=== PATIENT | female | born 1940 | race Caucasian/White ===

== ENCOUNTER 2021-01-15 12:33 | Inpatient (IN) | payer MEDICARE, SELFPAY ==
--- NOTE | ~2021-01-15 | CT_ITS ---
EXAMINATION: CT ANGIOGRAM ABDOMEN AND PELVIS CLINICAL INFORMATION: GI bleed, bright red blood with clots. COMPARISON: None TECHNIQUE: Multiple axial images were obtained through the abdomen and pelvis using gently protocol with noncontrast imaging and arterial and delayed imaging following the administration of 80 mL of Omnipaque 350 intravenous contrast. Images were reviewed on a dedicated 3-D workstation. This CT examination was performed using dose optimization techniques as appropriate, variously including the following: *Automated exposure control *Adjustment of mA and/or kV according to patient size (this includes techniques or standardized protocols for targeted exams where dose is matched to indication/reason for exam; i.e. extremities or head) *Use of iterative reconstruction technique DLP: 1557 mGy-cm FINDINGS: LUNG BASES: Aortic valve calcifications. Heart is mildly enlarged. LIVER, GALLBLADDER, AND BILIARY TREE: The liver is normal in size, shape, and attenuation. No focal hepatic lesion or biliary ductal dilatation is present. The gallbladder is unremarkable with no evidence of radiopaque gallstones, gallbladder wall thickening, or obvious pericholecystic inflammatory changes. PANCREAS: Unremarkable. SPLEEN: Unremarkable. ADRENAL GLANDS: Unremarkable. KIDNEYS AND URETERS: The kidneys are normal in size, shape, and attenuation. No hydronephrosis, hydroureter, or calculi seen. No perinephric stranding. Bilateral peripelvic cysts which do not require additional imaging follow-up. BLADDER: Unremarkable. GASTROINTESTINAL TRACT: Stomach and small bowel are relatively decompressed. Moderate stool burden throughout the colon. The sigmoid colon is abnormal with enhancing masslike lesion concerning for underlying malignancy versus a subacute/chronic inflammatory process. There are adjacent pericolonic lymph nodes which measure up to 8 mm in size. Fairly extensive sigmoid colon diverticulosis with some adjacent inflammatory stranding in the pelvis. ABDOMINAL WALL: No significant hernia is appreciated. VASCULAR: Moderate calcified and noncalcified plaque throughout the aorta and iliac system. LYMPH NODES: There are multiple prominent but subcentimeter lymph nodes adjacent to the sigmoid colon and a few scattered within the retroperitoneum. PELVIC VISCERA: Some calcified uterine fibroids. OSSEOUS STRUCTURES: Degenerative changes in the spine. CT/CT gi bleed abd pel wo/w con IMPRESSION: There is masslike thickening of the sigmoid colon. There are prominent but subcentimeter lymph nodes adjacent to the abnormal sigmoid colon. There is some pericolonic stranding. These findings may be related to subacute diverticulitis however an underlying malignancy is also a concern here. No evidence for active bleeding on the current exam. This critical result was discussed with Katiuska Francis at 7:50 PM on 01/15/2021 and it was ascertained that the content and urgency of the report was understood at the time of direct communication.
[2021-01-15 12:45] VITALS: BP 166/97; PULSE 99; RESP 18; TEMP 37.3; O2SAT 96; BMI 28.5
[2021-01-15 15:22] LABS: MANUAL DIFF FLAG NO
[2021-01-15 15:27] LABS: Basophils Absolute Auto 0.1 X10*3/uL (0.0-0.2); Basophils Percent Auto 0.5 % (0-2); Eosinophils Absolute Auto 0.2 X10*3/uL (0.0-0.4); Eosinophils Percent Auto 1.2 % (0-4); Hematocrit 36.5 % (37-47); Hemoglobin 11.7 g/dl (12.0-16.0); Imm Gran Abs Auto 0.06 X10*3/uL (0.00-0.03); Imm Gran Pct Auto 0.5 % (0.0-0.4); Lymphocytes Absolute Auto 1.9 X10*3/uL (1.2-4.9); Lymphocytes Percent Auto 15.7 % (20-40); Mean Corpuscular HGB Conc 32.1 g/dl (31.0-35.0); Mean Corpuscular Hemoglobin 29.3 pg (27.0-33.0); Mean Corpuscular Volume 91.5 fL (80-98); Mean Platelet Volume 9.2 fL (9.4-12.3); Monocytes Absolute Auto 0.8 X10*3/uL (0.1-1.2); Monocytes Percent Auto 6.6 % (2-11); Neutrophils Absolute Auto 9.1 X10*3/uL (2.0-8.3); Neutrophils Percent Auto 75.5 % (45-73); Platelet Count 463 X10*3/uL (160-400); Red Blood Count 3.99 X10*6/uL (4.20-5.50); Red Cell Distribution Width 13.4 % (11.0-16.0); White Blood Count 12.1 X10*3/uL (4.8-10.8)
[2021-01-15 15:44] LABS: Anion Gap 13 (12-20); Blood Urea Nitrogen 9 mg/dL (9-16); Calcium 9.6 mg/dL (8.4-10.2); Carbon Dioxide 29 mmol/L (22-29); Chloride 105 mmol/L (96-108); Creatinine Clr Calc Pharmacy 51.6; Estimated Glomerular Filt Rate > 60; Glucose Random 106 mg/dL (60-115); Potassium 4.4 mmol/L (3.3-5.1); Sodium 143 mmol/L (135-145)
--- NOTE | 2021-01-15 17:11 | ED_ITS ---
HPI - GI Bleed General Chief complaint: GI Bleed Stated complaint: rectal bleeding Time Seen by Provider: 01/15/21 17:02 Source: patient Mode of arrival: ambulatory Limitations: no limitations History of Present Illness HPI Narrative: 80-year-old female with no significant past medical history presents with several days of bright red blood per rectum with blood clots and abdominal pain. States that she has been able to eat and drink without difficulty, and has not had an experience like this in the past. She did not report any dizziness, lightheadedness, nausea, vomiting, diarrhea, constipation, dysuria, hematuria, chest pain, chest pressure, palpitations, shortness of breath, shortness breath on exertion, or edema. MD complaint: gross hematochezia Onset (ago): day(s) Pain Consistency: constant Severity: moderate Relieving factors: none Exacerbating factors: bowel movement Context: hemorrhoids Associated symptoms: abdominal pain Treatments Prior to Arrival: none Related Data Home Medications Medication Instructions Recorded Confirmed No Known Home Meds 01/15/21 01/15/21 Allergies Allergy/AdvReac Type Severity Reaction Status Date / Time No Known Allergies Allergy Verified 01/15/21 12:45 [No Known Allergies*] Review of Systems Review of Systems: Constitutional: No Weight loss, No Fever, No Chills, No Night Sweats, No Fatigue, No Malaise ENT/Mouth: No Hearing loss, No Ear Pain, No Nasal Congestion, No Sinus Pain, No Hoarseness, No sore throat, No Rhinorrhea, No Swallowing Difficulty Eyes: No Eye Pain, No Swelling, No Redness, No Foreign Body, No Discharge, No Vision Changes Cardiovascular: No Chest Pain, No SOB, No Dyspnea on Exertion, No Orthopnea, No Edema, No Palpitations Respiratory: No Cough, No Sputum, No Wheezing, No Smoke Exposure, No Dyspnea Gastrointestinal: No Nausea, no Vomiting, no Diarrhea, positive abdominal Pain, positive Hematochezia, No Melena Genitourinary: no irregular bleeding, No Dysuria, No Urinary Frequency, No Hematuria, No Urinary Incontinence, No Urgency, No Flank Pain, No Urinary Flow Changes, No Hesitancy Musculoskeletal: No joint pain, No Myalgias, No Joint Swelling Skin: No Skin Lesions, No rash Neuro: No Weakness, No Numbness, No Paresthesias, No Loss of Consciousness, No Dizziness, No Headache Psych: No Anxiety/Panic, No Depression, No SI/HI/AH/VH, No Social Issues Heme/Lymph: No Bruising, No Bleeding,No Lymphadenopathy Endocrine: No Polyuria, No Polydipsia, No Temperature Intolerance Yes all other systems are reviewed and are negative [facility] Past Medical History Attestation statement: The following information was validated with the patient. Source: old records reviewed Medical History Patient denies medical problems Social History Social History Advance Directives: No Advance Directives Information Provided: Yes Physical Exam Vital Signs: Vital Signs: Last Vital Signs Temp 97.9 F 01/15/21 22: Pulse 68 01/15/21 22:27 Resp 19 01/15/21 22: BP 200/67 H 01/15/21 22: Pulse Ox 98 01/15/21 22: Body Mass Index 28.5 Appearance: Alert. Oriented X3. No acute distress. Head: Normal external exam. Normocephalic. Atraumatic. No [place] signs noted. No raccoon eyes noted Eyes: PERRLA. EOMI. Conjunctiva and sclera normal. Eyelids normal. ENT: TM's Normal. Pharynx normal. Uvula midline. Moist mucous membranes. No t rismus noted. No drooling noted. No muffled voice noted. Neck: Normal inspection. Neck supple. No adenopathy. Thyroid Normal. No meningeal signs. No neck mass noted. CVS: Tachycardic heart rate and rhythm. Heart sound normal. No murmurs noted. Pulses equal to all extremities. Respiratory: No respiratory distress. Painless inspiration. Breath sounds normal. No wheezes/rales/rhonchi noted. Chest nontender. No accessory muscle usage noted or decreased air movement noted. Abdomen: Soft and tender to the lower quadrants bilaterally. Bowel sounds normal in all 4 quadrants. No distention noted. No organomegaly noted. No visible injury noted. Gross hematochezia. Back: No CVA tenderness. Full range of motion noted. Skin: Skin warm and dry. Normal skin color. Normal skin turgor. No ra shes/lesions/lacerations noted. Extremities: No lower extremity edema. Extremities exhibit normal range of motion. Extremities nontender. Neuro: cranial nerves 2-12 intact, no focal neural deficits, strength 5/5 to all extremities, No motor deficit. No sensory deficit. Course Course Course Narrative: 80-year-old female presents with abdominal pain and bright red blood per rectum with large blood clots since Friday. Patient did have a bowel movement with large bright red clots per rectum, will order CT scan per GI bleed protocol. Patient does have an elevated white count at 12.1, H&H 11.7/36.5 which is slightly lower than her prior values of 12.2/37.7. Platelet count is 436, while patient does have an elevated white count and heart rate of 99 I do not feel that this is sepsis as she is actively bleeding rectally. Blood pressure is stable at 160/97. 7:54 p.m. discussion with [facility] regarding CT scan results diverticulitis or sigmoid mass. Given ceftriaxone and Flagyl IV. Discussion with family regarding plan to admit for colitis versus possible mass. 8:07 p.m. discussion with hospitalist regarding plan of care. Plan is to admit for diverticulitis possible sigmoid mass. Consultations Consultation #1: Adriel Time: 20:07 [facility] - GI Bleed Differential Diagnosis Differential diagnosis: Likely hemorrhoids, Lower gastrointestinal hemorrhage, hematochezia, melena and anal fissure Medical Records Attestation: I reviewed the patient's medical records. Lab Data Attestation: I reviewed the patient's lab results. Result diagrams: 01/15/21 15:15 01/15/21 15:15 Labs: Lab Results 01/15/21 01/15/21 01/15/21 Range/Units 15:15 15:15 17:52 WBC 12.1 H (4.8-10.8) X10*3/uL RBC 3.99 L (4.20-5.50) X10*6/uL Hgb 11.7 L (12.0-16.0) g/dl Hct 36.5 L (37-47) % MCV 91.5 (80-98) fL MCH 29.3 (27.0-33.0) pg MCHC 32.1 (31.0-35.0) g/dl RDW 13.4 (11.0-16.0) % Plt Count 463 H (160-400) X10*3/uL MPV 9.2 L (9.4-12.3) fL Immature Gran % (Auto) 0.5 H (0.0-0.4) % Neut % (Auto) 75.5 H (45-73) % Lymph % (Auto) 15.7 L (20-40) % [place] % (Auto) 6.6 (2-11) % Eos % (Auto) 1.2 (0-4) % Baso % (Auto) 0.5 (0-2) % Lymph # (Auto) 1.9 (1.2-4.9) X10*3/uL [place] # (Auto) 0.8 (0.1-1.2) X10*3/uL Eos # (Auto) 0.2 (0.0-0.4) X10*3/uL Baso # (Auto) 0.1 (0.0-0.2) X10*3/uL Abs Immat Gran (auto) 0.06 H (0.00-0.03) X10*3/uL Absolute Neuts (auto) 9.1 H (2.0-8.3) X10*3/uL Absolute Nucleated RBC 0.000 (0.0-0.012) X10*3/uL Nucleated RBC % (auto) 0.0 (0.0-0.2) /100WBC Sodium 143 (135-145) mmol/L Potassium 4.4 (3.3-5.1) mmol/L Chloride 105 (96-108) mmol/L Carbon Dioxide 29 (22-29) mmol/L Anion Gap 13 (12-20) BUN 9 (9-16) mg/dL Creatinine 0.73 (0.5-1.4) mg/dL Estim Creat Clear Calc 51.6 Estimated GFR > 60 Random Glucose 106 (60-115) mg/dL Lactic Acid (0.5-2.0) mmol/L Calcium 9.6 (8.4-10.2) mg/dL Troponin I High Sens 16.3 (<3.5-17.0) ng/L Urine Color Urine Appearance Urine pH (5.0-8.0) Ur Specific [place] (1.005-1.025) Urine Protein (NEG-TRACE) MG/DL Urine Glucose (UA) (NEG) MG/DL Urine Ketones (NEG) MG/DL Urine Blood (NEG) Urine Nitrite (NEG) Ur Leukocyte Esterase (NEG) Urine RBC (0) /HPF Urine WBC (0-4) /HPF Ur Squamous Epith Cells /LPF Urine Bacteria /LPF COVID-19 ([facility]) (Negative) COVID-19 Clin Com 01/15/21 01/15/21 01/15/21 Range/Units 20:32 21:07 22:32 WBC (4.8-10.8) X10*3/uL RBC (4.20-5.50) X10*6/uL Hgb (12.0-16.0) g/dl Hct (37-47) % MCV (80-98) fL MCH (27.0-33.0) pg MCHC (31.0-35.0) g/dl RDW (11.0-16.0) % Plt Count (160-400) X10*3/uL MPV (9.4-12.3) fL Immature Gran % (Auto) (0.0-0.4) % Neut % (Auto) (45-73) % Lymph % (Auto) (20-40) % [place] % (Auto) (2-11) % Eos % (Auto) (0-4) % Baso % (Auto) (0-2) % Lymph # (Auto) (1.2-4.9) X10*3/uL [place] # (Auto) (0.1-1.2) X10*3/uL Eos # (Auto) (0.0-0.4) X10*3/uL Baso # (Auto) (0.0-0.2) X10*3/uL Abs Immat Gran (auto) (0.00-0.03) X10*3/uL Absolute Neuts (auto) (2.0-8.3) X10*3/uL Absolute Nucleated RBC (0.0-0.012) X10*3/uL Nucleated RBC % (auto) (0.0-0.2) /100WBC Sodium (135-145) mmol/L Potassium (3.3-5.1) mmol/L Chloride (96-108) mmol/L Carbon Dioxide (22-29) mmol/L Anion Gap (12-20) BUN (9-16) mg/dL Creatinine (0.5-1.4) mg/dL Estim Creat Clear Calc Estimated GFR Random Glucose (60-115) mg/dL Lactic Acid 0.9 (0.5-2.0) mmol/L Calcium (8.4-10.2) mg/dL Troponin I High Sens (<3.5-17.0) ng/L Urine Color COLORLESS Urine Appearance CLEAR Urine pH 7.5 (5.0-8.0) Ur Specific [place] 1.010 (1.005-1.025) Urine Protein NEG (NEG-TRACE) MG/DL Urine Glucose (UA) NEG (NEG) MG/DL Urine Ketones NEG (NEG) MG/DL Urine Blood NEG (NEG) Urine Nitrite NEG (NEG) Ur Leukocyte Esterase NEG (NEG) Urine RBC 0-2 (0) /HPF Urine WBC 0-2 (0-4) /HPF Ur Squamous Epith Cells TRACE /LPF Urine Bacteria NONE /LPF COVID-19 ([facility]) Negative (Negative) COVID-19 Clin Com See Note Imaging Data CT scan - abdomen: Attestation: I personally reviewed and interpreted this imaging study as follows: Radiologist's impression: FINDINGS: LUNG BASES: Aortic valve calcifications. Heart is mildly enlarged. LIVER, GALLBLADDER, AND BILIARY TREE: The liver is normal in size, shape, and attenuation. No focal hepatic lesion or biliary ductal dilatation is present. The gallbladder is unremarkable with no evidence of radiopaque gallstones, gallbladder wall thickening, or obvious pericholecystic inflammatory changes. PANCREAS: Unremarkable. SPLEEN: Unremarkable. ADRENAL GLANDS: Unremarkable. KIDNEYS AND URETERS: The kidneys are normal in size, shape, and attenuation. No hydronephrosis, hydroureter, or calculi seen. No perinephric stranding. Bilateral peripelvic cysts which do not require additional imaging follow-up. BLADDER: Unremarkable. GASTROINTESTINAL TRACT: Stomach and small bowel are relatively decompressed. Moderate stool burden throughout the colon. The sigmoid colon is abnormal with enhancing masslike lesion concerning for underlying malignancy versus a subacute/chronic inflammatory process. There are adjacent pericolonic lymph nodes which measure up to 8 mm in size. Fairly extensive sigmoid colon diverticulosis with some adjacent inflammatory stranding in the pelvis. ABDOMINAL WALL: No significant hernia is appreciated. VASCULAR: Moderate calcified and noncalcified plaque throughout the aorta and iliac system. LYMPH NODES: There are multiple prominent but subcentimeter lymph nodes adjacent to the sigmoid colon and a few scattered within the retroperitoneum. PELVIC VISCERA: Some calcified uterine fibroids. OSSEOUS STRUCTURES: Degenerative changes in the spine. CT/CT gi bleed abd pel wo/w con IMPRESSION: There is masslike thickening of the sigmoid colon. There are prominent but subcentimeter lymph nodes adjacent to the abnormal sigmoid colon. There is some pericolonic stranding. These findings may be related to subacute diverticulitis however an underlying malignancy is also a concern here. No evidence for active bleeding on the current exam. This critical result was discussed with Katiuska Francis at 7:50 PM on 01/15/2021 and it was ascertained that the content and urgency of the report was understood at the time of direct communication ECG Data Attestation: I personally reviewed and interpreted this ECG as follows: ECG interpretation date: 01/15/21 ECG interpretation time: 17:35 Interpretation: Vent. rate 71 BPM AL interval 192 ms QRS duration 86 ms QT/QTc 402/436 ms P-R-T axes 60 6 50 Normal sinus rhythm Normal ECG When compared with ECG of 21-JUL-2018 22:24, Nonspecific T wave abnormality no longer evident in Lateral leads Critical Care Time Critical Care Time Critical Care Time: Yes Total Critical Care Time: 45 Attestation: I have personally provided critical care time exclusive of time spent on separately billable procedures. Time includes review of laboratory data, radiology results, discussion with consultants, and monitoring for potential decompensation. Interventions were performed as documented. Discharge Plan Discharge Clinical Impression: Colitis, Bright red rectal bleeding Patient Disposition: Admitted As Inpatient
--- NOTE | 2021-01-15 17:13 | ECG_ITS ---
Test Reason : ?GI Blood Pressure : / mmHG Vent. Rate : 071 BPM Atrial Rate : 071 BPM P-R Int : 192 ms QRS Dur : 086 ms QT Int : 402 ms P-R-T Axes : 060 006 050 degrees QTc Int : 436 ms Normal sinus rhythm Normal ECG When compared with ECG of 21-JUL-2018 22:24, Nonspecific T wave abnormality no longer evident in Lateral leads Referred By: Katiuska Cardozo Electronically Signed By:CINDY SHUKLA MD
[2021-01-15 18:44] LABS: Troponin-I High Sensitivity 16.3 ng/L (<3.5-17.0)
[2021-01-15] MEDS: iohexoL 350 MG/ML 100 ML INFUS..BTL IV (18:45)
--- NOTE | 2021-01-15 19:42 | PC.NURSE ---
PT IN ROOM AFTER CT. PT REMAINS ALERT RESPIRATIONS EASY, N/L .
[2021-01-15 19:54] VITALS: BP 202/73; PULSE 70; RESP 16; O2SAT 97
--- NOTE | 2021-01-15 20:21 | PC.NURSE ---
blood cultures and lactic acid drawn to lab. pt medicated as per emar.
[2021-01-15 20:32] VITALS: BP 196/73; PULSE 67; RESP 15; TEMP 36.7; O2SAT 97
[2021-01-15] MEDS: cefTRIAXone sodium 1 GM in 0.9 % Sodium Chloride 50 ML IV (21:10)
[2021-01-15] MEDS: 0.9 % Sodium Chloride 1,000 ML 999 ML IVCONT (21:11)
[2021-01-15 21:15] LABS: Lactic Acid 0.9 mmol/L (0.5-2.0)
[2021-01-15 21:15] LABS: Glucose Urine UA NEG (NEG); Leukocyte Esterase Urine NEG (NEG); Nitrite Urine NEG (NEG); PH 7.5 (5.0-8.0); Urine Blood NEG (NEG); Urine Ketones NEG (NEG); Urine Protein NEG (NEG-TRACE)
[2021-01-15 21:18] LABS: Appearance Urine CLEAR; Color Urine COLORLESS
[2021-01-15 21:22] LABS: RBC Urine 0-2 /HPF (0); Squamous Epithelial Cell Urine TRACE /LPF; WBC Urine 0-2 /HPF (0-4)
[2021-01-15] MEDS: metroNIDAZOLE/NS 500 MG/100 ML PIGGYBACK 100 MG IV (21:22)
[2021-01-15 22:27] VITALS: BP 200/67; PULSE 68; RESP 19; TEMP 36.6; O2SAT 98
[2021-01-15 22:51] LABS: COVID-19 Test Negative (Negative)
--- NOTE | 2021-01-15 23:23 | P.HPHOSP_ITS ---
History of Present Illness Date of Service: 01/15/21 Chief Complaint: GI bleed This is a 80-year-old female with no significant past medical history who presents to the hospital with complaints of GI bleed. Patient reports that she has been having intermittent bleeding couple of times a week for the past 1 month, mostly with bowel movements. She did not seek medical attention prior to this because she thought it would go way spontaneously. She felt that her GI bleed was worsening and therefore came to the hospital. She denies any abdominal pain, no nausea or vomiting, good appetite, no weight loss. Patient reports history of hemorrhoids and reports that she was evaluated for them about a year ago although I do not find any record of it in our system. She denies having any chest pain, no dizziness, no headache, change in vision, no shortness of breath, no urinary symptoms and no lower extremity edema. Patient had 1 bloody bowel movement while in the ED. she denies any use of NSAIDs. On arrival to the ED patient hemodynamically Stable with no significant abnormal vitals Labs are significant for WBC count of 12.1, hemoglobin of 11.7, labs otherwise unremarkable. CT of the abdomen showed masslike thickening of the sigmoid colon, prominent but subcentimeter lymph nodes adjacent to the abnormal sigmoid colon. There is some pericolonic stranding, may be related to subacute diverticulitis versus underlying malignancy. No evidence of acute bleed Patient will be admitted for further evaluation Review of Systems Review of Systems: Yes all other systems are reviewed and are negative [facility] Medical History Patient denies medical problems Social History Household Members: Spouse Housing: House Do you presently have visiting nurse or other home services: No Smoking Status: Never smoker Use of substances other than those prescribed or required for medical reasons: No Have you been hit, kicked, punched, or otherwise hurt by someone within the past year? If so, by whom?: No Do you feel safe in your current relationship?: Yes Is there a partner from a previous relationship who is making you feel unsafe now?: No Are you made to feel afraid or neglected: No Advance Directives: No Advance Directives Information Provided: Yes Do you have thoughts of harming others: None Do you have a plan to hurt others: No Plan Recently lost weight without trying: No How much weight loss: Not applicable Nutrition Risks: No Nutritional Risk Patient : No : No Poor oral hygiene: No Meds Allergies Allergy/AdvReac Type Severity Reaction Status Date / Time No Known Allergies Allergy Verified 01/15/21 12:45 [No Known Allergies*] Active Medications: Current Medications Generic Name Dose Route Start Last Admin Trade Name Freq PRN Reason Stop Dose Admin Pharmacy Consult 1 each 01/15/21 20:56 Consult Rx Perform Med Rec MISCELLANE ONCE PRN Consult order Home Medications Medication Instructions Recorded Confirmed Last Taken Type No Known Home Meds 01/15/21 01/15/21 Unknown History Physical Exam Vital Signs and Narrative: Vital Signs: Last Vital Signs Temp 97.9 F 01/15/21 22:27 Pulse 68 01/15/21 22:27 Resp 19 01/15/21 22:27 BP 200/67 H 01/15/21 22:27 Pulse Ox 98 01/15/21 22:27 Body Mass Index 28.5 Const: General: cooperative and no acute distress Orientation/ consciousness: patient oriented x3 Eyes: General: appearance normal, both eyes and all related structures Resp: Effort & Inspection: normal respiratory effort and able to speak in complete sentences Auscultation: clear to auscultation bilaterally Cardio: Rate: regular rate Rhythm: regular rhythm GI: Palpation (GI): Soft to palpation Auscultation: normal bowel sounds Skin: General skin exam: no rashes or lesions noted Neuro: General: patient oriented x3 Cognition (Neuro): normal cognition Extrem: General: Yes normal to inspection and Yes no pedal edema Results Labs CBC and Chem 7: 01/15/21 15:15 01/15/21 15:15 Labs: Laboratory Results - last 24 hr 01/15/21 01/15/21 01/15/21 15:15 15:15 17:52 MCV 91.5 MCH 29.3 MCHC 32.1 RDW 13.4 Plt Count 463 H MPV 9.2 L Immature Gran % (Auto) 0.5 H Neut % (Auto) 75.5 H Lymph % (Auto) 15.7 L [place] % (Auto) 6.6 Eos % (Auto) 1.2 Baso % (Auto) 0.5 Lymph # (Auto) 1.9 [place] # (Auto) 0.8 Eos # (Auto) 0.2 Baso # (Auto) 0.1 Abs Immat Gran (auto) 0.06 H Absolute Neuts (auto) 9.1 H Absolute Nucleated RBC 0.000 Nucleated RBC % (auto) 0.0 Anion Gap 13 Estim Creat Clear Calc 51.6 Estimated GFR > 60 Random Glucose 106 Lactic Acid Calcium 9.6 Troponin I High Sens 16.3 Urine Color Urine Appearance Urine pH Ur Specific [place] Urine Protein Urine Glucose (UA) Urine Ketones Urine Blood Urine Nitrite Ur Leukocyte Esterase Urine RBC Urine WBC Ur Squamous Epith Cells Urine Bacteria COVID-19 ([facility]) COVID-19 Clin Com 01/15/21 01/15/21 01/15/21 20:32 21:07 22:32 MCV MCH MCHC RDW Plt Count MPV Immature Gran % (Auto) Neut % (Auto) Lymph % (Auto) [place] % (Auto) Eos % (Auto) Baso % (Auto) Lymph # (Auto) [place] # (Auto) Eos # (Auto) Baso # (Auto) Abs Immat Gran (auto) Absolute Neuts (auto) Absolute Nucleated RBC Nucleated RBC % (auto) Anion Gap Estim Creat Clear Calc Estimated GFR Random Glucose Lactic Acid 0.9 Calcium Troponin I High Sens Urine Color COLORLESS Urine Appearance CLEAR Urine pH 7.5 Ur Specific [place] 1.010 Urine Protein NEG Urine Glucose (UA) NEG Urine Ketones NEG Urine Blood NEG Urine Nitrite NEG Ur Leukocyte Esterase NEG Urine RBC 0-2 Urine WBC 0-2 Ur Squamous Epith Cells TRACE Urine Bacteria NONE COVID-19 ([facility]) Negative COVID-19 Clin Com See Note Imaging Radiologist's Impressions: Impressions Abdomen/Pelvis CT 01/15/21 17:13 IMPRESSION: There is masslike thickening of the sigmoid colon. There are prominent but subcentimeter lymph nodes adjacent to the abnormal sigmoid colon. There is some pericolonic stranding. These findings may be related to subacute diverticulitis however an underlying malignancy is also a concern here. No evidence for active bleeding on the current exam. This critical result was discussed with Katiuska Francis at 7:50 PM on 01/15/2021 and it was ascertained that the content and urgency of the report was understood at the time of direct communication. Assessment and Plan (1) Bright red rectal bleeding: Status: Acute (2) Diverticulitis: Status: Acute This is a 80-year-old female with no past medical history presents to the hospital with complaints of GI bleed. # GI bleed - hemorrhoids versus diverticular - had 1 episode of bright red blood per rectum in the ED - hemodynamically stable - evidence of diverticulitis versus malignant mass in the sigmoid per CT - no history of NSAID use - hemoglobin stable - normal BUN Plan: - will keep NPO - hemoglobin threshold for transfusion less than 7 - consult GI for possible colonoscopy given the concern for malignancy # diverticulitis - has leukocytosis, and evidence of possible diverticulitis on CT - will start on IV antibiotic - follow culture DVT prophylaxis: SCDs
[2021-01-16] VITALS (8 sets, daily range): BP systolic 174–198; BP diastolic 70–85; PULSE 65–81; RESP 18; TEMP 36.2–36.8; O2SAT 96–98
[2021-01-16] MEDS: 0.9 % Sodium Chloride Flush 3 ML SYRINGE IVFLUSH ×3 (02:49→15:33)
[2021-01-16 06:25] LABS: MANUAL DIFF FLAG NO
[2021-01-16 06:37] LABS: Basophils Absolute Auto 0.1 X10*3/uL (0.0-0.2); Basophils Percent Auto 0.6 % (0-2); Eosinophils Absolute Auto 0.2 X10*3/uL (0.0-0.4); Hematocrit 35.6 % (37-47); Hemoglobin 11.4 g/dl (12.0-16.0); Imm Gran Abs Auto 0.06 X10*3/uL (0.00-0.03); Imm Gran Pct Auto 0.6 % (0.0-0.4); Lymphocytes Absolute Auto 1.4 X10*3/uL (1.2-4.9); Lymphocytes Percent Auto 13.4 % (20-40); Mean Corpuscular Hemoglobin 29.2 pg (27.0-33.0); Mean Corpuscular Volume 91.3 fL (80-98); Mean Platelet Volume 9.6 fL (9.4-12.3); Monocytes Absolute Auto 0.7 X10*3/uL (0.1-1.2); Monocytes Percent Auto 7.3 % (2-11); Neutrophils Absolute Auto 7.7 X10*3/uL (2.0-8.3); Neutrophils Percent Auto 76.1 % (45-73); Platelet Count 438 X10*3/uL (160-400); Red Cell Distribution Width 13.4 % (11.0-16.0); White Blood Count 10.2 X10*3/uL (4.8-10.8)
[2021-01-16 07:07] LABS: Anion Gap 12 (12-20); Blood Urea Nitrogen 7 mg/dL (9-16); Carbon Dioxide 28 mmol/L (22-29); Chloride 107 mmol/L (96-108); Creatinine Clr Calc Pharmacy 60.8; Estimated Glomerular Filt Rate > 60; Glucose Random 94 mg/dL (60-115); Potassium 4.1 mmol/L (3.3-5.1); Sodium 143 mmol/L (135-145)
[2021-01-16 07:20] LABS: Calcium 8.7 mg/dL (8.4-10.2)
[2021-01-16] MEDS: levoFLOXacin/D5W 500 MG/100 ML PIGGYBACK 100 MG IV (10:13)
[2021-01-16] MEDS: metroNIDAZOLE/NS 500 MG/100 ML PIGGYBACK 100 MG IV ×2 (10:13→20:39)
[2021-01-16 10:31] LABS: Hemoglobin 12.2 g/dl (12.0-16.0)
--- NOTE | 2021-01-16 12:21 | PM.GICN ---
History of Present Illness Data of Consult Service Date: 01/16/21 Requesting physician: Adam Morel Primary Care Provider: None Physician HPI Reason for consult: rectal bleeding 80-year-old female with no significant past medical history who I am seeing for assessment for rectal bleeding. She has been having intermittent bleeding couple of times a week for the past 1-2 month, mostly with bowel movements. She also noted that around the same time the stool changed consistency and was more mushy than her normal. Appetite has been good, no weight loss per her report. She felt the bleeding was getting worse with time so finally came to the ED for assessment She denies having any chest pain, no dizziness, no headache, change in vision, no shortness of breath, no urinary symptoms and no lower extremity edema She denies any abdominal pain, no nausea or vomiting, good appetite, no weight loss she denies any use of NSAIDs. She has never had an EGD or colonoscopy, and no FH of CRC. TESTS: WBC count of 12.1, hemoglobin of 11.7, labs otherwise unremarkable. CT of the abdomen showed masslike thickening of the sigmoid colon, prominent but subcentimeter lymph nodes adjacent to the abnormal sigmoid colon. There is some pericolonic stranding, may be related to subacute diverticulitis versus underlying malignancy. No evidence of acute bleed Review of Systems Review of Systems: Constitutional : No Weight loss, No Fever, No Chills ENT/Mouth : No sore throat, No Rhinorrhea Eyes: No Swelling, No Redness Cardiovascular : No Chest Pain, No SOB, No Edema Respiratory : No Cough, No Sputum, No Wheezing Gastrointestinal : see HPI Genitourinary : NO Dysuria, No Urinary Frequency, No Hematuria, No Urgency Musculoskeletal : No joint pain, No Myalgias, No Joint Swelling Skin : No Skin Lesions, No rash Neuro : No Weakness, No Numbness, No Dizziness, No Headache Psych : No Anxiety/Panic, No Depression Heme/Lymph: No Bruising, No Lymphadenopathy Endocrine : No Polyuria, No Polydipsia All other systems reviewed and are negative. [facility] Past Medical History Medical History Patient denies medical problems Social History Social History Household Members: Spouse Housing: House Do you presently have visiting nurse or other home services: No Smoking Status: Never smoker Use of substances other than those prescribed or required for medical reasons: No Have you been hit, kicked, punched, or otherwise hurt by someone within the past year? If so, by whom?: No Do you feel safe in your current relationship?: Yes Is there a partner from a previous relationship who is making you feel unsafe now?: No Are you made to feel afraid or neglected: No Advance Directives: No Advance Directives Information Provided: Yes Do you have thoughts of harming others: None Do you have a plan to hurt others: No Plan Recently lost weight without trying: No How much weight loss: Not applicable Nutrition Risks: No Nutritional Risk Patient : No : No Poor oral hygiene: No Meds Allergies Allergy/AdvReac Type Severity Reaction Status Date / Time No Known Allergies Allergy Verified 01/15/21 12:45 [No Known Allergies*] Active Medications: Current Medications Generic Name Dose Route Start Last Admin Trade Name Freq PRN Reason Stop Dose Admin Acetaminophen 650 mg 01/16/21 02:06 Acetaminophen 325 Mg Tablet PO Q6H PRN Pain, Mild (Pain Scale 1-3) Docusate Sodium 100 mg 01/16/21 02:06 Docusate Sodium 100 Mg Capsule PO DAILY PRN Constipation Levofloxacin 500 mg in 100 mls @ 100 mls/hr 01/16/21 09:15 01/16/21 11:13 Levaquin IV Infused Q24H MARQUITA Infusion Metronidazole 500 mg in 100 mls @ 100 mls/hr 01/16/21 09:15 01/16/21 11:13 Flagyl IV Infused Q12H MARQUITA Infusion Ondansetron HCl 4 mg 01/16/21 02:06 Ondansetron Hcl 4 Mg/2 Ml Vial IVPUSH Q8H PRN Nausea and Vomiting Pharmacy Consult 1 each 01/15/21 20:56 Consult Rx Perform Med Rec MISCELLANE ONCE PRN Consult order Sodium Chloride 3 ml 01/16/21 02:06 01/16/21 10:13 0.9 % Sodium Chloride Flush 3 Ml Syringe IVFLUSH 3 ml QSHIFT MARQUITA Administration Home Medications Medication Instructions Recorded Confirmed Last Taken Type No Known Home Meds 01/15/21 01/15/21 Unknown History Physical Exam Vital Signs: Vital Signs: Last Vital Signs Temp 97.2 F 01/16/21 11:18 Pulse 80 01/16/21 11:18 Resp 18 01/16/21 11:18 BP 178/84 H 01/16/21 11:18 Pulse Ox 98 01/16/21 11:18 Body Mass Index 28.5 EXAM: GENERAL: The patient is well developed and nontoxic. VITAL SIGNS:see workflow HEENT: Nonicteric sclerae, PERRLA, EOMI. Oropharynx clear. Moist mucous membranes. Conjunctivae appear well perfused. No thyroid mass. CHEST: Chest wall is nontender. HEART: Regular rate and rhythm without murmurs. LUNGS: Clear to auscultation bilaterally. ABDOMEN: Soft, positive bowel sounds, nontender, no organomegaly.no flank tenderness SKIN: No rash, no excessive bruising, petechiae, or purpura. NEUROLOGIC: Cranial nerves II-XII intact without motor/sensory deficit. Psych- normal affect MS- normal Results Labs CBC & Chem 7: 01/16/21 10:16 01/16/21 05:32 Labs: Short CBC 01/15/21 01/16/21 01/16/21 Range/Units 15:15 05:32 10:16 WBC 12.1 H 10.2 (4.8-10.8) X10*3/uL Hgb 11.7 L 11.4 L 12.2 (12.0-16.0) g/dl Hct 36.5 L 35.6 L 38.0 (37-47) % Plt Count 463 H 438 H (160-400) X10*3/uL BMP 01/15/21 01/16/21 15:15 05:32 Sodium 143 143 Potassium 4.4 4.1 Chloride 105 107 Carbon Dioxide 29 28 BUN 9 7 L Creatinine 0.73 0.62 Calcium 9.6 8.7 D Urine 01/15/21 Range/Units 21:07 Urine Color COLORLESS Urine Appearance CLEAR Urine pH 7.5 (5.0-8.0) Ur Specific [place] 1.010 (1.005-1.025) Urine Protein NEG (NEG-TRACE) MG/DL Urine Glucose (UA) NEG (NEG) MG/DL Imaging CT scan - pelvis: Attestation: I personally reviewed and interpreted this imaging study as follows: My impression: colonic thickening and mass in sigmoid Assessment and Plan (1) Bright red rectal bleeding: Status: Acute 1/ Rectal bleeding with CT imaging suspicious for colonic mass. She may have colon cancer or it maybe an inflammatory mass which can be seen in IBD or a diverticular disease, vs abscess but she is not really that toxic appearing. PLAN: 1/ I would like her to get a few days Of Abx, can have soft diet as tolerated day, can also give her dulcolax and miralax today. 2/ tomorrow would give her clears and give her colon prep in the late evening and plan for colonoscopy on . Procedures Date of Service Date of Service: 01/16/21
--- NOTE | 2021-01-16 12:30 | MHC.CM.PN ---
[place] given [place] [facility] [place]
--- NOTE | 2021-01-16 15:34 | HO.PM.IMPN ---
Subjective Subjective Date of Service: 01/16/21 Interval History: Diverticulitis/colon thickening? Review of Systems Patient denies any chest pain or shortness of breath or fever or chills has some left lower abd pain on palpation She is having on and off blood in the stool from last 1-2 months No significant bleeding, but had bowel movement with some bloodclot as per patient. Physical Exam Vital Signs: Vital Signs: Last Vital Signs Temp 97.5 F 01/16/21 15:14 Pulse 79 01/16/21 15:14 Resp 18 01/16/21 15:14 BP 198/85 H 01/16/21 15:14 Pulse Ox 97 01/16/21 15:14 Body Mass Index 28.5 Physio: Constitutional: Not in acute distress Cvs: rrr, [id number] , no murmur res: clear to auscultation ,no rhonchii or wheezing abd: no rebound or guarding ,left lower abd pain, bs present. ext pulses present , no cyanosis neuro: axo3 , nonfocal. Objective Data Current Medications Generic Name Dose Route Start Last Admin Trade Name Freq PRN Reason Stop Dose Admin Acetaminophen 650 mg 01/16/21 02:06 Acetaminophen 325 Mg Tablet PO Q6H PRN Pain, Mild (Pain Scale 1-3) Docusate Sodium 100 mg 01/16/21 02:06 Docusate Sodium 100 Mg Capsule PO DAILY PRN Constipation Levofloxacin 500 mg in 100 mls @ 100 mls/hr 01/16/21 09:15 01/16/21 11:13 Levaquin IV Infused Q24H MARQUITA Infusion Metronidazole 500 mg in 100 mls @ 100 mls/hr 01/16/21 09:15 01/16/21 11:13 Flagyl IV Infused Q12H MARQUITA Infusion Ondansetron HCl 4 mg 01/16/21 02:06 Ondansetron Hcl 4 Mg/2 Ml Vial IVPUSH Q8H PRN Nausea and Vomiting Pharmacy Consult 1 each 01/15/21 20:56 Consult Rx Perform Med Rec MISCELLANE ONCE PRN Consult order Sodium Chloride 3 ml 01/16/21 02:06 01/16/21 15:33 0.9 % Sodium Chloride Flush 3 Ml Syringe IVFLUSH 3 ml QSHIFT MARQUITA Administration Labs CBC & Chem 7: 01/16/21 10:16 01/16/21 05:32 Assessment and Plan (1) Diverticulitis: Status: Acute (2) Colitis: Status: Acute (3) Bright red rectal bleeding: Status: Acute Assessment and Plan: 80-year-old female with no past medical history presents to the hospital with complaints of GI bleed. 1. GI bleed- hemorrhoids versus diverticular had 1 episode of bright red blood per rectum in the ED?, patient says he had a bowel movement with clot.,hemodynamically stable evidence of diverticulitis versus masslike thickening in the sigmoid per CT Plan: moniter h/h repeated h/h 12. 2. diverticulitis- has leukocytosis, and evidence of possible diverticulitis on CT - will start on IV antibiotic - follow culture
[2021-01-16] MEDS: amLODIPine Besylate 2.5 MG TABLET PO (16:16)
--- NOTE | 2021-01-16 18:29 | PC.NURSE ---
P: BP 198/85 at 1515, pt asymptomatic. not on any bp meds. I: Covering md made aware. ordered 2.5mg norvasc po x1 and given. E: BP 195/72 at 1815. made aware, no new orders. will recheck bp in another hour.
[2021-01-17] MEDS: 0.9 % Sodium Chloride Flush 3 ML SYRINGE IVFLUSH ×3 (00:01→16:21)
[2021-01-17 03:40] VITALS: BP 185/79; PULSE 74; RESP 18; TEMP 36.6; O2SAT 96
[2021-01-17 05:08] LABS: Hematocrit 35.2 % (37-47); Hemoglobin 11.4 g/dl (12.0-16.0)
[2021-01-17 07:36] VITALS: BP 188/93; PULSE 78; RESP 16; TEMP 36.6; O2SAT 96
[2021-01-17] MEDS: levoFLOXacin/D5W 500 MG/100 ML PIGGYBACK 100 MG IV (08:54)
[2021-01-17] MEDS: metroNIDAZOLE/NS 500 MG/100 ML PIGGYBACK 100 MG IV ×2 (10:48→20:14)
[2021-01-17] MEDS: polyethylene glycoL 3350 17 GM POWD.PACK PO (11:15)
--- NOTE | 2021-01-17 11:45 | MHC.CM.PN ---
per multi dis rounds aqnticapayed dc is for friday pt needs to be scoped prio to dc
[2021-01-17 12:53] VITALS: BP 177/79; PULSE 68; RESP 16; TEMP 36.4; O2SAT 97
[2021-01-17 15:07] VITALS: BP 187/79; PULSE 74; RESP 18; TEMP 36.8; O2SAT 95
[2021-01-17 16:20] VITALS: BP 187/79; PULSE 74
[2021-01-17] MEDS: amLODIPine Besylate 5 MG TABLET PO (16:20)
--- NOTE | 2021-01-17 17:03 | HO.PM.IMPN ---
Subjective Subjective Date of Service: 01/17/21 Interval History: ? elevated blood pressure , diverticulitis Review of Systems Patient denies any abdominal pain fever chills or nausea or vomiting No new GI bleeding episode or night Physical Exam Vital Signs: Vital Signs: Last Vital Signs Temp 98.3 F 01/17/21 15:07 Pulse 74 01/17/21 16:20 Resp 18 01/17/21 15:07 BP 187/79 H 01/17/21 16:20 Pulse Ox 95 01/17/21 15:07 Body Mass Index 28.5 Physical exam: Constitutional: not in acute distress Heent: eyes : anicteric , no discharge. Cvs: rrr, [id number] , no murmur res: clear to auscultation ,no rhonchii or wheezing abd: no rebound or guarding ,nt, bs present. ext pulses present , no cyanosis neuro: axo3 , nonfocal. Objective Data Current Medications Generic Name Dose Route Start Last Admin Trade Name Freq PRN Reason Stop Dose Admin Acetaminophen 650 mg 01/16/21 02:06 Acetaminophen 325 Mg Tablet PO Q6H PRN Pain, Mild (Pain Scale 1-3) Amlodipine Besylate 5 mg 01/17/21 16:00 01/17/21 16:20 Amlodipine Besylate 5 Mg Tablet PO 5 mg DAILY MARQUITA Administration Protocol Bisacodyl 5 mg 01/17/21 21:00 Bisacodyl 5 Mg Tablet. PO BEDTIME MARQUITA Docusate Sodium 100 mg 01/16/21 02:06 Docusate Sodium 100 Mg Capsule PO DAILY PRN Constipation Levofloxacin 500 mg in 100 mls @ 100 mls/hr 01/16/21 09:15 01/17/21 10:47 Levaquin IV Infused Q24H MARQUITA Infusion Metronidazole 500 mg in 100 mls @ 100 mls/hr 01/16/21 09:15 01/17/21 12:03 Flagyl IV Infused Q12H MARQUITA Infusion Ondansetron HCl 4 mg 01/16/21 02:06 Ondansetron Hcl 4 Mg/2 Ml Vial IVPUSH Q8H PRN Nausea and Vomiting Pharmacy Consult 1 each 01/15/21 20:56 Consult Rx Perform Med Rec MISCELLANE ONCE PRN Consult order Polyethylene Glycol 17 gm 01/17/21 09:15 01/17/21 11:15 Polyethylene Glycol 3350 17 Gm Powd.Pack PO 17 gm DAILY MARQUITA Administration Sodium Chloride 3 ml 01/16/21 02:06 01/17/21 16:21 0.9 % Sodium Chloride Flush 3 Ml Syringe IVFLUSH 3 ml QSHIFT MARQUITA Administration Labs CBC & Chem 7: 01/17/21 04:04 01/16/21 05:32 Microbiology Microbiology Results: Microbiology 01/15/21 21:05 Blood - Venous Blood Culture - Preliminary No growth after 24 hours. 01/15/21 20:32 Blood - Venous Blood Culture - Preliminary No growth after 24 hours. Assessment and Plan (1) Diverticulitis: Status: Acute (2) Colitis: Status: Acute (3) Bright red rectal bleeding: Status: Acute Assessment and Plan: 80-year-old female with no past medical history presents to the hospital with complaints of GI bleed. 1. GI bleed- hemorrhoids versus diverticular had 1 episode of bright red blood per rectum in the ED?, patient says he had a bowel movement with clot.,hemodynamically stable evidence of diverticulitis versus masslike thickening in the sigmoid per CT Plan: moniter h/h repeated h/h 11.4 bowel prep 2. diverticulitis- has leukocytosis, and evidence of possible diverticulitis on CT - will start on IV antibiotic - follow culture 3. Elevated blood pressure: will adjust amlodipine to 5 mg po daily
[2021-01-17] MEDS: PEG 3350/Na Sulf,Bicarb,Cl/KCL 4,000 ML SOLN.RECON 4000 ML PO (19:40)
[2021-01-17] MEDS: bisacodyL 5 MG TABLET.DR PO (20:14)
[2021-01-18] VITALS (10 sets, daily range): BP systolic 128–197; BP diastolic 64–87; PULSE 71–90; RESP 16–20; TEMP 36.1–37.2; O2SAT 95–100
[2021-01-18] MEDS: 0.9 % Sodium Chloride Flush 3 ML SYRINGE IVFLUSH ×4 (00:13→20:17)
[2021-01-18 05:08] LABS: Hematocrit 35.9 % (37-47); Hemoglobin 11.7 g/dl (12.0-16.0)
[2021-01-18] MEDS: amLODIPine Besylate 5 MG TABLET 10 MG PO (07:54)
[2021-01-18] MEDS: levoFLOXacin/D5W 500 MG/100 ML PIGGYBACK 100 MG IV (07:55)
[2021-01-18] MEDS: polyethylene glycoL 3350 17 GM POWD.PACK PO (07:55)
[2021-01-18] MEDS: metroNIDAZOLE/NS 500 MG/100 ML PIGGYBACK 100 MG IV (10:05)
[2021-01-18] MEDS: Lactated Ringers 1,000 ML 50 ML IV (11:40)
--- NOTE | 2021-01-18 12:08 | HO.ANESPROP2 ---
[facility] Active Problems Active Problems: All Active Problems (Updated 01/16/21 @ 06:11 by Adam Morel MD) Diverticulitis (Acute) Colitis (Acute) Bright red rectal bleeding (Acute) Past Medical History Medical History Patient denies medical problems Social History Social History Household Members: Spouse Housing: House Do you presently have visiting nurse or other home services: No Smoking Status: Never smoker Use of substances other than those prescribed or required for medical reasons: No Currently Displaying Signs/Symptoms of Drug Intoxication Withdrawal: No Have you been hit, kicked, punched, or otherwise hurt by someone within the past year? If so, by whom?: No Do you feel safe in your current relationship?: Yes Is there a partner from a previous relationship who is making you feel unsafe now?: No Are you made to feel afraid or neglected: No Are you DNR?: No Advance Directives: No Advance Directives Information Provided: Yes Do you have thoughts of harming others: None Do you have a plan to hurt others: No Plan Recently lost weight without trying: No How much weight loss: Not applicable Nutrition Risks: No Nutritional Risk Patient : No : No Poor oral hygiene: No Meds Allergies Allergy/AdvReac Type Severity Reaction Status Date / Time No Known Allergies Allergy Verified 01/15/21 12:45 [No Known Allergies*] Active Medications: Current Medications Generic Name Dose Route Start Last Admin Trade Name Freq PRN Reason Stop Dose Admin Acetaminophen 650 mg 01/16/21 02:06 Acetaminophen 325 Mg Tablet PO Q6H PRN Pain, Mild (Pain Scale 1-3) Amlodipine Besylate 10 mg 01/18/21 09:00 01/18/21 07:54 Amlodipine Besylate 5 Mg Tablet PO 10 mg DAILY MARQUITA Administration Protocol Bisacodyl 5 mg 01/17/21 21:00 01/17/21 20:14 Bisacodyl 5 Mg Tablet.Dr PO 5 mg BEDTIME MARQUITA Administration Docusate Sodium 100 mg 01/16/21 02:06 Docusate Sodium 100 Mg Capsule PO DAILY PRN Constipation Levofloxacin 500 mg in 100 mls @ 100 mls/hr 01/16/21 09:15 01/18/21 09:16 Levaquin IV Infused Q24H MARQUITA Infusion Metronidazole 500 mg in 100 mls @ 100 mls/hr 01/16/21 09:15 01/18/21 11:13 Flagyl IV Infused Q12H MARQUITA Infusion Ondansetron HCl 4 mg 01/16/21 02:06 Ondansetron Hcl 4 Mg/2 Ml Vial IVPUSH Q8H PRN Nausea and Vomiting Pharmacy Consult 1 each 01/15/21 20:56 Consult Rx Perform Med Rec MISCELLANE ONCE PRN Consult order Polyethylene Glycol 17 gm 01/17/21 09:15 01/18/21 07:55 Polyethylene Glycol 3350 17 Gm Powd.Pack PO 17 gm DAILY MARQUITA Administration Sodium Chloride 3 ml 01/16/21 02:06 01/18/21 08:02 0.9 % Sodium Chloride Flush 3 Ml Syringe IVFLUSH 3 ml QSHIFT MARQUITA Administration Home Medications Medication Instructions Recorded Confirmed Last Taken Type No Known Home Meds 01/15/21 01/15/21 Unknown History Exam Exam Date and Time: January 18, 2021 1208 Height,Weight and Vital Signs: Height 4 ft 11 in Weight 141 lb Last Vital Signs Temp 97.8 F 01/18/21 11:27 Pulse 86 01/18/21 11:27 Resp 16 01/18/21 11:27 BP 197/68 H 01/18/21 11:27 Pulse Ox 96 01/18/21 11:27 Pertinent Lab Results Pertinent Lab Results: Laboratory Tests 01/15/21 01/15/21 01/15/21 15:15 15:15 17:52 WBC 12.1 H RBC 3.99 L Hgb 11.7 L Hct 36.5 L MCV 91.5 MCH 29.3 MCHC 32.1 RDW 13.4 Plt Count 463 H MPV 9.2 L Immature Gran % (Auto) 0.5 H Neut % (Auto) 75.5 H Lymph % (Auto) 15.7 L [place] % (Auto) 6.6 Eos % (Auto) 1.2 Baso % (Auto) 0.5 Lymph # (Auto) 1.9 [place] # (Auto) 0.8 Eos # (Auto) 0.2 Baso # (Auto) 0.1 Abs Immat Gran (auto) 0.06 H Absolute Neuts (auto) 9.1 H Absolute Nucleated RBC 0.000 Nucleated RBC % (auto) 0.0 Sodium 143 Potassium 4.4 Chloride 105 Carbon Dioxide 29 Anion Gap 13 BUN 9 Creatinine 0.73 Estim Creat Clear Calc 51.6 Estimated GFR > 60 Random Glucose 106 Lactic Acid Calcium 9.6 Troponin I High Sens 16.3 Urine Color Urine Appearance Urine pH Ur Specific [place] Urine Protein Urine Glucose (UA) Urine Ketones Urine Blood Urine Nitrite Ur Leukocyte Esterase Urine RBC Urine WBC Ur Squamous Epith Cells Urine Bacteria COVID-19 ([facility]) COVID-19 Clin Com 01/15/21 01/15/21 01/15/21 20:32 21:07 22:32 WBC RBC Hgb Hct MCV MCH MCHC RDW Plt Count MPV Immature Gran % (Auto) Neut % (Auto) Lymph % (Auto) [place] % (Auto) Eos % (Auto) Baso % (Auto) Lymph # (Auto) [place] # (Auto) Eos # (Auto) Baso # (Auto) Abs Immat Gran (auto) Absolute Neuts (auto) Absolute Nucleated RBC Nucleated RBC % (auto) Sodium Potassium Chloride Carbon Dioxide Anion Gap BUN Creatinine Estim Creat Clear Calc Estimated GFR Random Glucose Lactic Acid 0.9 Calcium Troponin I High Sens Urine Color COLORLESS Urine Appearance CLEAR Urine pH 7.5 Ur Specific [place] 1.010 Urine Protein NEG Urine Glucose (UA) NEG Urine Ketones NEG Urine Blood NEG Urine Nitrite NEG Ur Leukocyte Esterase NEG Urine RBC 0-2 Urine WBC 0-2 Ur Squamous Epith Cells TRACE Urine Bacteria NONE COVID-19 ([facility]) Negative COVID-19 Clin Com See Note 01/16/21 01/16/21 01/16/21 05:32 05:32 10:16 WBC 10.2 RBC 3.90 L Hgb 11.4 L 12.2 Hct 35.6 L 38.0 MCV 91.3 MCH 29.2 MCHC 32.0 RDW 13.4 Plt Count 438 H MPV 9.6 Immature Gran % (Auto) 0.6 H Neut % (Auto) 76.1 H Lymph % (Auto) 13.4 L [place] % (Auto) 7.3 Eos % (Auto) 2.0 Baso % (Auto) 0.6 Lymph # (Auto) 1.4 [place] # (Auto) 0.7 Eos # (Auto) 0.2 Baso # (Auto) 0.1 Abs Immat Gran (auto) 0.06 H Absolute Neuts (auto) 7.7 Absolute Nucleated RBC 0.000 Nucleated RBC % (auto) 0.0 Sodium 143 Potassium 4.1 Chloride 107 Carbon Dioxide 28 Anion Gap 12 BUN 7 L Creatinine 0.62 Estim Creat Clear Calc 60.8 Estimated GFR > 60 Random Glucose 94 Lactic Acid Calcium 8.7 D Troponin I High Sens Urine Color Urine Appearance Urine pH Ur Specific [place] Urine Protein Urine Glucose (UA) Urine Ketones Urine Blood Urine Nitrite Ur Leukocyte Esterase Urine RBC Urine WBC Ur Squamous Epith Cells Urine Bacteria COVID-19 ([facility]) COVID-19 [employer] Com 01/17/21 01/18/21 04:04 04:03 WBC RBC Hgb 11.4 L 11.7 L Hct 35.2 L 35.9 L MCV MCH MCHC RDW Plt Count MPV Immature Gran % (Auto) Neut % (Auto) Lymph % (Auto) [place] % (Auto) Eos % (Auto) Baso % (Auto) Lymph # (Auto) [place] # (Auto) Eos # (Auto) Baso # (Auto) Abs Immat Gran (auto) Absolute Neuts (auto) Absolute Nucleated RBC Nucleated RBC % (auto) Sodium Potassium Chloride Carbon Dioxide Anion Gap BUN Creatinine Estim Creat Clear Calc Estimated GFR Random Glucose Lactic Acid Calcium Troponin I High Sens Urine Color Urine Appearance Urine pH Ur Specific [place] Urine Protein Urine Glucose (UA) Urine Ketones Urine Blood Urine Nitrite Ur Leukocyte Esterase Urine RBC Urine WBC Ur Squamous Epith Cells Urine Bacteria COVID-19 ([facility]) COVID-19 Clin Com Airway Mallampati Class: III TM Dist: >3cm Neck ROM: Full Denture: Upper Loose/Missing/Broken Teeth: Yes Heart: RRR Lungs: NL Assessment and Plan Assessment Anesthesia Assessment: Anesthesia Plan Discussed and Chart Reviewed Final Anesthetic Review NPO: Yes ASA Class: III Final Preanesthetic Review: No Changes in Pt Med Stat, Meds/Allgs Chart Reviewed, Consent Obtained/Reviewed and Anes Risks/Benef Reviewed Patient Risk: Intermediate Anesthetic Plan Anesthetic Plan: MAC: Disposition: Standard PACU
--- NOTE | 2021-01-18 12:12 | MHC.SHP ---
Pre-Procedural Eval Section A The patient is an INPATIENT: Yes The History & Physical has been completed within 30 days and I have reviewed it.: Yes Section B Chief Complaint: GI Bleed Allergies: Allergies Allergy/AdvReac Type Severity Reaction Status Date / Time No Known Allergies Allergy Verified 01/15/21 12:45 [No Known Allergies*] Plan Diagnosis/Plan: Unchanged I have reviewed the history and physical and performed a pertinent physical examination on my patient. No changes have occurred unless specified.
--- NOTE | 2021-01-18 12:13 | PM.OP ---
Brief Operative Note Date of Service: 01/18/21 Pre-op diagnosis: colon mass Post-op diagnosis: same Procedure: see op note Surgeon: Aly Perkins MD Anesthesia: MAC Was an [employer] used for this Procedure?: No Estimated blood loss (mL): 0 Condition: stable Disposition: PACU
--- NOTE | 2021-01-18 12:14 | W.PM.OPN ---
Operative Note Operative Note Date of Service: 01/18/21 Narrative: Operative Information Procedure Description: Colonoscopy COLONOSCOPY Instrument: Olympus variable stiffness pediatric scope 190L Colonoscopy Monitoring: Vital signs and clinical assessment, continuous EKG monitoring, Pulse oximetry, Carbon Dioxide monitoring and blood pressure monitoring were done throughout the procedure. Colon withdrawal time was 15 minutes. Procedure: The patient was placed in the left lateral decubitis position and pre-procedure medications were administered. After a digital rectal examination of the ano-rectum, the video colonoscope was inserted into the rectum and advanced through the colon to the cecum/TI. The colonoscope was slowly withdrawn in a retrograde panoramic fashion and the colon mucosa was carefully examined including a retroflexed view of the rectum. Findings and interventions are described below. Procedure Difficulty:moderate Findings: Terminal Ileum-normal, bx taken Cecum:normal, bx taken Ascending Colon: normal, bx taken Transverse Colon -normal, bx taken Descending Colon:normal, bx taken Sigmoid Colon: several wide mouthed tics seen At rectosigmoid junction to the distal rectum there was confluent inflammation with microabscesses, edema, and erythema with ulceration which appeared chronic. bx taken. Rectum: Retroflexion not done Anorectum - normal Colon preparation: Bedias Bowel Preparation Scale Right colon; 1 Transverse colon: 1 Left colon; 1 (0 = Unprepared colon segment with mucosa not seen due to solid stool that cannot be cleared. 1 = Portion of mucosa of the colon segment seen, but other areas of the colon segment not well seen due to staining, residual stool and/or opaque liquid. 2 = Minor amount of residual staining, small fragments of stool and/or opaque liquid, but mucosa of colon segment seen well. 3 = Entire mucosa of colon segment seen well with no residual staining, small fragments of stool or opaque liquid) Impression and Post Procedure Diagnosis: colitis, appearance consistent with UC diverticulosis Plan: Repeat Colonoscopy in 6-12 months sample sent for c diff from endo commence mesalamine PO e.g Apriso or similar, and mesalamine enema check TB spot and hep serologies in case she needs biologics at later date Above findings were reviewed with the patient and relevant handouts were provided if indicated.
[2021-01-18 13:52] LABS: CDIFF Ag Negative (Negative); CDIFF Internal ctrl Dots and bkg OK (V); CDiff Toxin Negative (Negative)
[2021-01-18] MEDS: Mesalamine 250 MG CAPSULE.ER 1000 MG PO ×2 (15:52→20:17)
--- NOTE | 2021-01-18 17:54 | HO.PM.IMPN ---
Subjective Subjective Date of Service: 01/18/21 Interval History: Possible ulcerative colitis Review of Systems Patient diarrhea seems to be improving denies any chest pain or shortness of breath or abdominal pain or fever chills. Physical Exam Vital Signs: Vital Signs: Last Vital Signs Temp 97.5 F 01/18/21 15:14 Pulse 78 01/18/21 15:14 Resp 18 01/18/21 15:14 BP 162/64 H 01/18/21 16:21 Pulse Ox 95 01/18/21 15:14 Body Mass Index 28.5 Physical exam: Constitutional: Not in acute distress Cvs: rrr, [id number] , no murmur res: clear to auscultation ,no rhonchii or wheezing abd: no rebound or guarding ,nt, bs present. ext pulses present , no cyanosis neuro: axo3 , nonfocal. Objective Data Current Medications Generic Name Dose Route Start Last Admin Trade Name Freq PRN Reason Stop Dose Admin Acetaminophen 650 mg 01/16/21 02:06 Acetaminophen 325 Mg Tablet PO Q6H PRN Pain, Mild (Pain Scale 1-3) Amlodipine Besylate 10 mg 01/18/21 09:00 01/18/21 07:54 Amlodipine Besylate 5 Mg Tablet PO 10 mg DAILY MARQUITA Administration Protocol Bisacodyl 5 mg 01/17/21 21:00 01/17/21 20:14 Bisacodyl 5 Mg Tablet.Dr PO 5 mg BEDTIME MARQUITA Administration Docusate Sodium 100 mg 01/16/21 02:06 Docusate Sodium 100 Mg Capsule PO DAILY PRN Constipation Levofloxacin 500 mg in 100 mls @ 100 mls/hr 01/16/21 09:15 01/18/21 09:16 Levaquin IV Infused Q24H MARQUITA Infusion Metronidazole 500 mg in 100 mls @ 100 mls/hr 01/16/21 09:15 01/18/21 11:13 Flagyl IV Infused Q12H MARQUITA Infusion Lactated Ringer's 1,000 mls @ 50 mls/hr 01/18/21 14:15 01/18/21 11:40 Lr IV 50 mls/hr .Q20H MARQUITA Administration Mesalamine 1,000 mg 01/18/21 17:00 01/18/21 15:52 Mesalamine 250 Mg Capsule.Er PO 1,000 mg QID MARQUITA Administration Ondansetron HCl 4 mg 01/16/21 02:06 Ondansetron Hcl 4 Mg/2 Ml Vial IVPUSH Q8H PRN Nausea and Vomiting Pharmacy Consult 1 each 01/15/21 20:56 Consult Rx Perform Med Rec MISCELLANE ONCE PRN Consult order Polyethylene Glycol 17 gm 01/17/21 09:15 01/18/21 07:55 Polyethylene Glycol 3350 17 Gm Powd.Pack PO 17 gm DAILY MARQUITA Administration Pramoxine HCl 1 appl 01/18/21 14:00 01/18/21 17:17 Pramoxine Hcl 1 % Rectal Foam 15 Gm IL Not Given 5XD MARQUITA Sodium Chloride 3 ml 01/16/21 02:06 01/18/21 15:56 0.9 % Sodium Chloride Flush 3 Ml Syringe IVFLUSH 3 ml QSHIFT MARQUITA Administration Labs CBC & Chem 7: 01/18/21 04:03 01/16/21 05:32 Microbiology Microbiology Results: Microbiology 01/15/21 21:05 Blood - Venous Blood Culture - Preliminary No growth after 48 hours. 01/15/21 20:32 Blood - Venous Blood Culture - Preliminary No growth after 48 hours. Assessment and Plan (1) Diverticulitis: Status: Acute (2) Colitis: Status: Acute (3) Bright red rectal bleeding: Status: Acute Assessment and Plan: 80-year-old female with no past medical history presents to the hospital with complaints of GI bleed. 1. GI bleed- hemorrhoids versus diverticular had 1 episode of bright red blood per rectum in the ED?, patient says he had a bowel movement with clot.,hemodynamically stable evidence of diverticulitis versus masslike thickening in the sigmoid per CT Plan: moniter h/h repeated h/h 11.4 bowel prep Spoke to GI-suspicion of ulcerative colitis on colonoscopy as per GI: Started on mesalamine 2. diverticulitis- has leukocytosis, and evidence of possible diverticulitis on CT - will start on IV antibiotic - follow culture C diff negative 3. Elevated blood pressure: will adjust amlodipine to 5 mg po daily
[2021-01-19 07:47] VITALS: BP 149/63; PULSE 68; RESP 18; TEMP 36.1; O2SAT 97
[2021-01-19] MEDS: Mesalamine 250 MG CAPSULE.ER 1000 MG PO ×2 (08:24→13:14)
[2021-01-19] MEDS: amLODIPine Besylate 5 MG TABLET 10 MG PO (08:25)
--- NOTE | 2021-01-19 09:45 | HO.POSTANES ---
Post Anesthesia Evaluation Post Anesthesia Evaluation Vital Signs: Vital Signs Temp Pulse Resp BP Pulse Ox 01/19/21 07:47 96.9 F 68 18 149/63 H 97 Anesthesia: Monitored Mental Status: Awake Pain Control: Satisfactory Nausea/Vomiting: None Hydration: Adequate Anesthesia-Related Issues: No Anes. Related Issues
--- NOTE | 2021-01-19 11:28 | MHC.CM.PN ---
PATIENT IS DISCHARGED HOME TODAY WITH NO NEED FOR SERVICES. IMM 01/19 IN CHART.
--- NOTE | 2021-01-19 13:06 | P.DS_ITS ---
DS: Providers Provider Date of Service: 01/20/21 Date of admission: 01/15/21 22:55 Primary care physician: None Physician Consults: 01/16/21 02:06 Consult to Gastroenterology Routine Consulting Provider: Aly Perkins Reason for consultation: GI bleed Has provider been notified: No DS: Diagnosis Discharge Diagnosis (1) Diverticulitis: Status: Acute (2) Colitis: Status: Acute (3) Bright red rectal bleeding: Status: Acute DS: Medications Discharge Medications Home Medications: Home Medications Medication Instructions Recorded Confirmed No Known Home Meds 01/15/21 01/15/21 DS: Summary Hospital Course Hospital Course: 80-year-old female with no significant past medical history who presents to the hospital with complaints of GI bleed. Patient reports that she has been having intermittent bleeding couple of times a week for the past 1 month, mostly with bowel movements. She did not seek medical attention prior to this because she thought it would go way spontaneously. She felt that her GI bleed was worsening and therefore came to the hospital. She denies any abdominal pain, no nausea or vomiting, good appetite, no weight loss. Patient reports history of hemorrhoids and reports that she was evaluated for them about a year ago although I do not find any record of it in our system. She denies having any chest pain, no dizziness, no headache, change in vision, no shortness of breath, no urinary symptoms and no lower extremity edema. Patient had 1 bloody bowel movement while in the ED. she denies any use of NSAIDs. On arrival to the ED patient hemodynamically Stable with no significant abnormal vitals Labs are significant for WBC count of 12.1, hemoglobin of 11.7, labs otherwise unremarkable. CT of the abdomen showed masslike thickening of the sigmoid colon, prominent but subcentimeter lymph nodes adjacent to the abnormal sigmoid colon. There is some pericolonic stranding, may be related to subacute diverticulitis versus underlying malignancy. No evidence of acute bleed. Hospital Course problem johnston section: Patient came to the hospital because of diarrhea, also thought to have bleeding: Subsequently started on IV antibiotics because of suspicion of colitis and patient went for Endoscopy: Found to have ulcerative colitis: subsequently was started on mesalamine p.o. and enema also. Patient's H&H remained stable above 11.4 patient seems to be improved significantly diarrhea johnston. Patient will continue her ulcerative colitis treatment as above. Her colon biopsy Pathology report still pending: patient is to follow-up with GI for fu rther management and for pathology report. Patient will need it T spot and hepatitis serology out patiently in case patient needs to be started on biologics treatment for ulcerative colitis out patiently. Patient will be going home with mesalamine enema and p.o. mesalamine, in addition 1 week of p.o. steroid treatment. Patient is to follow-up with Dr. Perkins in 1-2 weeks time and follow up for further management outpatient. Above management discussed with patient and her in detail length they both understand and in agreement with the above plan., time spent 50 minutes and 50% time spent on counseling. Significant findings: As above. Procedures performed: None. Treatment and response: As above. Complications: None. Time Spent with Patient Time attestation: Total time spent providing and/or coordinating discharge services: Discharge coordination time: Greater than 30 minutes Quality: Stroke Does the patient have a stroke diagnosis?: No Physical Exam Vital Signs: Vital Signs: Last Vital Signs Temp 96.9 F 01/19/21 07:47 Pulse 68 01/19/21 07:47 Resp 18 01/19/21 07:47 BP 149/63 H 01/19/21 07:47 Pulse Ox 97 01/19/21 07:47 Body Mass Index 28.5 Physical exam: Constitutional: Not in acute distress. cvs: rrr, [id number] , no murmur res: clear to auscultation ,no rhonchii or wheezing abd: no rebound or guarding ,nt, bs present. ext pulses present , no cyanosis neuro: axo3 , nonfocal. DS: Data Data Completed and Pending Pending studies at discharge: Pending at discharge 01/18/21 12:37 Surgical [PTH] Routine Labs on day of discharge: Laboratory Results - last 24 hr 01/18/21 00:00 C. difficile Toxin A&B Negative C. difficile Antigen Negative C. difficile Interpret SEE NOTE Preliminary micro results at discharge 01/15/21 21:05 Blood Culture - Preliminary Blood - Venous No growth after 48 hours. 01/15/21 20:32 Blood Culture - Preliminary Blood - Venous No growth after 48 hours. Discharge Plan Discharge Patient Disposition: Home, Self-Care Discharge Diagnosis: Ulcerative colitis Referrals: Aly Perkins MD [Physician] - 1 Week (follow up in 1 week.) Physician,None [Primary Care Provider] - 1 Week Discharge Medications: New mesalamine [Rowasa] 4 gram/60 mL enema 4 g NV BEDTIME Qty: 1680 RF: 1 mesalamine [Apriso] 0.375 gram capsule,extended release 24hr 1.5 g PO DAILY Qty: 90 RF: 1 prednisone 20 mg tablet 40 mg PO DAILY Qty: 14 RF: 0 Discharge Orders: Discharge Order (Routine); Ordered 01/19/21 Ordered By: Sukhi Smallwood Diet: advance to usual diet Activity on Discharge: As tolerated Stand Alone Forms: Patient Portal Discharge page Care Plan Goals: Patient came to the hospital because of diarrhea, also thought to have bleeding: Subsequently started on IV antibiotics because of suspicion of colitis and patient went for Endoscopy: Found to have ulcerative colitis: subsequently was started on mesalamine p.o. and enema also. Patient's H&H remained stable above 11.4 patient seems to be improved significantly diarrhea johnston. Patient will continue her ulcerative colitis treatment as above. Her colon biopsy Pathology report still pending: patient is to follow-up with GI for further management and for pathology report. Patient will need it T spot and hepatitis serology out patiently in case patient needs to be started on biologics treatment for ulcerative colitis out patiently. Above management discussed with patient and her in detail length they both understand and in agreement with the above plan. Health Concerns: as above. Plan of Treatment: As above. Assessment: As above. Discharge Date/Time: 01/19/21 15:38
== END 2021-01-19 15:38 | disposition home or self-care (01) | DRG 385 ==
LOC: HO.ED 22:37 → HO.EDOVER 23:15 → HO.IMC 01-16 00:13 → HO.S3 01-18 16:30
PROVIDERS: Internal Medicine Gastroenterology; Nurse Practitioner Family; Admitting Provider Internal Medicine; Emergency Provider Emergency Medicine; Visit Provider Internal Medicine
PROC: 0DJD8ZZ Inspection of Lower Intestinal Tract, Via Natural or Artificial Opening Endoscopic (ICD-10-PCS; CPT 45378; principal; 2021-01-18 15:10)
DX: K51.911 Ulcerative colitis, unspecified with rectal bleeding (principal); K57.33 Diverticulitis of large intestine without perforation or abscess with bleeding; D72.829 Elevated white blood cell count, unspecified; Z20.822 Contact with and (suspected) exposure to COVID-19
CPT/HCPCS: 36415; 74178; 80048; 81001; 83605; 84484; 85014; 85018; 85025; 87040; 87324; 87449; 87635; 88305; 93005; 96365; 96368; 99285; 99291; J0696; J1956; Q9967

== ENCOUNTER → 2021-01-23 09:08 | Outpatient (BNVA) | payer MEDICARE, SELFPAY | PROVIDERS: PCP Internal Medicine; Visit Provider Internal Medicine Gastroenterology ==

== ENCOUNTER 2021-02-11 05:38 | Inpatient (IN) | payer MEDICARE, SELFPAY ==
[2021-02-11 05:48] VITALS: BP 117/60; BP 122/64; PULSE 82; PULSE 90; RESP 18; TEMP 36.4; O2SAT 97; O2SAT 98; BMI 32.4
--- NOTE | 2021-02-11 07:27 | PC.NURSE ---
pt resting comfortably, neuro status improving once she got settled in. no bleeding noted at this time. vitals stable.
--- NOTE | 2021-02-11 08:21 | ED.GIBLEED ---
HPI - GI Bleed General Chief complaint: Urogenital-Female Stated complaint: rectal bleed Time Seen by Provider: 02/11/21 08:00 Source: patient and EMS Mode of arrival: EMS Limitations: altered mental status History of Present Illness HPI Narrative: 80 y/o female with recent admission to [facility] in December for GI bleed and possible colits - endoscopy diagnosed her with Ulcerative Colitis who presents back to the ER from home via EMS with reports of ongoing GI bleeding and generalized weakness. History is limited as patient is confused. did not answer. Patient reports continued episodes of bright red blood per rectum but could not quantify episodes or amount. She denies any abdominal pain, nausea or vomiting. She has not been eating much and is very weak. She denies fever or chills. MD complaint: gross hematochezia Onset (ago): week(s) Pain Consistency: intermittent Severity: mild Relieving factors: none Exacerbating factors: none Context: history of GI bleed Associated symptoms: loss of appetite, malaise and weakness Treatments Prior to Arrival: none Related Data Previous Rx's Medication Instructions Recorded mesalamine [Apriso] 1.5 g PO DAILY #90 cap 01/19/21 mesalamine [Rowasa] 4 g PA BEDTIME #1680 ml 01/19/21 prednisone 40 mg PO DAILY #14 tab 01/19/21 budesonide 3 mg 9 mg PO DAILY 30 Days #90 ea 02/07/21 capsule,delayed,extended release Allergies Allergy/AdvReac Type Severity Reaction Status Date / Time No Known Allergies Allergy Verified 01/23/21 09:09 [No Known Allergies*] Review of Systems Review of Systems: Constitutional: No Fever, No Chills ENT/Mouth: No sore throat, No Rhinorrhea, No Swallowing Difficulty Cardiovascular: No Chest Pain, No SOB Respiratory: No Cough, No Sputum Gastrointestinal: No Nausea, No Vomiting, No Diarrhea, + abdominal Pain, + Hematochezia, No Melena Genitourinary: No Dysuria, No Urinary Frequency, No Hematuria Musculoskeletal: No joint pain, No Myalgias Skin: No Skin Lesions, No rash Neuro: + Weakness, No Numbness, No Dizziness, No Headache Psych: No Anxiety/Panic, No Depression Heme/Lymph: No Bruising, No Lymphadenopathy Endocrine: No Polyuria, No Polydipsia PMFSH Past Medical History Attestation statement: The following information was validated with the patient. Medical History (Updated 02/11/21 @ 09:57 by JESSICA Sotomayor) Patient denies medical problems Ulcerative colitis Surgical History H/O colonoscopy Social History Social History Household Members: Spouse Housing: House Do you presently have visiting nurse or other home services: No Advance Directives: No Advance Directives Information Provided: No Physical Exam Vital Signs: Vital Signs: Last Vital Signs Temp 97.5 F 02/11/21 05:48 Pulse 82 02/11/21 05:48 Resp 18 02/11/21 05:48 BP 122/64 02/11/21 05:48 Pulse Ox 97 02/11/21 05:48 Body Mass Index 32.4 Appearance: Alert. Oriented X2. No acute distress. Frail woman. Eyes: Pupils equal, round and reactive to light. ENT: Pharynx normal. Neck: Normal inspection. Neck supple. CVS: Normal heart rate and rhythm. Pulses normal. Respiratory: No respiratory distress. Breath sounds normal. Abdomen: Soft with mild central tenderness to deep palpation. well healed longitudinal scars x2. normal +BS x4 Rectal exam: incontinent of light brown mucus stool, perirectal erythema and raw skin. No hemorrhoids. Skin: Skin warm and dry. Normal skin color. Normal skin turgor. No rashes. Extremities: No lower extremity edema. Neuro: Oriented X 2. Confused, speaks in complete sentences, slow to respond. Symmetrical and equal strength throughout, generalized weakness noted. Course Course Course Narrative: 80 y/o female with recently diagnosed UC presenting with ongoing GI bleeding associated with generalized weakness and fatigue. She is confused with a non-focal neuro examination. Unclear mental status baseline, unable to get ahold of her at this time. Will get CBC, CMP, guiac stool. Anticipate admission vs short term rehab. Reevaluation(s) Reevaluation #1: H/H is stable from prior .8. No indication for blood transfusion at this time. Reevaluation #2: Chemistry with acute hyponatremia with sodium of 125 (baseline 143 on d/c 1 month ago.) She is not on any diuretic therapy. She also has an NIVIA with BUN/Cr 61/1.79. Her hyponatremia is likely hypovolemia related. She will require admission for monitoring. Urine studies are still pending. 1L IVF ordered and then will trend sodium. MDM - GI Bleed Lab Data Result diagrams: 02/11/21 08:40 02/11/21 08:40 Labs: Lab Results 02/11/21 02/11/21 02/11/21 Range/Units 08:40 08:40 08:40 WBC 10.9 H (4.8-10.8) X10*3/uL RBC 3.83 L (4.20-5.50) X10*6/uL Hgb 11.0 L (12.0-16.0) g/dl Hct 31.8 L (37-47) % MCV 83.0 (80-98) fL MCH 28.7 (27.0-33.0) pg MCHC 34.6 (31.0-35.0) g/dl RDW 12.6 (11.0-16.0) % Plt Count 514 H (160-400) X10*3/uL MPV 9.2 L (9.4-12.3) fL Immature Gran % (Auto) 1.6 H (0.0-0.4) % Neut % (Auto) 90.2 H (45-73) % Lymph % (Auto) 4.8 L (20-40) % [place] % (Auto) 2.7 (2-11) % Eos % (Auto) 0.4 (0-4) % Baso % (Auto) 0.3 (0-2) % Lymph # (Auto) 0.5 L (1.2-4.9) X10*3/uL [place] # (Auto) 0.3 (0.1-1.2) X10*3/uL Eos # (Auto) 0.0 (0.0-0.4) X10*3/uL Baso # (Auto) 0.0 (0.0-0.2) X10*3/uL Abs Immat Gran (auto) 0.18 H (0.00-0.03) X10*3/uL Absolute Neuts (auto) 9.9 H (2.0-8.3) X10*3/uL Absolute Nucleated RBC 0.000 (0.0-0.012) X10*3/uL Nucleated RBC % (auto) 0.0 (0.0-0.2) /100WBC Smear Tech's Comments VERIFIED PT (10.8-13.0) SEC INR (0.9-1.1) APTT (24.1-38.0) SEC Sodium 125 L (135-145) mmol/L Potassium 3.4 (3.3-5.1) mmol/L Chloride 87 L (96-108) mmol/L Carbon Dioxide 25 (22-29) mmol/L Anion Gap 16 (12-20) BUN 61 H D (9-16) mg/dL Creatinine 1.79 H (0.5-1.4) mg/dL Estim Creat Clear Calc 15.0 Estimated GFR 27 Random Glucose 113 (60-115) mg/dL Lactic Acid 0.9 (0.5-2.0) mmol/L Calcium 8.4 (8.4-10.2) mg/dL Stool Occult Blood (NEGATIVE) 02/11/21 02/11/21 Range/Units 08:41 08:41 WBC (4.8-10.8) X10*3/uL RBC (4.20-5.50) X10*6/uL Hgb (12.0-16.0) g/dl Hct (37-47) % MCV (80-98) fL MCH (27.0-33.0) pg MCHC (31.0-35.0) g/dl RDW (11.0-16.0) % Plt Count (160-400) X10*3/uL MPV (9.4-12.3) fL Immature Gran % (Auto) (0.0-0.4) % Neut % (Auto) (45-73) % Lymph % (Auto) (20-40) % [place] % (Auto) (2-11) % Eos % (Auto) (0-4) % Baso % (Auto) (0-2) % Lymph # (Auto) (1.2-4.9) X10*3/uL [place] # (Auto) (0.1-1.2) X10*3/uL Eos # (Auto) (0.0-0.4) X10*3/uL Baso # (Auto) (0.0-0.2) X10*3/uL Abs Immat Gran (auto) (0.00-0.03) X10*3/uL Absolute Neuts (auto) (2.0-8.3) X10*3/uL Absolute Nucleated RBC (0.0-0.012) X10*3/uL Nucleated RBC % (auto) (0.0-0.2) /100WBC Smear Tech's Comments PT 12.5 (10.8-13.0) SEC INR 1.1 (0.9-1.1) APTT 32.0 (24.1-38.0) SEC Sodium (135-145) mmol/L Potassium (3.3-5.1) mmol/L Chloride (96-108) mmol/L Carbon Dioxide (22-29) mmol/L Anion Gap (12-20) BUN (9-16) mg/dL Creatinine (0.5-1.4) mg/dL Estim Creat Clear Calc Estimated GFR Random Glucose (60-115) mg/dL Lactic Acid (0.5-2.0) mmol/L Calcium (8.4-10.2) mg/dL Stool Occult Blood POSITIVE (NEGATIVE) Critical Care Time Critical Care Time Critical Care Time: Yes Total Critical Care Time: 36 Attestation: I attest to critical care time spent with this patient with acute symptomatic hyponatramia and NIVIA. Time spent reviewing records, imaging, and coordinating care. Discharge Plan Discharge Clinical Impression: Acute hyponatremia GI bleed Qualifiers: GI bleed type/associated pathology: unspecified gastrointestinal hemorrhage type Qualified Code(s): K92.2 - Gastrointestinal hemorrhage, unspecified Patient Disposition: Admitted As Inpatient
[2021-02-11 08:49] LABS: Basophils Percent Auto 0.3 % (0-2); Eosinophils Percent Auto 0.4 % (0-4); Hematocrit 31.8 % (37-47); Imm Gran Abs Auto 0.18 X10*3/uL (0.00-0.03); Imm Gran Pct Auto 1.6 % (0.0-0.4); Lymphocytes Absolute Auto 0.5 X10*3/uL (1.2-4.9); Lymphocytes Percent Auto 4.8 % (20-40); MANUAL DIFF FLAG SCAN; Mean Corpuscular HGB Conc 34.6 g/dl (31.0-35.0); Mean Corpuscular Hemoglobin 28.7 pg (27.0-33.0); Mean Platelet Volume 9.2 fL (9.4-12.3); Monocytes Absolute Auto 0.3 X10*3/uL (0.1-1.2); Monocytes Percent Auto 2.7 % (2-11); Neutrophils Absolute Auto 9.9 X10*3/uL (2.0-8.3); Neutrophils Percent Auto 90.2 % (45-73); Platelet Count 514 X10*3/uL (160-400); Red Blood Count 3.83 X10*6/uL (4.20-5.50); Red Cell Distribution Width 12.6 % (11.0-16.0); SCAN SMEAR FLAG 1; White Blood Count 10.9 X10*3/uL (4.8-10.8)
[2021-02-11 08:50] LABS: OBS Int Ctl Valid YES; OBS1 POSITIVE (NEGATIVE)
[2021-02-11 08:56] LABS: INTERNATIONAL NORM RATIO 1.1 (0.9-1.1); Prothrombin Time 12.5 SEC (10.8-13.0)
[2021-02-11 09:07] LABS: SLIDE REVIEW VERIFIED
[2021-02-11 09:15] LABS: Lactic Acid 0.9 mmol/L (0.5-2.0)
[2021-02-11 09:24] LABS: Blood Urea Nitrogen 61 mg/dL (9-16); Calcium 8.4 mg/dL (8.4-10.2); Estimated Glomerular Filt Rate 27; Glucose Random 113 mg/dL (60-115)
[2021-02-11 09:31] LABS: Anion Gap 16 (12-20); Carbon Dioxide 25 mmol/L (22-29); Chloride 87 mmol/L (96-108); Potassium 3.4 mmol/L (3.3-5.1); Sodium 125 mmol/L (135-145)
[2021-02-11] MEDS: 0.9 % Sodium Chloride 1,000 ML 999 ML IVCONT (09:55)
[2021-02-11 11:32] LABS: COVID-19 Test Negative (Negative); IDNOW Serial# 9DD0AD1C
--- NOTE | 2021-02-11 12:57 | PM.EVENT ---
Event Note Date of Service: 02/11/21 Event Note: Patient seen and examined independently and was present during mackay portion of E/M service. Agree with midlevel's history, physical, assessment, and plan. 80F presnted with blood in stool found to have serene, hyponatremia colitis flare monitor h and h, gi eval hyponatremia, serene likely hypovolemic ivf, monitor nephro eval
[2021-02-11 13:03] VITALS: BP 125/57; PULSE 64; RESP 16; O2SAT 99
--- NOTE | 2021-02-11 13:39 | P.HPHOSP_ITS ---
History of Present Illness Date of Service: 02/11/21 <Demi Newman NP - Last Filed: 02/11/21 14:17> Chief Complaint: GI bleed <Demi Newman NP - Last Filed: 02/11/21 14:17> Apparently she presented with ongoing GI bleeding in generalized weakness. She was recently discharged with GI bleeding and colitis, endoscopy diagnosed with ulcerative colitis and she was placed on mesalamine. According to the record patient had bright red blood per rectum but she was unable to give any meaningful history. I attempted to call the patient's , Hans Lamb [phone], but no answer. she denies pain, chest pain, shortness of breath, nausea, vomiting, diarrhea. According to the ER record she had gross hematochezia. She also noted to have a low sodium of 125, creatinine 1.79, positive stool occult. Abdominal CT showed a masslike thickening of the sigmoid colon. ? subacute diverticulitis however an underlying malignancy is also a concern. No evidence for active bleeding on the current exam. She was given IV fluids and zofran and will be admitted for further management of GI bleed. <Demi Newman NP - Last Filed: 02/11/21 14:17> Review of Systems Review of Systems: Yes Unobtainable due to mental status (Confused) <Demi Newman NP - Last Filed: 02/11/21 14:17> [facility] Medical History: Medical History Patient denies medical problems Ulcerative colitis <Demi Newman NP - Last Filed: 02/11/21 14:17> Pertinent family history: patient unable to give this information <Demi Newman NP - Last Filed: 02/11/21 14:17> Surgical History: Surgical History H/O colonoscopy <Demi Newman NP - Last Filed: 02/11/21 14:17> Social History: Social History Household Members: Spouse Housing: House Do you presently have visiting nurse or other home services: No Unable to assess alcohol history related to: Unknown Patient Tobacco Use Status: Never used Tobacco e-Cigarette/Vaping Use: Never Used service: No Current occupational status: retired <Demi Newman NP - Last Filed: 02/11/21 14:17> Meds Allergies/Adverse reactions: Allergies Allergy/AdvReac Type Severity Reaction Status Date / Time No Known Allergies Allergy Verified 01/23/21 09:09 [No Known Allergies*] <Demi Newman NP - Last Filed: 02/11/21 14:17> Physical Exam Vital Signs and Narrative: Vital Signs: Last Vital Signs Temp 97.5 F 02/11/21 05:48 Pulse 64 02/11/21 13:03 Resp 16 02/11/21 13:03 BP 125/57 L 02/11/21 13:03 Pulse Ox 99 02/11/21 13:03 Body Mass Index 32.4 <Demi Newman NP - Last Filed: 02/11/21 14:17> Appearing in no acute distress head is normocephalic atraumatic eyes pupils are PERRLA sclera is anicteric mouth throat mucous membranes are intact and moist neck is supple no lymphadenopathy, no JVD noted lung sounds are clear to auscultation heart regular rate rhythm, clear S1, S2 positive bowel sounds, abdomen is soft, nontender neuro patient is alert, confused <Demi Newman NP - Last Filed: 02/11/21 14:17> Results Labs CBC and Chem 7: : 02/13/21 07:18 02/13/21 07:18 <Demi Newman NP - Last Filed: 02/11/21 14:17> Labs: Laboratory Results - last 24 hr 02/11/21 02/11/21 02/11/21 08:40 08:40 08:40 MCV 83.0 MCH 28.7 MCHC 34.6 RDW 12.6 Plt Count 514 H MPV 9.2 L Immature Gran % (Auto) 1.6 H Neut % (Auto) 90.2 H Lymph % (Auto) 4.8 L [place] % (Auto) 2.7 Eos % (Auto) 0.4 Baso % (Auto) 0.3 Lymph # (Auto) 0.5 L [place] # (Auto) 0.3 Eos # (Auto) 0.0 Baso # (Auto) 0.0 Abs Immat Gran (auto) 0.18 H Absolute Neuts (auto) 9.9 H Absolute Nucleated RBC 0.000 Nucleated RBC % (auto) 0.0 Smear Tech's Comments VERIFIED PT INR APTT Anion Gap 16 Estim Creat Clear Calc 15.0 Estimated GFR 27 Random Glucose 113 Lactic Acid 0.9 Calcium 8.4 Stool Occult Blood COVID-19 ([facility]) COVID-19 Clin Com 02/11/21 02/11/21 02/11/21 08:41 08:41 10:44 MCV MCH MCHC RDW Plt Count MPV Immature Gran % (Auto) Neut % (Auto) Lymph % (Auto) [place] % (Auto) Eos % (Auto) Baso % (Auto) Lymph # (Auto) [place] # (Auto) Eos # (Auto) Baso # (Auto) Abs Immat Gran (auto) Absolute Neuts (auto) Absolute Nucleated RBC Nucleated RBC % (auto) Smear Tech's Comments PT 12.5 INR 1.1 APTT 32.0 Anion Gap Estim Creat Clear Calc Estimated GFR Random Glucose Lactic Acid Calcium Stool Occult Blood POSITIVE COVID-19 ([facility]) Negative COVID-19 Clin Com See Note <Demi Newman NP - Last Filed: 02/11/21 14:17> Assessment and Plan (1) Acute hyponatremia: Status: Acute <Demi Newman NP - Last Filed: 02/11/21 14:17> 80 year old women admitted with Hyponatremia and GI bleed with recent diagnosis of UC. Hyponatremia. likely secondary to hypovolemia - IV fluids - nephrology consultation - follow sodium closely GI Bleed. Hx of UC. -GI to follow and rec further treatments. NIVIA. Likely secondary to dehydration - IV fluids History of ulcerative colitis. Does not appear to be in full exacerbation. -consult GI for rec DVT prophylaxis with mech boots due to GI bleed. Full code Attending: Dr. Sutton <Demi Newman NP - Last Filed: 02/11/21 14:17> (2) NIVIA (acute kidney injury): Status: Acute <Demi Newman NP - Last Filed: 02/11/21 14:17> Addendum to documentation by midlevel I saw and examined the patient and participated in the mackay portion of the E/M service. I agree with the history and exam as documented by [employer]. <Dk Sutton MD - Last Filed: 02/13/21 19:57>
[2021-02-11 14:04] VITALS: RESP 18
[2021-02-11 16:33] LABS: Appearance Urine HAZY; Color Urine YELLOW; Glucose Urine UA NEG (NEG); Leukocyte Esterase Urine NEG (NEG); Nitrite Urine NEG (NEG); Urine Blood NEG (NEG); Urine Ketones NEG (NEG); Urine Protein NEG (NEG-TRACE)
[2021-02-11 16:59] LABS: Creatinine Urine 92.37 mg/dL; Sodium Urine Random < 20.0 mmol/L
[2021-02-11 17:14] LABS: Anion Gap 14 (12-20); Blood Urea Nitrogen 58 mg/dL (9-16); Calcium 7.8 mg/dL (8.4-10.2); Carbon Dioxide 25 mmol/L (22-29); Chloride 93 mmol/L (96-108); Creatinine Clr Calc Pharmacy 16.5; Estimated Glomerular Filt Rate 31; Glucose Random 116 mg/dL (60-115); Sodium 129 mmol/L (135-145)
[2021-02-11 17:39] LABS: Osmolality Urine 277 mosm/kg (373-1093)
[2021-02-11] MEDS: 0.9 % Sodium Chloride 1,000 ML 75 ML IVCONT (17:59)
[2021-02-11 19:11] VITALS: BP 125/65; PULSE 67; RESP 15; TEMP 36.4; O2SAT 98
--- NOTE | 2021-02-11 19:14 | PC.NURSE ---
This RN assuming care of pt at this time. Pt aaox3, deficit of time and confused in conversation. Pt resting on stretcher in NAD. Pt found to be incontinent of stool during shift change, inc care provided. Pt placed on ekg monitor, in NSR at this time VSS. Pt denies pain/discomfort at this time. Pt IVF infusing as appropriate. Pt without additional complaints. Stretcher in low locked position, rails raised, call yeh within reach.
[2021-02-11 21:33] LABS: Hematocrit 31.9 % (37-47); Hemoglobin 10.8 g/dl (12.0-16.0); Mean Corpuscular HGB Conc 33.9 g/dl (31.0-35.0); Mean Corpuscular Hemoglobin 28.6 pg (27.0-33.0); Mean Corpuscular Volume 84.4 fL (80-98); Mean Platelet Volume 9.3 fL (9.4-12.3); Platelet Count 480 X10*3/uL (160-400); Red Blood Count 3.78 X10*6/uL (4.20-5.50); Red Cell Distribution Width 12.7 % (11.0-16.0); White Blood Count 11.7 X10*3/uL (4.8-10.8)
[2021-02-11 21:53] LABS: Anion Gap 14 (12-20); Blood Urea Nitrogen 55 mg/dL (9-16); Calcium 7.9 mg/dL (8.4-10.2); Carbon Dioxide 24 mmol/L (22-29); Chloride 95 mmol/L (96-108); Creatinine Clr Calc Pharmacy 18.2; Estimated Glomerular Filt Rate 34; Glucose Random 98 mg/dL (60-115); Potassium 3.4 mmol/L (3.3-5.1); Sodium 130 mmol/L (135-145)
[2021-02-12 06:08] VITALS: BP 101/46; PULSE 67; RESP 20; TEMP 36.4; O2SAT 98
[2021-02-12 07:12] LABS: Hemoglobin 10.7 g/dl (12.0-16.0); Mean Corpuscular HGB Conc 33.4 g/dl (31.0-35.0); Mean Corpuscular Hemoglobin 28.8 pg (27.0-33.0); Mean Corpuscular Volume 86.3 fL (80-98); Mean Platelet Volume 9.2 fL (9.4-12.3); Platelet Count 515 X10*3/uL (160-400); Red Blood Count 3.71 X10*6/uL (4.20-5.50); White Blood Count 8.9 X10*3/uL (4.8-10.8)
[2021-02-12 07:14] VITALS: BP 125/44; PULSE 62; RESP 17; O2SAT 98
[2021-02-12] MEDS: predniSONE 20 MG TABLET 40 MG PO (07:27)
--- NOTE | 2021-02-12 07:31 | PC.NURSE ---
ATTEMPTED CONTACT FOR NON FORMULARY MEDICATION TO BE BROUGHT TO THE HOSPITAL FOR PATIENT TO USE. MESSAGE LEFT, AWAITING RETURN CALL FOR CONFIRMATION THAT IS ABLE TO BRING MEDICATIONS.
[2021-02-12 07:35] LABS: Anion Gap 15 (12-20); Blood Urea Nitrogen 46 mg/dL (9-16); Carbon Dioxide 21 mmol/L (22-29); Chloride 100 mmol/L (96-108); Creatinine Clr Calc Pharmacy 21.1; Estimated Glomerular Filt Rate 41; Glucose Random 100 mg/dL (60-115); Potassium 3.6 mmol/L (3.3-5.1); Sodium 132 mmol/L (135-145)
[2021-02-12 07:41] LABS: Band Neutrophils Percent 4 % (3-5); Eosinophils Absolute Manual 0.4 X10*3/UL (0.0-0.8); Eosinophils Percent Manual 4 % (0-4); Lymphocytes Absolute Manual 0.3 X10*3/uL (0.6-4.8); Lymphocytes Percent Manual 3 % (20-40); Monocytes Absolute Manual 0.6 X10*3/uL (0.0-1.2); Monocytes Percent Manual 7 % (2-11); Neutrophils Absolute Manual 7.7 X10*3/uL (2.2-7.9); Neutrophils Percent Manual 82 % (45-73)
--- NOTE | 2021-02-12 07:41 | PC.NURSE ---
PT INC OF STOOL THIS MORNING, LINENS CHANGED, PT CLEANED UP BARRIER CRAM APPLIED TO BUTTOCK FOR SOME SKIN IRRITATION, CURRENTLY AT BEDSIDE, WAITING ON BED TO BE AVAILABLE ON A UNIT BEFORE PT WILL BE MOVED OUT OF ED.
[2021-02-12 07:42] LABS: Platelet Estimate SLIGHTLY INCREASED (NORMAL); Platelet Morphology Comment NORMAL
[2021-02-12 07:43] LABS: RBC Morphology NORMAL
[2021-02-12] MEDS: 0.9 % Sodium Chloride Flush 3 ML SYRINGE IVFLUSH (07:45)
--- NOTE | 2021-02-12 07:45 | PC.NURSE ---
0324 MEDICATION NOT CHARTED BY PREVIOUS SHIFT
--- NOTE | 2021-02-12 08:18 | PC.NURSE ---
TALKING WITH HAYDEN IN PERSON AT BEDSIDE. REPORTING THAT HE GOT THE MESSAGE TO BRING NON-FORMULARY MEDICATIONS TO THE HOSPITAL. REPORTING THAT HE HAS BEEN HAVING DIFFICULTY GETTING THE PRESCRIPTIONS, STATING PATIENTS PHARMACY SPECIAL ORDERED IT AND SHOULD BE ARRIVING TODAY, STATING HE WOULD CALL THE HOSPITAL IF THE MEDICATIONS ARRIVED AND HE COULD BRING THEM IN. CONTACTING PHARMACY TO UPDATE THEM ON THE STATUS OF THE MEDICATIONS.
[2021-02-12] MEDS: 0.9 % Sodium Chloride 1,000 ML 75 ML IVCONT ×2 (09:11→15:54)
--- NOTE | 2021-02-12 09:14 | PC.NURSE ---
Assumed care of patient at 0900. Patient resting comfortably in NAD, IVF started and daughter at bedside. Patient has no complaints of pain or nausea. Asked if she needed to use the bathroom and patient denied the need. Hospitalist at bedside with plan for case management to become involved as daughter expressed medication expenses [facility] as well as GI consult placed. Until then pt to remain NPO apart from ice chips. Patient and daughter made aware of the plan and still awaiting bed assignment.
--- NOTE | 2021-02-12 09:41 | PC.NURSE ---
Patients daughter pulled this RN aside and stated that the patient has long standing alcohol abuse history (approximately 30+ years) and has been sober X1 year as far as the daughter knows. Also states that the patient has never taken any other prescription medications in the past prior to starting medication therapy for her colitis (diagnosis X1-2 months ago). For approximately this amount of time, 1-2 months the patient has been noted by the daughter to have a mental delay and difficulty organizing thoughts associated with some confusion. Per daughter she is unsure if related to prior alcoholism or if due to the new medications but wanted to mention it to staff as the patient is a poor hisotrian. Hospitalist Demi Salgado NP made aware of this information. CIWA scale done and patient scoring a 4.
--- NOTE | 2021-02-12 09:59 | MHC.CM.PN ---
pt lives c her in their home. she reports that she is independent in her care. she uses no AD c ambulation and has no svcs in the home. her can help her c any needs she may have at dc , this will include a ride home. pt also has a daughter that lives [place] nearby in [place] ph: [phone]. she is at the bedside during this interview and has requested to be informed of dc plan. she and patient have also requested a ref. be made to na which has been done. dc plan is home c vna. cm to cont. to follow.
--- NOTE | 2021-02-12 10:06 | MHC.CM.PN ---
pt lives c her in their home. she reports that she is independent in her care. she uses no AD c ambulation and has no svcs in the home. her can help her c any needs she may have at dc , this will include a ride home. pt also has a daughter that lives relatively nearby in [place] ph: [phone]. she is at the bedside during this interview and has requested to be informed of dc plan. she and patient have also requested a ref. be made to [facility] which has been done. dc plan is home c vna. pt has expressed that the medications she was recently prescribed for her UC are very expensive and she has spent $1100 since last dc on these medications. this is difficult for her as she and her are retired and on a fixed income. on further questioning it was discovered that patient has no medicare part D - drug prescription benefit. this is a separate insurance that patients on medicare must purchase on their own. without it the will have to pay james for medications. pt says she recently applied for [employer] but was declined d/t not meeting income requirements. pt was encouraged to enroll in a medicare pt D plan and to use her local pharmacist as a resource if online access to these resources is not an option. pt did ask me is there was a generic medication she could take which would be more affordable. i told her this would be a discussion to be had c the doctor. cm to cont. to follow.
--- NOTE | 2021-02-12 11:40 | PC.NURSE ---
Patient holding in ED awaiting bed assignment. For comfort, patient placed on a hospital bed while she waits.
--- NOTE | 2021-02-12 12:38 | HO.PM.IMPN ---
Subjective Subjective Date of Service: 02/12/21 <Demi Newman NP - Last Filed: 02/12/21 12:40> 02/13/21 <Kb Ngo MD - Last Filed: 02/13/21 16:10> Interval History: Follow up GI bleed, hypontaremia Some bleeding this morning no abdominal pain <Demi Newman NP - Last Filed: 02/12/21 12:40> Physical Exam Vital Signs: Vital Signs: Last Vital Signs Temp 97.6 F 02/12/21 06:08 Pulse 62 02/12/21 07:14 Resp 17 02/12/21 07:14 BP 125/44 L 02/12/21 07:14 Pulse Ox 98 02/12/21 07:14 Body Mass Index 32.4 <Demi Newman NP - Last Filed: 02/12/21 12:40> Appearing in no acute distress lung sounds are clear to auscultation heart regular rate rhythm, clear S1, S2 positive bowel sounds, abdomen is soft, nontender neuro patient is alert x3, no focal deficits <Demi Newman NP - Last Filed: 02/12/21 12:40> Objective Data Current Medications Generic Name Dose Route Start Last Admin Trade Name Freq PRN Reason Stop Dose Admin Acetaminophen 650 mg 02/11/21 14:04 Acetaminophen 325 Mg Tablet PO Q6H PRN Pain, Mild (Pain Scale 1-3) Sodium Chloride 1,000 mls @ 50 mls/hr 02/11/21 14:04 02/12/21 09:11 Ns IVCONT 75 mls/hr .Q20H MARQUITA Administration Ondansetron HCl 4 mg 02/11/21 14:04 Ondansetron Hcl 4 Mg/2 Ml Vial IVPUSH Q8H PRN Nausea and Vomiting Prednisone 40 mg 02/12/21 09:00 02/12/21 07:27 Prednisone 20 Mg Tablet PO 40 mg DAILY MARQUITA Administration Sodium Chloride 3 ml 02/11/21 16:00 02/12/21 07:45 0.9 % Sodium Chloride Flush 3 Ml Syringe IVFLUSH 3 ml QSHIFT MARQUITA Administration <Demi Newman NP - Last Filed: 02/12/21 12:40> Labs CBC & Chem 7: : 02/13/21 07:18 02/13/21 07:18 <Demi Newman NP - Last Filed: 02/12/21 12:40> Labs: Laboratory Results - last 24 hr 02/11/21 02/11/21 02/11/21 16:20 16:20 16:20 WBC RBC Hgb Hct MCV MCH MCHC RDW Plt Count MPV Immature Gran % (Auto) Neut % (Auto) Lymph % (Auto) [place] % (Auto) Eos % (Auto) Baso % (Auto) Lymph # (Auto) [place] # (Auto) Eos # (Auto) Baso # (Auto) Abs Immat Gran (auto) Absolute Neuts (auto) Absolute Nucleated RBC Nucleated RBC % (auto) Neutrophils % (Manual) Band Neutrophils % Lymphocytes % (Manual) Monocytes % (Manual) Eosinophils % (Manual) Abs Neuts (Manual) Lymphocytes # (Manual) Monocytes # (Manual) Eosinophils # (Manual) Platelet Estimate Plt Morphology Comment RBC Morphology Sodium Potassium Chloride Carbon Dioxide Anion Gap BUN Creatinine Estim Creat Clear Calc Estimated GFR Random Glucose Calcium Urine Color YELLOW Urine Appearance HAZY Urine pH 6.0 Ur Specific [place] 1.010 Urine Protein NEG Urine Glucose (UA) NEG Urine Ketones NEG Urine Blood NEG Urine Nitrite NEG Ur Leukocyte Esterase NEG Urine Osmolality 277 L Ur Random Sodium < 20.0 Urine Creatinine 92.37 02/11/21 02/11/21 02/11/21 16:25 21:27 21:27 WBC 11.7 H RBC 3.78 L Hgb 10.8 L Hct 31.9 L MCV 84.4 MCH 28.6 MCHC 33.9 RDW 12.7 Plt Count 480 H MPV 9.3 L Immature Gran % (Auto) Neut % (Auto) Lymph % (Auto) [place] % (Auto) Eos % (Auto) Baso % (Auto) Lymph # (Auto) [place] # (Auto) Eos # (Auto) Baso # (Auto) Abs Immat Gran (auto) Absolute Neuts (auto) Absolute Nucleated RBC 0.000 Nucleated RBC % (auto) 0.0 Neutrophils % (Manual) Band Neutrophils % Lymphocytes % (Manual) Monocytes % (Manual) Eosinophils % (Manual) Abs Neuts (Manual) Lymphocytes # (Manual) Monocytes # (Manual) Eosinophils # (Manual) Platelet Estimate Plt Morphology Comment RBC Morphology Sodium 129 L 130 L Potassium 3.0 L 3.4 Chloride 93 L 95 L Carbon Dioxide 25 24 Anion Gap 14 14 BUN 58 H 55 H Creatinine 1.62 H 1.47 H Estim Creat Clear Calc 16.5 18.2 Estimated GFR 31 34 Random Glucose 116 H 98 Calcium 7.8 L D 7.9 L Urine Color Urine Appearance Urine pH Ur Specific [place] Urine Protein Urine Glucose (UA) Urine Ketones Urine Blood Urine Nitrite Ur Leukocyte Esterase Urine Osmolality Ur Random Sodium Urine Creatinine 02/12/21 02/12/21 06:47 06:47 WBC 8.9 RBC 3.71 L Hgb 10.7 L Hct 32.0 L MCV 86.3 MCH 28.8 MCHC 33.4 RDW 13.0 Plt Count 515 H MPV 9.2 L Immature Gran % (Auto) Cancelled Neut % (Auto) Cancelled Lymph % (Auto) Cancelled [place] % (Auto) Cancelled Eos % (Auto) Cancelled Baso % (Auto) Cancelled Lymph # (Auto) Cancelled [place] # (Auto) Cancelled Eos # (Auto) Cancelled Baso # (Auto) Cancelled Abs Immat Gran (auto) Cancelled Absolute Neuts (auto) Cancelled Absolute Nucleated RBC 0.000 Nucleated RBC % (auto) 0.0 Neutrophils % (Manual) 82 H Band Neutrophils % 4 Lymphocytes % (Manual) 3 L Monocytes % (Manual) 7 Eosinophils % (Manual) 4 Abs Neuts (Manual) 7.7 Lymphocytes # (Manual) 0.3 L Monocytes # (Manual) 0.6 Eosinophils # (Manual) 0.4 Platelet Estimate SLIGHTLY INCREASED Plt Morphology Comment NORMAL RBC Morphology NORMAL Sodium 132 L Potassium 3.6 Chloride 100 Carbon Dioxide 21 L Anion Gap 15 BUN 46 H Creatinine 1.27 Estim Creat Clear Calc 21.1 Estimated GFR 41 Random Glucose 100 Calcium 8.0 L Urine Color Urine Appearance Urine pH Ur Specific [place] Urine Protein Urine Glucose (UA) Urine Ketones Urine Blood Urine Nitrite Ur Leukocyte Esterase Urine Osmolality Ur Random Sodium Urine Creatinine <Demi Newman NP - Last Filed: 02/12/21 12:40> Assessment and Plan (1) Acute hyponatremia: Status: Acute <Demi Newman NP - Last Filed: 02/12/21 12:40> Assessment and Plan: 80 year old women admitted with Hyponatremia and GI bleed with recent diagnosis of UC. Hyponatremia. likely secondary to hypovolemia Improving - IV fluids - nephrology consultation - follow sodium closely GI Bleed. Hx of UC. -GI to follow and rec further treatments. NIVIA. Likely secondary to dehydration - IV fluids History of alcohol abuse no signs of withdrawal - CIWA scale DVT prophylaxis with mech boots due to GI bleed. Full code Attending: Dr. Ngo <Demi Newman NP - Last Filed: 02/12/21 12:40>
[2021-02-12 13:46] VITALS: BP 152/68; PULSE 68; RESP 17; TEMP 36; O2SAT 98
[2021-02-12 16:00] VITALS: BP 156/62; PULSE 65; RESP 14; TEMP 36; O2SAT 96
--- NOTE | 2021-02-12 16:26 | P.CNGI_ITS ---
History of Present Illness Data of Consult Service Date: 02/12/21 Requesting physician: Kb Ngo Primary Care Provider: Suzan Hankins MD HPI Reason for consult: Rectal bleeding, ulcerative colitis 80 YF presented [place] [facility] [place] 02[place]21 with rectal bleeding: HPI Narrative: 80 y/o female with recent admission to [facility] [place] for GI bleed and possible colits - endoscopy diagnosed her with Ulcerative Colitis who presents back to the ER from home via EMS with reports of ongoing GI bleeding and generalized weakness. History is limited as patient is confused. did not answer. Patient reports continued episodes of bright red blood per rectum but could not quantify episodes or amount. She denies any abdominal pain, nausea or vomiting. She has not been eating much and is very weak. She denies fever or chills . ENDOSCOPIC STUDIES: 01/18/21COLONOSCOPY WAS PERFORMED BY DR ROSALES: Sigmoid Colon: several wide mouthed tics seen At rectosigmoid junction to the distal rectum there was confluent inflammation with microabscesses, edema, and erythema with ulceration which appeared chronic. bx taken. Rectum: Retroflexion not done Anorectum - normal Impression and Post Procedure Diagnosis: colitis, appearance consistent with UC diverticulosis Plan: Repeat Colonoscopy in 6-12 months sample sent for c diff from endo commence mesalamine PO e.g Apriso or similar, and mesalamine enema check TB spot and hep serologies in case she needs biologics at later date BIOPSIES SHOWED: D. Colon, descending, biopsy: Colonic mucosa with mild crypt disarray; otherwise within normal limits. E. Colon, proximal sigmoid, biopsy: Colonic mucosa within normal limits. F. Rectosigmoid, biopsy: Chronic, severely active, colitis. COMMENT: No dysplasia or granulomata are seen. PAST GI HX BY REVIEW OF MEDICAL RECORDS: 01/16/21 Pt was seen by Dr Rosales during recent hospitalization. (1) Bright red rectal bleeding: Status: Acute 1/ Rectal bleeding with CT imaging suspicious for colonic mass. She may have colon cancer or it maybe an inflammatory mass which can be seen in IBD or a diverticular disease, vs abscess but she is not really that toxic appearing. PLAN: 1/ I would like her to get a few days Of Abx, can have soft diet as tolerated day, can also give her dulcolax and miralax today. 2/ tomorrow would give her clears and give her colon prep in the late evening and plan for colonoscopy on . Review of Systems Constitutional: Constitutional: Denies fever(s), Denies headache(s) and Denies weight loss Eyes: Eyes: Denies eye discharge and Denies irritation ENT: Reports Normal hearing present, Denies dysphagia, Denies dizziness and Denies headache(s) Cardiovascular: Cardiovascular: Denies chest pain, Denies leg edema and Denies dyspnea on exertion Respiratory: Respiratory: Denies cough, Denies dyspnea on exertion and Denies wheezing Gastrointestinal: Gastrointestinal: Denies abdominal pain, Denies change in bowel habits, Denies dysphagia and Denies heartburn Genitourinary: Genitourinary: Denies difficulty voiding and Denies dysuria Musculoskeletal: Musculoskeletal: Denies back pain and Denies arthralgias Integumentary/Breasts: Skin/Breast: Denies pruritus, Denies rash and Denies jaundice Neurologic: Reports Normal hearing present, Denies Abnormal speech present, Denies dizziness, Denies headache(s) and Denies seizure-like activity Psychiatric: Psychiatric: Denies anxiety, Denies depression and Denies panic attacks Endocrine: Endocrine: Denies cold intolerance, Denies flushing and Denies heat intolerance Hematologic/Lymphatic: Hematologic/Lymphatic: Denies easy bleeding and Denies easy bruising Allergic/Immunologic: Allergic/Immunologic: Denies wheezing PMFSH Past Medical History Medical History NIVIA (acute kidney injury) Annual physical exam Dysplastic nevus HTN (hypertension) Hyperglycemia Patient denies medical problems Ulcerative colitis Family History Family History Father No problems noted. Mother No problems noted. Surgical History Surgical History H/O colonoscopy Social History Social History Household Members: Spouse Housing: House Do you presently have visiting nurse or other home services: No Unable to assess alcohol history related to: Unknown Patient Tobacco Use Status: Never used Tobacco e-Cigarette/Vaping Use: Never Used Second Hand Smoke Exposure: Yes service: No Current occupational status: retired Current occupational exposures/hazards: No Meds Allergies Allergy/AdvReac Type Severity Reaction Status Date / Time No Known Allergies Allergy Verified 07/20/21 10:06 [No Known Allergies*] Active Medications: Current Medications Generic Name Dose Route Start Last Admin Trade Name Marjan PRN Reason Stop Dose Admin Acetaminophen 650 mg 02/11/21 14:04 Acetaminophen 325 Mg Tablet PO Q6H PRN Pain, Mild (Pain Scale 1-3) Sodium Chloride 1,000 mls @ 50 mls/hr 02/11/21 14:04 02/12/21 16:02 Ns IVCONT 50 mls/hr .Q20H MARQUITA Infusion Ondansetron HCl 4 mg 02/11/21 14:04 Ondansetron Hcl 4 Mg/2 Ml Vial IVPUSH Q8H PRN Nausea and Vomiting Prednisone 40 mg 02/12/21 09:00 02/12/21 07:27 Prednisone 20 Mg Tablet PO 40 mg DAILY MARQUITA Administration Sodium Chloride 3 ml 02/11/21 16:00 02/12/21 16:10 0.9 % Sodium Chloride Flush 3 Ml Syringe IVFLUSH Not Given QSHIFT MARQUITA Physical Exam Vital Signs: Vital Signs: Last Vital Signs Temp 96.8 F 02/12/21 16:00 Pulse 65 02/12/21 16:00 Resp 14 02/12/21 16:00 BP 156/62 H 02/12/21 16:00 Pulse Ox 96 02/12/21 16:00 Body Mass Index 32.4 Const: General: healthy appearing and no acute distress Nutritional Appearance: average body habitus Orientation/consciousness: patient oriented x3 Limitations: no limitations HENMT: Head: Yes normal to inspection Ears: hearing grossly normal bilaterally Mouth: Normal oral and palatal mucosa present Eyes: Sclerae: sclerae normal Pupils: Equal, round and reactive pupils present Neck: Neck: Yes normal visual inspection Chest: Chest palpation & inspection: normal inspection of the chest Resp: Effort & Inspection: normal respiratory effort Auscultation: clear to auscultation bilaterally Cardio: Palpation: normal PMI Rate: regular rate Rhythm: regular rhythm Heart sounds: S1 normal heart sound present, S2 normal heart sound present and no murmurs GI: Palpation (GI): Soft to palpation, nontender and No hepatosplenomegaly present Auscultation: normal bowel sounds Rectal Exam - Female: deferred Skin: General skin exam: no rashes or lesions noted Neuro: General: patient oriented x3, gait normal and moves all extremities Cranial nerves: Yes Equal, round and reactive pupils present and Yes Normal hearing present Speech: No Abnormal speech present Psych: Appearance: grossly normal Mental Status: mental status grossly normal Results Labs CBC & Chem 7: 02/13/21 07:18 02/13/21 07:18 Labs: Short CBC 02/11/21 02/12/21 Range/Units 21:27 06:47 WBC 11.7 H 8.9 (4.8-10.8) X10*3/uL Hgb 10.8 L 10.7 L (12.0-16.0) g/dl Hct 31.9 L 32.0 L (37-47) % Plt Count 480 H 515 H (160-400) X10*3/uL BMP 02/11/21 02/11/21 02/12/21 16:25 21:27 06:47 Sodium 129 L 130 L 132 L Potassium 3.0 L 3.4 3.6 Chloride 93 L 95 L 100 Carbon Dioxide 25 24 21 L BUN 58 H 55 H 46 H Creatinine 1.62 H 1.47 H 1.27 Calcium 7.8 L D 7.9 L 8.0 L Urine 02/11/21 Range/Units 16:20 Urine Color YELLOW Urine Appearance HAZY Urine pH 6.0 (5.0-8.0) Ur Specific [place] 1.010 (1.005-1.025) Urine Protein NEG (NEG-TRACE) MG/DL Urine Glucose (UA) NEG (NEG) MG/DL Assessment and Plan (1) Ulcerative colitis: Status: Acute
--- NOTE | 2021-02-12 18:42 | PM.GICN ---
History of Present Illness Data of Consult Service Date: 02/12/21 Requesting physician: Demi Newman Primary Care Provider: Suzan Hankins MD HPI Reason for consult: UC management 80-year-old female who I am asked to see for UC management. Patient feels she is doing well since her last in patient stay but I am not sure how accurate her histroy is as she seems easily distracted and unable to focus on questions, seems to be mentally vacant at times. per chart she was brought to hospital by due to worsening rectal bleeding but she thinks this had improved with medications given as outpatient. Per primary team family were asking for alternative to budesonide as too expensive, apparently social work contacted to see if any help available. She currently denies any pain, no fevers or chills, says stool is formed and no diarrhea. her hx is pertinet for admission 12/2020 with rectal bleeding where she was dx with UC after undergoing endoscopies. She was treated with mesalamine and proctofoam with addition of budesonide due to ongoing complaints. C diff was negative and bx confirmed severe chronic proctosigmoiditis. Ct scanning had revealed thickening of sigmoid with mass like effect but no mass or tumour on endoscopy. Review of Systems Review of Systems: Constitutional: No Fever, No Chills ENT/Mouth: No sore throat, No Rhinorrhea, No Swallowing Difficulty Cardiovascular: No Chest Pain, No SOB Respiratory: No Cough, No Sputum Gastrointestinal: No Nausea, No Vomiting, No Diarrhea, + abdominal Pain, + Hematochezia, No Melena Genitourinary: No Dysuria, No Urinary Frequency, No Hematuria Musculoskeletal: No joint pain, No Myalgias Skin: No Skin Lesions, No rash Neuro: + Weakness, No Numbness, No Dizziness, No Headache Psych: No Anxiety/Panic, No Depression Heme/Lymph: No Bruising, No Lymphadenopathy Endocrine: No Polyuria, No Polydipsia Yes Unobtainable due to mental status (Confused) Constitutional: Constitutional: Denies fever(s), Denies headache(s) and Denies weight loss Eyes: Eyes: Denies eye discharge and Denies irritation ENT: Reports Normal hearing present, Denies dysphagia, Denies dizziness and Denies headache(s) Cardiovascular: Cardiovascular: Denies chest pain, Denies leg edema and Denies dyspnea on exertion Respiratory: Respiratory: Denies cough, Denies dyspnea on exertion and Denies wheezing Gastrointestinal: Gastrointestinal: Denies abdominal pain, Denies change in bowel habits, Denies dysphagia and Denies heartburn Musculoskeletal: Musculoskeletal: Denies back pain and Denies arthralgias Integumentary/Breasts: Skin/Breast: Denies pruritus, Denies rash and Denies jaundice Neurologic: Reports Normal hearing present, Denies Abnormal speech present, Denies dizziness, Denies headache(s) and Denies seizure-like activity Psychiatric: Psychiatric: Denies anxiety, Denies depression and Denies panic attacks Endocrine: Endocrine: Denies cold intolerance, Denies flushing and Denies heat intolerance Hematologic/Lymphatic: Hematologic/Lymphatic: Denies easy bleeding and Denies easy bruising Allergic/Immunologic: Allergic/Immunologic: Denies wheezing PMFSH Past Medical History Medical History (Updated 02/11/21 @ 09:57 by JESSICA Sotomayor) Patient denies medical problems Ulcerative colitis Family History Pertinent family history: patient unable to give this information Surgical History Surgical History H/O colonoscopy Social History Social History Household Members: Spouse Housing: House Do you presently have visiting nurse or other home services: No Unable to assess alcohol history related to: Unknown Patient Tobacco Use Status: Never used Tobacco e-Cigarette/Vaping Use: Never Used service: No Current occupational status: retired [employer] Allergies Allergy/AdvReac Type Severity Reaction Status Date / Time No Known Allergies Allergy Verified 01/23/21 09:09 [No Known Allergies*] Active Medications: Current Medications Generic Name Dose Route Start Last Admin Trade Name Freq PRN Reason Stop Dose Admin Acetaminophen 650 mg 02/11/21 14:04 Acetaminophen 325 Mg Tablet PO Q6H PRN Pain, Mild (Pain Scale 1-3) Sodium Chloride 1,000 mls @ 50 mls/hr 02/11/21 14:04 02/12/21 16:02 Ns IVCONT 50 mls/hr .Q20H MARQUITA Infusion Ondansetron HCl 4 mg 02/11/21 14:04 Ondansetron Hcl 4 Mg/2 Ml Vial IVPUSH Q8H PRN Nausea and Vomiting Prednisone 40 mg 02/12/21 09:00 06/14/21 07:27 Prednisone 20 Mg Tablet PO 40 mg DAILY MARQUITA Administration Sodium Chloride 3 ml 02/11/21 16:00 02/12/21 16:10 0.9 % Sodium Chloride Flush 3 Ml Syringe IVFLUSH Not Given QSHIFT MARQUITA Physical Exam Vital Signs: Vital Signs: Last Vital Signs Temp 96.8 F 02/12/21 16:00 Pulse 65 02/12/21 16:00 Resp 14 02/12/21 16:00 BP 156/62 H 02/12/21 16:00 Pulse Ox 96 02/12/21 16:00 Body Mass Index 32.4 Const: General: healthy appearing and no acute distress Nutritional Appearance: average body habitus Orientation/consciousness: patient oriented x3 Limitations: no limitations HENMT: Head: Yes normal to inspection Ears: hearing grossly normal bilaterally Mouth: Normal oral and palatal mucosa present Eyes: Sclerae: sclerae normal Pupils: Equal, round and reactive pupils present Neck: Neck: Yes normal visual inspection Chest: Chest palpation & inspection: normal inspection of the chest Resp: Effort & Inspection: normal respiratory effort Auscultation: clear to auscultation bilaterally Cardio: Palpation: normal PMI Rate: regular rate Rhythm: regular rhythm Heart sounds: S1 normal heart sound present, S2 normal heart sound present and no murmurs GI: Palpation (GI): Soft to palpation, nontender and No hepatosplenomegaly present Auscultation: normal bowel sounds Rectal Exam - Female: deferred Skin: General skin exam: no rashes or lesions noted Neuro: General: patient oriented x3, gait normal and moves all extremities Cranial nerves: Yes Equal, round and reactive pupils present and Yes Normal hearing present Speech: No Abnormal speech present Psych: Appearance: grossly normal Mental Status: mental status grossly normal Results Labs CBC & Chem 7: 02/12/21 06:47 02/12/21 06:47 Labs: Short CBC 02/11/21 02/12/21 Range/Units 21:27 06:47 WBC 11.7 H 8.9 (4.8-10.8) X10*3/uL Hgb 10.8 L 10.7 L (12.0-16.0) g/dl Hct 31.9 L 32.0 L (37-47) % Plt Count 480 H 515 H (160-400) X10*3/uL [facility] 02/11/21 02/12/21 21:27 06:47 Sodium 130 L 132 L Potassium 3.4 3.6 Chloride 95 L 100 Carbon Dioxide 24 21 L BUN 55 H 46 H Creatinine 1.47 H 1.27 Calcium 7.9 L 8.0 L Assessment and Plan (1) Ulcerative colitis: Status: Acute 1/ Rcent dx of UC, asked for further management advice per primary team. HGB stable around 11 g/dl Plan; 1/ monitor stools, if diarrhea repeat c diff 2/ if able to cont then remain with budesonide, if remains costly then can change to pred taper (long taper over 6 weeks). In meantime will try to get her on entyvio. pls check TB spot and hep serologies, iron levels 3/ hyponatremia w/u, check osmolalities and cortisol levels leslie as may need steroids as above, CXR to r/o lung lesion (2) Acute hyponatremia: Status: Acute Procedures Date of Service Date of Service: 02/12/21
[2021-02-12 19:45] VITALS: BP 150/52; PULSE 56; RESP 12; TEMP 35.9; O2SAT 100
[2021-02-12] MEDS: Acetaminophen 325 MG TABLET 650 MG PO (21:37)
[2021-02-13] VITALS: BP 160/58; PULSE 57; RESP 16; TEMP 37; O2SAT 97
[2021-02-13 04:00] VITALS: BP 147/55; PULSE 61; RESP 18; TEMP 36.2; O2SAT 99
[2021-02-13 07:37] LABS: Hemoglobin 9.8 g/dl (12.0-16.0); Mean Corpuscular HGB Conc 32.7 g/dl (31.0-35.0); Mean Corpuscular Hemoglobin 28.2 pg (27.0-33.0); Mean Corpuscular Volume 86.5 fL (80-98); Mean Platelet Volume 8.9 fL (9.4-12.3); Platelet Count 503 X10*3/uL (160-400); Red Blood Count 3.47 X10*6/uL (4.20-5.50); Red Cell Distribution Width 13.1 % (11.0-16.0)
[2021-02-13 07:38] VITALS: BP 140/57; PULSE 59; RESP 15; TEMP 36.3; O2SAT 99
[2021-02-13 08:12] LABS: Anion Gap 11 (12-20); Blood Urea Nitrogen 31 mg/dL (9-16); Calcium 7.9 mg/dL (8.4-10.2); Carbon Dioxide 23 mmol/L (22-29); Chloride 105 mmol/L (96-108); Estimated Glomerular Filt Rate 52; Glucose Random 124 mg/dL (60-115); Potassium 3.3 mmol/L (3.3-5.1); Sodium 136 mmol/L (135-145)
[2021-02-13 08:14] LABS: C Reactive Protein 6.55 mg/dL (< or = 0.50)
[2021-02-13 08:25] LABS: Iron 29 mcg/dL (30-160); Percent Iron Saturation 16 % (15-50); Total Iron Binding Capacity 183 mcg/dL (228-428); Unsaturated Iron Binding 154 ug/dL
[2021-02-13 08:30] LABS: Ferritin 780 ng/mL (10-250)
[2021-02-13] MEDS: predniSONE 20 MG TABLET 40 MG PO (08:34)
[2021-02-13 09:03] LABS: Hepatitis B Core Antibody Nonreactive (Nonreactive); Hepatitis B Surface Antigen Negative (Negative); ~HepC Num1 0.06 S/CO (0.00-0.79); ~Hepatitis C Antibody Nonreactive (Nonreactive)
[2021-02-13 09:06] LABS: HBS Num1 0.24 mIU/mL (0-7.99); ~Hepatitis B Surface Antibody NONREACTIVE (Nonreactive)
--- NOTE | 2021-02-13 10:28 | P.PNNP_ITS ---
Subjective Subjective Date of Service: 02/13/21 Interval history: Events noted Non oliguric Physical Exam Vital Signs: Vital Signs: Last Vital Signs Temp 97.3 F 02/13/21 07:38 Pulse 59 02/13/21 07:38 Resp 15 02/13/21 07:38 BP 140/57 H 02/13/21 07:38 Pulse Ox 99 02/13/21 07:38 Body Mass Index 32.4 Const: General: alert Neck: Neck: Yes supple Resp: Auscultation: clear to auscultation bilaterally Cardio: Jugular venous distension: no JVD Heart sounds: no rubs Neuro: Motor exam (neuro): no asterixis Objective Data Labs CBC & Chem 7: 02/13/21 07:18 02/13/21 07:18 Labs: Laboratory Results - last 24 hr 02/13/21 02/13/21 02/13/21 07:18 07:18 07:18 WBC 11.0 H RBC 3.47 L Hgb 9.8 L Hct 30.0 L MCV 86.5 MCH 28.2 MCHC 32.7 RDW 13.1 Plt Count 503 H MPV 8.9 L Absolute Nucleated RBC 0.000 Nucleated RBC % (auto) 0.0 Sodium 136 Potassium 3.3 Chloride 105 Carbon Dioxide 23 Anion Gap 11 L BUN 31 H Creatinine 1.03 Estim Creat Clear Calc 26.0 Estimated GFR 52 Random Glucose 124 H Calcium 7.9 L Iron TIBC % Saturation Unsat Iron Binding Ferritin C-Reactive Protein 6.55 H Hep Bs Antigen Hep Bs Antibody Hep B Core Total Ab Hepatitis C Ab (EIA) 02/13/21 02/13/21 07:18 07:18 WBC RBC Hgb Hct MCV MCH MCHC RDW Plt Count MPV Absolute Nucleated RBC Nucleated RBC % (auto) Sodium Potassium Chloride Carbon Dioxide Anion Gap BUN Creatinine Estim Creat Clear Calc Estimated GFR Random Glucose Calcium Iron 29 L TIBC 183 L % Saturation 16 Unsat Iron Binding 154 Ferritin 780 H C-Reactive Protein Hep Bs Antigen Negative Hep Bs Antibody NONREACTIVE Hep B Core Total Ab Nonreactive Hepatitis C Ab (EIA) Nonreactive Assessment & Plan Assessment and plan (1) NIVIA (acute kidney injury): Status: Acute Assessment and Plan: NIVIA Due to volume depletion REsolving with IVF Hypovolemic hyponatremia Improved with Isotonic fluids Hypokalemia due to GI loss Stands corrected UC/ GI B /anemia Time Spent With Patient Time: Total time spent is greater than 50% in coordination of care (as document ed) at patient's floor/unit and/or counseling patient: Procedures Date of Service Date of Service: 02/13/21
--- NOTE | 2021-02-13 10:49 | P.DS_ITS ---
DS: Providers Provider Date of Service: 02/13/21 <Demi Newman NP - Last Filed: 02/13/21 17:44> Date of admission: 02/11/21 21:13 <Demi Newman NP - Last Filed: 02/13/21 17:44> Date of discharge: 02/13/21 <Demi Newman NP - Last Filed: 02/13/21 17:44> Primary care physician: Suzan Hankins MD <Demi Newman NP - Last Filed: 02/13/21 17:44> Admitting clinician: Demi Newman <Demi Newman NP - Last Filed: 02/13/21 17:44> Attending physician on admission: José Miguel Garcia <Demi Newman NP - Last Filed: 02/13/21 17:44> Consults: 02/11/21 20:56 Consult to Nephrology Routine Consulting Provider: Jayshree Ponce Reason for consultation: HYPONATREMIA Has provider been notified: No 02/12/21 11:27 Consult to Gastroenterology Routine Consulting Provider: Aly Perkins Reason for consultation: UC flare <Demi Newman NP - Last Filed: 02/13/21 17:44> Attending physician on discharge: Kb Ngo <Demi Newman NP - Last Filed: 02/13/21 17:44> Discharging clinician: Demi Newman <Demi Newman NP - Last Filed: 02/13/21 17:44> DS: Diagnosis Discharge Diagnosis (1) NIVIA (acute kidney injury): Status: Acute <Demi Newman NP - Last Filed: 02/13/21 17:44> (2) Acute hyponatremia: Status: Acute <Demi Newman NP - Last Filed: 02/13/21 17:44> (3) Ulcerative colitis: Status: Acute <Demi Newman NP - Last Filed: 02/13/21 17:44> DS: Medications Discharge Medications Home Medications: Previous Rx's Medication Instructions Recorded prednisone See Taper PO DAILY #77 tab 02/13/21 <Demi Newman NP - Last Filed: 02/13/21 17:44> DS: Summary Hospital Course Hospital Course: 80 year old women apparently she presented with ongoing GI bleeding in generalized weakness. She was recently discharged with GI bleeding and colitis, endoscopy diagnosed with ulcerative colitis and she was placed on mesalamine. According to the record patient had bright red blood per rectum but she was unable to give any meaningful history. I attempted to call the patient's , Hans Lamb [phone], but no answer. she denies pain, chest pain, shortness of breath, nausea, vomiting, diarrhea. According to the ER record she had gross hematochezia. She also noted to have a low sodium of 125, creatinine 1.79, positive stool occult. Abdominal CT showed a masslike thickening of the sigmoid colon. ? subacute diverticulitis however an underlying malignancy is also a concern. No evidence for active bleeding on the current exam. She was given IV fluids and zofran and will be admitted for further management of GI bleed. Ulcerative colitis . Patient with recent diagnosis. Has been on mesalamine oral and p.r. as well as budesonide. Unfortunately this has been at a cost for them as they do not have a Medicare Part D plan which will cover prescriptions. They did have a conversation with case management and they were given the appropriate contacts to apply. In the meantime discussion was had with Gastroenterology and patient will stop taking the mesalamine and budesonide and do a 6 weeks taper of prednisone. She will follow with Gastroenterology for the start of Entyvio as outpatient. TB, LFT, hepatitis panel pending. Patient has not had no further episodes of bleeding and will be discharged home with her . Hyponatremia/NIVIA. Likely related to dehydration, poor p.o. intake and diarrhea. Resolved. Attending Attestation: Patient seen and examined independently and I was present during mackay portion of E/M service. Agree with Phillip Newman NP's history, physical, assessment, and plan. <Demi Newman NP - Last Filed: 02/13/21 17:44> Time Spent with Patient Time attestation: Total time spent providing and/or coordinating discharge services: <Demi Newman NP - Last Filed: 02/13/21 17:44> Discharge coordination time: Greater than 30 minutes <Demi Newman NP - Last Filed: 02/13/21 17:44> Quality: Stroke Does the patient have a stroke diagnosis?: No <Demi Newman NP - Last Filed: 02/13/21 17:44> Physical Exam Vital Signs: Vital Signs: Last Vital Signs Temp 97.3 F 02/13/21 07:38 Pulse 59 02/13/21 07:38 Resp 15 02/13/21 07:38 BP 140/57 H 02/13/21 07:38 Pulse Ox 99 02/13/21 07:38 Body Mass Index 32.4 <Demi Newman NP - Last Filed: 02/13/21 17:44> Appearing in no acute distress head is normocephalic atraumatic eyes pupils are PERRLA sclera is anicteric mouth throat mucous membranes are intact and moist neck is supple no lymphadenopathy, no JVD noted lung sounds are clear to auscultation heart regular rate rhythm, clear S1, S2 positive bowel sounds, abdomen is soft, nontender neuro patient is alert x3, no focal deficits <Demi Newman NP - Last Filed: 02/13/21 17:44> DS: Data Data Completed and Pending Completed studies during hospitalization [Text1]: Procedures Excision of Ascending Colon, Via Natural or Artificial Opening Endoscopic, Diagnostic (01/15/21) Excision of Cecum, Via Natural or Artificial Opening Endoscopic, Diagnostic (01/15/21) Excision of Descending Colon, Via Natural or Artificial Opening Endoscopic, Diagnostic (01/15/21) Excision of Ileum, Via Natural or Artificial Opening Endoscopic, Diagnostic (01/15/21) Excision of Sigmoid Colon, Via Natural or Artificial Opening Endoscopic, Diagnostic (01/15/21) Excision of Transverse Colon, Via Natural or Artificial Opening Endoscopic, Diagnostic (01/15/21) <Demi Newman NP - Last Filed: 02/13/21 17:44> Labs on day of discharge: Laboratory Results - last 24 hr 02/13/21 02/13/21 02/13/21 07:18 07:18 07:18 WBC 11.0 H RBC 3.47 L Hgb 9.8 L Hct 30.0 L MCV 86.5 MCH 28.2 MCHC 32.7 RDW 13.1 Plt Count 503 H MPV 8.9 L Absolute Nucleated RBC 0.000 Nucleated RBC % (auto) 0.0 Sodium 136 Potassium 3.3 Chloride 105 Carbon Dioxide 23 Anion Gap 11 L BUN 31 H Creatinine 1.03 Estim Creat Clear Calc 26.0 Estimated GFR 52 Random Glucose 124 H Calcium 7.9 L Iron TIBC % Saturation Unsat Iron Binding Ferritin C-Reactive Protein 6.55 H Hep Bs Antigen Hep Bs Antibody Hep B Core Total Ab Hepatitis C Ab (EIA) 02/13/21 02/13/21 07:18 07:18 WBC RBC Hgb Hct MCV MCH MCHC RDW Plt Count MPV Absolute Nucleated RBC Nucleated RBC % (auto) Sodium Potassium Chloride Carbon Dioxide Anion Gap BUN Creatinine Estim Creat Clear Calc Estimated GFR Random Glucose Calcium Iron 29 L TIBC 183 L % Saturation 16 Unsat Iron Binding 154 Ferritin 780 H C-Reactive Protein Hep Bs Antigen Negative Hep Bs Antibody NONREACTIVE Hep B Core Total Ab Nonreactive Hepatitis C Ab (EIA) Nonreactive <Demi Newman NP - Last Filed: 02/13/21 17:44> Discharge Plan Discharge Anticipated Discharge Date/Time: 02/13/21 10:29 <Demi Newman NP - Last Filed: 02/13/21 17:44> Patient Disposition: Home Health Service <Demi Newman NP - Last Filed: 02/13/21 17:44> Discharge Diagnosis: ulcerative colitis hyponatremia acute kidney injury <Demi Newman NP - Last Filed: 02/13/21 17:44> ulcerative colitis hyponatremia acute kidney injury <Kb Ngo MD - Last Filed: 02/15/21 13:38> Referrals: [facility] [Outside] - 1 Week Suzan Hankins MD [Primary Care Provider] - 1 Week Aly Perkins MD [Physician] - 1 Week ( start of Entyvio, follow-up labs) <Demi Newman NP - Last Filed: 02/13/21 17:44> Discharge Medications: New prednisone 10 mg tablet See Taper mg PO DAILY Qty: 77 RF: 0 Discontinued budesonide 3 mg capsule,delayed,extend.release 9 mg PO DAILY 30 Days Qty: 90 RF: 2 mesalamine [Rowasa] 4 gram/60 mL enema 4 g MD BEDTIME Qty: 1680 RF: 1 mesalamine [Apriso] 0.375 gram capsule,extended release 24hr 1.5 g PO DAILY Qty: 90 RF: 1 prednisone 20 mg tablet 40 mg PO DAILY Qty: 14 RF: 0 <Demi Newman NP - Last Filed: 02/13/21 17:44> Discharge Orders: Discharge Order (Routine); Ordered 02/13/21 Ordered By: Demi Newman <Demi Newman NP - Last Filed: 02/13/21 17:44> Diet: advance to usual diet <Demi Newman NP - Last Filed: 02/13/21 17:44> advance to usual diet <Kb Ngo MD - Last Filed: 02/15/21 13:38> Activity on Discharge: As tolerated <Demi Newman NP - Last Filed: 02/13/21 17:44> As tolerated <Kb Ngo MD - Last Filed: 02/15/21 13:38> Stand Alone Forms: Patient Portal Discharge page <Demi Newman NP - Last Filed: 02/13/21 17:44> Care Plan Goals: resolution gastrointestinal bleeding <Demi Newman NP - Last Filed: 02/13/21 17:44> Health Concerns: ulcerative colitis hyponatremia acute kidney injury <Demi Newman NP - Last Filed: 02/13/21 17:44> Plan of Treatment: follow-up with endoscopy technician for further medication recommendations follow-up with your primary care provider as needed <Demi Newman NP - Last Filed: 02/13/21 17:44> Assessment: see discharge summary <Demi Newman NP - Last Filed: 02/13/21 17:44> Discharge Date/Time: 02/13/21 14:50 <Demi Newman NP - Last Filed: 02/13/21 17:44>
[2021-02-13 11:08] VITALS: BP 140/57; PULSE 59; O2SAT 99
[2021-02-13] MEDS: 0.9 % Sodium Chloride 1,000 ML 50 ML IVCONT (11:33)
[2021-02-13 11:56] VITALS: BP 143/74; PULSE 55; RESP 16; TEMP 36.2; O2SAT 98
[2021-02-13 13:22] LABS: Alanine Aminotransferase 8 U/L (0-31); Albumin Level 2.9 g/dL (3.5-5.0); Alkaline Phosphatase 52 U/L (39-117); Aspartate Amino Transferase 10 U/L (5-31); Bilirubin Direct < 0.2 mg/dL (0.0-0.5); Bilirubin Total 0.2 mg/dL (0.0-1.0); Total Protein 4.9 g/dL (6.5-8.0)
--- NOTE | 2021-02-13 13:41 | P.F2F_ITS ---
Service Date Service Date: 02/13/21 Encounter Date of encounter: 02/13/21 Reasons for Services Reason for long term: CV/CP assess and/or care Reason for physical therapy: home safety and mobility MD Overseeing Care: Suzan Hankins Homebound: Leaving the home is medically contraindicated at this time without the asist of a device and/or another person due th the listed conditions above and below. Reason homebound: unsteady gait / fall risk Certification: Based on the above findings, I certify that this patient is confined to the home and needs intermittent long term care, physical therapy and/or speech therapy, or continues to need occupational therapy. The patient is under my care, and I have initiated the establishment of the plan of care. The patient will be followed by a physician who will periodically review the plan of care.
--- NOTE | 2021-02-13 13:49 | MHC.CM.PN ---
PATIENT IS DISCHARGED HOME WITH [facility] FOR HOME PHYSICAL THERAPY.
[2021-02-14 07:31] LABS: Hepatitis A Antibody IgM 0.17 Index (0-0.79); ~Hepatitis A Antibody IgM Nonreactive (Nonreactive)
--- NOTE | 2021-02-16 10:56 | CONS_ITS ---
DATE OF SERVICE: 02/12/2021 REASON FOR CONSULTATION: I was called to see this patient to assist in the management of acute kidney injury and electrolyte imbalance. HISTORY OF PRESENT ILLNESS: To summarize, Masha is a 80-year-old woman with history of ulcerative colitis. She comes in because of some diarrhea and was found to have acute kidney injury with a serum creatinine of 1.79 mg/dL, baseline creatinine of 0.6 mg/dL. Her serum sodium was also low at 125 on admission yesterday. Over the last 24 hours, the serum sodium has gradually increased to 132 and BUN and creatinine have decreased to 46 and 1.27. This consultation has been requested for further management of the electrolyte imbalance and acute kidney injury. PAST MEDICAL HISTORY: Ongoing medical problems include history of ulcerative colitis. PAST SURGICAL HISTORY: Includes colonoscopies. SOCIAL HISTORY: She has no history of smoking or alcohol abuse. She lives with her spouse. ALLERGIES: NO KNOWN DRUG ALLERGIES. MEDICATIONS: At home included mesalamine and budesonide. REVIEW OF SYSTEMS: Positive for abdominal pain and some diarrhea. No nausea or vomiting. No chest pain. No shortness of breath. No cough. She admits to drinking lots of water. All other systems were reviewed and negative. PHYSICAL EXAMINATION: GENERAL: Masha is a 80-year-old woman, who appears cachectic, comfortable, not in any distress. NECK: Supple. No JVD. HEENT: Mucosa dry. LUNGS: Air entry equal. No rales. HEART: S1, S2 heard. No gallop. No rub. ABDOMEN: Soft and nontender. EXTREMITIES: No edema. No rash. No clubbing. VITAL SIGNS: Blood pressure was 124/44, pulse 62 per minute. LABORATORY DATA: Sodium 132, potassium 3.6, BUN 46, creatinine 1.27. Hemoglobin was 10.7 and platelets 515. IMPRESSION: 80-year-old woman with acute kidney injury due to volume depletion secondary to GI loss, hyponatremia due to hypovolemia and increased free water intake. Hypokalemia is most likely due to GI losses as well. Anemia due to gastrointestinal bleed. RECOMMENDATIONS: My recommendation will be to cautiously hydrate her with isotonic saline. I agree with current IV fluids. Keep intake more than the output. Avoid hypotension. Keep systolic blood pressure more than 100 mmHg and replace potassium orally as needed. The rate of correction of serum sodium is appropriate. We will continue to monitor serum sodium periodically. We will be happy to follow her with the team. Joseluis Torrez MD BPA/MODL / [id number]
[2021-02-16 12:57] LABS: TS Negative Control Passed; TS Panel A 0; TS Panel B 0; TS Positive Control Passed; TSpotTB Negative (SeeBelow)
== END 2021-02-13 14:50 | disposition home health service (06) | DRG 386 ==
LOC: HO.ED 09:57 → HO.EDOVER 21:30 → HO.S3 02-12 12:20
PROVIDERS: Internal Medicine Gastroenterology; Nurse Practitioner Acute Care; Physician Assistant; Admitting Provider Hospitalist; Emergency Provider Emergency Medicine Emergency Medical Services; PCP Internal Medicine; Visit Provider Family Medicine
DX: K51.911 Ulcerative colitis, unspecified with rectal bleeding (principal); E87.1 Hypo-osmolality and hyponatremia; N17.9 Acute kidney failure, unspecified; Z20.822 Contact with and (suspected) exposure to COVID-19; Z79.899 Other long term (current) drug therapy
CPT/HCPCS: 36415; 80048; 80076; 81003; 82272; 82728; 83540; 83605; 83935; 84300; 85007; 85025; 85027; 85610; 85730; 86140; 86481; 86704; 86706; 86709; 86803; 87340; 87635; 97162; 99285

== ENCOUNTER 2021-02-19 10:15 | Outpatient (REF) | payer MEDICARE, SELFPAY ==
[2021-02-19 11:21] LABS: Hematocrit 32.9 % (37-47); Hemoglobin 10.4 g/dl (12.0-16.0); Mean Corpuscular HGB Conc 31.6 g/dl (31.0-35.0); Mean Corpuscular Hemoglobin 28.3 pg (27.0-33.0); Mean Corpuscular Volume 89.6 fL (80-98); Mean Platelet Volume 8.9 fL (9.4-12.3); Platelet Count 403 X10*3/uL (160-400); Red Blood Count 3.67 X10*6/uL (4.20-5.50); Red Cell Distribution Width 13.6 % (11.0-16.0); White Blood Count 10.3 X10*3/uL (4.8-10.8)
[2021-02-19 11:43] LABS: Alanine Aminotransferase 20 U/L (0-31); Albumin Level 3.4 g/dL (3.5-5.0); Alkaline Phosphatase 54 U/L (39-117); Anion Gap 14 (12-20); Aspartate Amino Transferase 17 U/L (5-31); Bilirubin Total 0.4 mg/dL (0.0-1.0); Blood Urea Nitrogen 19 mg/dL (9-16); Calcium 8.7 mg/dL (8.4-10.2); Carbon Dioxide 27 mmol/L (22-29); Chloride 102 mmol/L (96-108); Estimated Glomerular Filt Rate > 60; Glucose Random 172 mg/dL (60-115); Iron 21 mcg/dL (30-160); Percent Iron Saturation 10 % (15-50); Potassium 4.2 mmol/L (3.3-5.1); Sodium 139 mmol/L (135-145); Total Iron Binding Capacity 203 mcg/dL (228-428); Total Protein 5.5 g/dL (6.5-8.0); Unsaturated Iron Binding 182 ug/dL
== END 2021-02-19 10:16 | disposition home or self-care (01) ==
LOC: HO.HMGCLDS 10:15
PROVIDERS: PCP Internal Medicine; Visit Provider Internal Medicine
DX: E87.1 Hypo-osmolality and hyponatremia (principal); K52.9 Noninfective gastroenteritis and colitis, unspecified; N17.9 Acute kidney failure, unspecified
CPT/HCPCS: 36415; 80053; 83540; 85027

== ENCOUNTER → 2021-03-12 09:32 | Outpatient (BNVA) | payer MEDICARE, SELFPAY | PROVIDERS: PCP Internal Medicine; Visit Provider Internal Medicine Gastroenterology | CPT/HCPCS: Q3014 ==

== ENCOUNTER 2021-04-26 12:23 | Outpatient (REF) | payer MEDICARE, SELFPAY ==
[2021-04-26 14:02] LABS: Hematocrit 30.5 % (37-47); Hemoglobin 9.5 g/dl (12.0-16.0); Mean Corpuscular HGB Conc 31.1 g/dl (31.0-35.0); Mean Corpuscular Hemoglobin 28.6 pg (27.0-33.0); Mean Corpuscular Volume 91.9 fL (80-98); Mean Platelet Volume 10.2 fL (9.4-12.3); Platelet Count 497 X10*3/uL (160-400); Red Blood Count 3.32 X10*6/uL (4.20-5.50); Red Cell Distribution Width 15.1 % (11.0-16.0); White Blood Count 10.4 X10*3/uL (4.8-10.8)
[2021-04-26 14:28] LABS: Alanine Aminotransferase 6 U/L (0-31); Albumin Level 4.3 g/dL (3.5-5.0); Alkaline Phosphatase 42 U/L (39-117); Anion Gap 15 (12-20); Aspartate Amino Transferase 12 U/L (5-31); Bilirubin Total 0.5 mg/dL (0.0-1.0); Blood Urea Nitrogen 16 mg/dL (9-16); Calcium 10.2 mg/dL (8.4-10.2); Carbon Dioxide 26 mmol/L (22-29); Chloride 108 mmol/L (96-108); Estimated Glomerular Filt Rate 50; Glucose Random 99 mg/dL (60-115); Potassium 5.4 mmol/L (3.3-5.1); Sodium 144 mmol/L (135-145); Total Protein 6.6 g/dL (6.5-8.0)
== END 2021-04-26 12:24 | disposition home or self-care (01) ==
LOC: HO.HMGCLDS 12:23
PROVIDERS: PCP Internal Medicine; Visit Provider Internal Medicine
DX: K51.90 Ulcerative colitis, unspecified, without complications (principal); R73.9 Hyperglycemia, unspecified
CPT/HCPCS: 36415; 80053; 85027

== ENCOUNTER 2021-07-17 09:02 | Outpatient (REF) | payer MEDICARE, SELFPAY ==
[2021-07-20 21:51] LABS: Calprotectin, Fecal 242 mcg/g
== END 2021-07-17 09:03 | disposition home or self-care (01) ==
LOC: HO.LNP 09:02
PROVIDERS: Visit Provider Internal Medicine Gastroenterology
DX: K51.90 Ulcerative colitis, unspecified, without complications (principal)
CPT/HCPCS: 83993

== ENCOUNTER → 2021-07-20 09:50 | Outpatient (BNVA) | payer MEDICARE, SELFPAY | PROVIDERS: PCP Internal Medicine; Referring Provider Internal Medicine; Visit Provider Internal Medicine Gastroenterology | DX: K51.30 Ulcerative (chronic) rectosigmoiditis without complications (principal); N17.9 Acute kidney failure, unspecified; I10 Essential (primary) hypertension; C44.91 Basal cell carcinoma of skin, unspecified; Z79.52 Long term (current) use of systemic steroids; Z79.899 Other long term (current) drug therapy | CPT/HCPCS: 99212 ==

== ENCOUNTER 2022-07-21 07:45 | Emergency (ER) | payer MEDICARE, SELFPAY ==
--- NOTE | ~2022-07-21 | CT_ITS ---
EXAMINATION: CT HEAD WITHOUT CONTRAST CLINICAL INFORMATION: Altered mental status. COMPARISON: Head CT scan dated 07/21/2018. TECHNIQUE: Contiguous axial imaging was performed from the skull base to vertex without intravenous administration of contrast. Coronal and sagittal reformatted images were obtained. This CT examination was performed using dose optimization techniques as appropriate, variously including the following: *Automated exposure control *Adjustment of mA and/or kV according to patient size (this includes techniques or standardized protocols for targeted exams where dose is matched to indication/reason for exam; i.e. extremities or head) *Use of iterative reconstruction technique DLP: 597 mGy-cm FINDINGS: There is mild widening of the cortical sulci and associated ventriculomegaly. Mild periventricular microvascular changes are also seen without significant change. The lateral ventricles are symmetrical. The third and fourth ventricles are in their normal midline position. The basilar and prepontine cisterns are unremarkable. There is no acute intra or extracerebral abnormality. There is no mass effect or midline shift. Sections through the bony calvarium are unremarkable. The orbits are intact. The paranasal sinuses are clear. The mastoid air cells are clear. CT/CT head/brain wo IV con IMPRESSION: No acute intracranial pathology.
[2022-07-21 07:55] VITALS: BP 173/69; PULSE 62; RESP 14; TEMP 36.7; O2SAT 98; BMI 22.4
--- NOTE | 2022-07-21 08:07 | ED_ITS ---
HPI - General Adult General Chief complaint: General Medical Stated complaint: PT NOT FEELING WELL PER EMS Time Seen by Provider: 07/21/22 08:06 Source: family and EMS Mode of arrival: EMS Limitations: altered mental status History of Present Illness HPI narrative: 82 yo F with a PMH of dementia, HTN on amlodipine, hyperglycemia, diverticulitis, and colitis presents to the ED via EMS. HPI was obtained from her , Jimbo, as she is a poor historian and is unable to answer questions regarding present illness and why she was brought to the ED. states that she has had a decline in mental status since the summer, worsening the last two day. This morning, her states that she came down from their shared bedroom on the second floor stating she did not feel well and was afraid to go back upstairs. He told her he was going to call the ambulance and the patient agreed. states pt usually declines going to the hospital and he found it concerning that she was willing to go today. He states she was recently prescribed Namenda (on 07/16) by her PCP and he believes pt has had mental statu s changes since. He states she has had an increased number of incontinence episodes the last two days. He denies seeing any diarrhea or blood in the stools. Her last BM was this morning and soft, brown. Urine has not has not been cloudy or had an odor, she had an episode of what the felt was blood in her urine. Per , pt has not complained of any nausea, vomiting, constipation, chills, headache, and he has not noted any fever. She has not reported or demonstrated any discomfort or pain to her . Per husbands report, pt is eating and drinking well without any recent changes in weight. She lives at home with her , who is her caregiver. Her daughter visits several times a week to help care for her mother as well. Family's plan is to get the patient stable to return safely home. Onset (ago): day(s) Related Data Previous Rx's Medication Instructions Recorded amlodipine 2.5 mg tablet 2.5 mg PO DAILY #90 tabs 06/07/21 memantine 5 mg-10 mg tablets in a See Rx Instructions PO PER PKG DIR 07/15/22 dose pack (Namenda Titration Alex) #49 ea memantine 5 mg tablet (Namenda) 5 mg PO QAM 30 days #30 tabs 07/16/22 Allergies Allergy/AdvReac Type Severity Reaction Status Date / Time No Known Allergies Allergy Verified 07/15/22 10:09 [No Known Allergies*] Review of Systems Review of Systems: Yes Unobtainable due to mental condition (limited due to dementia, additional information obtained from family ) Constitutional: Constitutional: Reports no additional constitutional complaints, Denies chills, Denies fever(s), Denies frequent falls, Denies headache(s), Denies poor appetite, Denies weight gain and Denies weight loss Eyes: Eyes: Reports no additional eye complaints and Denies change in vision ENT: Reports system reviewed and no additional complaints, except as documented, Reports Normal hearing present, Denies dysphagia, Denies headache(s) and Denies sore throat Cardiovascular: Cardiovascular: Reports no additional cardiovascular complaints, Denies chest pain, Denies Epigastric Pain and Denies dyspnea Respiratory: Respiratory: Reports no additional respiratory complaints, Denies cough and Denies dyspnea Gastrointestinal: Gastrointestinal: Reports no additional gastrointestinal complaints, Denies abdominal pain, Denies melena, Denies hematochezia, Denies change in stool character, Denies dysphagia, Denies nausea and Denies vomiting Genitourinary: Genitourinary: Reports no additional female genitourinary complaints and Reports hematuria Musculoskeletal: Musculoskeletal: Reports no additional musculoskeletal complaints and Denies abnormal gait Integumentary/Breasts: Skin/Breast: Reports system reviewed and no additional complaints, except as docu, Denies change in pigmentation, Denies lesions, Denies erythema, Denies rash and Denies wounds Neurologic: Reports system reviewed and no additional complaints, except as documented, Reports Normal hearing present, Denies Abnormal speech present, Denies abnormal gait, Reports behavioral changes, Reports confusion, Denies frequent falls, Denies headache(s) and Reports memory loss Psychiatric: Psychiatric: Reports behavioral changes, Denies change in appetite, Reports confusion, Denies irritability and Reports memory loss Hematologic/Lymphatic: Hematologic/Lymphatic: Reports no additional hematologic/lymphatic complaints [facility] Past Medical History Source: old records reviewed and obtained from family Medical History NIVIA (acute kidney injury) Annual physical exam Dysplastic nevus HTN (hypertension) Hyperglycemia Patient denies medical problems Ulcerative colitis Surgical History H/O colonoscopy Family History Family History Father No problems noted. Mother No problems noted. Social History Social History Household Members: Spouse Housing: House Do you presently have visiting nurse or other home services: No Unable to assess alcohol history related to: Unknown Alcohol intake: unknown Patient Tobacco Use Status: Never used Tobacco Smoked in Last 30 Days: No e-Cigarette/Vaping Use: Never Used Second Hand Smoke Exposure: Yes Use of substances other than those prescribed or required for medical reasons: No Advance Directives: No Advance Directives Information Provided: No service: No Current occupational status: retired Current occupational exposures/hazards: No Cognitive needs: No Hearing needs: No Vision needs: Yes Physical Exam ED Vital Signs: Vital Signs - 24 hr 07/21/22 07:55 07/21/22 11:04 Temperature 98.0 F Pulse Rate 62 72 Respiratory Rate 14 18 Blood Pressure 173/69 H 197/95 H Pulse Oximetry 98 Oxygen Delivery Method Room Air BMI result Body Mass Index 22.4 Const General: cooperative, alert, awake, anxious, confusion and well groomed Nutritional Appearance: well nourished Orientation/consciousness: oriented to person and confusion Limitations: altered mental status [facility] Head: Yes normal to inspection, Yes normocephalic and Yes atraumatic Ears: hearing grossly normal bilaterally and external ears normal General nose exam: Normal external nose present Face and sinus: Yes normal facial exam and Yes face symmetric Eyes General: appearance normal, both eyes and all related structures Alignment and Position: alignment normal Periorbital: periorbital findings normal Eyelids: Yes eyelids normal Conjunctivae: conjunctivae normal Sclerae: sclerae normal Pupils: Equal, round and reactive pupils present EOM: EOMs intact bilaterally Neck Neck: Yes normal visual inspection and Yes full ROM Chest Chest palpation & inspection: normal inspection of the chest Resp Effort & Inspection: normal respiratory effort and able to speak in complete se ntences Auscultation: clear to auscultation bilaterally Cardio Rate: regular rate GI Inspection: Yes normal to inspection Palpation (GI): Soft to palpation and nontender Auscultation: normal bowel sounds Rectal Exam - Female: Rectal prolapse Back/Spine/Pelvis Cervical Spine: cervical ROM normal Skin General skin exam: no rashes or lesions noted Neuro General: oriented to person and confusion Cranial nerves: Yes Equal, round and reactive pupils present, Yes Normal hearing present and Yes Other cranial nerve findings present (limited neuro exam due to patient unable to follow cues) Cognition (Neuro): abnormal cognition Speech: No Abnormal speech present Gait exam (Neuro): Normal gait present Extrem General: Yes normal to inspection, Yes full ROM (independently, does not follow cues) and Yes capillary refill normal Psych Appearance: grossly normal Speech and movement: Slowed speech present (Psych) Affect: Indifferent affect present Attitude: cooperative Judgement: Limited judgement present (Psych) Medications Administered Discontinued Medications Generic Name Dose Route Start Last Admin Trade Name Freq PRN Reason Stop Dose Admin Haloperidol Lactate 2 mg 07/21/22 09:57 07/21/22 10:01 Haloperidol Lactate 5 Mg/Ml Vial IVPUSH 07/21/22 09:58 2 mg STAT STA Administration Haloperidol Lactate 5 mg 07/21/22 13:03 07/21/22 14:04 Haloperidol Lactate 5 Mg/Ml Vial IVPUSH 07/21/22 13:04 5 mg ONCE ONE Administration Sodium Chloride 500 mls @ 500 mls/hr 07/21/22 10:30 07/21/22 12:18 Ns IV 07/21/22 11:29 Infused .Q1H MARQUITA Infusion Quetiapine Fumarate 25 mg 07/21/22 11:53 07/21/22 12:04 Quetiapine Fumarate 25 Mg Tablet PO 07/21/22 11:54 Not Given ONCE ONE Medical Decision Making [facility] Narrative Medical decision making narrative: 82 yo F presenting to the ED via EMS with increasing confusion and dementia symptoms. Pt able to ambulated with a steady gait to the bathroom and have a large solid bowel movement with no acute blood noted. Rectal bulge noted when pt stood from the toilet. at bedside and states she has had a known bulging from her rectum for about a year and that her PCP has examed her rectum, however; was unable to visualize any external findings and believes it to be a hemorrhoid. states pt periodically uses Preparation H ointment. Presentation likely consistent with rectal prolapse. 0930: Pt agitated and w alking in room and through hallway with . 0950: Pt agitated and combative to nursing staff, yelling and cursing, Haldol 2 mg IVP and Benadryl 25 mg IVP given with improvement in aggression, pt still mildly agitated but at this time redirectable. Pt's in agreement with plan. Blood work unremarkable, no leukocytosis noted. Covid negative. EKG NSR with no acute changes when compared to last EKG. UA negative for infection. Results discussed with pt's with no unanswered questions. Pt medically cleared. Case management, care team, and psych consults initiated. Will continue with physician observation throughtout the night with 1:1 sitter at bedside. Bedtime and PRN seroquel ordered for agitation. Lab Data Result diagrams: 07/21/22 08:56 07/21/22 08:56 Labs: Lab Results 07/21/22 07/21/22 07/21/22 Range/Units 08:56 08:56 09:13 WBC 8.9 (4.8-10.8) X10*3/uL RBC 4.83 (4.20-5.50) X10*6/uL Hgb 13.8 (12.0-16.0) g/dl Hct 43.8 (37.0-47.0) % MCV 90.7 (80.0-98.0) fL MCH 28.6 (27.0-33.0) pg MCHC 31.5 (31.0-35.0) g/dl RDW 13.3 (11.0-16.0) % Plt Count 467 H (160-400) X10*3/uL MPV 9.7 (9.4-12.3) fL Immature Gran % (Auto) 0.7 H (0.0-0.4) % Neut % (Auto) 72.1 (45-73) % Lymph % (Auto) 15.6 L (20-40) % [place] % (Auto) 6.3 (2-11) % Eos % (Auto) 4.3 H (0-4) % Baso % (Auto) 1.0 (0-2) % Lymph # (Auto) 1.4 (1.2-4.9) X10*3/uL [place] # (Auto) 0.6 (0.1-1.2) X10*3/uL Eos # (Auto) 0.4 (0.0-0.4) X10*3/uL Baso # (Auto) 0.1 (0.0-0.2) X10*3/uL Abs Immat Gran (auto) 0.06 H (0.00-0.03) X10*3/uL Absolute Neuts (auto) 6.4 (2.0-8.3) x10*3/uL Absolute Nucleated RBC 0.000 (0.0-0.012) X10*3/uL Nucleated RBC % (auto) 0.0 (0.0-0.2) /100WBC Sodium 141 (135-145) mmol/L Potassium 4.6 (3.3-5.1) mmol/L Chloride 104 (96-108) mmol/L Carbon Dioxide 25 (22-29) mmol/L Anion Gap 17 (12-20) BUN 12 (9-16) mg/dL Creatinine 0.89 (0.5-1.4) mg/dL Estim Creat Clear Calc 43.5 Estimated GFR > 60 Random Glucose 108 (60-115) mg/dL Calcium 9.5 D (8.4-10.2) mg/dL Total Bilirubin 0.3 (0.0-1.0) mg/dL AST 15 (5-31) U/L ALT 10 (0-31) U/L Alkaline Phosphatase 49 (39-117) U/L Total Protein 6.5 (6.5-8.0) g/dL Albumin 4.1 (3.5-5.0) g/dL Urine Color Urine Appearance Urine pH (5.0-9.0) Ur Specific [place] (1.005-1.025) Urine Protein (Neg-Trace) mg/dL Urine Glucose (UA) (Negative) mg/dL Urine Ketones (Negative) mg/dL Urine Blood (Negative) Urine Nitrite (Negative) Ur Leukocyte Esterase (Negative) Urine RBC (0-2) /HPF Urine WBC (0-5) /HPF Ur Squamous Epith Cells (0-2) /HPF Urine Bacteria (None Seen) Hyaline Casts (0-2) /LPF COVID-19 (DULCE) Negative (Negative) COVID-19 Clin Com See Note 07/21/22 Range/Units 14:17 WBC (4.8-10.8) X10*3/uL RBC (4.20-5.50) X10*6/uL Hgb (12.0-16.0) g/dl Hct (37.0-47.0) % MCV (80.0-98.0) fL MCH (27.0-33.0) pg MCHC (31.0-35.0) g/dl RDW (11.0-16.0) % Plt Count (160-400) X10*3/uL MPV (9.4-12.3) fL Immature Gran % (Auto) (0.0-0.4) % Neut % (Auto) (45-73) % Lymph % (Auto) (20-40) % [place] % (Auto) (2-11) % Eos % (Auto) (0-4) % Baso % (Auto) (0-2) % Lymph # (Auto) (1.2-4.9) X10*3/uL [place] # (Auto) (0.1-1.2) X10*3/uL Eos # (Auto) (0.0-0.4) X10*3/uL Baso # (Auto) (0.0-0.2) X10*3/uL Abs Immat Gran (auto) (0.00-0.03) X10*3/uL Absolute Neuts (auto) (2.0-8.3) x10*3/uL Absolute Nucleated RBC (0.0-0.012) X10*3/uL Nucleated RBC % (auto) (0.0-0.2) /100WBC Sodium (135-145) mmol/L Potassium (3.3-5.1) mmol/L Chloride (96-108) mmol/L Carbon Dioxide (22-29) mmol/L Anion Gap (12-20) BUN (9-16) mg/dL Creatinine (0.5-1.4) mg/dL Estim Creat Clear Calc Estimated GFR Random Glucose (60-115) mg/dL Calcium (8.4-10.2) mg/dL Total Bilirubin (0.0-1.0) mg/dL AST (5-31) U/L ALT (0-31) U/L Alkaline Phosphatase (39-117) U/L Total Protein (6.5-8.0) g/dL Albumin (3.5-5.0) g/dL Urine Color Yellow Urine Appearance Clear Urine pH 7.0 (5.0-9.0) Ur Specific [place] 1.010 (1.005-1.025) Urine Protein Negative (Neg-Trace) mg/dL Urine Glucose (UA) Negative (Negative) mg/dL Urine Ketones Negative (Negative) mg/dL Urine Blood Trace H (Negative) Urine Nitrite Negative (Negative) Ur Leukocyte Esterase Negative (Negative) Urine RBC 3-5 H (0-2) /HPF Urine WBC 0-5 (0-5) /HPF Ur Squamous Epith Cells 0-2 (0-2) /HPF Urine Bacteria None Seen (None Seen) Hyaline Casts 0-2 (0-2) /LPF COVID-19 (DULCE) (Negative) COVID-19 Clin Com ECG Data Attestation: I personally reviewed and interpreted this ECG as follows: Interpretation: Test Reason : AMS Blood Pressure : / mmHG Vent. Rate : 064 BPM ? ? Atrial Rate : 064 BPM ?? P-R Int : 158 ms? QRS Dur : 076 ms ? ? QT Int : 410 ms ? ? ? P-R-T Axes : 036 000 055 degrees ?? QTc Int : 422 ms ? Normal sinus rhythm Septal infarct , age undetermined Abnormal ECG When compared with ECG of 15-JAN-2021 17:35, No significant change was found ? Referred By: Maia Funk ? Electronically Signed By: Dictated By: Signed By: DD/ [id number] TD/TT: 07/21/22 1018 Gate Cutter: Discharge Plan Discharge Clinical Impression: Altered mental status Patient Disposition: Still a Patient Prescriptions: No Action memantine [Namenda] 5 mg tablet 5 mg PO QAM 30 Days Qty: 30 1RF amlodipine 2.5 mg tablet 2.5 mg PO DAILY Qty: 90 3RF memantine [Namenda Titration Alex] 5-10 mg tablets,dose pack See Rx Instructions PO PER PKG DIR Qty: 49 0RF Rx Instructions: PO PER PKG DIR
[2022-07-21 09:02] LABS: MANUAL DIFF FLAG NO
[2022-07-21 09:07] LABS: Basophils Absolute Auto 0.1 X10*3/uL (0.0-0.2); Eosinophils Absolute Auto 0.4 X10*3/uL (0.0-0.4); Eosinophils Percent Auto 4.3 % (0-4); Hematocrit 43.8 % (37.0-47.0); Hemoglobin 13.8 g/dl (12.0-16.0); Imm Gran Abs Auto 0.06 X10*3/uL (0.00-0.03); Imm Gran Pct Auto 0.7 % (0.0-0.4); Lymphocytes Absolute Auto 1.4 X10*3/uL (1.2-4.9); Lymphocytes Percent Auto 15.6 % (20-40); Mean Corpuscular HGB Conc 31.5 g/dl (31.0-35.0); Mean Corpuscular Hemoglobin 28.6 pg (27.0-33.0); Mean Corpuscular Volume 90.7 fL (80.0-98.0); Mean Platelet Volume 9.7 fL (9.4-12.3); Monocytes Absolute Auto 0.6 X10*3/uL (0.1-1.2); Monocytes Percent Auto 6.3 % (2-11); Neutrophils Absolute Auto 6.4 x10*3/uL (2.0-8.3); Neutrophils Percent Auto 72.1 % (45-73); Platelet Count 467 X10*3/uL (160-400); Red Blood Count 4.83 X10*6/uL (4.20-5.50); Red Cell Distribution Width 13.3 % (11.0-16.0); White Blood Count 8.9 X10*3/uL (4.8-10.8)
[2022-07-21 09:28] LABS: Alanine Aminotransferase 10 U/L (0-31); Albumin Level 4.1 g/dL (3.5-5.0); Alkaline Phosphatase 49 U/L (39-117); Anion Gap 17 (12-20); Aspartate Amino Transferase 15 U/L (5-31); Bilirubin Total 0.3 mg/dL (0.0-1.0); Blood Urea Nitrogen 12 mg/dL (9-16); Calcium 9.5 mg/dL (8.4-10.2); Carbon Dioxide 25 mmol/L (22-29); Chloride 104 mmol/L (96-108); Creatinine Clr Calc Pharmacy 43.5; Estimated Glomerular Filt Rate > 60; Glucose Random 108 mg/dL (60-115); Potassium 4.6 mmol/L (3.3-5.1); Sodium 141 mmol/L (135-145); Total Protein 6.5 g/dL (6.5-8.0)
[2022-07-21 09:29] LABS: COVID-19 Test Negative (Negative); IDNOW Serial# 55D5AD1C
--- NOTE | 2022-07-21 09:51 | ECG_ITS ---
Test Reason : AMS Blood Pressure : / mmHG Vent. Rate : 064 BPM Atrial Rate : 064 BPM P-R Int : 158 ms QRS Dur : 076 ms QT Int : 410 ms P-R-T Axes : 036 000 055 degrees QTc Int : 422 ms Normal sinus rhythm Nonspecific ST abnormality Abnormal ECG When compared with ECG of 15-JAN-2021 17:35, No significant change was found Referred By: Maia Funk Electronically Signed By:JOSELYN PATINO MD
[2022-07-21] MEDS: Haloperidol Lactate 5 MG/ML VIAL 2 MG IVPUSH (10:01)
--- NOTE | 2022-07-21 10:05 | PC.NURSE ---
benadryl ordered as infusion. per INFANTRY INDIRECT FIRE CREWMEMBER Shanda, IV push slowly is appropriate. Pt given 25mg diphenhydramine via IVP over 2 minutes
[2022-07-21 11:04] VITALS: BP 197/95; PULSE 72; RESP 18
[2022-07-21] MEDS: 0.9 % Sodium Chloride 500 ML IV (11:22)
--- NOTE | 2022-07-21 11:24 | PC.NURSE ---
report taken from Merry APARICIO. pt ambulated to bathroom with assistance. Urinated, cleaned and changed. Linen changed at this tme. Pt confused and not oriented per baseline dementia. Fluids started. No skin break down noted.l and daughter at bedside.
--- NOTE | 2022-07-21 11:47 | PC.NURSE ---
BED SIDE COMMODE BROUGHT TO BEDSIDE. PT ASSISTED AND CHANGED. PT CONTINUES TO TRY TO GET OUT OF BED. DAUGTHTER AT BEDSIDE
--- NOTE | 2022-07-21 12:12 | PC.NURSE ---
charge nurse aware of potential need of sitter. pt keeps attempting to get up. Refused to take seroquel, provider aware
[2022-07-21] MEDS: Haloperidol Lactate 5 MG/ML VIAL IVPUSH (14:04)
--- NOTE | 2022-07-21 14:17 | PC.NURSE ---
urinary catheter (straight) done with assistance of techs. Pt tolerated well. Pending this for either admission or CM consult
[2022-07-21 14:26] LABS: Appearance Urine Clear; Color Urine Yellow; Glucose Urine UA Negative (Negative); Leukocyte Esterase Urine Negative (Negative); Nitrite Urine Negative (Negative); UMIC TRIGGER UACC YES; Urine Blood Trace (Negative); Urine Ketones Negative (Negative); Urine Protein Negative (Neg-Trace)
[2022-07-21 14:31] LABS: Bacteria Urine None Seen (None Seen); Hyaline Casts Urine 0-2 /LPF (0-2); Squamous Epithelial Cell Urine 0-2 /HPF (0-2); WBC Urine 0-5 /HPF (0-5)
--- NOTE | 2022-07-21 15:34 | PC.NURSE ---
assumed care of pt at 1500, pt sleeping, RR even and unlabored. no new orders at this time, pt pending PT/CMGT consults.
[2022-07-21] MEDS: QUEtiapine Fumarate 25 MG TABLET PO (20:02)
--- NOTE | 2022-07-21 20:06 | PC.NURSE ---
pt has history of dementia, is confused, camera placed and alarmed for safety. Medicated per Oct. Notified ALESSANDRA Red .
[2022-07-21 20:18] VITALS: BP 149/63; PULSE 76; RESP 16; TEMP 37; O2SAT 96
--- NOTE | 2022-07-22 02:26 | PC.NURSE ---
pt sleeping, RR even and unlabored, camera at bedside, medication held so to no disrupt sleep.
[2022-07-22] MEDS: diphenhydrAMINE HCL 50 MG/ML VIAL 25 MG IVPUSH (02:44)
--- NOTE | 2022-07-22 02:57 | PC.NURSE ---
pt incontinent of urine, pt cleaned and clean pads placed, pt medicated and repositioned in bed w warm blankets.
--- NOTE | 2022-07-22 03:08 | PC.NURSE ---
med rec complete
--- NOTE | 2022-07-22 03:48 | PC.NURSE ---
Patient changed over to hospital attire. Patient placed in hospital bed and bed alarm is set.
[2022-07-22 06:05] VITALS: BP 197/78; PULSE 76; RESP 18; TEMP 36.6; O2SAT 98
[2022-07-22] MEDS: QUEtiapine Fumarate 25 MG TABLET PO ×2 (06:52→12:15)
--- NOTE | 2022-07-22 06:53 | PC.NURSE ---
Patient became increasingly agitated and combative with staff. Administered seroquel per prn.
--- NOTE | 2022-07-22 10:56 | PHA.MEDREC ---
Pharmacy Consult ? Medication Reconciliation Pharmacy has completed the medication reconciliation. Attempted to contact with no response. Med rec completed by claim history. Cee Robertson, DimaD
[2022-07-22] MEDS: amLODIPine Besylate 2.5 MG TABLET PO (12:15)
--- NOTE | 2022-07-22 12:28 | PC.NURSE ---
SMART SHEET SENT
--- NOTE | 2022-07-22 14:22 | MHC.CM.ED ---
Received case management consult over the weekend. Per Trinh TRENT, patient will need to be seen by psych for medication recommendations due to behaviors related to dementia before she can be seen by case management. Continue to monitor for d/c needs.
--- NOTE | 2022-07-22 15:35 | ED_ITS ---
HPI - General Adult General Chief complaint: General Medical Stated complaint: PT NOT FEELING WELL PER EMS Time Seen by Provider: 07/21/22 08:06 Source: family and EMS Mode of arrival: EMS Limitations: altered mental status Related Data Previous Rx's Medication Instructions Recorded aspirin 81 mg capsule 81 mg PO DAILY #90 caps 10/19/23 atorvastatin 40 mg tablet 40 mg PO DAILY #90 tabs 10/19/23 levetiracetam 250 mg tablet 250 mg PO BID #180 tabs 10/19/23 (Keppra) metoprolol succinate 25 mg 12.5 mg (1/2 x 25 mg) PO DAILY #90 10/19/23 tablet,extended release 24 hr tabs prednisone 20 mg tablet 40 mg (2 x 20 mg) PO DAILY #10 tabs 10/19/23 Allergies Allergy/AdvReac Type Severity Reaction Status Date / Time donepezil AdvReac Diarrhea Verified 10/13/23 11:16 memantine [From Namenda] AdvReac Agitated Verified 10/13/23 11:16 [facility] Past Medical History Medical History Hypertension GI bleed Drug noncompliance Rectal prolapse Annual physical exam Dysplastic nevus HTN (hypertension) Hyperglycemia NIVIA (acute kidney injury) Ulcerative colitis Patient denies medical problems Surgical History H/O section H/O colonoscopy Family History Family History Father No problems noted. Mother No problems noted. Social History Social History Household Members: Family Housing: House Do you presently have visiting nurse or other home services: Yes Unable to assess alcohol history related to: Unknown Alcohol intake: unknown Comment: sitter at bedside for safety Patient Tobacco Use Status: Never used Tobacco e-Cigarette/Vaping Use: Never Used Second Hand Smoke Exposure: Yes Advance Directives Date on File: 07/22/22 service: No Current occupational status: retired Current occupational exposures/hazards: No Cognitive needs: No Hearing needs: No Vision needs: Yes Physical Exam ED Vital Signs: Vital Signs - 24 hr 07/21/22 20:18 07/22/22 06:05 Temperature 98.6 F 97.9 F Pulse Rate 76 76 Respiratory Rate 16 18 Blood Pressure 149/63 H 197/78 H Pulse Oximetry 96 98 Oxygen Delivery Method Room Air Room Air BMI result Body Mass Index 22.4 Medications Administered Discontinued Medications Generic Name Dose Route Start Last Admin Trade Name Freq PRN Reason Stop Dose Admin Amlodipine Besylate 2.5 mg 07/22/22 09:30 07/22/22 12:15 Amlodipine Besylate 2.5 Mg Tablet PO 2.5 mg DAILY MARQUITA Administration Protocol Diphenhydramine HCl 25 mg 07/22/22 00:34 07/22/22 02:44 Diphenhydramine Hcl 50 Mg/Ml Vial IVPUSH 07/22/22 00:35 25 mg ONCE ONE Administration Haloperidol Lactate 2 mg 07/21/22 09:57 07/21/22 10:01 Haloperidol Lactate 5 Mg/Ml Vial IVPUSH 07/21/22 09:58 2 mg STAT STA Administration Haloperidol Lactate 5 mg 07/21/22 13:03 07/21/22 14:04 Haloperidol Lactate 5 Mg/Ml Vial IVPUSH 07/21/22 13:04 5 mg ONCE ONE Administration Sodium Chloride 500 mls @ 500 mls/hr 07/21/22 10:30 07/21/22 12:18 Ns IV 07/21/22 11:29 Infused .Q1H MARQUITA Infusion Quetiapine Fumarate 25 mg 07/21/22 11:53 07/21/22 12:04 Quetiapine Fumarate 25 Mg Tablet PO 07/21/22 11:54 Not Given ONCE ONE Quetiapine Fumarate 25 mg 07/21/22 21:00 07/21/22 20:02 Quetiapine Fumarate 25 Mg Tablet PO 25 mg BEDTIME MARQUITA Administration Quetiapine Fumarate 25 mg 07/21/22 17:44 07/22/22 12:15 Quetiapine Fumarate 25 Mg Tablet PO 25 mg TID PRN Administration agitation Medical Decision Making Lab Data 07/21/22 08:56 07/21/22 08:56 Labs: Lab Results 07/21/22 07/21/22 07/21/22 Range/Units 08:56 09:13 14:17 WBC 8.9 (4.8-10.8) X10*3/uL RBC 4.83 (4.20-5.50) X10*6/uL Hgb 13.8 (12.0-16.0) g/dl Hct 43.8 (37.0-47.0) % MCV 90.7 (80.0-98.0) fL MCH 28.6 (27.0-33.0) pg MCHC 31.5 (31.0-35.0) g/dl RDW 13.3 (11.0-16.0) % Plt Count 467 H (160-400) X10*3/uL MPV 9.7 (9.4-12.3) fL Immature Gran % (Auto) 0.7 H (0.0-0.4) % Neut % (Auto) 72.1 (45-73) % Lymph % (Auto) 15.6 L (20-40) % [place] % (Auto) 6.3 (2-11) % Eos % (Auto) 4.3 H (0-4) % Baso % (Auto) 1.0 (0-2) % Lymph # (Auto) 1.4 (1.2-4.9) X10*3/uL [place] # (Auto) 0.6 (0.1-1.2) X10*3/uL Eos # (Auto) 0.4 (0.0-0.4) X10*3/uL Baso # (Auto) 0.1 (0.0-0.2) X10*3/uL Abs Immat Gran (auto) 0.06 H (0.00-0.03) X10*3/uL Absolute Neuts (auto) 6.4 (2.0-8.3) x10*3/uL Absolute Nucleated RBC 0.000 (0.0-0.012) X10*3/uL Nucleated RBC % (auto) 0.0 (0.0-0.2) /100WBC Sodium 141 (135-145) mmol/L Potassium 4.6 (3.3-5.1) mmol/L Chloride 104 (96-108) mmol/L Carbon Dioxide 25 (22-29) mmol/L Anion Gap 17 (12-20) BUN 12 (9-16) mg/dL Creatinine 0.89 (0.5-1.4) mg/dL Estim Creat Clear Calc 43.5 Estimated GFR > 60 Random Glucose 108 (60-115) mg/dL Calcium 9.5 D (8.4-10.2) mg/dL Total Bilirubin 0.3 (0.0-1.0) mg/dL AST 15 (5-31) U/L ALT 10 (0-31) U/L Alkaline Phosphatase 49 (39-117) U/L Total Protein 6.5 (6.5-8.0) g/dL Albumin 4.1 (3.5-5.0) g/dL Urine Color Yellow Urine Appearance Clear Urine pH 7.0 (5.0-9.0) Ur Specific [place] 1.010 (1.005-1.025) Urine Protein Negative (Neg-Trace) mg/dL Urine Glucose (UA) Negative (Negative) mg/dL Urine Ketones Negative (Negative) mg/dL Urine Blood Trace H (Negative) Urine Nitrite Negative (Negative) Ur Leukocyte Esterase Negative (Negative) Urine RBC 3-5 H (0-2) /HPF Urine WBC 0-5 (0-5) /HPF Ur Squamous Epith Cells 0-2 (0-2) /HPF Urine Bacteria None Seen (None Seen) Hyaline Casts 0-2 (0-2) /LPF COVID-19 ([facility]CE) Negative (Negative) COVID-19 Clin Com See Note Discharge Plan Discharge Clinical Impression: Dementia Patient Disposition: Home, Self-Care Instructions: Dementia (ED) Additional Instructions: He follow-up with primary care provider. Please return to the emergency department with worsening mental status, aggression, changes in vision, chest pain, shortness of breath, or any other concerns you may have. Please contact community-based crisis at [phone] for additional support. Continue to hold Memantine at this time. Prescriptions: No Action atorvastatin 40 mg Tablet 40 mg PO DAILY Qty: 90 0RF levetiracetam [Keppra] 250 mg tablet 250 mg PO BID Qty: 180 0RF aspirin 81 mg capsule 81 mg PO DAILY Qty: 90 0RF prednisone 20 mg tablet 40 mg PO DAILY Qty: 10 0RF metoprolol succinate 25 mg tablet extended release 24 hr 12.5 mg PO DAILY Qty: 90 0RF Referrals: Suzan Hankins MD [Primary Care Provider] - Interventions: ED Discharge Assessment Last Done: 07/22/22 15:43 Discharge Date/Time: 07/22/22 15:53
== END 2022-07-22 15:53 | disposition home or self-care (01) ==
PROVIDERS: Nurse Practitioner Family; Emergency Provider Emergency Medicine Emergency Medical Services; PCP Internal Medicine
DX: R41.82 Altered mental status, unspecified (principal); R51.9 Headache, unspecified; F03.90 Unspecified dementia, unspecified severity, without behavioral disturbance, psychotic disturbance, mood disturbance, and anxiety; Z20.822 Contact with and (suspected) exposure to COVID-19; Z79.899 Other long term (current) drug therapy
CPT/HCPCS: 36415; 70450; 80053; 81001; 85025; 87635; 93005; 96372; 96374; 96375; 96376; 99285; J1200

== ENCOUNTER 2022-08-15 09:12 | Outpatient (REF) | payer MEDICARE, SELFPAY ==
[2022-08-15 13:21] LABS: Vitamin B12 155 pg/mL (200-900)
[2022-08-15 13:23] LABS: TSH reflex Free T4 1.27 uIU/mL (0.32-4.0)
[2022-08-21 16:14] LABS: Vitamin D 25-OH, D2 <4 ng/mL; Vitamin D 25-OH, D3 13 ng/mL; Vitamin D 25-OH, Total 13 ng/mL (30-100)
== END 2022-08-15 09:13 | disposition home or self-care (01) ==
LOC: HO.HMGCLDS 09:12
PROVIDERS: PCP Internal Medicine; Visit Provider Internal Medicine
DX: F03.90 Unspecified dementia, unspecified severity, without behavioral disturbance, psychotic disturbance, mood disturbance, and anxiety (principal); K51.90 Ulcerative colitis, unspecified, without complications; R73.9 Hyperglycemia, unspecified; I10 Essential (primary) hypertension; E55.9 Vitamin D deficiency, unspecified
CPT/HCPCS: 36415; 82306; 82607; 82746; 84443

== ENCOUNTER 2022-08-19 08:18 | Emergency (ER) | payer MEDICARE, SELFPAY ==
--- NOTE | ~2022-08-19 | CT_ITS ---
EXAMINATION: CT HEAD WITHOUT CONTRAST CLINICAL INFORMATION: Systolic blood pressure reading of 220. Stroke? COMPARISON: 07/21/2022 TECHNIQUE: Contiguous axial imaging was performed from the skull base to vertex without intravenous administration of contrast. This CT examination was performed using dose optimization techniques as appropriate, variously including the following: *Automated exposure control *Adjustment of mA and/or kV according to patient size (this includes techniques or standardized protocols for targeted exams where dose is matched to indication/reason for exam; i.e. extremities or head) *Use of iterative reconstruction technique DLP: 583 mGy-cm FINDINGS: There is loss of simpson-white differentiation and subcortical hypodensity involving the right lateral temporal lobe, for example image 16/51, which was present previously as well. The appearance is fairly similar. Elsewhere simpson-white differentiation is maintained. Again noted are patchy areas of periventricular and subcortical white matter hypodensity consistent with chronic microvascular white matter ischemic changes. Remote lacunar infarct involving the left anterior thalamus. No mass effect or midline shift. No acute intracranial hemorrhage. CT/CT head/brain wo IV con IMPRESSION: Subacute to remote ischemia of the right temporal lobe. Consider MRI for further evaluation.
[2022-08-19 08:34] VITALS: BP 139/50; BP 160/80; PULSE 75; PULSE 98; RESP 16; TEMP 37.1; O2SAT 98; BMI 24.4
--- NOTE | 2022-08-19 08:45 | PC.NURSE ---
patient alert to first name , history of dementia . tony . heart rate regular at 75 beats per minute . breathing even and unlabored . lungs clear throughout . skin pink warm and dry . prolapsed rectum visible but not clearly protruding , patient verbalizes she is in pain from it but unable to give a number for her pain level . abdomen is soft not tender . positive bowel sounds throughout . patients bed at lowest position and red socks applied . patient aware of plan of care .
[2022-08-19] MEDS: Acetaminophen 325 MG TABLET 975 MG PO (09:52)
[2022-08-19] MEDS: Ibuprofen 800 MG TABLET PO (09:53)
--- NOTE | 2022-08-19 09:54 | PC.NURSE ---
patient medicated with 975 of Tylenol and 800 of Motrin as ordered by provider for rectum pain . patient aware of plan of care .
[2022-08-19 10:38] VITALS: BP 188/60; PULSE 58; RESP 20; O2SAT 98
--- NOTE | 2022-08-19 10:48 | ECG_ITS ---
Test Reason : hypertensive Blood Pressure : / mmHG Vent. Rate : 066 BPM Atrial Rate : 066 BPM P-R Int : 172 ms QRS Dur : 082 ms QT Int : 402 ms P-R-T Axes : 047 001 050 degrees QTc Int : 421 ms Normal sinus rhythm Septal infarct (cited on or before 19-AUG-2022) Abnormal ECG When compared with ECG of 21-JUL-2022 10:16, No significant change was found Referred By: Biju Ashraf Electronically Signed By:Waldo Frank
[2022-08-19 11:09] LABS: MANUAL DIFF FLAG NO
--- NOTE | 2022-08-19 11:09 | PC.NURSE ---
IV placed in left A.C and labs sent . patient and aware of plan of care .
[2022-08-19 11:12] LABS: Basophils Absolute Auto 0.1 X10*3/uL (0.0-0.2); Basophils Percent Auto 0.5 % (0-2); Eosinophils Absolute Auto 0.1 X10*3/uL (0.0-0.4); Eosinophils Percent Auto 0.8 % (0-4); Hemoglobin 12.9 g/dl (12.0-16.0); Imm Gran Abs Auto 0.07 X10*3/uL (0.00-0.03); Imm Gran Pct Auto 0.5 % (0.0-0.4); Lymphocytes Absolute Auto 1.1 X10*3/uL (1.2-4.9); Lymphocytes Percent Auto 8.1 % (20-40); Mean Corpuscular HGB Conc 32.3 g/dl (31.0-35.0); Mean Corpuscular Hemoglobin 28.5 pg (27.0-33.0); Mean Corpuscular Volume 88.5 fL (80.0-98.0); Mean Platelet Volume 9.4 fL (9.4-12.3); Monocytes Absolute Auto 0.7 X10*3/uL (0.1-1.2); Monocytes Percent Auto 5.2 % (2-11); Neutrophils Absolute Auto 11.1 x10*3/uL (2.0-8.3); Neutrophils Percent Auto 84.9 % (45-73); Platelet Count 462 X10*3/uL (160-400); Red Blood Count 4.52 X10*6/uL (4.20-5.50); Red Cell Distribution Width 13.7 % (11.0-16.0)
--- NOTE | 2022-08-19 11:17 | ED_ITS ---
HPI - General Adult General Chief complaint: General Medical Stated complaint: RECTAL PAIN D/T HX PROLAPSE RECTUM PER EMS Time Seen by Provider: 08/19/22 08:43 Source: patient Mode of arrival: ambulatory Limitations: no limitations History of Present Illness HPI narrative: 82 yold female with pmh of HTN, rectal prolapse, demetnia presents to the ED for rectal pain. Patient was sent by for rectal pain and evaluation of rectal prolapse. Patient herself not in distress. Related Data Previous Rx's Medication Instructions Recorded cyanocobalamin (vitamin B-12) 1,000 mcg PO DAILY #90 tabs 08/16/22 1,000 mcg tablet docusate sodium 100 mg capsule 100 mg PO BID 10 days #20 caps 08/19/22 (Colace) lisinopril 10 mg tablet 10 mg PO DAILY 14 days #14 tabs 08/19/22 Allergies Allergy/AdvReac Type Severity Reaction Status Date / Time donepezil AdvReac Diarrhea Verified 08/15/22 09:12 memantine [From Namenda] AdvReac Agitated Verified 08/15/22 09:06 Review of Systems Review of Systems: Rectal pain. History of rectal prolapse Yes all other systems are reviewed and are negative PMFSH Past Medical History Medical History NIVIA (acute kidney injury) Annual physical exam Dysplastic nevus HTN (hypertension) Hyperglycemia Patient denies medical problems Ulcerative colitis Surgical History H/O colonoscopy Family History Family History Father No problems noted. Mother No problems noted. Social History Social History Household Members: Spouse Housing: House Do you presently have visiting nurse or other home services: No Unable to assess alcohol history related to: Unknown Alcohol intake: unknown Patient Tobacco Use Status: Never used Tobacco Smoked in Last 30 Days: No e-Cigarette/Vaping Use: Never Used Second Hand Smoke Exposure: Yes Advance Directives: Yes Advance Directives on File: Yes Advance Directives Date on File: 07/22/22 service: No Current occupational status: retired Current occupational exposures/hazards: No Cognitive needs: No Hearing needs: No Vision needs: Yes Physical Exam ED Vital Signs: Vital Signs - 24 hr 08/19/22 10:38 08/19/22 12:01 08/19/22 16:00 Temperature 98.9 F Pulse Rate 58 63 Respiratory Rate 20 18 Blood Pressure 188/60 H 178/59 H 161/85 H Pulse Oximetry 98 99 Oxygen Delivery Method Room Air Room Air BMI result Body Mass Index 24.4 Const General: cooperative, healthy appearing, comfortable, no acute distress, well developed, alert, awake and Physically active Orientation/consciousness: oriented to person, oriented to place, oriented to time and patient oriented x3 HENMT Head: Yes normal to inspection, Yes No palpable skull fracture present, Yes normocephalic, Yes atraumatic and No abrasion Eyes General: appearance normal, both eyes and all related structures Neck Neck: Yes normal visual inspection, Yes full ROM, Yes no lymphadenopathy, Yes no meningeal signs, Yes trachea midline, Yes supple, No anterior neck swelling and No tender Chest Chest palpation & inspection: normal inspection of the chest and normal palp ation of entire chest wall Resp Effort & Inspection: normal respiratory effort and able to speak in complete sentences Auscultation: clear to auscultation bilaterally Cardio Jugular venous distension: no JVD Heart sounds: S1 normal heart sound present and S2 normal heart sound present GI Other: Rectal exam positive for mild partial rectal prolapse. Total rectum is not prolapse. Partial rectum could be seen at illness. Once again does no protrusion of the rectum passed the anus. No bleeding or anal fissures. No discharge. Inspection: Yes normal to inspection and No abdominal wall ecchymosis Palpation (GI): Soft to palpation, not firm, nontender, no guarding and not rigid Rectal Exam - Female: Rectal prolapse General: No CVA tenderness and Yes no CVA tenderness Back/Spine/Pelvis Back: no CVA tenderness, No CVA tenderness and No back tenderness Skin General skin exam: no rashes or lesions noted and elasticity normal Neuro Other: Negative for slurred speech. Negative for facial droop. negative for pronator drift. All extremities equal strenght and 5+. Negative rhomberg. Finger to nose and rapdi hand movement intact. NIH score is 0. General: oriented to person, oriented to place, oriented to time, patient oriented x3, gait normal, tone normal, moves all extremities, Normal light touch and pain sensation, no meningeal signs, no focal motor deficits and CN's II-XI intact bilaterally Cranial nerves: Yes CN's II-XII intact bilaterally Cognition (Neuro): normal cognition (baseline dementia) Gait exam (Neuro): Normal gait present Motor exam (neuro): 5/5 motor strength present throughout Sensory Exam: Normal double simultaneous stimulation for sensation Extrem Other: Lower extremities negative for swelling, pitting edema, or calf tenderness General: Yes normal to inspection and Yes full ROM Psych Appearance: grossly normal, well kempt and not disheveled Course Course Course Narrative: Patient denies any distress and well appearing. Mild partial rectal prolapse. Reevaluation(s) Reevaluation #1: Patient does not have any fecal incontinence. History physical exam does not indicate rectal procidentia. Will give Motrin and Tylenol. Vital signs stable at this time. No surgical intervention needed Time: 09:00 Reevaluation #2: During ED evaluation patient became hypertensive with 2 readings of systolic blood pressure over 220. at bedside states patient has history of high blood pressure but has been taken off meds by her primary care doctor. Last primary care doctor visit her blood pressure was normal. Patient in any distress negative for any neuro deficits. Will do labs EKG machine is no heart injury or kidney injury and sent for head CT scan. Time: 11:55 Reevaluation #3: Patient's blood pressure improved any medical intervention. Patient has rectal prolapse ufll came out and was put back in with lidocaine and hydrocortisone rec saida cream. Patient will be discharged lisinopril. Two troponins negative. Head CT negative for acute stroke. Radiologist sees subacute to remote right temporal lobe infarction that he states was also present on Ct scan that was done on 07/21/2022. Stroke is chronic Patient has no neuro deficit. Kidney function normal. Patient is safe for discharge. Time: 16:42 Additional Reevaluation(s): EKG normal sinus rhythm. Ventricular rate 66. WI interval 172. QRS 82. QTC 421. Negative STemi. [address] [address] [address] Scan Report Signed Patient: Masha Lamb MR#: [id number] : 1940 Acct:[id number] Age/Sex: 82 / F ADM Date: 08/19/22 Loc: HO.ED Attending Dr: Ordering Physician: Biju Ashraf Date of Service: 08/19/22 Procedure(s): CT head/brain wo IV con Accession Number(s): [id number] cc: Biju Ashraf~ EXAMINATION: CT HEAD WITHOUT CONTRAST CLINICAL INFORMATION: Systolic blood pressure reading of 220. Stroke?? COMPARISON: 07/21/2022 TECHNIQUE: Contiguous axial imaging was performed from the skull base to vertex without intravenous administration of contrast. This CT examination was performed using dose optimization techniques as appropriate, variously including the following: *Automated exposure control *Adjustment of mA and/or kV according to patient size (this includes techniques or standardized protocols for targeted exams where dose is matched to indication/reason for exam; i.e. extremities or head) *Use of iterative reconstruction technique DLP: 583 mGy-cm FINDINGS: There is loss of simpson-white differentiation and subcortical hypodensity involving the right lateral temporal lobe, for example image 16/51, which was present previously as well. The appearance is fairly similar. Elsewhere simpson-white differentiation is maintained. Again noted are patchy areas of periventricular and subcortical white matter hypodensity consistent with chronic microvascular white matter ischemic changes. Remote lacunar infarct involving the left anterior thalamus. No mass effect or midline shift. No acute intracranial hemorrhage. ? CT/CT head/brain wo IV con IMPRESSION: Subacute to remote ischemia of the right temporal lobe. Consider MRI for further evaluation. Dictated By: Bart Arroyo MD Signed By: <Electronically signed by Bart Arroyo MD in OV> 08/19/22 1334 DD/ 1233 TD/TT:? Group Billing Coordinator: TF Medications Administered Discontinued Medications Generic Name Dose Route Start Last Admin Trade Name Freq PRN Reason Stop Dose Admin Acetaminophen 975 mg 08/19/22 09:23 08/19/22 09:52 Acetaminophen 325 Mg Tablet PO 08/19/22 09:24 975 mg ONCE ONE Administration Hydrocortisone 1 appl 08/19/22 12:55 08/19/22 15:35 Hydrocortisone 2.5 % Rectal Cr 30 Gm Tube WI 08/19/22 12:56 1 appl ONCE ONE Administration Ibuprofen 800 mg 08/19/22 09:23 08/19/22 09:53 Ibuprofen 800 Mg Tablet PO 08/19/22 09:24 800 mg ONCE ONE Administration Lidocaine HCl 15 ml 08/19/22 12:55 08/19/22 15:35 Lidocaine Hcl Viscous 2 % 15 Ml Solution MUCOUS MEM 08/19/22 12:56 15 ml ONCE ONE Administration Medical Decision Making Lab Data Result Diagrams: 08/19/22 11:05 08/19/22 11:05 Labs: Lab Results 08/19/22 08/19/22 08/19/22 Range/Units 11:05 11:05 11:05 WBC 13.0 H (4.8-10.8) X10*3/uL RBC 4.52 (4.20-5.50) X10*6/uL Hgb 12.9 (12.0-16.0) g/dl Hct 40.0 (37.0-47.0) % MCV 88.5 (80.0-98.0) fL MCH 28.5 (27.0-33.0) pg MCHC 32.3 (31.0-35.0) g/dl RDW 13.7 (11.0-16.0) % Plt Count 462 H (160-400) X10*3/uL MPV 9.4 (9.4-12.3) fL Immature Gran % (Auto) 0.5 H (0.0-0.4) % Neut % (Auto) 84.9 H (45-73) % Lymph % (Auto) 8.1 L (20-40) % [place] % (Auto) 5.2 (2-11) % Eos % (Auto) 0.8 (0-4) % Baso % (Auto) 0.5 (0-2) % Lymph # (Auto) 1.1 L (1.2-4.9) X10*3/uL [place] # (Auto) 0.7 (0.1-1.2) X10*3/uL Eos # (Auto) 0.1 (0.0-0.4) X10*3/uL Baso # (Auto) 0.1 (0.0-0.2) X10*3/uL Abs Immat Gran (auto) 0.07 H (0.00-0.03) X10*3/uL Absolute Neuts (auto) 11.1 H (2.0-8.3) x10*3/uL Absolute Nucleated RBC 0.000 (0.0-0.012) X10*3/uL Nucleated RBC % (auto) 0.0 (0.0-0.2) /100WBC PT 9.9 L (10.0-13.1) SEC INR 0.9 (0.9-1.1) APTT 30.6 (26.0-36.4) SEC Sodium 139 (135-145) mmol/L Potassium 4.5 (3.3-5.1) mmol/L Chloride 103 (96-108) mmol/L Carbon Dioxide 28 (22-29) mmol/L Anion Gap 13 (12-20) BUN 15 (9-16) mg/dL Creatinine 0.86 (0.5-1.4) mg/dL Estim Creat Clear Calc 41.1 Estimated GFR > 60 Random Glucose 132 H (60-115) mg/dL Calcium 9.3 (8.4-10.2) mg/dL Total Bilirubin 0.4 (0.0-1.0) mg/dL AST 12 (5-31) U/L ALT 8 (0-31) U/L Alkaline Phosphatase 50 (39-117) U/L Troponin I High Sens (<3.5-17.0) ng/L Total Protein 6.0 L (6.5-8.0) g/dL Albumin 3.9 (3.5-5.0) g/dL 08/19/22 08/19/22 Range/Units 14:48 15:55 WBC (4.8-10.8) X10*3/uL RBC (4.20-5.50) X10*6/uL Hgb (12.0-16.0) g/dl Hct (37.0-47.0) % MCV (80.0-98.0) fL MCH (27.0-33.0) pg MCHC (31.0-35.0) g/dl RDW (11.0-16.0) % Plt Count (160-400) X10*3/uL MPV (9.4-12.3) fL Immature Gran % (Auto) (0.0-0.4) % Neut % (Auto) (45-73) % Lymph % (Auto) (20-40) % [place] % (Auto) (2-11) % Eos % (Auto) (0-4) % Baso % (Auto) (0-2) % Lymph # (Auto) (1.2-4.9) X10*3/uL [place] # (Auto) (0.1-1.2) X10*3/uL Eos # (Auto) (0.0-0.4) X10*3/uL Baso # (Auto) (0.0-0.2) X10*3/uL Abs Immat Gran (auto) (0.00-0.03) X10*3/uL Absolute Neuts (auto) (2.0-8.3) x10*3/uL Absolute Nucleated RBC (0.0-0.012) X10*3/uL Nucleated RBC % (auto) (0.0-0.2) /100WBC PT (10.0-13.1) SEC INR (0.9-1.1) APTT (26.0-36.4) SEC Sodium (135-145) mmol/L Potassium (3.3-5.1) mmol/L Chloride (96-108) mmol/L Carbon Dioxide (22-29) mmol/L Anion Gap (12-20) BUN (9-16) mg/dL Creatinine (0.5-1.4) mg/dL Estim Creat Clear Calc Estimated GFR Random Glucose (60-115) mg/dL Calcium (8.4-10.2) mg/dL Total Bilirubin (0.0-1.0) mg/dL AST (5-31) U/L ALT (0-31) U/L Alkaline Phosphatase (39-117) U/L Troponin I High Sens 8.4 8.6 (<3.5-17.0) ng/L Total Protein (6.5-8.0) g/dL Albumin (3.5-5.0) g/dL Discharge Plan Discharge Clinical Impression: Hypertension, Incomplete rectal prolapse Patient Disposition: Home, Self-Care Instructions: Hypertension (ED), Rectal Prolapse (ED) Additional Instructions: He will be discharged with high blood pressure medication. Recommend follow-up with surgery for rectal prolapse. Recommend follow-up with primary care provider for evaluation of eye blood pressure medication. To the ED immediately for any chest pain, shortness of breath, weakness, dizziness, leg swelling, calf pain, coughing up blood, rectal plane, abdominal pain, complete rectal prolapse, or any other concerning symptoms. Recommend high-fiber diet. Prescriptions: New lisinopril 10 mg tablet 10 mg PO DAILY 14 Days Qty: 14 0RF docusate sodium [Colace] 100 mg capsule 100 mg PO BID 10 Days Qty: 20 0RF No Action cyanocobalamin (vitamin B-12) 1,000 mcg tablet 1,000 mcg PO DAILY Qty: 90 2RF Referrals: [facility] [place] General Surgeons [Provider Group] (Rectal prolapse) Suzan Hankins MD [Primary Care Provider] - (High blood pressure) Interventions: ED Discharge Assessment Last Done: 08/19/22 16:52 Discharge Date/Time: 08/19/22 16:52 Print Language: Samoan
[2022-08-19 11:19] LABS: INTERNATIONAL NORM RATIO 0.9 (0.9-1.1); Prothrombin Time 9.9 SEC (10.0-13.1)
[2022-08-19 11:21] LABS: Partial Thromboplastin Time 30.6 SEC (26.0-36.4)
[2022-08-19 11:33] LABS: Alanine Aminotransferase 8 U/L (0-31); Albumin Level 3.9 g/dL (3.5-5.0); Alkaline Phosphatase 50 U/L (39-117); Anion Gap 13 (12-20); Aspartate Amino Transferase 12 U/L (5-31); Bilirubin Total 0.4 mg/dL (0.0-1.0); Blood Urea Nitrogen 15 mg/dL (9-16); Calcium 9.3 mg/dL (8.4-10.2); Carbon Dioxide 28 mmol/L (22-29); Chloride 103 mmol/L (96-108); Creatinine Clr Calc Pharmacy 41.1; Estimated Glomerular Filt Rate > 60; Glucose Random 132 mg/dL (60-115); Potassium 4.5 mmol/L (3.3-5.1); Sodium 139 mmol/L (135-145)
[2022-08-19 12:01] VITALS: BP 178/59
[2022-08-19 15:24] LABS: Troponin-I High Sensitivity 8.4 ng/L (<3.5-17.0)
[2022-08-19] MEDS: Hydrocortisone 2.5 % Rectal Cr 30 GM TUBE 1 APPL PR (15:35)
[2022-08-19] MEDS: Lidocaine HCl Viscous 2 % 15 ML SOLUTION MUCOUS MEM (15:35)
[2022-08-19 16:00] VITALS: BP 161/85; PULSE 63; RESP 18; TEMP 37.2; O2SAT 99
[2022-08-19 16:29] LABS: Troponin-I High Sensitivity 8.6 ng/L (<3.5-17.0)
--- NOTE | 2022-08-19 16:51 | PC.NURSE ---
patient a/o to self . went over discharge instructions with . patient to follow up with primary care . patient to return if symptoms worsen . No questions at this time .
== END 2022-08-19 16:52 | disposition home or self-care (01) ==
PROVIDERS: Physician Assistant; Emergency Provider Emergency Medicine; PCP Internal Medicine
DX: K62.3 Rectal prolapse (principal); F03.90 Unspecified dementia, unspecified severity, without behavioral disturbance, psychotic disturbance, mood disturbance, and anxiety; I10 Essential (primary) hypertension; R51.9 Headache, unspecified; Z79.899 Other long term (current) drug therapy
CPT/HCPCS: 36415; 70450; 80053; 84484; 85025; 85610; 85730; 93005; 99284; 99285

== ENCOUNTER → 2022-09-18 11:01 | Outpatient (BNVA) | payer MEDICARE, SELFPAY | PROVIDERS: PCP Internal Medicine; Visit Provider Surgery | DX: K62.3 Rectal prolapse (principal) | CPT/HCPCS: 99202 ==

== ENCOUNTER 2022-09-30 10:24 | Emergency (ER) | payer MEDICARE, SELFPAY ==
[2022-09-30 10:34] VITALS: BP 141/78; BP 168/78; PULSE 100; PULSE 98; RESP 18; TEMP 36.6; O2SAT 97; BMI 26.4
--- NOTE | 2022-09-30 10:38 | ED.GENADULT ---
HPI - General Adult General Chief complaint: General Medical Stated complaint: RECTAL PROLAPSE Time Seen by Provider: 09/30/22 10:30 Source: family, RN notes reviewed and old records reviewed History of Present Illness HPI narrative: 82-year-old female with a past medical history of NIVIA, HTN, rectal prolapse, dementia, presenting to the ED for persistent rectal prolapse with increasing pain, bleeding, and stool leakage x last night. History obtained from due to patient's baseline dementia. Denies fever, nausea /vomiting, constipation, dysuria. Of note patient was recently seen outpatient in Dr. Guardado's office for same complaints, surgery was discussed however and daughter were not in agreement at that time Onset (ago): hour(s) Related Data Previous Rx's Medication Instructions Recorded cyanocobalamin (vitamin B-12) 1,000 mcg PO DAILY #90 tabs 08/16/22 1,000 mcg tablet docusate sodium 100 mg capsule 100 mg PO BID 10 days #20 caps 08/19/22 (Colace) lisinopril 10 mg tablet 10 mg PO DAILY 14 days #14 tabs 08/19/22 Allergies Allergy/AdvReac Type Severity Reaction Status Date / Time donepezil AdvReac Diarrhea Verified 09/18/22 11:11 memantine [From Namenda] AdvReac Agitated Verified 09/18/22 11:11 Review of Systems Review of Systems: Constitutional: No Fever, No Chills Gastrointestinal: No Vomiting, No Diarrhea, No Constipation, No Abdominal pain, +rectal pain Skin: No Skin Lesions, No rash ROS limited secondary to patient's baseline mental status Yes all other systems are reviewed and are negative Constitutional: Constitutional: Reports as per [facility] Past Medical History Attestation statement: The following information was validated with the patient. Medical History NIVIA (acute kidney injury) Annual physical exam Dysplastic nevus HTN (hypertension) Hyperglycemia Patient denies medical problems Rectal prolapse Ulcerative colitis Surgical History H/O section H/O colonoscopy Family History Family History Father No problems noted. Mother No problems noted. Social History Social History Household Members: Spouse Housing: House Do you presently have visiting nurse or other home services: No Unable to assess alcohol history related to: Unknown Alcohol intake: unknown Patient Tobacco Use Status: Never used Tobacco e-Cigarette/Vaping Use: Never Used Second Hand Smoke Exposure: Yes Advance Directives: Yes Advance Directives on File: Yes Advance Directives Date on File: 07/22/22 service: No Current occupational status: retired Current occupational exposures/hazards: No Cognitive needs: No Hearing needs: No Vision needs: Yes Physical Exam ED Vital Signs: Vital Signs - 24 hr 09/30/22 10:34 09/30/22 14:56 Temperature 97.8 F 98 F Pulse Rate 100 108 H Respiratory Rate 18 20 Blood Pressure 141/78 H 148/66 H Pulse Oximetry 97 98 Oxygen Delivery Method Room Air Room Air BMI result Body Mass Index 26.4 Const General: cooperative and no acute distress Orientation/consciousness: oriented to person Limitations: no limitations HENMT Head: Yes normal to inspection and Yes atraumatic Ears: hearing grossly normal bilaterally General nose exam: Normal external nose present Face and sinus: Yes normal facial exam Eyes General: appearance normal, both eyes and all related structures EOM: EOMs intact bilaterally Neck Neck: Yes normal visual inspection and Yes no meningeal signs Resp Effort & Inspection: normal respiratory effort and no respiratory distress Cardio Rate: regular rate Heart sounds: S1 normal heart sound present and S2 normal heart sound present GI Inspection: Yes normal to inspection Palpation (GI): Soft to palpation, nontender, no guarding and not rigid Rectal Exam - Female: Rectal prolapse ( reduced) Skin Rashes: no rashes Wounds: no wounds Neuro General: oriented to person, tone normal and no meningeal signs Gait exam (Neuro): Normal gait present Extrem General: Yes normal to inspection Course Course Course Narrative: -1220-- Patient stood up and with minimal movement prolapse recurred. Re-consulted General surgery, currently in the OR, will re-evaluate patient and speak with for potential transfer/surgical options -1440-- Dr. Guardado evaluated patient and spoke with in the ED, agreeable to bring patient home and proceed with outpatient follow-up Medical Decision Making Medical Decision Making MDM Narrative: 82-year-old female with a past medical history of NIVIA, HTN, rectal prolapse, dementia, presenting to the ED for persistent rectal prolapse with increasing pain, bleeding, and stool leakage x last night. on exam vital signs stable, NAD/nontoxic appearing, abdomen soft/nontender, rectal prolapse noted, reduced on initial evaluation. Will consult General surgery Dr. Guardado evaluated patient in the ED and prolapse was already reduced, recommended stool softeners, avoiding any straining and close outpatient follow-up. Please refer to course for remaining clinical decision making, interpretation of labs/imaging results, and discussions with consultants and/or family members. Differential Diagnosis Differential Diagnoses: The differential diagnosis associated with the presentation includes as above Admission/Observation Consideration of admission/observation: Escalation of care including admission/observation considered Consult Healthcare Provider Management of the patient was discussed with: Clinical Psychologist Licensed Lab Data MDM Lab Attestation statement: I reviewed the patient's lab results. 09/30/22 12:08 09/30/22 12:08 Labs: Lab Results 09/30/22 09/30/22 09/30/22 Range/Units 12:08 12:08 13:10 WBC 13.4 H (4.8-10.8) X10*3/uL RBC 3.40 L D (4.20-5.50) X10*6/uL Hgb 9.8 L D (12.0-16.0) g/dl Hct 30.9 L D (37.0-47.0) % MCV 90.9 (80.0-98.0) fL MCH 28.8 (27.0-33.0) pg MCHC 31.7 (31.0-35.0) g/dl RDW 13.8 (11.0-16.0) % Plt Count 633 H D (160-400) X10*3/uL MPV 8.7 L (9.4-12.3) fL Immature Gran % (Auto) 0.4 (0.0-0.4) % Neut % (Auto) 80.6 H (45-73) % Lymph % (Auto) 11.0 L (20-40) % [place] % (Auto) 6.0 (2-11) % Eos % (Auto) 1.5 (0-4) % Baso % (Auto) 0.5 (0-2) % Lymph # (Auto) 1.5 (1.2-4.9) X10*3/uL [place] # (Auto) 0.8 (0.1-1.2) X10*3/uL Eos # (Auto) 0.2 (0.0-0.4) X10*3/uL Baso # (Auto) 0.1 (0.0-0.2) X10*3/uL Abs Immat Gran (auto) 0.06 H (0.00-0.03) X10*3/uL Absolute Neuts (auto) 10.8 H (2.0-8.3) x10*3/uL Absolute Nucleated RBC 0.000 (0.0-0.012) X10*3/uL Nucleated RBC % (auto) 0.0 (0.0-0.2) /100WBC Sodium 139 (135-145) mmol/L Potassium 4.4 (3.3-5.1) mmol/L Chloride 105 (96-108) mmol/L Carbon Dioxide 25 (22-29) mmol/L Anion Gap 13 (12-20) BUN 17 H (9-16) mg/dL Creatinine 1.00 (0.5-1.4) mg/dL Estim Creat Clear Calc 38.3 Estimated GFR 53 Random Glucose 110 (60-115) mg/dL Calcium 9.2 (8.4-10.2) mg/dL Total Bilirubin 0.2 (0.0-1.0) mg/dL Direct Bilirubin < 0.2 (0.0-0.5) mg/dL AST 10 (5-31) U/L ALT 6 (0-31) U/L Alkaline Phosphatase 49 (39-117) U/L Total Protein 5.5 L (6.5-8.0) g/dL Albumin 3.5 (3.5-5.0) g/dL COVID-19 (DULCE) Negative (Negative) COVID-19 Clin Com See Note Independent Historian Clinical information obtained from an independent historian. History obtained from or confirmed by: Spouse External Record Review External record reviewed: Outpatient record Discharge Plan Discharge Clinical Impression: Rectal prolapse Patient Disposition: Home, Self-Care Instructions: Rectal Prolapse (ED) Additional Instructions: please follow-up with General surgery outpatient. Avoid any straining. Increase fiber in the diet. When rectum prolapses please push it back in. The longer it is out the harder will be to reduce. If you are unable to push it back in, patient has persistent or unremitting pain, fever, is unable to have a bowel movement return to the emergency department Prescriptions: No Action cyanocobalamin (vitamin B-12) 1,000 mcg tablet 1,000 mcg PO DAILY Qty: 90 2RF lisinopril 10 mg tablet 10 mg PO DAILY 14 Days Qty: 14 0RF docusate sodium [Colace] 100 mg capsule 100 mg PO BID 10 Days Qty: 20 0RF Referrals: Ricki Guardado MD [Physician] - 5 days Interventions: ED Discharge Assessment Last Done: 09/30/22 15:05 Discharge Date/Time: 09/30/22 15:05
--- NOTE | 2022-09-30 10:53 | PC.NURSE ---
Pt coming in for rectal prolapse, seen recently for same issue by surgery. Hx dementia
[2022-09-30 12:13] LABS: MANUAL DIFF FLAG NO
[2022-09-30 12:19] LABS: Basophils Absolute Auto 0.1 X10*3/uL (0.0-0.2); Basophils Percent Auto 0.5 % (0-2); Eosinophils Absolute Auto 0.2 X10*3/uL (0.0-0.4); Eosinophils Percent Auto 1.5 % (0-4); Hematocrit 30.9 % (37.0-47.0); Hemoglobin 9.8 g/dl (12.0-16.0); Imm Gran Abs Auto 0.06 X10*3/uL (0.00-0.03); Imm Gran Pct Auto 0.4 % (0.0-0.4); Lymphocytes Absolute Auto 1.5 X10*3/uL (1.2-4.9); Mean Corpuscular HGB Conc 31.7 g/dl (31.0-35.0); Mean Corpuscular Hemoglobin 28.8 pg (27.0-33.0); Mean Corpuscular Volume 90.9 fL (80.0-98.0); Mean Platelet Volume 8.7 fL (9.4-12.3); Monocytes Absolute Auto 0.8 X10*3/uL (0.1-1.2); Neutrophils Absolute Auto 10.8 x10*3/uL (2.0-8.3); Neutrophils Percent Auto 80.6 % (45-73); Platelet Count 633 X10*3/uL (160-400); Red Cell Distribution Width 13.8 % (11.0-16.0); White Blood Count 13.4 X10*3/uL (4.8-10.8)
[2022-09-30 12:32] LABS: Alanine Aminotransferase 6 U/L (0-31); Albumin Level 3.5 g/dL (3.5-5.0); Alkaline Phosphatase 49 U/L (39-117); Anion Gap 13 (12-20); Aspartate Amino Transferase 10 U/L (5-31); Bilirubin Direct < 0.2 mg/dL (0.0-0.5); Bilirubin Total 0.2 mg/dL (0.0-1.0); Blood Urea Nitrogen 17 mg/dL (9-16); Calcium 9.2 mg/dL (8.4-10.2); Carbon Dioxide 25 mmol/L (22-29); Chloride 105 mmol/L (96-108); Creatinine Clr Calc Pharmacy 38.3; Estimated Glomerular Filt Rate 53; Glucose Random 110 mg/dL (60-115); Potassium 4.4 mmol/L (3.3-5.1); Sodium 139 mmol/L (135-145); Total Protein 5.5 g/dL (6.5-8.0)
[2022-09-30 13:41] LABS: IDNOW Serial# 9DB6401D
[2022-09-30 13:42] LABS: COVID-19 Test Negative (Negative)
[2022-09-30 14:56] VITALS: BP 148/66; PULSE 108; RESP 20; TEMP 36.6; O2SAT 98
--- NOTE | 2022-09-30 15:33 | P.CONGS_ITS ---
History of Present Illness Consult details Consult date: 09/30/22 Narrative: 82-year-old female referred me for rectal prolapse. I had actually seen her in the office about 2 weeks ago for this same problem. She has had some prolapse of the full-thickness of her rectum. Her is able to push this back when this happens. The patient has significant dementia and does ambulate but is mostly in down or is bed-bound. The is the 1 who takes care of her and also the source of this history. I reviewed with her the option of surgical treatment including with rectopexy as well as with the perineal approach. I in the risks, benefits, and alternatives. He stated that he would like to avoid any further surgeries for his cause of her age and dementia. The rectum was prolapsed this morning and the says that this appeared to be inflamed and very large so he brought the patient to the emergency room. He does state that he is able to normally reduce the prolapse by himself. He denies any significant bleeding. Review of Systems Constitutional: Constitutional: Denies chills and Denies fever(s) Cardiovascular: Cardiovascular: Denies chest pain, Denies dyspnea and Denies dyspnea on exertion Respiratory: Respiratory: Denies cough, Denies dyspnea and Denies dyspnea on exertion Gastrointestinal: Gastrointestinal: Denies hematochezia and Denies change in bowel habits Genitourinary: Genitourinary: Denies hematuria Musculoskeletal: Musculoskeletal: Denies back pain and Denies limited range of motion Neurologic: Denies focal weakness, Reports memory loss and Denies convulsions Psychiatric: Psychiatric: Denies depression, Reports memory loss and Denies mood swings PMFSH Past Medical History Medical History NIVIA (acute kidney injury) Annual physical exam Dysplastic nevus HTN (hypertension) Hyperglycemia Patient denies medical problems Rectal prolapse Ulcerative colitis Family History Family History Father No problems noted. Mother No problems noted. Surgical History Surgical History H/O section H/O colonoscopy Social History Social History Household Members: Spouse Housing: House Do you presently have visiting nurse or other home services: No Unable to assess alcohol history related to: Unknown Alcohol intake: unknown Patient Tobacco Use Status: Never used Tobacco e-Cigarette/Vaping Use: Never Used Second Hand Smoke Exposure: Yes Advance Directives: Yes Advance Directives on File: Yes Advance Directives Date on File: 07/22/22 service: No Current occupational status: retired Current occupational exposures/hazards: No Cognitive needs: No Hearing needs: No Vision needs: Yes Meds Allergies Allergy/AdvReac Type Severity Reaction Status Date / Time donepezil AdvReac Diarrhea Verified 09/18/22 11:11 memantine [From Namenda] AdvReac Agitated Verified 09/18/22 11:11 Physical Exam Vital Signs: Vital Signs: Last Vital Signs Temp 98 F 09/30/22 14:56 Pulse 108 H 09/30/22 14:56 Resp 20 09/30/22 14:56 BP 148/66 H 09/30/22 14:56 Pulse Ox 98 09/30/22 14:56 O2 Del Method 09/30/22 14:56 BMI result Body Mass Index 26.4 Const: General: comfortable and no acute distress Orientation/ consciousness: patient oriented x3 Neck: Neck: Yes no lymphadenopathy Resp: Auscultation: clear to auscultation bilaterally Cardio: Rhythm: regular rhythm GI: Palpation (GI): Soft to palpation, nontender and no guarding Neuro: General: patient oriented x3 Results Labs 09/30/22 12:08 09/30/22 12:08 Labs: Abnormal lab results 09/30/22 09/30/22 Range/Units 12:08 12:08 WBC 13.4 H (4.8-10.8) X10*3/uL RBC 3.40 L D (4.20-5.50) X10*6/uL Hgb 9.8 L D (12.0-16.0) g/dl Hct 30.9 L D (37.0-47.0) % Plt Count 633 H D (160-400) X10*3/uL MPV 8.7 L (9.4-12.3) fL Neut % (Auto) 80.6 H (45-73) % Lymph % (Auto) 11.0 L (20-40) % Abs Immat Gran (auto) 0.06 H (0.00-0.03) X10*3/uL Absolute Neuts (auto) 10.8 H (2.0-8.3) x10*3/uL BUN 17 H (9-16) mg/dL Total Protein 5.5 L (6.5-8.0) g/dL Short CBC 09/30/22 Range/Units 12:08 WBC 13.4 H (4.8-10.8) X10*3/uL Hgb 9.8 L D (12.0-16.0) g/dl Hct 30.9 L D (37.0-47.0) % Plt Count 633 H D (160-400) X10*3/uL BMP 09/30/22 12:08 Sodium 139 Potassium 4.4 Chloride 105 Carbon Dioxide 25 BUN 17 H Creatinine 1.00 Calcium 9.2 Liver Function 09/30/22 Range/Units 12:08 Total Bilirubin 0.2 (0.0-1.0) mg/dL Direct Bilirubin < 0.2 (0.0-0.5) mg/dL AST 10 (5-31) U/L ALT 6 (0-31) U/L Alkaline Phosphatase 49 (39-117) U/L Albumin 3.5 (3.5-5.0) g/dL All other labs normal. Assessment and Plan (1) Rectal prolapse: Status: Acute I examined the patient while in lateral decubitus position. The prolapse was already reduced completely when I saw her. She does not have any significant tenderness on the area. Her abdomen was soft and benign. I had a long discussion with her again about rectal prolapse. I reviewed the options of surgery. He says that he still really does not want any surgical intervention. He says that he often times this gets very concerned whenever the prolapse appears big and the rectum a seems more swollen. He says that he is otherwise comfortable with reducing the prolapse himself. I had offered to arrange for a consult with [facility] colorectal and he says he was not interested in bringing her for surgical options. Time Spent With Patient Time: Total time managing care of this patient today ____ minutes. Procedures Date of Service Date of Service: 09/30/22
== END 2022-09-30 15:05 | disposition home or self-care (01) ==
PROVIDERS: Physician Assistant; Emergency Provider Student in an Organized Health Care Education/Training Program; PCP Internal Medicine
DX: K62.3 Rectal prolapse (principal); Z20.822 Contact with and (suspected) exposure to COVID-19; Z20.828 Contact with and (suspected) exposure to other viral communicable diseases; Z79.899 Other long term (current) drug therapy
CPT/HCPCS: 36415; 80048; 80076; 85025; 87635; 99283; 99284

== ENCOUNTER 2022-10-12 18:49 | Emergency (ER) | payer MEDICARE, SELFPAY ==
--- NOTE | 2022-10-12 19:08 | ECG_ITS ---
Test Reason : AMS Blood Pressure : / mmHG Vent. Rate : 059 BPM Atrial Rate : 059 BPM P-R Int : 272 ms QRS Dur : 086 ms QT Int : 424 ms P-R-T Axes : 031 024 081 degrees QTc Int : 419 ms Sinus bradycardia with 1st degree A-V block Anteroseptal infarct (cited on or before 19-AUG-2022) Inferior injury pattern ACUTE IA / STEMI Consider right ventricular involvement in acute inferior infarct Abnormal ECG When compared with ECG of 19-AUG-2022 10:57, CA interval has increased Questionable change in initial forces of Anterior leads ST elevation now present in Inferior leads ST now depressed in Lateral leads Referred By: Bret Arciniega Electronically Signed By:CINDY SHUKLA MD
--- NOTE | 2022-10-12 19:08 | ED.GENADULT ---
HPI - General Adult General Chief complaint: Altered Mental Status Stated complaint: ?ETOH USE,ALTERED,CONSIOUS/NOT RESPONDING PER EMS Time Seen by Provider: 10/12/22 19:06 Source: EMS Mode of arrival: EMS History of Present Illness HPI narrative: Patient 82 years old history of hypertension, rectal prolapse, dementia and history of NIVIA was at baseline health went out with her had dinner at 17:00 had with 3 or 4 drinks came home was feeling weak did not feel well went to bed became less responsive called EMS patient was alert awake slightly lethargic and not feeling well soft-spoken while in the EMS patient vomited 1 time patient denies any chest pain to the EMS or in the ER, EKG done by EMS noticed to have ST elevation in anterior leads patient was given IV Zofran by the EMS patient blood pressure 140/54 pulse rate 59 on arrival saturating 99% at room air Related Data Previous Rx's Medication Instructions Recorded cyanocobalamin (vitamin B-12) 1,000 mcg PO DAILY #90 tabs 08/16/22 1,000 mcg tablet docusate sodium 100 mg capsule 100 mg PO BID 10 days #20 caps 08/19/22 (Colace) lisinopril 10 mg tablet 10 mg PO DAILY 14 days #14 tabs 08/19/22 Allergies Allergy/AdvReac Type Severity Reaction Status Date / Time donepezil AdvReac Diarrhea Verified 09/18/22 11:11 memantine [From Namenda] AdvReac Agitated Verified 09/18/22 11:11 Review of Systems Review of Systems: Patient is soft spoken with history of baseline dementia denies any complaints Yes all other systems are reviewed and are negative PMFSH Past Medical History Medical History NIVIA (acute kidney injury) Annual physical exam Dysplastic nevus HTN (hypertension) Hyperglycemia Patient denies medical problems Rectal prolapse Ulcerative colitis Surgical History H/O section H/O colonoscopy Family History Family History Father No problems noted. Mother No problems noted. Social History Social History Household Members: Spouse Housing: House Do you presently have visiting nurse or other home services: No Unable to assess alcohol history related to: Unknown Alcohol intake: unknown Patient Tobacco Use Status: Never used Tobacco e-Cigarette/Vaping Use: Never Used Second Hand Smoke Exposure: Yes Advance Directives: Yes Advance Directives on File: Yes Advance Directives Date on File: 07/22/22 service: No Current occupational status: retired Current occupational exposures/hazards: No Cognitive needs: No Hearing needs: No Vision needs: Yes Physical Exam ED Vital Signs: Vital Signs - 24 hr 10/12/22 19:24 Pulse Rate 61 Respiratory Rate 20 Blood Pressure 140/54 H Pulse Oximetry 98 Oxygen Delivery Method Room Air BMI result Body Mass Index 19.9 Appearance: Alert. Oriented X2-3. No acute distress. Eyes: PERRLA, No Nystagmus ENT: Pharynx normal. Oral Mucosa moist Neck: Normal inspection. Neck supple. CVS: Normal heart rate and rhythm. Pulses normal. Respiratory: No respiratory distress. Equal air entry bilateral, no wheezing/rales/rhonchi Abdomen: Soft and nontender. Bowel sounds are present, no mass palpable, no CVA tenderness Skin: Skin warm and dry. Normal skin color. Normal skin turgor. Extremities: No lower extremity edema. No calf tenderness Neuro: Oriented X 3. No motor deficit. No sensory deficit.No cerebellar signs , cranial nerves II-XII intact Medications Administered Discontinued Medications Generic Name Dose Route Start Last Admin Trade Name Freq PRN Reason Stop Dose Admin Aspirin 162 mg 10/12/22 19:08 10/12/22 19:15 Aspirin 81 Mg Tab.Chew PO 10/12/22 19:09 162 mg ONCE ONE Administration Heparin Sodium (Porcine) 4,000 unit 10/12/22 19:08 10/12/22 19:15 Heparin Sodium,Porcine 5,000 Unit/Ml Vial IVPUSH 10/12/22 19:09 4,000 unit ONCE ONE Administration Ticagrelor 180 mg 10/12/22 19:08 10/12/22 19:11 Ticagrelor 90 Mg Tablet PO 10/12/22 19:09 180 mg ONCE ONE Administration Medical Decision Making Medical Decision Making MDM Narrative: Patient with anterior wall RI, no chest pain received 4000 units of heparin, Brilinta and aspirin Lab Data [facility] Lab Attestation statement: I reviewed the patient's lab results. 10/12/22 19:14 10/12/22 19:14 Labs: Lab Results 10/12/22 10/12/22 10/12/22 Range/Units 19:14 19:14 19:14 WBC 14.7 H (4.8-10.8) X10*3/uL RBC 3.46 L (4.20-5.50) X10*6/uL Hgb 9.9 L (12.0-16.0) g/dl Hct 31.1 L (37.0-47.0) % MCV 89.9 (80.0-98.0) fL MCH 28.6 (27.0-33.0) pg MCHC 31.8 (31.0-35.0) g/dl RDW 13.4 (11.0-16.0) % Plt Count 626 H (160-400) X10*3/uL MPV 8.7 L (9.4-12.3) fL Immature Gran % (Auto) 0.6 H (0.0-0.4) % Neut % (Auto) 81.1 H (45-73) % Lymph % (Auto) 12.3 L (20-40) % [place] % (Auto) 4.8 (2-11) % Eos % (Auto) 0.6 (0-4) % Baso % (Auto) 0.6 (0-2) % Lymph # (Auto) 1.8 (1.2-4.9) X10*3/uL [place] # (Auto) 0.7 (0.1-1.2) X10*3/uL Eos # (Auto) 0.1 (0.0-0.4) X10*3/uL Baso # (Auto) 0.1 (0.0-0.2) X10*3/uL Abs Immat Gran (auto) 0.09 H (0.00-0.03) X10*3/uL Absolute Neuts (auto) 11.9 H (2.0-8.3) x10*3/uL Absolute Nucleated RBC 0.000 (0.0-0.012) X10*3/uL Nucleated RBC % (auto) 0.0 (0.0-0.2) /100WBC PT 9.5 L (10.0-13.1) SEC INR 0.8 L (0.9-1.1) Sodium Cancelled Potassium Cancelled Chloride Cancelled Carbon Dioxide Cancelled Anion Gap Cancelled BUN Cancelled Creatinine Cancelled Estim Creat Clear Calc Cancelled Estimated GFR Cancelled Random Glucose Cancelled Calcium Cancelled Total Bilirubin Cancelled AST Cancelled ALT Cancelled Alkaline Phosphatase Cancelled Troponin I High Sens (<3.5-17.0) ng/L Total Protein Cancelled Albumin Cancelled COVID-19 ([facility]ULCE) (Negative) COVID-19 Clin Com 10/12/22 10/12/22 Range/Units 19:14 19:14 WBC (4.8-10.8) X10*3/uL RBC (4.20-5.50) X10*6/uL Hgb (12.0-16.0) g/dl Hct (37.0-47.0) % MCV (80.0-98.0) fL MCH (27.0-33.0) pg MCHC (31.0-35.0) g/dl RDW (11.0-16.0) % Plt Count (160-400) X10*3/uL MPV (9.4-12.3) fL Immature Gran % (Auto) (0.0-0.4) % Neut % (Auto) (45-73) % Lymph % (Auto) (20-40) % [place] % (Auto) (2-11) % Eos % (Auto) (0-4) % Baso % (Auto) (0-2) % Lymph # (Auto) (1.2-4.9) X10*3/uL [place] # (Auto) (0.1-1.2) X10*3/uL Eos # (Auto) (0.0-0.4) X10*3/uL Baso # (Auto) (0.0-0.2) X10*3/uL Abs Immat Gran (auto) (0.00-0.03) X10*3/uL Absolute Neuts (auto) (2.0-8.3) x10*3/uL Absolute Nucleated RBC (0.0-0.012) X10*3/uL Nucleated RBC % (auto) (0.0-0.2) /100WBC PT (10.0-13.1) SEC INR (0.9-1.1) Sodium Potassium Chloride Carbon Dioxide Anion Gap BUN Creatinine Estim Creat Clear Calc Estimated GFR Random Glucose Calcium Total Bilirubin AST ALT Alkaline Phosphatase Troponin I High Sens 238.8 H* D (<3.5-17.0) ng/L Total Protein Albumin COVID-19 (DULCE) Negative (Negative) COVID-19 Clin Com See Note Independent Interpretation I performed an independent interpretation of an: EKG Interpretation: Sinus bradycardia heart rate [address] elevation V2 V3 and lead 3 and AVF with reciprocal changes impression anteroseptal RI Discharge Plan Discharge Clinical Impression: ST elevation (STEMI) myocardial infarction Patient Disposition: Xfer Acute Care Hospital Transfer Details: To [facility] Dr. Morataya will take the patient to environmental laboratory technician Prescriptions: No Action cyanocobalamin (vitamin B-12) 1,000 mcg tablet 1,000 mcg PO DAILY Qty: 90 2RF lisinopril 10 mg tablet 10 mg PO DAILY 14 Days Qty: 14 0RF docusate sodium [Colace] 100 mg capsule 100 mg PO BID 10 Days Qty: 20 0RF Interventions: Acute Care Transfer Worksheet (ED) Last Done: 10/12/22 20:03 Discharge Date/Time: 10/12/22 20:03
[2022-10-12] MEDS: Ticagrelor 90 MG TABLET 180 MG PO (19:11)
[2022-10-12] MEDS: Aspirin 81 MG TAB.CHEW 162 MG PO (19:15)
[2022-10-12] MEDS: Heparin Sodium,Porcine 5,000 UNIT/ML VIAL 4000 UNIT IVPUSH (19:15)
[2022-10-12 19:24] VITALS: BP 136/85; BP 140/54; PULSE 52; PULSE 61; RESP 20; O2SAT 100; O2SAT 98; BMI 19.9
[2022-10-12 19:24] LABS: MANUAL DIFF FLAG NO
[2022-10-12 19:25] LABS: Basophils Absolute Auto 0.1 X10*3/uL (0.0-0.2); Basophils Percent Auto 0.6 % (0-2); Eosinophils Absolute Auto 0.1 X10*3/uL (0.0-0.4); Eosinophils Percent Auto 0.6 % (0-4); Hematocrit 31.1 % (37.0-47.0); Hemoglobin 9.9 g/dl (12.0-16.0); Imm Gran Abs Auto 0.09 X10*3/uL (0.00-0.03); Imm Gran Pct Auto 0.6 % (0.0-0.4); Lymphocytes Absolute Auto 1.8 X10*3/uL (1.2-4.9); Lymphocytes Percent Auto 12.3 % (20-40); Mean Corpuscular HGB Conc 31.8 g/dl (31.0-35.0); Mean Corpuscular Hemoglobin 28.6 pg (27.0-33.0); Mean Corpuscular Volume 89.9 fL (80.0-98.0); Mean Platelet Volume 8.7 fL (9.4-12.3); Monocytes Absolute Auto 0.7 X10*3/uL (0.1-1.2); Monocytes Percent Auto 4.8 % (2-11); Neutrophils Absolute Auto 11.9 x10*3/uL (2.0-8.3); Neutrophils Percent Auto 81.1 % (45-73); Platelet Count 626 X10*3/uL (160-400); Red Blood Count 3.46 X10*6/uL (4.20-5.50); Red Cell Distribution Width 13.4 % (11.0-16.0); White Blood Count 14.7 X10*3/uL (4.8-10.8)
--- NOTE | 2022-10-12 19:31 | PC.NURSE ---
Pt. in room after being biba. Pt. oriented to self. PT. appears to be anxious. EKG immediately taken and indicates a STEMI. Pt. medicated with aspirin, heparin and brilinta per OCT. Pt. able to swallow water with PO meds. Pt. initially denied pain, however when prepping for transport to [facility] pt. reports chest pain, but unable to give a degree of pain. Pt. hooked up to monitor. 2nd IV placed and transported to [facility]. Called [facility] terrazzo laborer [phone] to give report. No answer. Will try again shortly.
[2022-10-12 19:33] LABS: INTERNATIONAL NORM RATIO 0.8 (0.9-1.1); Prothrombin Time 9.5 SEC (10.0-13.1)
--- NOTE | 2022-10-12 19:33 | MHC.EDTECH ---
[facility] called at 1906 per ,awaitng a call back. At 1909 accepted patient to the [facility]. Alert in room and transported patient.
[2022-10-12 19:40] LABS: COVID-19 Test Negative (Negative); IDNOW Serial# 6674DD1D
--- NOTE | 2022-10-12 19:41 | PC.NURSE ---
Made another attempt to call laborer steel handling for report. No answer.
[2022-10-12 19:55] LABS: Troponin-I High Sensitivity 238.8 ng/L (<3.5-17.0)
--- NOTE | 2022-10-12 20:02 | PC.NURSE ---
[facility] labeler called for report. Gave to their labeler RN.
== END 2022-10-12 20:03 | disposition short-term general hospital (02) ==
PROVIDERS: Emergency Provider Internal Medicine
DX: I21.3 ST elevation (STEMI) myocardial infarction of unspecified site (principal); I10 Essential (primary) hypertension; Z20.822 Contact with and (suspected) exposure to COVID-19
CPT/HCPCS: 84484; 85025; 85610; 87635; 93005; 96374; 99285; J1643

== ENCOUNTER 2023-09-29 15:38 | Inpatient (IN) | payer MEDICARE, SELFPAY ==
--- NOTE | ~2023-09-29 | XR_ITS ---
EXAMINATION: XR CHEST CLINICAL INFORMATION: Fever. COMPARISON: Chest radiograph 07/21/2018. TECHNIQUE: AP view of the chest was obtained. FINDINGS: Normal heart size. Calcifications noted in the aortic arch. Low lung volumes. No focal airspace opacities. No pleural effusion or pneumothorax. No acute osseous findings. Visualized upper abdomen is within normal limits. XR/XR chest 1V IMPRESSION: No acute cardiopulmonary findings.
[2023-09-29 15:44] VITALS: BP 195/90; PULSE 70; O2SAT 98
--- NOTE | 2023-09-29 15:56 | ECG_ITS ---
Test Reason : WEAKNESS Blood Pressure : / mmHG Vent. Rate : 074 BPM Atrial Rate : 074 BPM P-R Int : 154 ms QRS Dur : 080 ms QT Int : 402 ms P-R-T Axes : 042 -19 018 degrees QTc Int : 446 ms Sinus rhythm with Premature atrial complexes Septal infarct (cited on or before 19-AUG-2022) Inferior infarct , age undetermined Abnormal ECG When compared with ECG of 12-OCT-2022 19:03, Significant changes have occurred Referred By: Tiera Clifford Electronically Signed By:CINDY SHUKLA MD
[2023-09-29 16:06] VITALS: BP 183/63; PULSE 68; RESP 45; TEMP 37.3; O2SAT 97; BMI 30.2
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
[2023-09-29 16:28] LABS: MANUAL DIFF FLAG NO
[2023-09-29 16:33] LABS: Basophils Absolute Auto 0.1 X10*3/uL (0.0-0.2); Basophils Percent Auto 0.7 % (0-2); Eosinophils Absolute Auto 0.3 X10*3/uL (0.0-0.4); Hematocrit 32.3 % (37.0-47.0); Hemoglobin 10.1 g/dl (12.0-16.0); Imm Gran Abs Auto 0.05 X10*3/uL (0.00-0.03); Imm Gran Pct Auto 0.6 % (0.0-0.4); Lymphocytes Absolute Auto 1.9 X10*3/uL (1.2-4.9); Lymphocytes Percent Auto 21.4 % (20-40); Mean Corpuscular HGB Conc 31.3 g/dl (31.0-35.0); Mean Corpuscular Hemoglobin 28.5 pg (27.0-33.0); Mean Platelet Volume 9.6 fL (9.4-12.3); Monocytes Absolute Auto 0.9 X10*3/uL (0.1-1.2); Monocytes Percent Auto 9.5 % (2-11); Neutrophils Absolute Auto 5.8 x10*3/uL (2.0-8.3); Neutrophils Percent Auto 64.8 % (45-73); Platelet Count 457 X10*3/uL (160-400); Red Blood Count 3.55 X10*6/uL (4.20-5.50); Red Cell Distribution Width 13.3 % (11.0-16.0); White Blood Count 8.9 X10*3/uL (4.8-10.8)
[2023-09-29 16:34] LABS: OBS Int Ctl Valid YES; OBS1 POSITIVE (NEGATIVE)
[2023-09-29 16:36] LABS: INTERNATIONAL NORM RATIO 0.8 (0.9-1.1); Prothrombin Time 10.2 SEC (11.1-13.3)
[2023-09-29 16:41] LABS: Lactic Acid 0.8 mmol/L (0.5-2.0)
[2023-09-29 16:46] LABS: Alanine Aminotransferase 13 U/L (0-31); Alkaline Phosphatase 61 U/L (39-117); Anion Gap 13 (12-20); Aspartate Amino Transferase 21 U/L (5-31); Bilirubin Direct < 0.2 mg/dL (0.0-0.5); Bilirubin Total 0.2 mg/dL (0.0-1.0); Blood Urea Nitrogen 20 mg/dL (9-16); Calcium 9.5 mg/dL (8.4-10.2); Carbon Dioxide 28 mmol/L (22-29); Chloride 107 mmol/L (96-108); Creatinine Clr Calc Pharmacy 44.5; Estimated Glomerular Filt Rate 57; Glucose Random 107 mg/dL (60-115); Potassium 4.5 mmol/L (3.3-5.1); Sodium 143 mmol/L (135-145); Total Protein 6.9 g/dL (6.5-8.0)
[2023-09-29] MEDS: 0.9 % Sodium Chloride 1,000 ML 999 ML IVCONT (16:46)
[2023-09-29] MEDS: Nystatin Powder 15 GM BOTTLE 1 APPL TOPICAL ×2 (16:46→20:14)
[2023-09-29] MEDS: cefTRIAXone sodium 1 GM in 0.9 % Sodium Chloride 50 ML IV (16:46)
[2023-09-29 16:53] LABS: Troponin-I High Sensitivity 12.1 ng/L (<3.5-17.0)
[2023-09-29 16:58] VITALS: BP 198/72; PULSE 72; RESP 16; O2SAT 98
--- NOTE | 2023-09-29 17:03 | PC.NURSE ---
coming from home, appearing very anxious. bruising noted to bilateral leg and to left arm. patient poor historian as to occurrence of bruising. iv established, labs drawn and sent. medicated per the OCT. call yeh within reach
[2023-09-29 17:21] LABS: IDNOW Serial# 9DB6401D; Influenza A Negative (Negative); Influenza B2 Negative (Negative)
[2023-09-29 17:35] LABS: Appearance Urine Clear; Color Urine Yellow; Glucose Urine UA Negative (Negative); Leukocyte Esterase Urine Negative (Negative); Nitrite Urine Negative (Negative); Urine Blood Negative (Negative); Urine Ketones Negative (Negative); Urine Protein Negative (Neg-Trace)
[2023-09-29 17:47] LABS: COVID-19 Test Negative (Negative); IDNOW Serial# 58CA691E
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
[2023-09-29 19:26] VITALS: BP 127/85; PULSE 91; RESP 20; TEMP 37.1; O2SAT 96
[2023-09-29] MEDS: amLODIPine Besylate 10 MG TABLET PO (19:32)
[2023-09-29] MEDS: Enoxaparin Sodium 40 MG/0.4 ML SYRINGE SUBCUT (19:32)
[2023-09-29 19:35] LABS: Partial Thromboplastin Time 31.3 SEC (26.0-36.4)
[2023-09-29] MEDS: ceFAZolin Sodium/Dextrose,Iso 2 GM/50 ML PIGGYBACK IV (19:42)
--- NOTE | 2023-09-29 20:04 | MHC.EDTECH ---
This Tech Assumed care of this PT. Pt placed back on the cardiac monitor technician after ripping off leads. Pt is confused. Pt changed into clean hospital gown and clean linen placed on stretcher by this Tech and ALESSANDRA Doss
--- NOTE | 2023-09-29 20:06 | PHA.MEDREC ---
Pharmacy Consult ? Medication Reconciliation Pharmacy has completed the medication reconciliation. Patient's reported no medications for over a year now. Cee Robertson, PharmD
[2023-09-29] MEDS: 0.9 % Sodium Chloride 1,000 ML 80 ML IVCONT (20:13)
[2023-09-29] MEDS: Doxycycline Hyclate 100 MG in 0.9 % Sodium Chloride 250 ML 166.67 MG IV (20:25)
[2023-09-29 21:39] VITALS: BP 189/57; PULSE 73; RESP 21; TEMP 36.8; O2SAT 97
--- NOTE | 2023-09-30 00:56 | PC.NURSE ---
pt ripped out IV, new IV placed and wrapped for protection.
[2023-09-30] MEDS: 0.9 % Sodium Chloride Flush 3 ML SYRINGE IVFLUSH (00:57)
--- NOTE | 2023-09-30 01:55 | PC.NURSE ---
Pt attempting to get out of bed, not redirectable. Camera placed for safety.
[2023-09-30 02:27] VITALS: BP 165/61; PULSE 108; RESP 20; TEMP 26.4; O2SAT 97
[2023-09-30] MEDS: Midazolam HCl/PF 2 MG/2 ML VIAL 1 MG IVPUSH (03:06)
[2023-09-30] MEDS: ceFAZolin Sodium/Dextrose,Iso 2 GM/50 ML PIGGYBACK IV ×3 (03:15→18:03)
--- NOTE | 2023-09-30 03:33 | PC.NURSE ---
Pt very restless, attempting to get out of bed, pulling at IV. Camera in place, Pt not redirectable after multiple attempts. Dr. Hernandez made aware, new order given per OCT.
[2023-09-30 06:30] LABS: MANUAL DIFF FLAG NO
[2023-09-30 06:32] LABS: Basophils Absolute Auto 0.1 X10*3/uL (0.0-0.2); Basophils Percent Auto 0.5 % (0-2); Eosinophils Absolute Auto 0.2 X10*3/uL (0.0-0.4); Eosinophils Percent Auto 1.7 % (0-4); Hemoglobin 9.5 g/dl (12.0-16.0); Imm Gran Abs Auto 0.05 X10*3/uL (0.00-0.03); Imm Gran Pct Auto 0.5 % (0.0-0.4); Lymphocytes Absolute Auto 1.5 X10*3/uL (1.2-4.9); Lymphocytes Percent Auto 16.2 % (20-40); Mean Corpuscular HGB Conc 31.7 g/dl (31.0-35.0); Mean Corpuscular Hemoglobin 28.1 pg (27.0-33.0); Mean Corpuscular Volume 88.8 fL (80.0-98.0); Mean Platelet Volume 10.9 fL (9.4-12.3); Monocytes Absolute Auto 0.7 X10*3/uL (0.1-1.2); Monocytes Percent Auto 7.1 % (2-11); Neutrophils Absolute Auto 6.8 x10*3/uL (2.0-8.3); Platelet Count 244 X10*3/uL (160-400); Red Blood Count 3.38 X10*6/uL (4.20-5.50); Red Cell Distribution Width 13.2 % (11.0-16.0); White Blood Count 9.2 X10*3/uL (4.8-10.8)
[2023-09-30 06:49] LABS: Anion Gap 12 (12-20); Blood Urea Nitrogen 14 mg/dL (9-16); Calcium 8.6 mg/dL (8.4-10.2); Carbon Dioxide 24 mmol/L (22-29); Chloride 110 mmol/L (96-108); Creatinine Clr Calc Pharmacy 48.5; Estimated Glomerular Filt Rate > 60; Glucose Random 96 mg/dL (60-115); Potassium 4.1 mmol/L (3.3-5.1); Sodium 142 mmol/L (135-145)
[2023-09-30 08:28] VITALS: BP 156/70; O2SAT 98
--- NOTE | 2023-09-30 09:04 | MHC.EDTECH ---
pt was found incontinent of urine. pt was fouzia cleaned, clean linen given, and warm blankets given, no signs of distress, rn aware.
[2023-09-30] MEDS: Nystatin Powder 15 GM BOTTLE 1 APPL TOPICAL ×3 (09:10→20:12)
--- NOTE | 2023-09-30 09:15 | PC.NURSE ---
pt resting with eyes closed, had received versed on overnights per oct. pt reports feeling sleeping. pleasant, awakes to name. pt incontinent of urine, linens changes and pts skin cleaned. IV maintains intact with NS running at 80 ml/hr. Nystatin powder applied to beneath breasts. pt tolerated well. plan for admission for cellulitis with IV abx.
[2023-09-30 10:21] VITALS: BP 156/70; RESP 18; TEMP 36.3; O2SAT 98
[2023-09-30] MEDS: 0.9 % Sodium Chloride 1,000 ML 80 ML IVCONT ×2 (10:21→22:20)
--- NOTE | 2023-09-30 11:14 | HO.WOUND ---
Wound Consult: Initial 83yr old? F admitted to [facility] on 09/29/23 - See progress notes and H&P for detailed history.? Wound consult placed for skin tears and left leg wound - Present on admission.? Patient agreeable to assessment and photo documentation.? Left Lower Leg Etiology: ?Abrasions - likely traumatic pt unable to report etiology - ?Present on Admission Measurements: 3 lesions max size of wound bed 3.5cm x 1cm with some depth appreciated 0.2cm Wound Bed: dried scabbed wound beds in various stages Drainage / Odor: None noted Edges: ? irregular Rita wound: red swollen erythema - tender to touch -? No Induration, Fluctuance noted Pain: pain observed Goals of Treatment: ? Moist wound healing Left Upper Arm Etiology: ?Abrasion - likely traumatic pt unable to report etiology - ?Present on Admission Wound Bed: dried scabbed wound bed Drainage / Odor: None noted Edges: ? irregular Rita wound: Dry intact fragile tissue - tender to touch -? No Induration, Fluctuance noted Pain: pain observed Goals of Treatment: ? Moist wound healing Interglutal Etiology: MASD- Intertrigo (Moisture Associated Skin Damage) ?Present on Admission Measurements: 7cm x 0.2cm x 0.1cm Wound Bed: Linear wound bed along skin fold at base - partial thickness tissue loss with moist pink wound bed with thin yellow slough observed Drainage / Odor: None noted Edges: ?linear and attached Rita wound: MASD ([place] mirrored tissue intact and blanchable -? No Induration, Fluctuance noted Pain: no pain observed Goals of Treatment: ?Protect from friciton and excess moisture withTriad Bilateral Breast assessed - for fungal dermatitis - Nystatin ordered - on Oct direct care team to apply once arrival to unit. Bilateral heels observed to be pink but remain intact and blanchable - Off Load Heels from surface of bed - consider foam application. Recommendations: 1. Turn and Reposition every 2 hours and as needed for patient comfort.? Use pillows or wedges to support off loading positions. 2. Off Load all bony prominences with use of pillows and heel boots if needed.? Apply Preventative foams where needed. ? 3. Monitor for incontinence and moisture control, use barrier creams when needed for prevention and treatment. 4. Provide adequate and supplemental nutrition.? 5. Order low air loss mattress. 6. When applicable maintain blood glucose levels per Providers order. 7. Buttocks and Intergluteal - Off Load Pressure - Cleanse with PH balance spray or wipes, pat dry. ?Apply thin layer of Triad to wound bed - only pat and dab no scrub and rub when soiling occurs. Reapply thin layer PRN after each episode of incontinence. 8. Bilateral Breast Folds - Cleanse with PH balance wipes, pat dry with soft cloth.? Apply antifungal power to assist with moisture management.? Be sure to dust of excess powder to prevent caking on skin and in folds. Apply per provider orders. 9. Left Leg and Left Arm - Elevate heels off of bed surface - Cleanse with NS, Pat dry.? Apply Skin prep to periwound.? Apply layer of Coloplast Collagen Hydrogel, cover with gauze secure with ABD pad, gauze wrap and tape.?May use Gauze netting instead. Do not apply tape to patients skin.? Avoid adhesive application to skin - when necessary apply skin prep prior.? Keep nails short, trimmed and smooth. Cover legs and arms with clothing as added protection. Change dressing Daily. 10. Bilateral Heels - Off Load Heels from surface of bed - consider foam application to protect from friction and sheer. Re-consult wound care Nurse for wound deterioration or wound changes.
--- NOTE | 2023-09-30 12:58 | MHC.SL.SWA ---
Speech Pathologist Impression: Risk of Aspiration Due to: None Dysphasia Diet Status: Liquid Consistency and Strategies for Safe Swallow: Liquid Intake Recommendation: Thin Solid Food Consistency: Dietary Recommendations: Chopped/Advanced (NDD3) Oral Medication Intake: Whole with Liquid Please contact the pharmacy regarding appropriate crushable or liquid drug formulations that are available whenever modified delivery is recommended. Compensatory Strategies and Precautions to be Taken for Safe Swallow: Sitting Upright (90 deg) Small Bites and Sips Alternate Liquids/Solids Rate of Ingestion Change Oral Check Avoid Specific Foods Supervision While Eating and Drinking for Safe Swallow: Intermittent Supervision Foods to Avoid: Swallowing Recommended Treatments: Compens. Strategy Educat. Recommendation for Speech: Inpatient Speech Therapy Comment: Recommending UPGRADE to CHOPPED/ADVANCED (NDD3) SOLIDS and THIN LIQUIDS. MEDS WHOLE with LIQUID or PUREE, as tolerated. Assist with tray set-up and meal completion. BEARINGIZER will follow-up x1-2 during admission. Cricket Coach Clinican/Clinical Fellow: No Supervisory Statement: I have reviewed and agree with the student/clinical fellow's documentation: N/A Speech Language Pathologist: Blair Claire M.A., [facility]
--- NOTE | 2023-09-30 13:36 | HO.PM.IMPN ---
Subjective Subjective Date of Service: 09/30/23 Interval History: has dementia, not giving any details, no distress Physical Exam Vital Signs: Vital Signs: Last Vital Signs Temp 97.4 F 09/30/23 10:21 Pulse 108 H 09/30/23 02:27 Resp 18 09/30/23 10:21 BP 156/70 H 09/30/23 10:21 Pulse Ox 98 09/30/23 10:21 O2 Del Method Room Air 09/30/23 10:21 BMI result Body Mass Index 30.2 Const: Other: Appearance: Alert. Oriented X1. No acute distress. Has a strong smell of urine--essentially unchanged from yesterday Eyes: Pupils equal, round and reactive to light. ENT: Pharynx normal. Neck: Normal inspection. Neck supple. No lymph nodes noted. No crepitus CVS: Normal heart rate and rhythm. Pulses normal. Normal S1 and S2 Respiratory: No respiratory distress. Breath sounds normal. No Wheezing. No rales Abdomen: Soft and nontender. No rigidity. No distention. As we were cleaning the patient, patient had stool in her buttocks, looks black, DAVID: guaiac positive Skin: Skin warm and dry. Normal skin color. Patient has several old abrasions and injuries to the lower extremities especially on the left, patient has candidiasis under both breasts, patient has multiple ecchymosis in bilateral upper and lower extremities. Patient has an eschar in the left upper arm lateral aspect, it is possible that this may be squamous cell carcinoma Extremities: No lower extremity edema. No Lacerations. No Rash Neuro: No motor deficit. No sensory deficit. Moving all extremities. No slurred speech. CN 2 through 12 grossly intact Psych: calm, cooperative, anxious Objective Data Active Medications Acetaminophen (Acetaminophen 325 Mg Tablet) 650 mg PO Q6H PRN PRN Reason: Pain, Mild (Pain Scale 1-3) Enoxaparin Sodium (Enoxaparin Sodium 40 Mg/0.4 Ml Syringe) 40 mg SUBCUT Q24H [facility] Last Admin: 09/29/23 19:32 Dose: 40 mg Documented By: INDER Sodium Chloride (Ns) 1,000 mls @ 80 mls/hr IVCONT .[id number] [facility] Last Admin: 09/30/23 10:21 Dose: 80 mls/hr Documented By: KARLOS Cefazolin Sodium/Dextrose (Ancef) 2 gm in 50 mls @ 100 mls/hr IV Q8H [facility] Last Infusion: 09/30/23 10:54 Dose: Infused Documented By: KARLOS Nystatin (Nystatin Powder 15 Gm Bottle) 1 appl TOPICAL TID [facility]; Protocol Last Admin: 09/30/23 09:10 Dose: 1 appl Documented By: FAISAL Ondansetron HCl (Ondansetron Hcl 4 Mg/2 Ml Vial) 4 mg IVPUSH Q8H PRN PRN Reason: Nausea and Vomiting Senna (Sennosides 8.6 Mg Tablet) 17.2 mg PO BEDTIME PRN PRN Reason: Constipation Sodium Chloride (0.9 % Sodium Chloride Flush 3 Ml Syringe) 3 ml IVFLUSH QSHIFT [facility] Last Admin: 09/30/23 09:05 Dose: Not Given Documented By: FAISAL Non-Admin Reason: IV Running Labs 09/30/23 06:16 09/30/23 06:16 Labs: Laboratory Results - last 24 hr 09/29/23 09/29/23 09/29/23 16:21 16:22 16:42 MCV 91.0 MCH 28.5 MCHC 31.3 RDW 13.3 Plt Count 457 H D MPV 9.6 Immature Gran % (Auto) 0.6 H Neut % (Auto) 64.8 Lymph % (Auto) 21.4 Sterling % (Auto) 9.5 Eos % (Auto) 3.0 Baso % (Auto) 0.7 Lymph # (Auto) 1.9 Sterling # (Auto) 0.9 Eos # (Auto) 0.3 Baso # (Auto) 0.1 Abs Immat Gran (auto) 0.05 H Absolute Neuts (auto) 5.8 Absolute Nucleated RBC 0.000 Nucleated RBC % (auto) 0.0 PT 10.2 L INR 0.8 L APTT 31.3 Anion Gap 13 Estim Creat Clear Calc 44.5 Estimated GFR 57 Random Glucose 107 Lactic Acid 0.8 Calcium 9.5 Total Bilirubin 0.2 Direct Bilirubin < 0.2 AST 21 ALT 13 Alkaline Phosphatase 61 Total Protein 6.9 Albumin 4.0 Urine Color Urine Appearance Urine pH Ur Specific [place] Urine Protein Urine Glucose (UA) Urine Ketones Urine Blood Urine Nitrite Ur Leukocyte Esterase Stool Occult Blood POSITIVE COVID-19 (DULCE) Negative COVID-19 Clin Com See Note Influenza Type A (ARIANNA) Negative Influenza Type B (ARIANNA) Negative Influenza A & B Note See Note 09/29/23 09/30/23 17:27 06:16 MCV 88.8 MCH 28.1 MCHC 31.7 RDW 13.2 Plt Count 244 D MPV 10.9 Immature Gran % (Auto) 0.5 H Neut % (Auto) 74.0 H Lymph % (Auto) 16.2 L [place] % (Auto) 7.1 Eos % (Auto) 1.7 Baso % (Auto) 0.5 Lymph # (Auto) 1.5 Sterling # (Auto) 0.7 Eos # (Auto) 0.2 Baso # (Auto) 0.1 Abs Immat Gran (auto) 0.05 H Absolute Neuts (auto) 6.8 Absolute Nucleated RBC 0.000 Nucleated RBC % (auto) 0.0 PT INR APTT Anion Gap 12 Estim Creat Clear Calc 48.5 Estimated GFR > 60 Random Glucose 96 Lactic Acid Calcium 8.6 D Total Bilirubin Direct Bilirubin AST ALT Alkaline Phosphatase Total Protein Albumin Urine Color Yellow Urine Appearance Clear Urine pH 7.0 Ur Specific [place] 1.020 Urine Protein Negative Urine Glucose (UA) Negative Urine Ketones Negative Urine Blood Negative Urine Nitrite Negative Ur Leukocyte Esterase Negative Stool Occult Blood COVID-19 (DULCE) COVID-19 Clin Com Influenza Type A (ARIANNA) Influenza Type B (ARIANNA) Influenza A & B Note Assessment and Plan (1) Multiple bruises: Status: Acute (2) Cellulitis of left leg: Status: Acute Plan 83-year-old female with history of hypertension, dysplastic nevus, ulcerative colitis, rectal prolapse, unspecified seizure disorder, unspecified dementia admitted for further management of acute cellulitis LLE. #Acute cellulitis LLE -IV cefazolin (initiated 09/29), change to PO tomorrow -No leukocytosis, no sepsis. Mentation baseline, no encephalopathy wound rn consult -follow cbc, cultures #Uncontrolled htn -noncompliance with antihypertensives due to refusal per . Has not seen PCP in over a year. see hpi -Started amlodipine 5mg daily #Intertriginous candidiasis -nystatin powder, wound care #Unspecified dementia -mentation baseline per her and family #Unspecified seizure d/o -has missed follow up appts with [facility] neuro and pt refuses david so has not recevied in months -monitor #CAD -h/o stemi [facility] with d/c 10/19/22 -medically managed. discharged on DAPT but pt no longer taking due to refusal -has missed follow up cardiology appts -Trop wnl #UC -no acute flare -stool occult blood positive, but h/h baseline -follow cbc #Chronic normocytic anemia -H/h above transfusion threshold -follow h/h #Skin lesion LUE -suspicious for mallignancy -outpt follow up DVT prophylaxis- lovenox full code Quality Stroke Does the patient have a stroke diagnosis?: No VTE Prior VTE?: No VTE Risk Level:: Medical - moderate - high VTE Device Contraindication: Treatment Not Indicated VTE Drug Contraindication: N/A - Med Ordered
--- NOTE | 2023-09-30 13:54 | MHC.CM.PN ---
Addendum entered by Kyleigh Armstrong RN 09/30/23 16:12: CM spoke with /HCP Hans. Per Hans, patient lives at home with him. He is primary caregiver and daughter Laura assists as able. Patient requires assistance with all ADL's, but ambulates independently. Hans reports that patient receives foot care in the home. Also gets MOW M-F. PCP: Nathalia Hankins, has not seen in over a year Per EMR review patient has no showed to follow up visits with cardiology after STEMI in 10/24 and neurology for seizure disorder. Hans reports that he never received an appt with cardiology, but did not bring patient to the neurology visits as he did not feel they were necessary and has never witnessed any seizure activity. Additionally, Hans reports that patient routinely refuses all medications. DP: Pending hospital course. Goal is home with . Patient used [facility] in 2020 and Hans would be open to their services again. CM will continue to follow. Addendum entered by Kyleigh Armstrong RN 09/30/23 13:57: Verbally delivered IMM via voicemail. Copy left at bedside. Original Note: CM attempted to call /HCP Hans, as patient is unable to provide history w/ dx dementia. Left message. Will continue attempts.
[2023-09-30 16:00] VITALS: BP 145/70; PULSE 82; RESP 16; TEMP 36.4; O2SAT 97
[2023-09-30] MEDS: Enoxaparin Sodium 40 MG/0.4 ML SYRINGE SUBCUT (18:02)
[2023-09-30 20:00] VITALS: BP 142/64; PULSE 75; RESP 18; TEMP 36.7; O2SAT 97
[2023-10-01] MEDS: ceFAZolin Sodium/Dextrose,Iso 2 GM/50 ML PIGGYBACK IV ×2 (02:08→11:57)
[2023-10-01 03:12] VITALS: BP 160/70; PULSE 76; RESP 18; TEMP 36.6; O2SAT 95
[2023-10-01] MEDS: Nystatin Powder 15 GM BOTTLE 1 APPL TOPICAL (07:43)
[2023-10-01 07:47] VITALS: BP 149/69; PULSE 63; RESP 18; TEMP 36.2; O2SAT 97
[2023-10-01] MEDS: 0.9 % Sodium Chloride 1,000 ML 80 ML IVCONT (09:03)
--- NOTE | 2023-10-01 12:33 | PM.DS ---
DS: Providers Provider Date of Service: 10/01/23 Date of admission: 09/29/23 18:53 Primary care physician: Unknown Physician Consults: 09/29/23 19:28 Consult to Wound Care Routine Reason for consultation: skin tears DS: Diagnosis Discharge Diagnosis (1) Multiple bruises: Status: Acute (2) Cellulitis of left leg: Status: Acute DS: Summary Hospital Course Hospital Course: Chief Complaint: lle swelling/infection 83-year-old female with history of hypertension, dysplastic nevus, ulcerative colitis, rectal prolapse, unspecified dementia, CAD w/ h/o STEMI who lives at home with her presents to the ED today from home for evaluation of left lower extremity swelling and infection that has been present for 10 days. The patient is unable to provide meaningful history. However, it is reported that she has not been taking any of her medications for unknown reason weather that has been they have been provided for her or if she has been refusing. Discussed with patient's who states she refuses her medications. She has not seen her PCP in over a year because he does not like her or feel like she listens. States she was admitted to [facility] but they were told 5 different things from 5 different doctors . On review of chart has no-showed appointments. Was recommended for 24/03 care on discharge from [facility] on 10/19 but declined stating he has support and could care for her. Also did not attend follow up cardiology appt following STEMI with 10/19/22 discharge (medical management) and is not taking DAPT as advised on discharge. On arrival, pt hypertensive to 198/72, given 5mg amlodipine, vitals otherwise stable. No leukocytosis. Renal function baseline, lytes normal. Lactic acid normal. UA unremarkable. Stool occult blood positive. Negative covid 19 and influenza. CXR negative for acute pulmonary abnormality. In the ED, given 1L IV NS, 1g IV rocephin. Hospital course: Patient presented with swelling and redness of the legs with clinical finding consistent with cellulitis of the left lower extremity and intertrigenous gold rash under the breasts. While in the hospital, she was treated with IV Cefazolin for the cellulitis and Nystatin powder for the lower extremity rash. The cellulitis has significantly improved and so will change to oral Doxycyline for 5 more days and to continue use of Nystatin powder for fungal rash. Patient was evaluated by PT with recommended for rehab, however, the has declined this in favor of going home.. Elder at risk service will be summoned to the patient's to look into their living situation. Her daughter is involved with her care and will be keeping an eye on her. Case managment is working on securing home health services but is faced with the challenge of patient potentially not having a PCP since she has not visited the practice in at at least 2 years Final diagnoses: Cellulitis of the left leg Intetrigenous candidiasis Time Attestation Discharge coordination time: Greater than 30 minutes Quality: Safe Use of Opioids Does Pt have an Active Cancer Diagnosis on the Problem List?: No Quality: Stroke Does the patient have a stroke diagnosis?: No Physical Exam Vital Signs: Vital Signs: Last Vital Signs Temp 97.1 F 10/01/23 07:47 Pulse 63 10/01/23 07:47 Resp 18 10/01/23 07:47 BP 149/69 H 10/01/23 07:47 Pulse Ox 97 10/01/23 07:47 O2 Del Method Room Air 10/01/23 07:47 BMI result Body Mass Index 30.2 DS: Data Data Completed and Pending Labs on day of discharge: Preliminary micro results at discharge 09/29/23 16:42 Blood Culture - Preliminary Blood - Venous No growth after 24 hours. 09/29/23 16:22 Blood Culture - Preliminary Blood - Venous No growth after 24 hours. Discharge Plan Discharge Anticipated Discharge Date/Time: 10/01/23 12:41 Patient Disposition: Home Health Service Discharge Diagnosis: Cellulitis of the left leg and fungal rash under folds Referrals: Physician,Lorenzo J [Primary Care Provider] - 1 Week Discharge Medications: New doxycycline hyclate 100 mg tablet 100 mg PO BID 5 Days Qty: 10 0RF nystatin 100,000 unit/gram Powder 1 appl topical BID Qty: 60 0RF Protocol: Apply to: Apply to: under breasts Rx Instructions: apply under breast and in groin area No Action No Known Home Meds Discharge Orders: Discharge Order (Routine); Ordered 10/01/23 Ordered By: Dk Sutton Diet: Advance to usual diet Activity on Discharge: As tolerated Stand Alone Forms: Patient Portal Discharge page Care Plan Goals: recovery from cellulitis and fungal skin rash Health Concerns: cellulitis bruses non compliant with medications Plan of Treatment: take doxycycline as recommended for cellulitis follow up with your docotor in a week take your medication as recommended Assessment: see above
--- NOTE | 2023-10-01 12:37 | MHC.CM.PN ---
Addendum entered by Kyleigh Armstrong RN 10/01/23 16:19: Per [facility] Dr. Hankins will sign orders. Face to face requested from . [facility] will reach out to patient to schedule. Addendum entered by Kyleigh Armstrong RN 10/01/23 13:00: RN will send patient home w/ dressing supplies and teach dressings. Daughter Laura is aware of plan. Original Note: EMR reviewed. Physical therapy is recommending [facility]. This CM spoke with patient's /HCP who is not agreeable to plan, but is open to [facility]. CM also spoke with daughter, Laura [phone], with 's permission. Reviewed concerns re: missing appointments and not taking medications. Laura is aware and stays with patient/ every other weekend. Laura has connected patient with [facility] (KELLY Lamb). States there was a recent meeting with [facility] CM, Laura, pt and to discuss additional services in the home. [facility] referral entered to check in with patient/ at bedside. Referral placed to [facility]. Awaiting response, as [facility] is working with PCP office to ensure orders will be signed d/t no visit in > 1yr. Additionally, daughter and would like to establish care with a new PCP. Task sent to CM office for assistance. Discussed w/ . Patient is medically cleared and will dc home with on PO abx. [facility] will provide services if able. [facility] will follow up in home. will provide transportation. This CM discussed with the importance of pt completing PO abx, verbalized understanding. IMM was delivered 09/30.
--- NOTE | 2023-10-06 14:01 | P.F2F_ITS ---
Service Date Service Date: 10/06/23 Encounter Date of encounter: 09/29/23 Reasons for Services Signs and symptoms assessed: weakness and pain with ambulation Reason for assisted: medication management and teach disease management Homebound: Leaving the home is medically contraindicated at this time without the asist of a device and/or another person due th the listed conditions above and below. Reason homebound: pain with ambulation and weakness related to hospital stay Homebound supporting statement: homebound due to weakness from hospitalization and pain with ambulationand therefore needs the assistance of another person Certification: Based on the above findings, I certify that this patient is confined to the home and needs intermittent assisted care, physical therapy and/or speech therapy, or continues to need occupational therapy. The patient is under my care, and I have initiated the establishment of the plan of care. The patient will be followed by a physician who will periodically review the plan of care. Time Spent With Patient Time: Total time managing care of this patient today ____ minutes.
== END 2023-10-01 15:07 | disposition home health service (06) | DRG 603 ==
LOC: HO.ED 19:00 → HO.EDOVER 19:40 → HO.S3 09-30 08:02
PROVIDERS: Admitting Provider Physician Assistant; Emergency Provider Emergency Medicine; Visit Provider Internal Medicine
DX: L03.116 Cellulitis of left lower limb (principal); K51.90 Ulcerative colitis, unspecified, without complications; C44.629 Squamous cell carcinoma of skin of left upper limb, including shoulder; F03.90 Unspecified dementia, unspecified severity, without behavioral disturbance, psychotic disturbance, mood disturbance, and anxiety; G40.909 Epilepsy, unspecified, not intractable, without status epilepticus; D64.9 Anemia, unspecified; I10 Essential (primary) hypertension; B37.2 Candidiasis of skin and nail; I25.10 Atherosclerotic heart disease of native coronary artery without angina pectoris; Z20.822 Contact with and (suspected) exposure to COVID-19; Z91.148 Patient's other noncompliance with medication regimen for other reason; Z91.199 Patient's noncompliance with other medical treatment and regimen due to unspecified reason
CPT/HCPCS: 36415; 71045; 80048; 80076; 81003; 82272; 83605; 84484; 85025; 85610; 85730; 87040; 87502; 87635; 92610; 93005; 97161; 99285; J0690; J0696; J1650; J2250

== ENCOUNTER → 2023-09-29 15:56 | Outpatient (BNV) | payer MEDICARE, SELFPAY | PROVIDERS: Admitting Provider Physician Assistant; Emergency Provider Emergency Medicine; Visit Provider Internal Medicine Cardiovascular Disease | DX: I49.1 Atrial premature depolarization (principal); R94.31 Abnormal electrocardiogram [ECG] [EKG] | CPT/HCPCS: 93010 ==

== ENCOUNTER → 2023-09-29 18:53 | Outpatient (BNV) | payer MEDICARE, SELFPAY | PROVIDERS: Admitting Provider Physician Assistant; Emergency Provider Emergency Medicine; Visit Provider Physician Assistant | DX: L03.116 Cellulitis of left lower limb (principal); T07.XXXA Unspecified multiple injuries, initial encounter | CPT/HCPCS: 99223; 99232; 99239; G0180 ==

== ENCOUNTER 2023-10-13 11:06 | Inpatient (IN) | payer MEDICARE, SELFPAY ==
[2023-10-13] VITALS (16 sets, daily range): BP systolic 107–175; BP diastolic 69–102; PULSE 79–131; RESP 16–22; TEMP 36.7–38.3; O2SAT 80–96; BMI 21.3
--- NOTE | 2023-10-13 | EEG_ITS ---
FINDINGS: The background activity consists of a moderate voltage 5 hertz diffuse theta. Triphasic sharp waves are same from the frontal regions and there are some periodic delta discharges throughout the record. Photic stimulation and hyperventilation were omitted. IMPRESSION: This is an abnormal EEG due to a fairly severe diffuse background slowing and bifrontal sharp triphasic waves that can be seen with metabolic encephalopathy but may also indicate a seizure potential. Clinical correlation is suggested. MD ILAN Inman/ZULY / [id number]
--- NOTE | ~2023-10-13 | XR_ITS ---
EXAMINATION: XR CHEST CLINICAL INFORMATION: Hypoxia. COMPARISON: Chest 10/13/2023 TECHNIQUE: Frontal view of the chest was obtained. FINDINGS: The lungs are hypoexpanded but clear of acute pneumonic process. Heart size is borderline normal. There is increased pulmonary vascularity suggestive of mild congestion. There is mild spondylosis dorsal spine. No aggressive lytic or sclerotic process seen. XR/XR chest 1V IMPRESSION: Hypoexpanded lungs with mild pulmonary vascular congestion.
--- NOTE | ~2023-10-13 | XR_ITS ---
EXAMINATION: XR CHEST CLINICAL INFORMATION: Fever and weakness. COMPARISON: 09/29/2023 TECHNIQUE: Frontal view of the chest was obtained. FINDINGS: Lungs are mildly hypoinflated and right hemidiaphragm chronically, mildly elevated. No acute pulmonary abnormality. No consolidation, pleural effusion or pneumothorax. Cardiac silhouette is normal in size. The hilar contours are normal. There is osteophyte formation at the degenerated glenohumeral joints. Multilevel osteophyte formation of the visualized lumbar spine. XR/XR chest 1V IMPRESSION: No acute pulmonary disease. No radiographic evidence of pneumonia.
--- NOTE | ~2023-10-13 | CT_ITS ---
EXAMINATION: CT HEAD WITHOUT CONTRAST CLINICAL INFORMATION: New onset seizure. Hypoxia possible. COMPARISON: CT scan of the head 08/19/2022. TECHNIQUE: Contiguous axial imaging was performed from the skull base to vertex without intravenous administration of contrast. This CT examination was performed using dose optimization techniques as appropriate, variously including the following: *Automated exposure control *Adjustment of mA and/or kV according to patient size (this includes techniques or standardized protocols for targeted exams where dose is matched to indication/reason for exam; i.e. extremities or head) *Use of iterative reconstruction technique DLP: 934 mGy-cm FINDINGS: There are multiple small foci of gliosis and cystic encephalomalacia involving the cortical simpson matter of both cerebral hemispheres representing age indeterminant infarcts, many of which are new when compared to CT imaging of the head from 08/19/2022. The old infarct cortical infarct within the right temporal lobe has remained unchanged. There are also numerous foci of hypoattenuation throughout the periventricular white matter, basal ganglia, thalami, and don that most likely represent a chronic manifestation of small vessel ischemia. A chronic lacunar infarct within the left thalamus is stable. There is no acute hemorrhage or abnormal extra-axial collection. No intracranial mass effect or other cells. The calvarium and skull base are intact. Mastoid air cells and middle ear cavities are well aerated. Mild paranasal sinus disease. CT/CT head/brain wo IV con IMPRESSION: There are multiple age indeterminant infarcts involving the cortical simpson matter of both cerebral hemispheres, many of which are new when compared to CT imaging of the head from 08/19/2022. There are also numerous chronic small vessel ischemic changes within the periventricular white matter, basal ganglia, thalami, and don. No acute hemorrhage.
--- NOTE | ~2023-10-13 | CT_ITS ---
EXAMINATION: CTA CHEST PE STUDY CLINICAL INFORMATION: hypoxia possible syncope, new COVID rule out PE COMPARISON: No pertinent prior studies are available for comparison. TECHNIQUE: Prior to contrast administration, noncontrast localization images were obtained. After the administration of 65 mL of Omnipaque nonionic IV contrast, contiguous thin slice helical images were obtained through the thorax. Reformatted MIP images in the coronal and sagittal planes were obtained at the acquisition workstation. This CT examination was performed using dose optimization techniques as appropriate, variously including the following: *Automated exposure control *Adjustment of mA and/or kV according to patient size (this includes techniques or standardized protocols for targeted exams where dose is matched to indication/reason for exam; i.e. extremities or head) *Use of iterative reconstruction technique DLP: 934 mGy-cm. FINDINGS: The bolus timing on this study was acceptable for visualization of the pulmonary arterial tree. There are no intraluminal pulmonary arterial filling defects present to suggest central pulmonary embolism. Motion artifact limits assessment of the peripheral vessels but no definitive segmental or obvious subsegmental pulmonary emboli seen. Ill-defined patchy bilateral airspace disease more likely related to atypical infectious or inflammatory etiology.. No abnormal pulmonary nodules or masses are appreciated. No significant hilar or mediastinal adenopathy. There is no evidence of pleural effusion or pneumothorax. The heart is normal in size. No evidence of ventricular septal bowing or right heart strain. Vascular calcification in aorta and coronary vessels. Otherwise the mediastinum is unremarkable. There is no pericardial effusion or pericardial thickening. Limited evaluation of the upper abdominal viscera Pelvic cyst or possible mild hydronephrosis to the visualized upper pole left kidney likely represents a parapelvic cysts when compared to the 01/15/[address]/CT angio chest PE protocol IMPRESSION: 1. No evidence for central pulmonary emboli. 2. Ill-defined patchy bilateral airspace disease more likely due to atypical infectious or inflammatory etiology. 3. VTE: Negative.
--- NOTE | 2023-10-13 11:18 | ED.GENADULT ---
HPI - General Adult General Chief complaint: Seizure Stated complaint: SZ,?POSTICTAL PER EMS Time Seen by Provider: 10/13/23 11:16 Source: EMS and old records reviewed Mode of arrival: EMS Limitations: altered mental status History of Present Illness HPI narrative: 83 yo female with PMH Of HTN, dysplastic nevus, ulcerative colitis, rectal prolapse, unspecified dementia, CAD w/ h/o STEMI was at wound clinic today today and they noted she stood up and became tremulous and only responsive to painful stimuli. She then became agitated and aggressive to EMS. There was no LOC noted. She has a left leg wound that is being treated. She cannot provide a history. EMS thinks patient had a seizure but no LOC reported during event was responding to painful stimuli though on arrival patient was somnolent and took about 10 min to wake up MD complaint: tremors and weakness. Onset (ago): hour(s) (1) Radiation: non-radiation Severity: moderate Relieving factors: none Exacerbating factors: none Associated symptoms: denies other symptoms Treatments prior to arrival: none Related Data Previous Rx's Medication Instructions Recorded doxycycline hyclate 100 mg tablet 100 mg PO BID 5 days #10 tabs 10/01/23 nystatin 100,000 unit/gram topical 1 appl topical BID #60 grams 10/01/23 powder Allergies Allergy/AdvReac Type Severity Reaction Status Date / Time donepezil AdvReac Diarrhea Verified 10/13/23 11:16 memantine [From Namenda] AdvReac Agitated Verified 10/13/23 11:16 Review of Systems Review of Systems: ROS unable to be obtained due to altered mental status PMFSH Past Medical History Source: old records reviewed Medical History Hypertension GI bleed Drug noncompliance Rectal prolapse Annual physical exam Dysplastic nevus HTN (hypertension) Hyperglycemia NIVIA (acute kidney injury) Ulcerative colitis Patient denies medical problems Surgical History H/O section H/O colonoscopy Family History Family History Father No problems noted. Mother No problems noted. Social History Social History Household Members: Spouse Housing: Unknown / Unable to assess Do you presently have visiting nurse or other home services: No Unable to assess alcohol history related to: Unknown Alcohol intake: unknown Patient Tobacco Use Status: Never used Tobacco e-Cigarette/Vaping Use: Never Used Second Hand Smoke Exposure: Yes Use of substances other than those prescribed or required for medical reasons: Unknown Advance Directives: Yes Advance Directives on File: Yes Advance Directives Date on File: 07/22/22 service: No Current occupational status: retired Current occupational exposures/hazards: No Cognitive needs: No Hearing needs: No Vision needs: Yes Physical Exam ED Vital Signs: Vital Signs - 24 hr 10/13/23 11:26 10/13/23 13:25 10/13/23 15:16 Temperature 100.5 F H Pulse Rate 79 85 Respiratory Rate 16 16 Blood Pressure 124/79 146/89 H Pulse Oximetry 95 96 88 L Oxygen Delivery Method Room Air Room Air Room Air BMI result Body Mass Index 21.3 Appearance: itermittent agitated when woken. squeezes hands, withdraws from tactile stimuli. No acute distress. Eyes: Pupils equal, round and reactive to light. Atraumatic ENT: Pharynx normal. Neck: Normal inspection. Neck supple. CVS: Normal heart rate and rhythm. Pulses normal. Respiratory: No respiratory distress. Breath sounds normal. Abdomen: Soft and nontender. Skin: Skin warm and dry. Normal skin color. Normal skin turgor. Extremities: No lower extremity edema. left leg healing scab with minimal erythema no exudates no purulence Neuro: Oriented X 1. No motor deficit. No sensory deficit. Course Course Course Narrative: K hemolyzed seems more at baseline. Reevaluation(s) Reevaluation #1: did try to reach Hans but no answer 217pm Reevaluation #2: SPOKE TO HER DAUGHTER - PATIENT WAS AT HOME - NOT AT WOUND CARE CENTER. EMS STORY NOT ACCURATE AT ALL. daughter states patient ate a donus this AM seemed at baseline, has been going to [facility] for [facility] care, family was to change wound dressing today, daughter noted her body was stiff eyes rolled back, straight as a board, foaming at the mouth, no shaking, episode lasted about 5 minutes, then sleeping and postictal afterwards. head CT ordered, patient will need to come in for rule out seizure, hypoxia and covid encephalopty. Daughter who is HCP is aware. Reevaluation #3: taylor has been escalating for some time not wearing O2, screaming, trying to climb out of bed at this time will admin 5mg zyprexa as I cannot give her medications, obtain CT scans or keep her safely in the bed without falling. She is refusing any oral medications 339pm. signed out to Dr. Clifford pending CT head and CTA Medications Administered Discontinued Medications Generic Name Dose Route Start Last Admin Trade Name Marjan PRN Reason Stop Dose Admin Acetaminophen 650 mg 10/13/23 13:09 10/13/23 13:41 Acetaminophen 325 Mg Tablet PO 10/13/23 13:10 Not Given ONCE ONE Dexamethasone Sodium Phosphate 6 mg 10/13/23 15:18 10/13/23 15:44 Dexamethasone Sod Phosphate 4 Mg/Ml Vial IVPUSH 10/13/23 15:19 6 mg ONCE ONE Administration Erythromycin 1 cm 10/13/23 12:57 10/13/23 13:39 Erythromycin Base 0.5% Oph Oin 1 Gm Tube EYE-BOTH 10/13/23 12:58 1 cm ONCE ONE Administration Sodium Chloride 1,000 mls @ 999 mls/hr 10/13/23 11:45 10/13/23 13:26 Ns IVCONT 10/13/23 12:45 Infused .Q1H1M MARQUITA Infusion Ceftriaxone Sodium 1 gm/ 50 mls @ 100 mls/hr 10/13/23 11:39 10/13/23 12:55 Sodium Chloride IV 10/13/23 12:08 Infused ONCE ONE Infusion Olanzapine 5 mg 10/13/23 15:37 10/13/23 15:50 Olanzapine 10 Mg Vial IM 10/13/23 15:38 5 mg STAT STA Administration Medical Decision Making Medical Decision Making MDM Narrative: 83 yo female with PMH Of HTN, dysplastic nevus, ulcerative colitis, rectal prolapse, unspecified dementia, CAD w/ h/o STEMI here with episode of tremors vs rigors but responded to painful stimuli and no LOC during episode with whole body shaking initially somnolent on arrival but not at baseline of alert and oriented x 1. At this time no focal deficits has temperature will start labs, CXR, cultures, tylenol and empiric ceftriaxone. Possible UTI, pneumonia, viral syndrome. I have tried to call family but no response at this time. She was recently admitted is full code. Differential Diagnosis Differential Diagnoses: The differential diagnosis associated with the presentation includes acute UTI, rigors, fevers, pneumonia, viral syndrome Admission/Observation Consideration of admission/observation: Escalation of care including admission/observation considered given O2 sats down in high [address] on dexamethasone and o2. I cannot get a hold of her contact and they have not called. Will discuss and admit to hospitalist Consult Healthcare Provider Management of the patient was discussed with: Hospitalist (will admit) Lab Data MDM Lab Attestation statement: I reviewed the patient's lab results. 10/13/23 12:16 10/13/23 14:45 Labs: Lab Results 10/13/23 10/13/23 10/13/23 Range/Units 12:16 13:24 14:45 WBC 9.7 (4.8-10.8) X10*3/uL RBC 3.72 L (4.20-5.50) X10*6/uL Hgb 10.4 L (12.0-16.0) g/dl Hct 32.7 L (37.0-47.0) % MCV 87.9 (80.0-98.0) fL MCH 28.0 (27.0-33.0) pg MCHC 31.8 (31.0-35.0) g/dl RDW 13.2 (11.0-16.0) % Plt Count 379 D (160-400) X10*3/uL MPV 9.6 (9.4-12.3) fL Immature Gran % (Auto) 1.2 H (0.0-0.4) % Neut % (Auto) 78.6 H (45-73) % Lymph % (Auto) 12.6 L (20-40) % [place] % (Auto) 6.7 (2-11) % Eos % (Auto) 0.6 (0-4) % Baso % (Auto) 0.3 (0-2) % Lymph # (Auto) 1.2 (1.2-4.9) X10*3/uL [place] # (Auto) 0.7 (0.1-1.2) X10*3/uL Eos # (Auto) 0.1 (0.0-0.4) X10*3/uL Baso # (Auto) 0.0 (0.0-0.2) X10*3/uL Abs Immat Gran (auto) 0.12 H (0.00-0.03) X10*3/uL Absolute Neuts (auto) 7.7 (2.0-8.3) x10*3/uL Absolute Nucleated RBC 0.000 (0.0-0.012) X10*3/uL Nucleated RBC % (auto) 0.0 (0.0-0.2) /100WBC Sodium 141 (135-145) mmol/L Potassium 5.9 H D 4.6 D (3.3-5.1) mmol/L Chloride 111 H (96-108) mmol/L Carbon Dioxide 21 L (22-29) mmol/L Anion Gap 15 (12-20) BUN 16 (9-16) mg/dL Creatinine 0.90 (0.5-1.4) mg/dL Estim Creat Clear Calc 40.5 Estimated GFR > 60 Random Glucose 151 H (60-115) mg/dL Lactic Acid 3.7 H* (0.5-2.0) mmol/L Lactic Acid F/U @ 2Hr 2.3 H* (0.5-2.0) mmol/L Calcium 8.4 (8.4-10.2) mg/dL Magnesium 2.4 (1.6-2.6) mg/dL Total Bilirubin 0.1 (0.0-1.0) mg/dL Direct Bilirubin < 0.2 (0.0-0.5) mg/dL AST 36 H (5-31) U/L ALT 11 (0-31) U/L Alkaline Phosphatase 41 (39-117) U/L Troponin I High Sens 24.4 H D (<3.5-17.0) ng/L Total Protein 6.8 (6.5-8.0) g/dL Albumin 3.6 (3.5-5.0) g/dL Lipase 22 (8-78) U/L Urine Color Yellow Urine Appearance Clear Urine pH 7.0 (5.0-9.0) Ur Specific Dalton 1.015 (1.005-1.025) Urine Protein Negative (Neg-Trace) mg/dL Urine Glucose (UA) Negative (Negative) mg/dL Urine Ketones Negative (Negative) mg/dL Urine Blood Trace H (Negative) Urine Nitrite Negative (Negative) Ur Leukocyte Esterase Negative (Negative) Urine RBC 3-5 H (0-2) /HPF Urine WBC 0-5 (0-5) /HPF Ur Squamous Epith Cells 0-2 (0-2) /HPF Urine Bacteria None Seen (None Seen) Hyaline Casts 0-2 (0-2) /LPF COVID-19 (DULCE) Positive A (Negative) COVID-19 Clin Com See Note Influenza Type A (ARIANNA) Negative (Negative) Influenza Type B (ARIANNA) Negative (Negative) Influenza A & B Note See Note Independent Interpretation I performed an independent interpretation of an: EKG and Plain X-Ray (normal ) Interpretation: Rate: 110 Rhythm: sinus tachycardia [place]: normal Normal P waves. Normal LUCIA. Normal QRS complex. ST T wave : normal no CINDY qTC: 454 prior studies: no acute ischemia The study has been interpreted contemporaneously by me. . Radiology Impression Discussion of test interpretation with radiology: I have reviewed the radiologist's reading. Independent Historian Clinical information obtained from an independent historian. History obtained from or confirmed by: EMS External Record Review External record reviewed: Inpatient record Discharge Plan Discharge Clinical Impression: COVID-19, Encephalopathy acute, Acidosis, lactic, Observed seizure-like activity Fever Qualifiers: Fever type: unspecified Qualified Code(s): R50.9 - Fever, unspecified Patient Disposition: Admitted As Inpatient
--- NOTE | 2023-10-13 11:29 | PC.NURSE ---
pt biba from wound care d/t questionable seizure. pt was at a wound clinic - stood up - became tremulous/unresponsive. pt placed back in chair at clinic. disoriented/responsive to painful stimuli. pt remains disoriented at this time. unable to tell this RN who she is, where she is, why she's here. pt changed into hospital attire. vaginal area raw/sensitive to the touch. barrier cream applied. rectal temp obtained displaying 100.5. otherwise vss and up to date. seizure pads in place. no sob/wob noted. respirations even and unlabored. plan of care ongoing.
--- NOTE | 2023-10-13 11:40 | ECG_ITS ---
Test Reason : SEPSIS WORKUP Blood Pressure : / mmHG Vent. Rate : 110 BPM Atrial Rate : 110 BPM P-R Int : 166 ms QRS Dur : 084 ms QT Int : 336 ms P-R-T Axes : 053 006 075 degrees QTc Int : 454 ms Sinus tachycardia Anteroseptal infarct (cited on or before 19-AUG-2022) Abnormal ECG When compared with ECG of 29-SEP-2023 17:11, Criteria for Inferior infarct are no longer Present T wave inversion no longer evident in Inferior leads Referred By: Komal Nicholson Electronically Signed By:Waldo Frank
--- NOTE | 2023-10-13 12:16 | PC.NURSE ---
20gIV placed in the right hand. labs obtained/sent to lab. 2nd set of blood cultures obtained via straight stick. IV access wrapped in gauze for safety precautions as pt remains disoriented at this time. respirations remain even and unlabored. call yeh placed within reach.
[2023-10-13 12:23] LABS: MANUAL DIFF FLAG NO
[2023-10-13] MEDS: 0.9 % Sodium Chloride 1,000 ML 999 ML IVCONT (12:25)
[2023-10-13] MEDS: cefTRIAXone sodium 1 GM in 0.9 % Sodium Chloride 50 ML IV (12:25)
--- NOTE | 2023-10-13 12:25 | PC.NURSE ---
medication/IVF administered per provider order.
[2023-10-13 12:30] LABS: Basophils Percent Auto 0.3 % (0-2); Eosinophils Absolute Auto 0.1 X10*3/uL (0.0-0.4); Eosinophils Percent Auto 0.6 % (0-4); Hematocrit 32.7 % (37.0-47.0); Hemoglobin 10.4 g/dl (12.0-16.0); Imm Gran Abs Auto 0.12 X10*3/uL (0.00-0.03); Imm Gran Pct Auto 1.2 % (0.0-0.4); Lymphocytes Absolute Auto 1.2 X10*3/uL (1.2-4.9); Lymphocytes Percent Auto 12.6 % (20-40); Mean Corpuscular HGB Conc 31.8 g/dl (31.0-35.0); Mean Corpuscular Volume 87.9 fL (80.0-98.0); Mean Platelet Volume 9.6 fL (9.4-12.3); Monocytes Absolute Auto 0.7 X10*3/uL (0.1-1.2); Monocytes Percent Auto 6.7 % (2-11); Neutrophils Absolute Auto 7.7 x10*3/uL (2.0-8.3); Neutrophils Percent Auto 78.6 % (45-73); Platelet Count 379 X10*3/uL (160-400); Red Blood Count 3.72 X10*6/uL (4.20-5.50); Red Cell Distribution Width 13.2 % (11.0-16.0); White Blood Count 9.7 X10*3/uL (4.8-10.8)
[2023-10-13 12:33] LABS: COVID-19 Test Positive (Negative); IDNOW Serial# 08D9AD1C
--- NOTE | 2023-10-13 12:34 | PC.NURSE ---
chest xray being completed at this time.
[2023-10-13 12:40] LABS: Lactic Acid 3.7 mmol/L (0.5-2.0)
[2023-10-13 12:41] LABS: IDNOW Serial# 152EDE1D; Influenza A Negative (Negative); Influenza B2 Negative (Negative)
[2023-10-13 12:47] LABS: Troponin-I High Sensitivity 24.4 ng/L (<3.5-17.0)
[2023-10-13 13:10] LABS: Alanine Aminotransferase 11 U/L (0-31); Albumin Level 3.6 g/dL (3.5-5.0); Alkaline Phosphatase 41 U/L (39-117); Anion Gap 15 (12-20); Aspartate Amino Transferase 36 U/L (5-31); Bilirubin Direct < 0.2 mg/dL (0.0-0.5); Bilirubin Total 0.1 mg/dL (0.0-1.0); Blood Urea Nitrogen 16 mg/dL (9-16); Calcium 8.4 mg/dL (8.4-10.2); Carbon Dioxide 21 mmol/L (22-29); Chloride 111 mmol/L (96-108); Creatinine Clr Calc Pharmacy 40.5; Estimated Glomerular Filt Rate > 60; Glucose Random 151 mg/dL (60-115); Lipase 22 U/L (8-78); Magnesium 2.4 mg/dL (1.6-2.6); Potassium 5.9 mmol/L (3.3-5.1); Sodium 141 mmol/L (135-145); Total Protein 6.8 g/dL (6.5-8.0)
--- NOTE | 2023-10-13 13:26 | PC.NURSE ---
straight catheterization performed. 300ml of clear/pale yellow urine noted immediately post output. pt required 3:1 assistance for intervention to be completed. pt remains disoriented at this time. respirations remain even and unlabored. call yeh placed within reach.
[2023-10-13 13:34] LABS: Appearance Urine Clear; Color Urine Yellow; Glucose Urine UA Negative (Negative); Leukocyte Esterase Urine Negative (Negative); Nitrite Urine Negative (Negative); Specific Gravity - Urine 1.015 (1.005-1.025); UMIC TRIGGER UACC YES; Urine Blood Trace (Negative); Urine Ketones Negative (Negative); Urine Protein Negative (Neg-Trace)
[2023-10-13] MEDS: Erythromycin Base 0.5% Oph Oin 1 GM TUBE 1 CM EYE-BOTH (13:39)
--- NOTE | 2023-10-13 13:41 | PC.NURSE ---
pt refused PO tylenol for fever at this time. pt spit tylenol at this RN as well as threw apple sauce onto the ground. pt remains disoriented/agitated/combative at this time.
[2023-10-13 13:46] LABS: Bacteria Urine None Seen (None Seen); Hyaline Casts Urine 0-2 /LPF (0-2); Squamous Epithelial Cell Urine 0-2 /HPF (0-2); WBC Urine 0-5 /HPF (0-5)
[2023-10-13 14:21] LABS: Reflex Lactate? Lactic Acid Added
--- NOTE | 2023-10-13 14:35 | PC.NURSE ---
Addendum entered by Susanne Castellanos 10/13/23 19:54: late entry: this RN spoke w/ pt's daughter on the phone. per daughter, EMS had an incorrect handover. pt's daughter states that she was at home where she was then consuming a donut. the daughter witnessed the pt have a seizure w/ clonic-tonic like movements/foaming out of the mouth/eyes rolling to the back of her head and remaining stiff x 5 min. ED provider notified/aware of change of chief complaint. plan of care ongoing at this time. Original Note: Magaly (daughter) [phone]
[2023-10-13 15:02] LABS: Potassium 4.6 mmol/L (3.3-5.1)
[2023-10-13 15:12] LABS: ~Lactic Acid-LAB USE ONLY 2.3 mmol/L (0.5-2.0)
[2023-10-13] MEDS: dexAMETHasone sod phosphate 4 MG/ML VIAL 6 MG IVPUSH (15:44)
[2023-10-13] MEDS: OLANZapine 10 MG VIAL 5 MG IM (15:50)
--- NOTE | 2023-10-13 15:50 | PC.NURSE ---
pt remains agitated/disoriented/combative at this time. pt not easily redirectable. pt being noncompliant w/ care. continuously attempting to rip off equipment as well as attempt to get out of bed. ED provider notified/aware at this time. ED provider Dr. Nicholson placed order for medical restraint at this time. medication administered per provider order. effectiveness pending at this time.
--- NOTE | 2023-10-13 16:37 | PC.NURSE ---
pt to CT at this time.
[2023-10-13 16:48] LABS: Reflex Lactate? 2 Y
[2023-10-13] MEDS: iohexoL 350 MG/ML 100 ML INFUS..BTL IV (16:50)
--- NOTE | 2023-10-13 16:54 | PC.NURSE ---
pt returned from CT at this time. pt remains agitated despite medication administration. pt continues to pull at equipment/attempting to leave bed. pt incontinent of stool. bedding changed. linen changed. productive cough present at this time. pt suctioned. pt repositioned upright to promote patent airway. pt remains on 4L via NC at this time. respirations even/labored.
--- NOTE | 2023-10-13 17:16 | PC.NURSE ---
pt's O2 decreased to 80% on 4L via NC post suction. pt placed on 1L via nonrebreather. pt now resting at 94%. no sob/wob noted. respirations even and unlabored. pt seemingly more lethargic. will attempt to titrate from nonrebreather shortly.
[2023-10-13 17:47] LABS: ~Lactic Acid-LAB USE ONLY 3.4 mmol/L (0.5-2.0)
--- NOTE | 2023-10-13 18:09 | PHA.MEDREC ---
Pharmacy Consult ? Medication Reconciliation Pharmacy has completed the medication reconciliation. Patient daughter reported no medicaitons. Reported she finished her 10 day course of doxycycline. Cee Robertson ,PharmD
[2023-10-13] MEDS: Acetaminophen Supp 650 MG SUPP.RECT PR (19:24)
--- NOTE | 2023-10-13 20:00 | P.HPHOSP_ITS ---
History of Present Illness Date of Service: 10/13/23 <JESSICA uRiz - Last Filed: 10/13/23 20:37> Attending physician on admission: Adán Hernandez <JESSICA Ruiz - Last Filed: 10/13/23 20:37> Chief Complaint: seizure like activity <JESSICA Ruiz - Last Filed: 10/13/23 20:37> 83-year-old female with history of hypertension, dysplastic nevus, ulcerative colitis, rectal prolapse, unspecified dementia, CAD w/ h/o STEMI who lives at home with her presents to the ED today from home per daughter and was witnessed to be sitting in chair with eyes rolled back, stiffened extremities and then was very sleepy afterwards. She has no known history of seziures. Per EMS was also aggitated and aggressive. Per ED report, pt somnolent on arrival and difficult to arouse. Pt somnolent but arousable on my exam but unable to provide any history. On arrival, patient febrile to 100.5, tachycardic to 131, tachypneic, and hypoxic to 80% briefly placed on non-rebreather and has been weaned to 4 L supplemental O2 via nasal cannula maintaining oximetry around 90%. No hypotension. No leukocytosis. Renal function normal, electrolyte levels essentially normal. Initial lactic acid 3.7, repeat 2.3, repeat 3.4, likely secondary to hypoxia and seizure activity. Initial troponin 24.4, repeat 255.0. EKG shows sinus tach, rate 110, no linda/depressions. Head CT shows multiple age-indeterminate infarctions within the cortical simpson matter of both cerebral hemispheres as well as chronic small-vessel ischemic changes. CTA of the chest negative for PE but shows ill-defined patchy bilateral airspace opacity likely due to atypical infectious or inflammatory etiology. In the ED, given 1 L IV NS, 5 mg Zyprexa due to acute agitation, 1 g IV ceftriaxone, 6 mg dexamethasone. <JESSICA Ruiz - Last Filed: 10/13/23 20:37> Review of Systems 2 Review of Systems: Yes Unobtainable due to mental condition and Unobtainable due to mental status <JESSICA Ruiz - Last Filed: 10/13/23 20:37> [facility] Medical History: Medical History Hypertension GI bleed Drug noncompliance Rectal prolapse Annual physical exam Dysplastic nevus HTN (hypertension) Hyperglycemia NIVIA (acute kidney injury) Ulcerative colitis Patient denies medical problems <JESSICA Ruiz - Last Filed: 10/13/23 20:37> Family History: Family History Father No problems noted. Mother No problems noted. <JESSICA Ruiz - Last Filed: 10/13/23 20:37> Surgical History: Surgical History H/O section H/O colonoscopy <JESSICA Ruiz - Last Filed: 10/13/23 20:37> Social History: Social History Household Members: Spouse Housing: Unknown / Unable to assess Do you presently have visiting nurse or other home services: No Unable to assess alcohol history related to: Unknown Alcohol intake: unknown Patient Tobacco Use Status: Never used Tobacco e-Cigarette/Vaping Use: Never Used Second Hand Smoke Exposure: Yes Use of substances other than those prescribed or required for medical reasons: Unknown Advance Directives: Yes Advance Directives on File: Yes Advance Directives Date on File: 07/22/22 service: No Current occupational status: retired Current occupational exposures/hazards: No Cognitive needs: No Hearing needs: No Vision needs: Yes <JESSICA Ruiz - Last Filed: 10/13/23 20:37> Meds Allergies/Adverse reactions: Allergies Allergy/AdvReac Type Severity Reaction Status Date / Time donepezil AdvReac Diarrhea Verified 10/13/23 11:16 memantine [From Namenda] AdvReac Agitated Verified 10/13/23 11:16 <JESSICA Ruiz - Last Filed: 10/13/23 20:37> Active Medications: Current Medications Acetaminophen (Acetaminophen Supp 650 Mg Supp.Rect) 650 mg NH Q6H PRN PRN Reason: Pain, Mild, fever Dexamethasone Sodium Phosphate (Dexamethasone Sod Phosphate 4 Mg/Ml Vial) 6 mg IVPUSH DAILY MARQUITA Enoxaparin Sodium (Enoxaparin Sodium 40 Mg/0.4 Ml Syringe) 40 mg SUBCUT Q24H MARQUITA Ampicillin Sodium/Sulbactam (Sodium 3 gm/ Sodium Chloride) 100 mls @ 200 mls/hr IV Q6H [facility] Ondansetron HCl (Ondansetron Hcl 4 Mg/2 Ml Vial) 4 mg IVPUSH Q8H PRN PRN Reason: Nausea and Vomiting Senna (Sennosides 8.6 Mg Tablet) 17.2 mg PO BEDTIME PRN PRN Reason: Constipation Sodium Chloride (0.9 % Sodium Chloride Flush 3 Ml Syringe) 3 ml IVFLUSH QSHIFT MARQUITA <JESSICA Ruiz - Last Filed: 10/13/23 20:37> Home medications: Home Medications Medication Instructions Recorded Confirmed Last Taken Type No Known Home Meds 10/13/23 10/13/23 Unknown History <JESSICA Ruiz Last Filed: 10/13/23 20:37> Physical Exam 2 Vital Signs and Narrative: Vital Signs: Last Vital Signs Temp 100.9 F H 10/13/23 17:49 Pulse 110 H 10/13/23 19:54 Resp 18 10/13/23 19:54 BP 150/69 H 10/13/23 19:54 Pulse Ox 87 L 10/13/23 19:54 O2 Del Method Nasal Cannula 10/13/23 19:54 O2 Flow Rate 4 10/13/23 19:54 BMI result Body Mass Index 21.3 <JESSICA Ruiz Last Filed: 10/13/23 20:37> Constitutional - somnolent but arousable, No apparent distress Eyes - PERRLA, EOMI Cardiovascular - S1S2, RRR, No edema Respiratory - Normal lung expansion, Normal respiratory effort, No respiratory distress on 4 L supplemental O2, bialteral rhonchi Gastrointestinal - NT / ND; +BS; No rebound or guarding Extremities - no calf tenderness bilaterally, no swelling. 3cm curvilinear laceration to the LLE with minimal surrounding erythema and no active drainage Skin - Warm/Dry Neurological - somnolent but arousable, disoriented, not answering questions, largely nonverbal Psychological - Appropriate affect <JESSICA Ruiz Last Filed: 02/12/24 20:37> Results Labs CBC and Chem 7: 10/13/23 12:16 10/13/23 14:45 <JESSICA Ruiz - Last Filed: 10/13/23 20:37> Labs: Laboratory Results - last 24 hr 10/13/23 10/13/23 10/13/23 12:16 13:24 14:45 MCV 87.9 MCH 28.0 MCHC 31.8 RDW 13.2 Plt Count 379 D MPV 9.6 Immature Gran % (Auto) 1.2 H Neut % (Auto) 78.6 H Lymph % (Auto) 12.6 L Lucas % (Auto) 6.7 Eos % (Auto) 0.6 Baso % (Auto) 0.3 Lymph # (Auto) 1.2 Lucas # (Auto) 0.7 Eos # (Auto) 0.1 Baso # (Auto) 0.0 Abs Immat Gran (auto) 0.12 H Absolute Neuts (auto) 7.7 Absolute Nucleated RBC 0.000 Nucleated RBC % (auto) 0.0 Anion Gap 15 Estim Creat Clear Calc 40.5 Estimated GFR > 60 Random Glucose 151 H Lactic Acid 3.7 H* Lactic Acid F/U @ 2Hr 2.3 H* Lactic Acid F/U @ 4Hr Calcium 8.4 Magnesium 2.4 Total Bilirubin 0.1 Direct Bilirubin < 0.2 AST 36 H ALT 11 Alkaline Phosphatase 41 Total Protein 6.8 Albumin 3.6 Lipase 22 Urine Color Yellow Urine Appearance Clear Urine pH 7.0 Ur Specific [place] 1.015 Urine Protein Negative Urine Glucose (UA) Negative Urine Ketones Negative Urine Blood Trace H Urine Nitrite Negative Ur Leukocyte Esterase Negative Urine RBC 3-5 H Urine WBC 0-5 Ur Squamous Epith Cells 0-2 Urine Bacteria None Seen Hyaline Casts 0-2 COVID-19 (DULCE) Positive A COVID-19 Clin Com See Note Influenza Type A (ARIANNA) Negative Influenza Type B (ARIANNA) Negative Influenza A & B Note See Note 10/13/23 17:06 MCV MCH MCHC RDW Plt Count MPV Immature Gran % (Auto) Neut % (Auto) Lymph % (Auto) Lucas % (Auto) Eos % (Auto) Baso % (Auto) Lymph # (Auto) Lucas # (Auto) Eos # (Auto) Baso # (Auto) Abs Immat Gran (auto) Absolute Neuts (auto) Absolute Nucleated RBC Nucleated RBC % (auto) Anion Gap Estim Creat Clear Calc Estimated GFR Random Glucose Lactic Acid Lactic Acid F/U @ 2Hr Lactic Acid F/U @ 4Hr 3.4 H* Calcium Magnesium Total Bilirubin Direct Bilirubin AST ALT Alkaline Phosphatase Total Protein Albumin Lipase Urine Color Urine Appearance Urine pH Ur Specific [place] Urine Protein Urine Glucose (UA) Urine Ketones Urine Blood Urine Nitrite Ur Leukocyte Esterase Urine RBC Urine WBC Ur Squamous Epith Cells Urine Bacteria Hyaline Casts COVID-19 (DULCE) COVID-19 Clin Com Influenza Type A (ARIANNA) Influenza Type B (ARIANNA) Influenza A & B Note <JESSICA Ruiz - Last Filed: 10/13/23 20:37> Imaging Radiologist's Impressions: Impressions Chest X-Ray 10/13/23 12:32 IMPRESSION: No acute pulmonary disease. No radiographic evidence of pneumonia. Chest CTA 10/13/23 16:50 IMPRESSION: 1. No evidence for central pulmonary emboli. 2. Ill-defined patchy bilateral airspace disease more likely due to atypical infectious or inflammatory etiology. 3. VTE: Negative. Head CT 10/13/23 16:50 IMPRESSION: There are multiple age indeterminant infarcts involving the cortical simpson matter of both cerebral hemispheres, many of which are new when compared to CT imaging of the head from 08/19/2022. There are also numerous chronic small vessel ischemic changes within the periventricular white matter, basal ganglia, thalami, and don. No acute hemorrhage. <JESSICA Ruiz - Last Filed: 10/13/23 20:37> Assessment and Plan (1) Seizure: Status: Acute <JESSICA Ruiz - Last Filed: 10/13/23 20:37> (2) Acidosis, lactic: Status: Acute <JESSICA Ruiz - Last Filed: 10/13/23 20:37> (3) Fever: Qualifiers: Fever type: unspecified Qualified Code(s): R50.9 - Fever, unspecified <JESSICA Ruiz - Last Filed: 10/13/23 20:37> Status: Acute <JESSICA Ruiz Last Filed: 10/13/23 20:37> (4) Encephalopathy acute: Status: Acute <JESSICA Ruiz Last Filed: 10/13/23 20:37> (5) COVID-19: Status: Acute <JESSICA Ruiz - Last Filed: 10/13/23 20:37> (6) Pneumonia: Status: Acute <JESSICA Ruiz - Last Filed: 10/13/23 20:37> (7) Elevated troponin: Status: Acute <JESSICA Ruiz - Last Filed: 10/13/23 20:37> 83-year-old female with history of hypertension, dysplastic nevus, ulcerative colitis, rectal prolapse, unspecified seizure disorder, unspecified dementia admitted for further management of acute cellulitis LLE. #Acute metabolic encephalopathy 10/03 COVID-19 -Head CT shows multiple age indeterminate infarcts -MRI brain -Monitor mentation, keep NPO for now until mentation improves -IV dexamethasone 6mg and IV remdesivir (initiated 10/13) due to hypoxia -tylenol prn fevers -airborne/contact precautions #Bilateral pneumonia -concern for aspiration given seizure activity -IV unasyn (initiated 10/13) -strep pneumo ag, legionella ag, sputum culture pending -aspiration precautions -NPO for now, pending [employer] evaluation #Seizures- unspecified -per review of [facility] chart, has hx of seizures previously on keppra but has not been taking in about a year and has missed multiple neuro appts -IV keppra 1000mg now, then 500mg BID -eeg -neuro consult -seizure precautions #Acute hypoxemic respiratory failure -likely multifactorial r/t COVID-19, pneumonia, seizures -continue supplemental O2 to maintain oximetry >92% #Elevated troponins -likely demand in setting of hypoxia -trop 24 --> 255, repeat pending -EKG without LINDA or depressions -echo -cardiology consult #LLE wound -wound RN consult #HTN -monitor bp, not on home antihypertensives #Intertriginous candidiasis -nystatin powder #Unspecified dementia -see above, pt conversive at baseline #CAD -h/o stemi [facility] with d/c 10/19/22 -medically managed. discharged on DAPT but pt no longer taking due to refusal -has missed follow up cardiology appts -Trop wnl #UC -no acute flare -stool occult blood positive, but h/h baseline -follow cbc #Chronic normocytic anemia -H/h above transfusion threshold -follow h/h #Skin lesion LUE -suspicious for mallignancy -outpt follow up DVT prophylaxis- lovenox full code Pt requires inpt stay at least 2 midnight for management of acute metabolic encephalopathy r/t covid-19 and breakthrough seizures requiring IV antiviral therapy, IV steroids, supplemental O2, close monitoring of mentation, initiation of antiepileptic medication and expert consultation <JESSICA Ruiz - Last Filed: 10/13/23 20:37> 83-year-old female with history of hypertension, dysplastic nevus, ulcerative colitis, rectal prolapse, unspecified seizure disorder, unspecified dementia admitted for further management of acute cellulitis LLE. #Acute metabolic encephalopathy 10/03 COVID-19 -Head CT shows multiple age indeterminate infarcts -MRI brain -Monitor mentation, keep NPO for now until mentation improves -IV dexamethasone 6mg and IV remdesivir (initiated 10/13) due to hypoxia -tylenol prn fevers -airborne/contact precautions #Bilateral pneumonia -concern for aspiration given seizure activity -IV unasyn (initiated 10/13) -strep pneumo ag, legionella ag, sputum culture pending -aspiration precautions -NPO for now, pending [employer] evaluation #Seizures- unspecified -per review of [facility] chart, has hx of seizures previously on keppra but has not been taking in about a year and has missed multiple neuro appts -IV keppra 1000mg now, then 500mg BID -eeg -neuro consult -seizure precautions #Acute hypoxemic respiratory failure -likely multifactorial r/t COVID-19, pneumonia, seizures -continue supplemental O2 to maintain oximetry >92% #Elevated troponins -likely demand in setting of hypoxia -trop 24 --> 255, repeat pending -one dose of therapuetic lovenox and aspirin x1 -EKG without LINDA or depressions -echo -cardiology consult #Lactic acidosis: due to hypoxia #LLE wound -wound RN consult #HTN -monitor bp, not on home antihypertensives #Intertriginous candidiasis -nystatin powder #Unspecified dementia -see above, pt conversive at baseline #CAD -h/o stemi [facility] with d/c 10/19/22 -medically managed. discharged on DAPT but pt no longer taking due to refusal -has missed follow up cardiology appts -Trop wnl #UC -no acute flare -stool occult blood positive, but h/h baseline -follow cbc #Chronic normocytic anemia -H/h above transfusion threshold -follow h/h #Skin lesion LUE -suspicious for mallignancy -outpt follow up DVT prophylaxis- lovenox full code Pt requires inpt stay at least 2 midnight for management of acute metabolic encephalopathy r/t covid-19 and breakthrough seizures requiring IV antiviral therapy, IV steroids, supplemental O2, close monitoring of mentation, initiation of antiepileptic medication and expert consultation <Adán Hernandez MD - Last Filed: 10/13/23 20:53> Quality Stroke Does the patient have a stroke diagnosis?: No <JESSICA Ruiz - Last Filed: 10/13/23 20:37> VTE Prior VTE?: No <JESSICA Ruiz - Last Filed: 10/13/23 20:37> VTE Risk Level:: Medical - moderate - high <JESSICA Ruiz - Last Filed: 10/13/23 20:37> VTE Device Contraindication: Treatment Not Indicated <JESSICA Ruiz - Last Filed: 10/13/23 20:37> VTE Drug Contraindication: N/A - Med Ordered <JESSICA Ruiz - Last Filed: 10/13/23 20:37>
[2023-10-13] MEDS: Ampicillin Sodium/Sulbactam Na 3 GM in 0.9 % Sodium Chloride 100 ML IV (20:44)
[2023-10-13] MEDS: levETIRAcetam in NaCl (iso-os) 1,000 MG/100 ML PIGGYBACK 400 MG IV (20:44)
[2023-10-13] MEDS: Enoxaparin Sodium 40 MG/0.4 ML SYRINGE SUBCUT (20:45)
[2023-10-13] MEDS: 0.9 % Sodium Chloride 1,000 ML 100 ML IVCONT (20:57)
[2023-10-13] MEDS: Aspirin 300 MG SUPP.RECT PR (21:44)
[2023-10-13] MEDS: Enoxaparin Sodium 60 MG/0.6 ML SYRINGE 10 MG SUBCUT (21:47)
[2023-10-13] MEDS: Remdesivir 200 MG in 0.9 % Sodium Chloride 210 ML 105 MG IV (23:54)
[2023-10-14] VITALS (8 sets, daily range): BP systolic 120–142; BP diastolic 80–108; PULSE 75–118; RESP 15–22; TEMP 35.9–37.3; O2SAT 95–100
--- NOTE | 2023-10-14 | ECG_ITS ---
Test Reason : ST changes Blood Pressure : / mmHG Vent. Rate : 068 BPM Atrial Rate : 068 BPM P-R Int : 174 ms QRS Dur : 080 ms QT Int : 506 ms P-R-T Axes : 053 002 192 degrees QTc Int : 538 ms Normal sinus rhythm Anteroseptal infarct (cited on or before 19-AUG-2022) ST & T wave abnormality, consider lateral ischemia Prolonged QT Abnormal ECG When compared with ECG of 14-OCT-2023 10:59, Vent. rate has decreased BY 43 BPM T wave inversion more evident in Anterior leads Referred By: Kam Duncan Electronically Signed By:Waldo Frank
[2023-10-14] MEDS: Ampicillin Sodium/Sulbactam Na 3 GM in 0.9 % Sodium Chloride 100 ML IV ×4 (02:28→20:05)
[2023-10-14] MEDS: 0.9 % Sodium Chloride 1,000 ML 100 ML IVCONT (07:40)
[2023-10-14] MEDS: 0.9 % Sodium Chloride Flush 3 ML SYRINGE IVFLUSH ×2 (07:42→16:42)
[2023-10-14 08:32] LABS: MANUAL DIFF FLAG NO
[2023-10-14 08:48] LABS: Basophils Percent Auto 0.3 % (0-2); Hematocrit 34.7 % (37.0-47.0); Hemoglobin 10.8 g/dl (12.0-16.0); Imm Gran Abs Auto 0.09 X10*3/uL (0.00-0.03); Imm Gran Pct Auto 0.9 % (0.0-0.4); Lymphocytes Absolute Auto 1.4 X10*3/uL (1.2-4.9); Lymphocytes Percent Auto 14.6 % (20-40); Mean Corpuscular HGB Conc 31.1 g/dl (31.0-35.0); Mean Corpuscular Hemoglobin 27.8 pg (27.0-33.0); Mean Corpuscular Volume 89.4 fL (80.0-98.0); Mean Platelet Volume 10.8 fL (9.4-12.3); Monocytes Absolute Auto 0.7 X10*3/uL (0.1-1.2); Monocytes Percent Auto 6.8 % (2-11); Neutrophils Absolute Auto 7.4 x10*3/uL (2.0-8.3); Neutrophils Percent Auto 77.4 % (45-73); Platelet Count 309 X10*3/uL (160-400); Red Blood Count 3.88 X10*6/uL (4.20-5.50); Red Cell Distribution Width 13.5 % (11.0-16.0); White Blood Count 9.6 X10*3/uL (4.8-10.8)
[2023-10-14] MEDS: levETIRAcetam in NaCl (iso-os) 500 MG/100 ML PIGGYBACK 400 MG IV ×2 (09:13→21:02)
[2023-10-14] MEDS: dexAMETHasone sod phosphate 4 MG/ML VIAL 6 MG IVPUSH (09:14)
[2023-10-14 09:16] LABS: Anion Gap 18 (12-20); Blood Urea Nitrogen 14 mg/dL (9-16); Calcium 7.7 mg/dL (8.4-10.2); Carbon Dioxide 15 mmol/L (22-29); Chloride 116 mmol/L (96-108); Creatinine Clr Calc Pharmacy 43.4; Estimated Glomerular Filt Rate > 60; Glucose Random 130 mg/dL (60-115); Potassium 4.8 mmol/L (3.3-5.1); Sodium 144 mmol/L (135-145)
--- NOTE | 2023-10-14 09:51 | MHC.CM.PN ---
Addendum entered by Nikky Rivera RN 10/14/23 09:57: CLARIFICATION, PT HAS APPT W/PCP 12/03, CM WILL ADD TO DC PAPERWORK. Original Note: IMM 10/14/23 DELIVERED TO /HCP [facility] 0944 AT NUMBER ON FILE, [facility] REPORTS PT RETURNED TO HOSPITAL D/T SEIZURE ACTIVITY, PT RESTARTED ON KEPPRA AND WILL NEED FOLLOW-UP W/NEURO, [facility] REPORTS PT DOES NOT LIKE TAKING MEDS SO HE TYPICALLY HAS TO HIDE THEM IN HER CEREAL. [facility] REPORTS PT IS STILL AMBULATING SLOWLY HOWEVER INDEPENDENTLY PRIOR TO READMIT, PT HAS [facility] FOR SN, MOW M-F AND FOOTCARE AT HOME THROUGH [facility], [facility] AND PT'S DTR ASSIST W/ADLS AND CARE AT HOME. GOAL FOR DC IS HOME W/RESUMP OF SERVICES. HCP ON FILE VERIFIED AND PCP IS AVELINO RICH WHO PT HASN'T SEEN IN QUITE SOME TIME HOWEVER HAD AGREED TO WRITE VNA ORDERS LAST ADMIT AND PT DOES HAVE UPCOMING APPT IN DECEMBER PER RECORDS.
[2023-10-14] MEDS: Enoxaparin Sodium 60 MG/0.6 ML SYRINGE 50 MG SUBCUT ×2 (10:11→22:18)
--- NOTE | 2023-10-14 10:32 | P.CONCA_ITS ---
History of Present Illness History of Present Illness Date of Service: 10/14/23 Requesting physician: Kam Duncan Chief complaint: seizure, hypoxia, covid, pneumonia Narrative: 83-year-old female presenting with confusion and concern for seizure. She has bilateral infiltrates and there is concern that she has aspirated and is on antibiotics. She is COVID positive also. Telemetry is showing runs of narrow complex tachycardia which I think is supraventricular tachycardia. She also has sinus tachycardia at baseline. She is confused and agitated and no history is possible. She currently had a constant spa associate in the room. We have been asked to assess her because she has elevated troponin levels. There is also some history of previous [facility] but reviewing chart at [facility] she just had an echocardiogram performed at [facility] in October 2022 when LV function was normal and there is no procedures performed on her. She also has background of ulcerative colitis, previous GI bleed, rectal prolapse as well as dementia. [facility] Past Medical History Medical History Hypertension GI bleed Drug noncompliance Rectal prolapse Annual physical exam Dysplastic nevus HTN (hypertension) Hyperglycemia NIVIA (acute kidney injury) Ulcerative colitis Patient denies medical problems Family History Family History Father No problems noted. Mother No problems noted. Surgical History Surgical History H/O section H/O colonoscopy Social History Social History Household Members: Family Housing: House Do you presently have visiting nurse or other home services: Yes Unable to assess alcohol history related to: Unknown Alcohol intake: unknown Patient Tobacco Use Status: Never used Tobacco e-Cigarette/Vaping Use: Never Used Second Hand Smoke Exposure: Yes Advance Directives Date on File: 07/22/22 service: No Current occupational status: retired Current occupational exposures/hazards: No Cognitive needs: No Hearing needs: No Vision needs: Yes Meds Allergies Allergy/AdvReac Type Severity Reaction Status Date / Time donepezil AdvReac Diarrhea Verified 10/13/23 11:16 memantine [From Namenda] AdvReac Agitated Verified 10/13/23 11:16 Active Medications: Current Medications Acetaminophen (Acetaminophen Supp 650 Mg Supp.Rect) 650 mg [place] Q6H PRN PRN Reason: Pain, Mild, fever Aspirin (Aspirin Enteric Coated 81 Mg Tablet.Dr) 81 mg PO DAILY [facility] Last Admin: 10/14/23 09:14 Dose: Not Given Atorvastatin Calcium (Atorvastatin Calcium 40 Mg Tablet) 40 mg PO DAILY [facility] Last Admin: 10/14/23 09:14 Dose: Not Given Dexamethasone Sodium Phosphate (Dexamethasone Sod Phosphate 4 Mg/Ml Vial) 6 mg IVPUSH DAILY [facility] Last Admin: 10/14/23 09:14 Dose: 6 mg Enoxaparin Sodium (Enoxaparin Sodium 60 Mg/0.6 Ml Syringe) 50 mg SUBCUT BID [facility] Last Admin: 10/14/23 10:11 Dose: 50 mg Ampicillin Sodium/Sulbactam (Sodium 3 gm/ Sodium Chloride) 100 mls @ 200 mls/hr IV Q6H [facility] Last Infusion: 10/14/23 08:17 Dose: Infused Levetiracetam (Keppra) 500 mg in 100 mls @ 400 mls/hr IV Q12H [facility] Last Infusion: 10/14/23 09:44 Dose: Infused Remdesivir 100 mg/ Sodium (Chloride) 230 mls @ 115 mls/hr IV Q24H [facility] Stop: 10/17/23 23:59 Sodium Chloride (Ns) 1,000 mls @ 100 mls/hr IVCONT .Q10H [facility] Last Admin: 10/14/23 07:40 Dose: 100 mls/hr Ondansetron HCl (Ondansetron Hcl 4 Mg/2 Ml Vial) 4 mg IVPUSH Q8H PRN PRN Reason: Nausea and Vomiting Senna (Sennosides 8.6 Mg Tablet) 17.2 mg PO BEDTIME PRN PRN Reason: Constipation Sodium Chloride (0.9 % Sodium Chloride Flush 3 Ml Syringe) 3 ml IVFLUSH QSHIFT [facility] Last Admin: 10/14/23 07:42 Dose: 3 ml Home Medications Medication Instructions Recorded Confirmed Last Taken Type No Known Home Meds 10/13/23 10/13/23 Unknown History Physical Exam 2 Vital Signs: Vital Signs: Last Vital Signs Temp 98.7 F 10/14/23 06:54 Pulse 118 H 10/14/23 06:54 Resp 20 10/14/23 06:54 BP 120/98 H 10/14/23 06:54 Pulse Ox 96 10/14/23 06:54 O2 Del Method Nasal Cannula 10/14/23 06:54 O2 Flow Rate 4 10/14/23 06:54 BMI result Body Mass Index 21.3 GENERAL APPEARANCE: Confused. Laying flat in bed and denying any symptoms currently. NECK: no carotid bruit, no obvious jugular venous distention. SKIN: no suspicious lesions, warm and dry. HEART: no murmurs, regular rate and rhythm. LUNGS: clear to auscultation bilaterally. Diminished breath sounds. ABDOMEN: soft, nontender. EXTREMITIES: no edema. PERIPHERAL PULSES: equal. NEUROLOGIC: Confused. Objective Labs and Meds 10/14/23 08:09 10/14/23 08:09 Lab results: Laboratory Results - last 24 hr 10/13/23 10/13/23 10/13/23 12:16 13:24 14:45 WBC 9.7 RBC 3.72 L Hgb 10.4 L Hct 32.7 L MCV 87.9 MCH 28.0 MCHC 31.8 RDW 13.2 Plt Count 379 D MPV 9.6 Immature Gran % (Auto) 1.2 H Neut % (Auto) 78.6 H Lymph % (Auto) 12.[address] [place] % (Auto) 6.7 Eos % (Auto) 0.6 Baso % (Auto) 0.3 Lymph # (Auto) 1.2 [place] # (Auto) 0.7 Eos # (Auto) 0.1 Baso # (Auto) 0.0 Abs Immat Gran (auto) 0.12 H Absolute Neuts (auto) 7.7 Absolute Nucleated RBC 0.000 Nucleated RBC % (auto) 0.0 APTT Sodium 141 Potassium 5.9 H D 4.6 D Chloride 111 H Carbon Dioxide 21 L Anion Gap 15 BUN 16 Creatinine 0.90 Estim Creat Clear Calc 40.5 Estimated GFR > 60 Random Glucose 151 H Lactic Acid 3.7 H* Lactic Acid F/U @ 2Hr 2.3 H* Lactic Acid F/U @ 4Hr Calcium 8.4 Magnesium 2.4 Total Bilirubin 0.1 Direct Bilirubin < 0.2 AST 36 H ALT 11 Alkaline Phosphatase 41 Troponin I High Sens 24.4 H D Total Protein 6.8 Albumin 3.6 Lipase 22 Urine Color Yellow Urine Appearance Clear Urine pH 7.0 Ur Specific [place] 1.015 Urine Protein Negative Urine Glucose (UA) Negative Urine Ketones Negative Urine Blood Trace H Urine Nitrite Negative Ur Leukocyte Esterase Negative Urine RBC 3-5 H Urine WBC 0-5 Ur Squamous Epith Cells 0-2 Urine Bacteria None Seen Hyaline Casts 0-2 COVID-19 (DULCE) Positive A COVID-19 Clin Com See Note Influenza Type A (ARIANNA) Negative Influenza Type B (ARIANNA) Negative Influenza A & B Note See Note 10/13/23 10/13/23 10/13/23 14:48 17:06 21:30 WBC RBC Hgb Hct MCV MCH MCHC RDW Plt Count MPV Immature Gran % (Auto) Neut % (Auto) Lymph % (Auto) [place] % (Auto) Eos % (Auto) Baso % (Auto) Lymph # (Auto) [place] # (Auto) Eos # (Auto) Baso # (Auto) Abs Immat Gran (auto) Absolute Neuts (auto) Absolute Nucleated RBC Nucleated RBC % (auto) APTT Sodium Potassium Chloride Carbon Dioxide Anion Gap BUN Creatinine Estim Creat Clear Calc Estimated GFR Random Glucose Lactic Acid Lactic Acid F/U @ 2Hr Lactic Acid F/U @ 4Hr 3.4 H* Calcium Magnesium Total Bilirubin Direct Bilirubin AST ALT Alkaline Phosphatase Troponin I High Sens 255.0 H* D 1771.0 H* D Total Protein Albumin Lipase Urine Color Urine Appearance Urine pH Ur Specific [place] Urine Protein Urine Glucose (UA) Urine Ketones Urine Blood Urine Nitrite Ur Leukocyte Esterase Urine RBC Urine WBC Ur Squamous Epith Cells Urine Bacteria Hyaline Casts COVID-19 (DULCE) COVID-19 Clin Com Influenza Type A (ARIANNA) Influenza Type B (ARIANNA) Influenza A & B Note 10/14/23 08:09 WBC 9.6 RBC 3.88 L Hgb 10.8 L Hct 34.7 L MCV 89.4 MCH 27.8 MCHC 31.1 RDW 13.5 Plt Count 309 MPV 10.8 Immature Gran % (Auto) 0.9 H Neut % (Auto) 77.4 H Lymph % (Auto) 14.[address] [place] % (Auto) 6.8 Eos % (Auto) 0.0 Baso % (Auto) 0.3 Lymph # (Auto) 1.4 [place] # (Auto) 0.7 Eos # (Auto) 0.0 Baso # (Auto) 0.0 Abs Immat Gran (auto) 0.09 H Absolute Neuts (auto) 7.4 Absolute Nucleated RBC 0.000 Nucleated RBC % (auto) 0.0 APTT 30.0 Sodium 144 Potassium 4.8 Chloride 116 H Carbon Dioxide 15 L Anion Gap 18 BUN 14 Creatinine 0.84 Estim Creat Clear Calc 43.4 Estimated GFR > 60 Random Glucose 130 H Lactic Acid Lactic Acid F/U @ 2Hr Lactic Acid F/U @ 4Hr Calcium 7.7 L D Magnesium Total Bilirubin Direct Bilirubin AST ALT Alkaline Phosphatase Troponin I High Sens Total Protein Albumin Lipase Urine Color Urine Appearance Urine pH Ur Specific [place] Urine Protein Urine Glucose (UA) Urine Ketones Urine Blood Urine Nitrite Ur Leukocyte Esterase Urine RBC Urine WBC Ur Squamous Epith Cells Urine Bacteria Hyaline Casts COVID-19 (DULCE) COVID-19 Clin Com Influenza Type A (ARIANNA) Influenza Type B (ARIANNA) Influenza A & B Note Imaging Radiologist's impression: Impressions Chest X-Ray 10/13/23 12:32 IMPRESSION: No acute pulmonary disease. No radiographic evidence of pneumonia. Chest CTA 10/13/23 16:50 IMPRESSION: 1. No evidence for central pulmonary emboli. 2. Ill-defined patchy bilateral airspace disease more likely due to atypical infectious or inflammatory etiology. 3. VTE: Negative. Head CT 10/13/23 16:50 IMPRESSION: There are multiple age indeterminant infarcts involving the cortical simpson matter of both cerebral hemispheres, many of which are new when compared to CT imaging of the head from 08/19/2022. There are also numerous chronic small vessel ischemic changes within the periventricular white matter, basal ganglia, thalami, and don. No acute hemorrhage. Assessment and Plan (1) Elevated troponin: Status: Acute (2) Pneumonia: Status: Acute (3) Seizure: Status: Acute (4) COVID-19: Status: Acute Plan 83-year-old female presenting with concern for seizure on background of known seizures, encephalopathy, bilateral infiltrates likely due to aspiration and COVID-19 infection. Multiple issues going on unfortunately. In this setting she has elevated troponin level. Initial troponin levels were 24 followed by 255 and the 3rd one is 1771. She was started on Lovenox overnight. She is quite confused currently. She apparently was somnolent and later agitated after presentation. I think clearly she had a seizure which led to confusion and aspiration. Continue antibiotics. She has known history of colitis and previous GI bleed. EKGs showing sinus tachycardia. I think Lovenox should be stopped. Please start her on metoprolol 25 mg twice a day. Appears quite sick and has multiple issues going on. Prognosis guarded. Thank you for allowing me to participate in the care of your patient. Please feel free to contact me if you have any questions. Procedures Date of Service Date of Service: 10/14/23
--- NOTE | 2023-10-14 10:48 | ECG_ITS ---
Test Reason : tachycardia Blood Pressure : / mmHG Vent. Rate : 111 BPM Atrial Rate : 111 BPM P-R Int : 184 ms QRS Dur : 082 ms QT Int : 380 ms P-R-T Axes : 022 -02 157 degrees QTc Int : 516 ms Sinus tachycardia Anteroseptal infarct (cited on or before 19-AUG-2022) T wave abnormality, consider inferolateral ischemia Abnormal ECG When compared with ECG of 13-OCT-2023 13:33, Previous ECG has undetermined rhythm, needs review T wave inversion now evident in Inferior leads T wave inversion now evident in Anterolateral leads Referred By: Kam Duncan Electronically Signed By:Waldo Frank
--- NOTE | 2023-10-14 10:56 | MHC.SLORD ---
Speech Language Pathology Order Status: Attempted to see patient this morning, however she is too lethargic to participate at this time. Pt resting in the position and moaning intermittently. WRAP CHECKER and at bedside. Pt provided a warm blanket.
[2023-10-14 11:09] LABS: Glucose, Whole Blood 211 mg/dL (60-115)
--- NOTE | 2023-10-14 11:31 | PC.NURSE ---
Addendum entered by Marlene Weeks RN 10/14/23 13:16: Pt appears calm, sleeping with eyes closed. Breathing even and nonlabored. Sating 100% on NRB. Lasix & Bicarb ordered and administered. Patient has multiple incontinent episodes of urine post Lasix administration. Pt uncooperative with quincy - aware unable to obtain accurate I&Os. Okay to hold Zyprexa at this time per MD. New T wave depression on tele - MD notified via [employer]. Original Note: 1050 - patients HR maintaining 130's on monitor - this RN at bedside. Patient presenting with worsening agitation, difficult to redirect, pulling at tubing/wires, trying to get OOB. Patient clammy, breathing labored, RR mid 30's, 02 81% on 4L NC, LS coarse crackles throughout. RT & MD notified and at bedside. 100% NRB placed - O2 sat up to high 90's - continuous O2 sat monitoring ordered and applied. POC 211 - MD aware. EKG ordered and obtained - see report. VO Dr Duncan to pause IVF. CXR ordered and at bedside. 1103 vitals: 99.2 temp, 112 HR sinus, 22 RR, 139/89, 100% on 100% NRB. IV Ativan ordered - VO Dr Duncan hold Ativan at this time.
[2023-10-14] MEDS: Furosemide 20 MG/2 ML VIAL IVPUSH (11:59)
[2023-10-14] MEDS: Sodium Bicarbonate 8.4% 50 MEQ/50 ML SYRINGE IVPUSH ×2 (12:12→18:48)
--- NOTE | 2023-10-14 12:35 | HO.PM.IMPN ---
Subjective Subjective Date of Service: 10/14/23 Interval History: Seen and evaluated this morning drops her O2 sat to mid 80s Had episodes of SVT up to 180s, resolved alone gets agitated and does not follow commands pending swallow eval Review of Systems Review of Systems: Yes Unobtainable due to mental condition Physical Exam Vital Signs: Vital Signs: Last Vital Signs Temp 99.2 F 10/14/23 11:15 Pulse 112 H 10/14/23 11:15 Resp 22 H 10/14/23 11:15 BP 139/89 10/14/23 11:15 Pulse Ox 100 10/14/23 11:15 O2 Del Method Non-Rebreather Ma sk 10/14/23 11:15 O2 Flow Rate 4 10/14/23 06:54 FiO2 100 10/14/23 11:15 BMI result Body Mass Index 21.3 Const: Other: Constitutional : Awake, in moderate distress Neck : Normal inspection, Supple Cardiovascular : RRR, no JVP, no lower extremity edema Respiratory : good bilateral air entry, bilateral basal crackles, bilateral rhonchi Gastrointestinal: soft, lax, Normal bowel sounds, Non tender Skin : Warm, Dry Neurological : Alert, oriented to self otherwise confused, No focal deficit Objective Data Active Medications Acetaminophen (Acetaminophen Supp 650 Mg Supp.Rect) 650 mg [place] Q6H PRN PRN Reason: Pain, Mild, fever Atorvastatin Calcium (Atorvastatin Calcium 40 Mg Tablet) 40 mg PO DAILY [facility] Last Admin: 10/14/23 09:14 Dose: Not Given Documented By: CINDY Non-Admin Reason: pt npo pending swallow Dexamethasone Sodium Phosphate (Dexamethasone Sod Phosphate 4 Mg/Ml Vial) 6 mg IVPUSH DAILY [facility] Last Admin: 10/14/23 09:14 Dose: 6 mg Documented By: CINDY Ampicillin Sodium/Sulbactam (Sodium 3 gm/ Sodium Chloride) 100 mls @ 200 mls/hr IV Q6H [facility] Last Infusion: 10/14/23 08:17 Dose: Infused Documented By: CINDY Levetiracetam (Keppra) 500 mg in 100 mls @ 400 mls/hr IV Q12H [facility] Last Infusion: 10/14/23 09:44 Dose: Infused Documented By: CINDY Remdesivir 100 mg/ Sodium (Chloride) 230 mls @ 115 mls/hr IV Q24H [facility] Stop: 10/17/23 23:59 Ondansetron HCl (Ondansetron Hcl 4 Mg/2 Ml Vial) 4 mg IVPUSH Q8H PRN PRN Reason: Nausea and Vomiting Senna (Sennosides 8.6 Mg Tablet) 17.2 mg PO BEDTIME PRN PRN Reason: Constipation Sodium Bicarbonate (Sodium Bicarbonate 8.4% 50 Meq/50 Ml Syringe) 50 meq IVPUSH Q6H [facility] Last Admin: 10/14/23 12:12 Dose: 50 meq Documented By: CINDY Sodium Chloride (0.9 % Sodium Chloride Flush 3 Ml Syringe) 3 ml IVFLUSH QSHIFT [facility] Last Admin: 10/14/23 07:42 Dose: 3 ml Documented By: CINDY Labs 10/14/23 08:09 10/14/23 08:09 Labs: Laboratory Results - last 24 hr 10/13/23 10/13/23 10/13/23 12:16 13:24 14:45 MCV MCH MCHC RDW Plt Count MPV Immature Gran % (Auto) Neut % (Auto) Lymph % (Auto) [place] % (Auto) Eos % (Auto) Baso % (Auto) Lymph # (Auto) [place] # (Auto) Eos # (Auto) Baso # (Auto) Abs Immat Gran (auto) Absolute Neuts (auto) Absolute Nucleated RBC Nucleated RBC % (auto) APTT Anion Gap 15 Estim Creat Clear Calc 40.5 Estimated GFR > 60 POC Glucose Random Glucose 151 H Lactic Acid 3.7 H* Lactic Acid F/U @ 2Hr 2.3 H* Lactic Acid F/U @ 4Hr Calcium 8.4 Magnesium 2.4 Total Bilirubin 0.1 Direct Bilirubin < 0.2 AST 36 H ALT 11 Alkaline Phosphatase 41 Troponin I High Sens 24.4 H D Total Protein 6.8 Albumin 3.6 Lipase 22 Urine Color Yellow Urine Appearance Clear Urine pH 7.0 Ur Specific [place] 1.015 Urine Protein Negative Urine Glucose (UA) Negative Urine Ketones Negative Urine Blood Trace H Urine Nitrite Negative Ur Leukocyte Esterase Negative Urine RBC 3-5 H Urine WBC 0-5 Ur Squamous Epith Cells 0-2 Urine Bacteria None Seen Hyaline Casts 0-2 Influenza Type A (ARIANNA) Negative Influenza Type B (ARIANNA) Negative Influenza A & B Note See Note 10/13/23 10/13/23 10/13/23 14:48 17:06 21:30 MCV MCH MCHC RDW Plt Count MPV Immature Gran % (Auto) Neut % (Auto) Lymph % (Auto) [place] % (Auto) Eos % (Auto) Baso % (Auto) Lymph # (Auto) [place] # (Auto) Eos # (Auto) Baso # (Auto) Abs Immat Gran (auto) Absolute Neuts (auto) Absolute Nucleated RBC Nucleated RBC % (auto) APTT Anion Gap Estim Creat Clear Calc Estimated GFR POC Glucose Random Glucose Lactic Acid Lactic Acid F/U @ 2Hr Lactic Acid F/U @ 4Hr 3.4 H* Calcium Magnesium Total Bilirubin Direct Bilirubin AST ALT Alkaline Phosphatase Troponin I High Sens 255.0 H* D 1771.0 H* D Total Protein Albumin Lipase Urine Color Urine Appearance Urine pH Ur Specific [place] Urine Protein Urine Glucose (UA) Urine Ketones Urine Blood Urine Nitrite Ur Leukocyte Esterase Urine RBC Urine WBC Ur Squamous Epith Cells Urine Bacteria Hyaline Casts Influenza Type A (ARIANNA) Influenza Type B (ARIANNA) Influenza A & B Note 10/14/23 10/14/23 08:09 10:59 MCV 89.4 MCH 27.8 MCHC 31.1 RDW 13.5 Plt Count 309 MPV 10.8 Immature Gran % (Auto) 0.9 H Neut % (Auto) 77.4 H Lymph % (Auto) 14.6 L [place] % (Auto) 6.8 Eos % (Auto) 0.0 Baso % (Auto) 0.3 Lymph # (Auto) 1.4 [place] # (Auto) 0.7 Eos # (Auto) 0.0 Baso # (Auto) 0.0 Abs Immat Gran (auto) 0.09 H Absolute Neuts (auto) 7.4 Absolute Nucleated RBC 0.000 Nucleated RBC % (auto) 0.0 APTT 30.0 Anion Gap 18 Estim Creat Clear Calc 43.4 Estimated GFR > 60 POC Glucose 211 H Random Glucose 130 H Lactic Acid Lactic Acid F/U @ 2Hr Lactic Acid F/U @ 4Hr Calcium 7.7 L D Magnesium Total Bilirubin Direct Bilirubin AST ALT Alkaline Phosphatase Troponin I High Sens Total Protein Albumin Lipase Urine Color Urine Appearance Urine pH Ur Specific [place] Urine Protein Urine Glucose (UA) Urine Ketones Urine Blood Urine Nitrite Ur Leukocyte Esterase Urine RBC Urine WBC Ur Squamous Epith Cells Urine Bacteria Hyaline Casts Influenza Type A (ARIANNA) Influenza Type B (ARIANNA) Influenza A & B Note Assessment and Plan (1) Elevated troponin: Status: Acute (2) Pneumonia: Status: Acute (3) Seizure: Status: Acute (4) Acidosis, lactic: Status: Acute (5) Encephalopathy acute: Status: Acute (6) COVID-19: Status: Acute (7) Acute respiratory failure with hypoxia: Status: Acute Plan 83-year-old female with history of hypertension, dysplastic nevus, ulcerative colitis, rectal prolapse, unspecified seizure disorder, unspecified dementia admitted for further management of acute cellulitis LLE. #Acute metabolic encephalopathy 2/2 COVID-[address] shows multiple age indeterminate infarcts IV dexamethasone 6mg and IV remdesivir (initiated 10/13) due to hypoxia tylenol prn fevers airborne/contact precautions recurrent orientation # Acute hypoxic respiratory failure 2/ Covid 19 and Bilateral pneumonia likely aspiration given seizure activity continue IV unasyn (initiated 10/13) strep pneumo ag, legionella ag, sputum culture pending aspiration precautions NPO for now, pending UNDERWRITING CONSULTANT evaluation Wean O2 down as tolerated #Seizures- unspecified has hx of seizures previously on keppra but has not been taking in about a year and has missed multiple neuro appts per [facility] documentation Continue keppra 500mg BID eeg pending neuro consult seizure precautions #Elevated troponins likely type 2 demand in setting of hypoxia -trop 24 --> 255, 1771 Given one dose of therapuetic lovenox and aspirin No chest pain, EKG without ST\T wave changes echo pending cardiology input appreciated: DC Lovenox, Decrease Metoprolol to 25 mg bid #Lactic acidosis: due to hypoxia #LLE wound wound RN consult #HTN monitor bp, not on home antihypertensives #Intertriginous candidiasis nystatin powder #Unspecified dementia seems close to her baseline # Hx CAD h/o stemi [facility] with d/c 10/19/22 medically managed. discharged on DAPT but pt no longer taking due to refusal. has missed follow up cardiology appts #UC no acute flare #Chronic normocytic anemia H/h above transfusion threshold follow h/h #Skin lesion LUE suspicious for mallignancy outpt follow up DVT prophylaxis- lovenox full code Pt requires inpt stay overnight for management of acute metabolic encephalopathy r/t covid-19 and breakthrough seizures requiring IV antiviral therapy, IV steroids, supplemental O2, close monitoring of mentation, initiation of antiepileptic medication and expert consultation Quality Stroke Does the patient have a stroke diagnosis?: No VTE Prior VTE?: No VTE Risk Level:: Medical - moderate - high VTE Device Contraindication: Treatment Not Indicated VTE Drug Contraindication: N/A - Med Ordered
--- NOTE | 2023-10-14 13:07 | PM.NEUROCN ---
History of Present Illness Data of Consult Service Date: 10/14/23 Primary Care Provider: Unknown Physician HPI Reason for consult: Possible seizure This is a 83-year-old female with history of hypertension, ulcerative colitis, dementia, CAD w/ h/o STEMI , who lives at home with her who presented after being witnessed to have a seizure like spell while sitting in a chair where her eyes rolled back, had stiffened extremities and then was very sleepy afterwards. She has no known history of seizures. Per EMS was also agitated and aggressive. Per ED report, pt somnolent on arrival and difficult to arouse. Pt is somnolent but arousable but unable to provide any history. She does not answer questions or cooperate with exam. 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 The newest one is in the right frontal parasagittal area, but that also looks relatively old more than 4 or 5 montths. She also has extensive white matter disease.No further seizures since admission Review of Systems Review of Systems: ROS unable to be obtained due to altered mental status Yes Unobtainable due to mental condition and Unobtainable due to mental status PMFSH Past Medical History Medical History Hypertension GI bleed Drug noncompliance Rectal prolapse Annual physical exam Dysplastic nevus HTN (hypertension) Hyperglycemia NIVIA (acute kidney injury) Ulcerative colitis Patient denies medical problems Family History Family History Father No problems noted. Mother No problems noted. Surgical History Surgical History H/O section H/O colonoscopy Social History Social History Household Members: Family Housing: House Do you presently have visiting nurse or other home services: Yes Unable to assess alcohol history related to: Unknown Alcohol intake: unknown Patient Tobacco Use Status: Never used Tobacco e-Cigarette/Vaping Use: Never Used Second Hand Smoke Exposure: Yes Advance Directives Date on File: 07/22/22 service: No Current occupational status: retired Current occupational exposures/hazards: No Cognitive needs: No Hearing needs: No Vision needs: Yes Meds Allergies Allergy/AdvReac Type Severity Reaction Status Date / Time donepezil AdvReac Diarrhea Verified 10/13/23 11:16 memantine [From Namenda] AdvReac Agitated Verified 10/13/23 11:16 Active Medications: Current Medications Acetaminophen (Acetaminophen Supp 650 Mg Supp.Rect) 650 mg DC Q6H PRN PRN Reason: Pain, Mild, fever Atorvastatin Calcium (Atorvastatin Calcium 40 Mg Tablet) 40 mg PO DAILY [facility] Last Admin: 10/14/23 09:14 Dose: Not Given Dexamethasone Sodium Phosphate (Dexamethasone Sod Phosphate 4 Mg/Ml Vial) 6 mg IVPUSH DAILY [facility] Last Admin: 10/14/23 09:14 Dose: 6 mg Ampicillin Sodium/Sulbactam (Sodium 3 gm/ Sodium Chloride) 100 mls @ 200 mls/hr IV Q6H [facility] Last Infusion: 10/14/23 08:17 Dose: Infused Levetiracetam (Keppra) 500 mg in 100 mls @ 400 mls/hr IV Q12H [facility] Last Infusion: 10/14/23 09:44 Dose: Infused Remdesivir 100 mg/ Sodium (Chloride) 230 mls @ 115 mls/hr IV Q24H [facility] Stop: 10/17/23 23:59 Metoprolol Tartrate (Metoprolol Tartrate 25 Mg Tablet) 25 mg PO BID [facility]; Protocol Ondansetron HCl (Ondansetron Hcl 4 Mg/2 Ml Vial) 4 mg IVPUSH Q8H PRN PRN Reason: Nausea and Vomiting Senna (Sennosides 8.6 Mg Tablet) 17.2 mg PO BEDTIME PRN PRN Reason: Constipation Sodium Bicarbonate (Sodium Bicarbonate 8.4% 50 Meq/50 Ml Syringe) 50 meq IVPUSH Q6H [facility] Last Admin: 10/14/23 12:12 Dose: 50 meq Sodium Chloride (0.9 % Sodium Chloride Flush 3 Ml Syringe) 3 ml IVFLUSH QSHIFT [facility] Last Admin: 10/14/23 07:42 Dose: 3 ml Home Medications Medication Instructions Recorded Confirmed Last Taken Type No Known Home Meds 10/13/23 10/13/23 Unknown History Physical Exam Vital Signs: Vital Signs: Last Vital Signs Temp 99.2 F 10/14/23 11:15 Pulse 112 H 10/14/23 11:15 Resp 22 H 10/14/23 11:15 BP 139/89 10/14/23 11:15 Pulse Ox 100 10/14/23 11:15 O2 Del Method Non-Rebreather Ma sk 10/14/23 11:15 O2 Flow Rate 4 10/14/23 06:54 FiO2 100 10/14/23 11:15 BMI result Body Mass Index 21.3 Const: Other: Constitutional : Awake, in moderate distress Neck : Normal inspection, Supple Cardiovascular : RRR, no JVP, no lower extremity edema Respiratory : good bilateral air entry, bilateral basal crackles, bilateral rhonchi Gastrointestinal: soft, lax, Normal bowel sounds, Non tender Skin : Warm, Dry Neurological : Alert, oriented to self otherwise confused, No focal deficit Neuro: Other: She is somnolent but gets agitated and moves all 4 extremities actively. She opens eyes. She does not verbalize or follow any commands. Her neck is supple. Eye movements appear to be full. Her reflex a hypoactive. She does not follow any commands. Results Labs 10/14/23 08:09 10/14/23 08:09 Labs: Short CBC 10/14/23 Range/Units 08:09 WBC 9.6 (4.8-10.8) X10*3/uL Hgb 10.8 L (12.0-16.0) g/dl Hct 34.7 L (37.0-47.0) % Plt Count 309 (160-400) X10*3/uL BMP 10/13/23 10/13/23 10/14/23 12:16 14:45 08:09 Sodium 141 144 Potassium 5.9 H D 4.6 D 4.8 Chloride 111 H 116 H Carbon Dioxide 21 L 15 L BUN 16 14 Creatinine 0.90 0.84 Calcium 8.4 7.7 L D Liver Function 10/13/23 Range/Units 12:16 Total Bilirubin 0.1 (0.0-1.0) mg/dL Direct Bilirubin < 0.2 (0.0-0.5) mg/dL AST 36 H (5-31) U/L ALT 11 (0-31) U/L Alkaline Phosphatase 41 (39-117) U/L Albumin 3.6 (3.5-5.0) g/dL Urine 10/13/23 Range/Units 13:24 Urine Color Yellow Urine Appearance Clear Urine pH 7.0 (5.0-9.0) Ur Specific [place] 1.015 (1.005-1.025) Urine Protein Negative (Neg-Trace) mg/dL Urine Glucose (UA) Negative (Negative) mg/dL Assessment and Plan (1) Seizure: Status: Acute possible seizure which could be multifactorial from multiple old strokes, hypocalcemia. Recom; EEG when cooperative. Hold off starting AEds unless there is a seizure recurrence, in which case Keppra 250mg bid can be started. 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 Wean O2 down as tolerated #Seizures- unspecified has hx of seizures previously on keppra but has not been taking in about a year and has missed multiple neuro appts per [facility] documentation Continue keppra 500mg BID eeg pending neuro consult seizure precautions #Elevated troponins likely type 2 demand in setting of hypoxia -trop 24 --> 255, 1771 Given one dose of therapuetic lovenox and aspirin No chest pain, EKG without ST\T wave changes echo pending cardiology input appreciated: DC Lovenox, Decrease Metoprolol to 25 mg bid #Lactic acidosis: due to hypoxia #LLE wound wound RN consult #HTN monitor bp, not on home antihypertensives #Intertriginous candidiasis nystatin powder #Unspecified dementia seems close to her baseline # Hx CAD h/o stemi [facility] with d/c 10/19/22 medically managed. discharged on DAPT but pt no longer taking due to refusal. has missed follow up cardiology appts #UC no acute flare #Chronic normocytic anemia H/h above transfusion threshold follow h/h #Skin lesion LUE suspicious for mallignancy outpt follow up DVT prophylaxis- lovenox full code Pt requires inpt stay overnight for management of acute metabolic encephalopathy r/t covid-19 and breakthrough seizures requiring IV antiviral therapy, IV steroids, supplemental O2, close monitoring of mentation, initiation of antiepileptic medication and expert consultation Procedures Date of Service Date of Service: 10/14/23
[2023-10-14] MEDS: Metoprolol Tartrate 5 MG/5 ML VIAL IVPUSH ×3 (13:42→20:56)
[2023-10-14] MEDS: Famotidine/PF 20 MG/2 ML VIAL IVPUSH ×2 (14:27→20:56)
[2023-10-14] MEDS: Adenosine 6 MG/2 ML VIAL IVPUSH (16:02)
[2023-10-14 16:07] LABS: Troponin-I High Sensitivity 2446.9 ng/L (<3.5-17.0)
--- NOTE | 2023-10-14 16:12 | PC.NURSE ---
agitated HR 180 SVT , [facility] called , Adenosine 6 mg IV push during [facility] also Metoprolol 5 mg IV push , BP 122/80 , pt on liters O@ via NC o2 sat 99% sinus tach 101 , resting with eyes closed
[2023-10-14] MEDS: Aspirin 300 MG SUPP.RECT PR (21:02)
[2023-10-14] MEDS: Remdesivir 100 MG in 0.9 % Sodium Chloride 230 ML 115 MG IV (22:18)
[2023-10-15] VITALS (11 sets, daily range): BP systolic 107–155; BP diastolic 63–90; PULSE 66–104; RESP 18–22; TEMP 36.1–37.8; O2SAT 94–100
[2023-10-15] MEDS: Sodium Bicarbonate 8.4% 50 MEQ/50 ML SYRINGE IVPUSH ×4 (00:29→18:30)
[2023-10-15] MEDS: 0.9 % Sodium Chloride Flush 3 ML SYRINGE IVFLUSH ×2 (00:29→08:28)
[2023-10-15] MEDS: Metoprolol Tartrate 5 MG/5 ML VIAL IVPUSH ×4 (01:52→19:45)
[2023-10-15] MEDS: Ampicillin Sodium/Sulbactam Na 3 GM in 0.9 % Sodium Chloride 100 ML IV ×4 (01:52→19:40)
[2023-10-15 07:39] LABS: Hematocrit 35.3 % (37.0-47.0); Hemoglobin 11.3 g/dl (12.0-16.0); Mean Corpuscular Hemoglobin 28.8 pg (27.0-33.0); Mean Corpuscular Volume 89.8 fL (80.0-98.0); Mean Platelet Volume 10.4 fL (9.4-12.3); Platelet Count 357 X10*3/uL (160-400); Red Blood Count 3.93 X10*6/uL (4.20-5.50); Red Cell Distribution Width 13.6 % (11.0-16.0); White Blood Count 16.3 X10*3/uL (4.8-10.8)
[2023-10-15 07:54] LABS: Anion Gap 20 (12-20); Blood Urea Nitrogen 27 mg/dL (9-16); C Reactive Protein 6.96 mg/dL (< or = 0.50); Calcium 8.1 mg/dL (8.4-10.2); Carbon Dioxide 20 mmol/L (22-29); Chloride 115 mmol/L (96-108); Creatinine Clr Calc Pharmacy 32.2; Estimated Glomerular Filt Rate 46; Glucose Random 137 mg/dL (60-115); Lactate Dehydrogenase 613 U/L (122-220); Potassium 4.4 mmol/L (3.3-5.1); Sodium 151 mmol/L (135-145)
[2023-10-15] MEDS: Enoxaparin Sodium 60 MG/0.6 ML SYRINGE 50 MG SUBCUT ×2 (08:27→22:06)
[2023-10-15] MEDS: dexAMETHasone sod phosphate 4 MG/ML VIAL 6 MG IVPUSH (08:28)
[2023-10-15] MEDS: Famotidine/PF 20 MG/2 ML VIAL IVPUSH ×2 (08:28→20:38)
[2023-10-15] MEDS: levETIRAcetam in NaCl (iso-os) 500 MG/100 ML PIGGYBACK 400 MG IV (09:41)
--- NOTE | 2023-10-15 10:16 | MHC.SLORD ---
Speech Language Pathology Order Status: Per RN, patient continues to present w/ lethargy and therefore is not appropriate for LINUX UNIX ENGINEER clinical swallow evaluation at this time. LINUX UNIX ENGINEER to continue to follow & attempt eval later in day if patient becomes appropriate.
--- NOTE | 2023-10-15 11:10 | HO.PM.IMPN ---
Subjective Subjective Date of Service: 10/15/23 Review of Systems Review of Systems: Yes Unobtainable due to mental condition Physical Exam Vital Signs: Vital Signs: Last Vital Signs Temp 98.5 F 10/15/23 07:44 Pulse 86 10/15/23 07:44 Resp 22 H 10/15/23 07:44 BP 155/90 H 10/15/23 07:44 Pulse Ox 96 10/15/23 07:44 O2 Del Method Nasal Cannula 10/15/23 07:44 O2 Flow Rate 3 10/15/23 07:44 FiO2 100 10/14/23 13:15 BMI result Body Mass Index 21.3 Const: Other: Constitutional : Awake, in moderate distress Neck : Normal inspection, Supple Cardiovascular : RRR, no JVP, no lower extremity edema Respiratory : good bilateral air entry, bilateral basal crackles, bilateral rhonchi Gastrointestinal: soft, lax, Normal bowel sounds, Non tender Skin : Warm, Dry Neurological : Alert, oriented to self otherwise confused, No focal deficit Neuro: Other: She is somnolent but gets agitated and moves all 4 extremities actively. She opens eyes. She does not verbalize or follow any commands. Her neck is supple. Eye movements appear to be full. Her reflex a hypoactive. She does not follow any commands. Objective Data Active Medications Acetaminophen (Acetaminophen Supp 650 Mg Supp.Rect) 650 mg KS Q6H PRN PRN Reason: Pain, Mild, fever Aspirin (Aspirin 300 Mg Supp.Rect) 300 mg KS BEDTIME [facility] Last Admin: 10/14/23 21:02 Dose: 300 mg Documented By: ALYSON Atorvastatin Calcium (Atorvastatin Calcium 40 Mg Tablet) 40 mg PO DAILY [facility] Last Admin: 10/15/23 08:14 Dose: Not Given Documented By: NOY Non-Admin Reason: NPO Dexamethasone Sodium Phosphate (Dexamethasone Sod Phosphate 4 Mg/Ml Vial) 6 mg IVPUSH DAILY [facility] Last Admin: 10/15/23 08:28 Dose: 6 mg Documented By: NOY Enoxaparin Sodium (Enoxaparin Sodium 60 Mg/0.6 Ml Syringe) 50 mg 1 mg/kg (50 mg) SUBCUT Q12H [facility] Stop: 10/16/23 21:59 Last Admin: 10/15/23 08:27 Dose: 50 mg Documented By: NOY Famotidine (Famotidine/Pf 20 Mg/2 Ml Vial) 20 mg IVPUSH BID [facility] Last Admin: 10/15/23 08:28 Dose: 20 mg Documented By: NOY Ampicillin Sodium/Sulbactam (Sodium 3 gm/ Sodium Chloride) 100 mls @ 200 mls/hr IV Q6H [facility] Last Infusion: 10/15/23 09:28 Dose: Infused Documented By: NOY Levetiracetam (Keppra) 500 mg in 100 mls @ 400 mls/hr IV Q12H [facility] Last Infusion: 10/15/23 10:34 Dose: Infused Documented By: NOY Remdesivir 100 mg/ Sodium (Chloride) 230 mls @ 115 mls/hr IV Q24H [facility] Stop: 10/17/23 23:59 Last Infusion: 10/15/23 00:41 Dose: Infused Documented By: LINCOLN Metoprolol Tartrate (Metoprolol Tartrate 5 Mg/5 Ml Vial) 5 mg IVPUSH Q6H [facility] Last Admin: 10/15/23 08:28 Dose: 5 mg Documented By: NOY Ondansetron HCl (Ondansetron Hcl 4 Mg/2 Ml Vial) 4 mg IVPUSH Q8H PRN PRN Reason: Nausea and Vomiting Senna (Sennosides 8.6 Mg Tablet) 17.2 mg PO BEDTIME PRN PRN Reason: Constipation Sodium Bicarbonate (Sodium Bicarbonate 8.4% 50 Meq/50 Ml Syringe) 50 meq IVPUSH Q6H [facility] Last Admin: 10/15/23 05:17 Dose: 50 meq Documented By: LINCOLN Sodium Chloride (0.9 % Sodium Chloride Flush 3 Ml Syringe) 3 ml IVFLUSH QSHIFT [facility] Last Admin: 10/15/23 08:28 Dose: 3 ml Documented By: NOY Labs 10/15/23 06:53 10/15/23 06:53 Labs: Laboratory Results - last 24 hr 10/14/23 10/15/23 15:10 06:53 MCV 89.8 MCH 28.8 MCHC 32.0 RDW 13.6 Plt Count 357 MPV 10.4 Absolute Nucleated RBC 0.000 Nucleated RBC % (auto) 0.0 Anion Gap 20 Estim Creat Clear Calc 32.2 Estimated GFR 46 Random Glucose 137 H Calcium 8.1 L Lactate Dehydrogenase 613 H Troponin I High Sens 2446.9 H* C-Reactive Protein 6.96 H Microbiology Microbiology Results: Microbiology 10/13/23 12:16 Blood Culture - Preliminary Blood - Venous No growth after 24 hours. 10/13/23 12:16 Blood Culture - Preliminary Blood - Venous No growth after 24 hours. Assessment and Plan (1) Elevated troponin: Status: Acute (2) Pneumonia: Status: Acute (3) Seizure: Status: Acute (4) Acidosis, lactic: Status: Acute (5) Encephalopathy acute: Status: Acute (6) COVID-19: Status: Acute (7) Acute respiratory failure with hypoxia: Status: Acute Plan 83F PMH hypertension, dysplastic nevus, ulcerative colitis, rectal prolapse, unspecified seizure disorder, unspecified dementia presented with ams, found to have covid, elevated troponin, hypoxic Acute metabolic encephalopathy and acute hypoxic respirtoary failure due to COVID-[address] shows multiple age indeterminate infarcts IV dexamethasone 6mg and IV remdesivir (initiated 10/13) due to hypoxia, unasyn for possible concomitant aspiration pneumonia tylenol prn fevers airborne/contact precautions recurrent orientation asset coordinator eval Seizures- unspecified has hx of seizures previously on keppra but has not been taking in about a year and has missed multiple neuro appts per [facility] documentation Continue keppra 250mg BID eeg pending neuro appreciated seizure precautions acute hypernatremia d5w, montior Elevated troponins likely type 2 demand in setting of hypoxia vs viral myocarditis in covid Given one dose of therapuetic lovenox and aspirin No chest pain, EKG without ST\T wave changes echo pending cardiology input appreciated: DCed Lovenox, Decrease Metoprolol to 25 mg bid Lactic acidosis: due to hypoxia LLE wound wound RN consult HTN monitor bp, not on home antihypertensives Intertriginous candidiasis nystatin powder Unspecified dementia seems close to her baseline Hx CAD h/o stemi [facility] [place] with d/c 10/19/22 medically managed. discharged on DAPT but pt no longer taking due to refusal. has missed follow up cardiology appts UC no acute flare Chronic normocytic anemia H/h above transfusion threshold follow h/h Skin lesion LUE suspicious for mallignancy outpt follow up DVT prophylaxis- lovenox full code reason for continued hospitalization:hypoxia, ams Quality Stroke Does the patient have a stroke diagnosis?: No VTE Prior VTE?: No VTE Risk Level:: Medical - moderate - high VTE Device Contraindication: Treatment Not Indicated VTE Drug Contraindication: N/A - Med Ordered
--- NOTE | 2023-10-15 12:02 | P.CDIM_ITS ---
PROVIDER RESPONSE TEXT: To clarify, the appropriate diagnosis supported by the clinical indicators: Acute QUERY TEXT: PHYSICIAN'S DOCUMENTATION REQUEST Date of Query: 10/15/2023 11:53 AM EST Patient Name: ARIADNA MENDEZ Admit Date: 10/14/2023 Dear José Miguel Garcia, A review of the medical record indicates additional documentation may be needed. Please review below and update the documentation accordingly. Clinical Indicators: Progress note: Lactic acidosis due to hypoxia LA 3.5 Clarify which of the following accurately represents the acuity of the lactic acidosis: Acute Acute on chronic Other (explain) Clinically unable to determine (explain) Thank you, Hannah Sam, CCS, CDIS Use of terms such as suspected, likely, concern for, or probable (associated with a specific diagnosi s that is being evaluated, monitored, or treated as if it exists) are acceptable and can be coded in the inpatient se tting, when documented at the time of discharge. Please use your independent medical judgment in providing your response. THIS QUERY IS PART OF THE PERMANENT MEDICAL RECORD
[2023-10-15] MEDS: Dextrose 5 % 1,000 ML 125 ML IVCONT ×2 (12:46→22:06)
--- NOTE | 2023-10-15 14:12 | MHC.CM.PN ---
EMR reviewed and per MD rounds, pt is not medically cleared for D/C due to AMS and hypoxia requiring supplemental O2. CM will continue to follow.
--- NOTE | 2023-10-15 14:49 | HO.WOUND ---
Wound Consult: Initial 83yr old? F admitted to [facility] [place] on 10/13/23 - See progress notes and H&P for detailed history.? Wound consult placed for left leg wound - Present on admission.? Patients family agreeable to assessment and photo documentation - pt did not wake for assessment. 09/30/23 Assessment last admission Overall Improved - pts family states [facility]NA has been treating Left Lower Leg Etiology: ?Abrasions - likely traumatic pt family unable to report etiology - ?Present on Admission Measurements:2.5cm x 0.4cm x 0.2cm Wound Bed: dried scabbed wound bed Drainage / Odor: None noted Edges: Linear Rita wound: Dry intact no erythema no swelling noted - ? No Induration, Fluctuance noted Pain: No pain observed Goals of Treatment: ? Moist wound healing Recommendations: 1. Turn and Reposition every 2 hours and as needed for patient comfort.? Use pillows or wedges to support off loading positions. 2. Off Load all bony prominences with use of pillows and heel boots if needed.? Apply Preventative foams where needed. ? 3. Monitor for incontinence and moisture control, use barrier creams when needed for prevention and treatment. 4. Provide adequate and supplemental nutrition.? 5. Continue low air loss mattress. 6. When applicable maintain blood glucose levels per Providers order. 7. Left Leg - Elevate heels off of bed surface - Cleanse with NS, Pat dry.? Apply Skin prep to periwound.? Apply layer of Coloplast Collagen Hydrogel, cover with gauze secure with ABD pad, gauze wrap and tape.?May use foam dressing instead if tolerated by patient. Change dressing Daily. 8. Bilateral Heels - Off Load Heels from surface of bed - consider foam application to protect from friction and sheer. Re-consult wound care Nurse for wound deterioration or wound changes.
--- NOTE | 2023-10-15 15:54 | MHC.SL.SWA ---
Risk of Aspiration Due to: Lethargy Reduced Cognition Weak Voice Dysphasia Diet Status: UPGRADE from NPO Liquid Consistency and Strategies for Safe Swallow: Liquid Intake Recommendation: Stanton Thick Liquid Intake Strategies: Small Sips No Straws Double Swallow Solid Food Consistency: Dietary Recommendations: Grnd/Mech Altered (NDD2) Additional Modifications to Solid Foods: Moisten in sauce/gravy & mix well Oral Medication Intake: Crushed with Puree Please contact the pharmacy regarding appropriate crushable or liquid drug formulations that are available whenever modified delivery is recommended. Compensatory Strategies and Precautions to be Taken for Safe Swallow: Sitting Upright (90 deg) Double Swallow No Straw Small Bites and Sips Alternate Liquids/Solids Oral Check Avoid Specific Foods Supervision While Eating and Drinking for Safe Swallow: Total Assistance (1:1) Recommendation for Speech: Outpatient Speech Therapy Inpatient Speech Therapy Comment: Patient seen for clinical swallow eval at bedside. Presents w/ slow lingual movement & reduced ROM. Recommend UPGRADE to NECTAR THICK liquids (no straw) with GROUND solids w/ 1-1 assistance. With liquids, patient requires cues to sip from spoon. Patient has difficulty using cup herself. Ensure patient awake and alert prior to administering any PO. BEER COOLER to visit tomorrow to monitor toleration of diet and upgrade if warranted. MD and RN notified of recommendation. Recommend continued dysphagia tx at next level of care if patient has not returned to baseline diet (thin liquids, chopped/regular solids). Copy Reader Clinican/Clinical Fellow: No Supervisory Statement: I have reviewed and agree with the student/clinical fellow's documentation: N/A Speech Language Pathologist: Michelle Olivo M.A., CCC-BEER COOLER
[2023-10-15] MEDS: Aspirin 300 MG SUPP.RECT PR (19:46)
[2023-10-15] MEDS: levETIRAcetam 250 MG in 0.9 % Sodium Chloride 100 ML 410 MG IV (20:38)
[2023-10-15 21:11] LABS: Glucose, Whole Blood 198 mg/dL (60-115)
[2023-10-15] MEDS: Remdesivir 100 MG in 0.9 % Sodium Chloride 230 ML 115 MG IV (22:06)
[2023-10-16] MEDS: Ampicillin Sodium/Sulbactam Na 3 GM in 0.9 % Sodium Chloride 100 ML IV ×4 (02:01→21:32)
[2023-10-16] MEDS: Metoprolol Tartrate 5 MG/5 ML VIAL IVPUSH ×4 (02:02→21:32)
[2023-10-16] MEDS: Sodium Bicarbonate 8.4% 50 MEQ/50 ML SYRINGE IVPUSH (02:43)
[2023-10-16 03:00] VITALS: BP 115/65; PULSE 68; RESP 20; TEMP 36.8; O2SAT 93
[2023-10-16] MEDS: Dextrose 5 % 1,000 ML 125 ML IVCONT ×3 (05:39→22:45)
[2023-10-16 06:23] LABS: Hematocrit 31.8 % (37.0-47.0); Mean Corpuscular HGB Conc 31.4 g/dl (31.0-35.0); Mean Corpuscular Hemoglobin 27.5 pg (27.0-33.0); Mean Corpuscular Volume 87.6 fL (80.0-98.0); Mean Platelet Volume 10.6 fL (9.4-12.3); NRBC Pct Auto 0.1 /100WBC (0.0-0.2); Platelet Count 361 X10*3/uL (160-400); Red Blood Count 3.63 X10*6/uL (4.20-5.50); Red Cell Distribution Width 13.5 % (11.0-16.0); White Blood Count 15.5 X10*3/uL (4.8-10.8)
[2023-10-16 06:38] LABS: Anion Gap 14 (12-20); Blood Urea Nitrogen 32 mg/dL (9-16); Calcium 7.4 mg/dL (8.4-10.2); Carbon Dioxide 30 mmol/L (22-29); Chloride 105 mmol/L (96-108); Creatinine Clr Calc Pharmacy 29.8; Estimated Glomerular Filt Rate 42; Glucose Fasting 200 mg/dL (60-99); Sodium 146 mmol/L (135-145)
[2023-10-16 07:26] LABS: Estimated Average Glucose 108 mg/dL; Hemoglobin A1c % 5.4 % (<6.0)
[2023-10-16 07:46] VITALS: BP 132/68; PULSE 68; RESP 18; TEMP 36.6; O2SAT 97
[2023-10-16] MEDS: Famotidine/PF 20 MG/2 ML VIAL IVPUSH (08:39)
[2023-10-16] MEDS: dexAMETHasone sod phosphate 4 MG/ML VIAL 6 MG IVPUSH (08:40)
[2023-10-16] MEDS: Enoxaparin Sodium 60 MG/0.6 ML SYRINGE 50 MG SUBCUT (08:40)
[2023-10-16] MEDS: levETIRAcetam 250 MG in 0.9 % Sodium Chloride 100 ML 410 MG IV ×2 (09:02→22:38)
[2023-10-16] MEDS: Potassium Chloride/H20 10 MEQ/100 ML PIGGYBACK 100 MEQ IV ×4 (09:02→15:33)
--- NOTE | 2023-10-16 09:13 | HO.PM.IMPN ---
Subjective Subjective Date of Service: 10/16/23 Interval History: no complaints Physical Exam Vital Signs: Vital Signs: Last Vital Signs Temp 97.9 F 10/16/23 07:46 Pulse 68 10/16/23 07:46 Resp 18 10/16/23 07:46 BP 132/68 10/16/23 07:46 Pulse Ox 97 10/16/23 07:46 O2 Del Method Nasal Cannula 10/16/23 07:46 O2 Flow Rate 2 10/16/23 07:46 FiO2 100 10/14/23 13:15 BMI result Body Mass Index 21.3 more alert, confused Objective Data Active Medications Acetaminophen (Acetaminophen Supp 650 Mg Supp.Rect) 650 mg [place] Q6H PRN PRN Reason: Pain, Mild, fever Aspirin (Aspirin 300 Mg Supp.Rect) 300 mg [place] BEDTIME [facility] Last Admin: 10/15/23 19:46 Dose: 300 mg Documented By: ALYSON Atorvastatin Calcium (Atorvastatin Calcium 40 Mg Tablet) 40 mg PO DAILY [facility] Last Admin: 10/16/23 09:11 Dose: Not Given Documented By: GROVER Non-Admin Reason: Patient Refused Dexamethasone Sodium Phosphate (Dexamethasone Sod Phosphate 4 Mg/Ml Vial) 6 mg IVPUSH DAILY [facility] Last Admin: 10/16/23 08:40 Dose: 6 mg Documented By: GROVER Enoxaparin Sodium (Enoxaparin Sodium 60 Mg/0.6 Ml Syringe) 50 mg 1 mg/kg (50 mg) SUBCUT Q12H [facility] Stop: 10/16/23 21:59 Last Admin: 10/16/23 08:40 Dose: 50 mg Documented By: GROVER Famotidine (Famotidine/Pf 20 Mg/2 Ml Vial) 20 mg IVPUSH BID [facility] Last Admin: 10/16/23 08:39 Dose: 20 mg Documented By: GROVER Ampicillin Sodium/Sulbactam (Sodium 3 gm/ Sodium Chloride) 100 mls @ 200 mls/hr IV Q6H [facility] Last Infusion: 10/16/23 05:09 Dose: Infused Documented By: THANH Remdesivir 100 mg/ Sodium (Chloride) 230 mls @ 115 mls/hr IV Q24H [facility] Stop: 10/17/23 23:59 Last Infusion: 10/16/23 01:48 Dose: Infused Documented By: THANH Dextrose (D5w) 1,000 mls @ 125 mls/hr IVCONT .Q8H [facility] Last Admin: 10/16/23 05:39 Dose: 125 mls/hr Documented By: THANH Levetiracetam 250 mg/ Sodium (Chloride) 102.5 mls @ 410 mls/hr IV BID [facility] Last Admin: 10/16/23 09:02 Dose: 410 mls/hr Documented By: GROVER Potassium Chloride (Potassium Chloride/H20) 10 meq in 100 mls @ 100 mls/hr IV Q1H [facility] Stop: 10/16/23 11:14 Last Admin: 10/16/23 09:02 Dose: 100 mls/hr Documented By: GROVER Metoprolol Tartrate (Metoprolol Tartrate 5 Mg/5 Ml Vial) 5 mg IVPUSH Q6H [facility] Last Admin: 10/16/23 08:40 Dose: 5 mg Documented By: GROVER Ondansetron HCl (Ondansetron Hcl 4 Mg/2 Ml Vial) 4 mg IVPUSH Q8H PRN PRN Reason: Nausea and Vomiting Senna (Sennosides 8.6 Mg Tablet) 17.2 mg PO BEDTIME PRN PRN Reason: Constipation Sodium Chloride (0.9 % Sodium Chloride Flush 3 Ml Syringe) 3 ml IVFLUSH QSHIFT [facility] Last Admin: 10/16/23 09:09 Dose: Not Given Documented By: GROVER Non-Admin Reason: IV Running Labs 10/16/23 05:56 10/16/23 05:56 Labs: Laboratory Results - last 24 hr 10/15/23 10/16/23 21:05 05:56 MCV 87.6 MCH 27.5 MCHC 31.4 RDW 13.5 Plt Count 361 MPV 10.6 Absolute Nucleated RBC 0.020 H Nucleated RBC % (auto) 0.1 Anion Gap 14 Estim Creat Clear Calc 29.8 Estimated GFR 42 POC Glucose 198 H Fasting Glucose 200 H Estimat Average Glucose 108 Hemoglobin A1c % 5.4 Calcium 7.4 L D Microbiology Microbiology Results: Microbiology 10/13/23 12:16 Blood Culture - Preliminary Blood - Venous No growth after 48 hours. 10/13/23 12:16 Blood Culture - Preliminary Blood - Venous No growth after 48 hours. Assessment and Plan (1) Elevated troponin: Status: Acute (2) Pneumonia: Status: Acute (3) Seizure: Status: Acute (4) Acidosis, lactic: Status: Acute (5) Encephalopathy acute: Status: Acute (6) COVID-19: Status: Acute (7) Acute respiratory failure with hypoxia: Status: Acute Plan 83F PMH hypertension, dysplastic nevus, ulcerative colitis, rectal prolapse, unspecified seizure disorder, unspecified dementia presented with ams, found to have covid, elevated troponin, hypoxic Acute metabolic encephalopathy and acute hypoxic respirtoary failure due to COVID-[address] shows multiple age indeterminate infarcts IV dexamethasone 6mg and IV remdesivir (initiated 10/13) due to hypoxia, unasyn for possible concomitant aspiration pneumonia tylenol prn fevers airborne/contact precautions recurrent orientation pile trimmer appreciated - ground, nectar thick hypokalemia replaced Seizures- unspecified has hx of seizures previously on keppra but has not been taking in about a year and has missed multiple neuro appts per [facility] [place] Continue keppra 250mg BID eeg pending neuro appreciated seizure precautions acute hypernatremia d5w, monitor Elevated troponins likely type 2 demand in setting of hypoxia vs viral myocarditis in covid Given one dose of therapuetic lovenox and aspirin No chest pain, EKG without ST\T wave changes echo pending cardiology input appreciated: DCed Lovenox, Decrease Metoprolol to 25 mg bid Lactic acidosis: due to hypoxia LLE wound wound RN consult HTN monitor bp, not on home antihypertensives Intertriginous candidiasis nystatin powder Unspecified dementia seems close to her baseline Hx CAD h/o stemi [facility] [place] d/c 10/19/22 medically managed. discharged on DAPT but pt no longer taking due to refusal. has missed follow up cardiology appts UC no acute flare Chronic normocytic anemia H/h above transfusion threshold follow h/h Skin lesion LUE suspicious for mallignancy outpt follow up DVT prophylaxis- lovenox full code reason for continued hospitalization:hypoxia, ams Quality Stroke Does the patient have a stroke diagnosis?: No VTE Prior VTE?: No VTE Risk Level:: Medical - moderate - high VTE Device Contraindication: Treatment Not Indicated VTE Drug Contraindication: N/A - Med Ordered
[2023-10-16 12:00] VITALS: BP 146/96; PULSE 96; RESP 20; TEMP 36.4; O2SAT 96
--- NOTE | 2023-10-16 13:47 | MHC.SL.SWA ---
Speech Pathologist Impression: Risk of Aspiration Due to: Lethargy Reduced Cognition Weak Voice Dysphasia Diet Status: Continue on Ground Mechanical/Altered (NDD2) and Thin Liquids, pills crushed in puree. Patient requires one to one feed. Patient is confused/agitated, will likely initially refuse food, however continue to patiently offer patient food, with breaks or intervals with ample refusal. Aspiration precautions apply Liquid Consistency and Strategies for Safe Swallow: Liquid Intake Recommendation: [place] Thick Liquid Intake Strategies: Small Sips No Straws Solid Food Consistency: Dietary Recommendations: Grnd/Mech Altered (NDD2) Additional Modifications to Solid Foods: Avoid mixed consistencies. Add sauces/gravies and blend. Discontinue if patient is pocketing food or if clinical signs of aspiration evident. Oral Medication Intake: Crushed with Puree Please contact the pharmacy regarding appropriate crushable or liquid drug formulations that are available whenever modified delivery is recommended. Compensatory Strategies and Precautions to be Taken for Safe Swallow: Sitting Upright (90 deg) No Straw Liquids from Cup Liquids from Spoon Small Bites and Sips Alternate Liquids/Solids Rate of Ingestion Change Oral Check Supervision While Eating and Drinking for Safe Swallow: Total Assistance (1:1) Foods to Avoid: Swallowing Recommended Treatments: Compens. Strategy Educat. Recommendation for Speech: Outpatient Speech Therapy Inpatient Speech Therapy Comment: Patient seen at lunch with sitter present. Sitter reported that she doesn't want any food, however ECONOMIC GEOGRAPHER persisted with attempting to feed patient. Patient was seated upright in bed, presented as agitated and confused, frequently pulling at lines on her and grabbing at items in front of her. Patient accepted bites of ground and mashed meal, producing a tongue pumping action on food with minimum munching or chewing, then producing a timely swallow. Patient accepted cup sips of nectar thick juice, producing a timely oral phase and timely swallow. No coughing was noted immediately after swallow, however patient periodically noted to cough after a delay, likely related to respiratory status. Patient then began to refuse further food or drink. Sitter was encouraged to re-attempt with offers of food/drink after a period of rest for the patient. Frequency/Duration: Date Range for Service Req: Timeline to reassess: Palletizer Clinican/Clinical Fellow: No Supervisory Statement: I have reviewed and agree with the student/clinical fellow's documentation: N/A Speech Language Pathologist: Michelle Olivo M.A., [facility]-ECONOMIC GEOGRAPHER
[2023-10-16 16:00] VITALS: BP 161/89; PULSE 76; RESP 18; TEMP 36.6; O2SAT 92
[2023-10-16 20:00] VITALS: BP 144/82; PULSE 85; RESP 24; TEMP 36.2; O2SAT 92
[2023-10-16] MEDS: 0.9 % Sodium Chloride Flush 3 ML SYRINGE IVFLUSH (21:33)
[2023-10-16] MEDS: Aspirin 300 MG SUPP.RECT PR (22:48)
[2023-10-16] MEDS: Remdesivir 100 MG in 0.9 % Sodium Chloride 230 ML 115 MG IV (23:18)
[2023-10-16 23:55] VITALS: BP 139/81; PULSE 78; RESP 24; TEMP 36; O2SAT 94
[2023-10-17] MEDS: Ampicillin Sodium/Sulbactam Na 3 GM in 0.9 % Sodium Chloride 100 ML IV ×4 (01:50→21:28)
[2023-10-17] MEDS: Metoprolol Tartrate 5 MG/5 ML VIAL IVPUSH ×4 (02:09→21:21)
[2023-10-17] MEDS: OLANZapine 10 MG VIAL 5 MG IM (02:09)
[2023-10-17 04:00] VITALS: BP 157/76; PULSE 84; RESP 24; TEMP 36.3; O2SAT 97
[2023-10-17] MEDS: Dextrose 5 % 1,000 ML 125 ML IVCONT (06:15)
[2023-10-17 06:41] LABS: Hematocrit 29.5 % (37.0-47.0); Hemoglobin 9.4 g/dl (12.0-16.0); Mean Corpuscular HGB Conc 31.9 g/dl (31.0-35.0); Mean Corpuscular Hemoglobin 27.7 pg (27.0-33.0); Mean Platelet Volume 10.7 fL (9.4-12.3); NRBC Pct Auto 0.8 /100WBC (0.0-0.2); Platelet Count 311 X10*3/uL (160-400); Red Blood Count 3.39 X10*6/uL (4.20-5.50); Red Cell Distribution Width 13.3 % (11.0-16.0)
[2023-10-17 06:54] LABS: Anion Gap 13 (12-20); Blood Urea Nitrogen 21 mg/dL (9-16); Calcium 7.1 mg/dL (8.4-10.2); Carbon Dioxide 25 mmol/L (22-29); Chloride 101 mmol/L (96-108); Creatinine Clr Calc Pharmacy 37.6; Estimated Glomerular Filt Rate 55; Glucose Fasting 316 mg/dL (60-99); Potassium 3.2 mmol/L (3.3-5.1); Sodium 136 mmol/L (135-145)
[2023-10-17 07:48] VITALS: BP 172/83; PULSE 72; RESP 19; TEMP 36.2; O2SAT 98
[2023-10-17] MEDS: Famotidine/PF 20 MG/2 ML VIAL 10 MG IVPUSH (08:02)
[2023-10-17] MEDS: dexAMETHasone sod phosphate 4 MG/ML VIAL 6 MG IVPUSH (08:03)
[2023-10-17] MEDS: 0.9 % Sodium Chloride Flush 3 ML SYRINGE IVFLUSH ×3 (08:03→21:48)
[2023-10-17] MEDS: levETIRAcetam 250 MG in 0.9 % Sodium Chloride 100 ML 410 MG IV ×2 (10:22→21:29)
[2023-10-17] MEDS: Potassium Chloride/H20 10 MEQ/100 ML PIGGYBACK 100 MEQ IV ×4 (10:29→16:12)
--- NOTE | 2023-10-17 10:33 | HO.PM.IMPN ---
Subjective Subjective Date of Service: 10/17/23 Interval History: no complaints Physical Exam Vital Signs: Vital Signs: Last Vital Signs Temp 97.1 F 10/17/23 07:48 Pulse 72 10/17/23 07:48 Resp 19 10/17/23 07:48 BP 172/83 H 10/17/23 07:48 Pulse Ox 98 10/17/23 07:48 O2 Del Method Nasal Cannula 10/17/23 07:48 O2 Flow Rate 2 10/17/23 07:48 FiO2 100 10/14/23 13:15 BMI result Body Mass Index 21.3 more alert, confused Objective Data Active Medications Acetaminophen (Acetaminophen Supp 650 Mg Supp.Rect) 650 mg [place] Q6H PRN PRN Reason: Pain, Mild, fever Aspirin (Aspirin 300 Mg Supp.Rect) 300 mg [place] BEDTIME [facility] Last Admin: 10/16/23 22:48 Dose: 300 mg Documented By: TERI Atorvastatin Calcium (Atorvastatin Calcium 40 Mg Tablet) 40 mg PO DAILY [facility] Last Admin: 10/17/23 10:29 Dose: Not Given Documented By: ULKE Non-Admin Reason: Patient Refused Dexamethasone Sodium Phosphate (Dexamethasone Sod Phosphate 4 Mg/Ml Vial) 6 mg IVPUSH DAILY [facility] Last Admin: 10/17/23 08:03 Dose: 6 mg Documented By: LUKE Famotidine (Famotidine/Pf 20 Mg/2 Ml Vial) 10 mg IVPUSH DAILY [facility] Last Admin: 10/17/23 08:02 Dose: 10 mg Documented By: LUKE Ampicillin Sodium/Sulbactam (Sodium 3 gm/ Sodium Chloride) 100 mls @ 200 mls/hr IV Q6H [facility] Last Infusion: 10/17/23 08:51 Dose: Infused Documented By: LUKE Remdesivir 100 mg/ Sodium (Chloride) 230 mls @ 115 mls/hr IV Q24H [facility] Stop: 10/17/23 23:59 Last Infusion: 10/17/23 01:18 Dose: Infused Documented By: TERI Levetiracetam 250 mg/ Sodium (Chloride) 102.5 mls @ 410 mls/hr IV BID [facility] Last Admin: 10/17/23 10:22 Dose: 410 mls/hr Documented By: LUKE Potassium Chloride (Potassium Chloride/H20) 10 meq in 100 mls @ 100 mls/hr IV Q1H [facility] Stop: 10/17/23 13:29 Last Admin: 10/17/23 10:29 Dose: 100 mls/hr Documented By: LUKE Metoprolol Tartrate (Metoprolol Tartrate 5 Mg/5 Ml Vial) 5 mg IVPUSH Q6H [facility] Last Admin: 10/17/23 08:03 Dose: 5 mg Documented By: LUKE Ondansetron HCl (Ondansetron Hcl 4 Mg/2 Ml Vial) 4 mg IVPUSH Q8H PRN PRN Reason: Nausea and Vomiting Senna (Sennosides 8.6 Mg Tablet) 17.2 mg PO BEDTIME PRN PRN Reason: Constipation Sodium Chloride (0.9 % Sodium Chloride Flush 3 Ml Syringe) 3 ml IVFLUSH QSHIFT [facility] Last Admin: 10/17/23 08:03 Dose: 3 ml Documented By: LUKE Labs 10/17/23 06:24 10/17/23 06:24 Labs: Laboratory Results - last 24 hr 10/17/23 06:24 MCV 87.0 MCH 27.7 MCHC 31.9 RDW 13.3 Plt Count 311 MPV 10.7 Absolute Nucleated RBC 0.100 H Nucleated RBC % (auto) 0.8 H Anion Gap 13 Estim Creat Clear Calc 37.6 Estimated GFR 55 Fasting Glucose 316 H Calcium 7.1 L Assessment and Plan (1) Elevated troponin: Status: Acute (2) Pneumonia: Status: Acute (3) Seizure: Status: Acute (4) Acidosis, lactic: Status: Acute (5) Encephalopathy acute: Status: Acute (6) COVID-19: Status: Acute (7) Acute respiratory failure with hypoxia: Status: Acute Plan 83F PMH hypertension, dysplastic nevus, ulcerative colitis, rectal prolapse, unspecified seizure disorder, unspecified dementia presented with ams, found to have covid, elevated troponin, hypoxic Acute metabolic encephalopathy and acute hypoxic respirtoary failure due to COVID-[address] shows multiple age indeterminate infarcts IV dexamethasone 6mg and IV remdesivir (initiated 10/13) due to hypoxia, unasyn for possible concomitant aspiration pneumonia tylenol prn fevers airborne/contact precautions recurrent orientation cook pie appreciated - ground, nectar thick hypokalemia replace Seizures- unspecified has hx of seizures previously on keppra but has not been taking in about a year and has missed multiple neuro appts per [facility] documentation Continue keppra 250mg BID eeg pending neuro appreciated seizure precautions acute hypernatremia resolved Elevated troponins likely type 2 demand in setting of hypoxia vs viral myocarditis in covid Given one dose of therapuetic lovenox and aspirin No chest pain, EKG without ST\T wave changes echo pending cardiology input appreciated: DCed Lovenox, Decrease Metoprolol to 25 mg bid Lactic acidosis: due to hypoxia LLE wound wound RN consult HTN monitor bp, not on home antihypertensives Intertriginous candidiasis nystatin powder Unspecified dementia seems close to her baseline Hx CAD h/o stemi [facility] with d/c 10/19/22 medically managed. discharged on DAPT but pt no longer taking due to refusal. has missed follow up cardiology appts UC no acute flare Chronic normocytic anemia H/h above transfusion threshold follow h/h Skin lesion LUE suspicious for malignancy outpt follow up DVT prophylaxis- lovenox full code reason for continued hospitalization:hypoxia, ams Quality Stroke Does the patient have a stroke diagnosis?: No VTE Prior VTE?: No VTE Risk Level:: Medical - moderate - high VTE Device Contraindication: Treatment Not Indicated VTE Drug Contraindication: N/A - Med Ordered
--- NOTE | 2023-10-17 10:57 | MHC.CM.PN ---
EMR REVIEWED, PT W/DEMENTIA, ACUTE METABOLIC ENCEPHALOPATHY AND ARF D/T COVID19, PT REMAINS ON COVID TARGETED TX IV DECADRON/REMDESIVIR, IV ABX AND IV KEPPRA AFTER BEING OFF SEIZURE MEDICATION FOR 1 YR, NO PLAN FOR DC AT THIS TIME AND ANTIC PT WILL REMAIN INPT THROUGH W/E, ANTIC PT WILL RETURN HOME W/ AND AND RESUMP OF [facility] FOR SN, CM WILL CONT TO FOLLOW DC NEEDS.
[2023-10-17 11:22] VITALS: BP 145/80; PULSE 72; RESP 20; TEMP 36.5; O2SAT 91
--- NOTE | 2023-10-17 12:12 | MHC.SL.DTX ---
Dysphagia Diet modifications: Last documented Solid diet consistencies: Grnd/Mech Altered (NDD2) Last documented Liquid consistency: [place] Thick Changes made to current diet?: No: No change Liquid Consistency and Strategies: Liquid Intake Recommendation: [place] Thick Compensatory Strategies for Safe Swallow: Small Sips No Straws Compensatory Strategies for Safe Swallow(b): Sitting Upright (90 deg) No Straw Liquids from Cup Liquids from Spoon Small Bites and Sips Alternate Liquids/Solids Rate of Ingestion Change Oral Check Solid Food Consistency: Dietary Recommendations: Grnd/Mech Altered (NDD2) Additional Modifications to Solids: Avoid mixed consistencies. Add sauces/gravies and blend. Discontinue if patient is pocketing food or if clinical signs of aspiration evident. Oral Medication Intake: Crushed with Puree Strategies and Precautions to be Taken for Safe Swallow: Sitting Upright (90 deg) No Straw Liquids from Cup Liquids from Spoon Small Bites and Sips Alternate Liquids/Solids Rate of Ingestion Change Oral Check Supervision While Eating and/Drinking: Total Supervision (1:1) Foods to Avoid: Swallowing Recommended Treatments: Compens. Strategy Educat. Recommendation for Speech: Outpatient Speech Therapy Inpatient Speech Therapy Additional Comments: Treatment: Pt is with her Daughter and a family friend on arrival. They are wearing masks but not N95s. They are offered N95s and accept them. They have many questions about her medical status, which they are referred to her nurse. Masha is awake with eyes open, appears lethargic but not necessarily in distress or agitated. She refuses offering of puree solids (pudding or apple sauce). Per RN, she has been refusing any PO all day. She is encouraged to drink a nectar-thickened liquids. The cup is placed to her mouth and she takes with her own hands to self-administer a few sips with no overt s/s of aspiration. She is offered more, but refuses again, needing encouragement but this time only for one single sip. Her mental status appears to be improving slowly with treatments. However she has not eaten much in several days and may need close attention to her nutritional intake. No changes to diet recommended at this time. Assessment: CONTINUE to recommend GROUND/MECH ALTERED (NDD2) and THIN LIQUIDS. MEDS CRUSHED with PUREE. Pt requires 1:1 FEEDING ASSISTANCE at this time. Film Developer Clinican/Clinical Fellow: No Supervisory Statement: I have reviewed and agree with the student/clinical fellow's documentation: N/A Speech Language Pathologist: Blair Claire M.A., CCC-MARKET RESEARCH MANAGER
[2023-10-17 16:00] VITALS: BP 134/64; PULSE 77; RESP 16; TEMP 37.3; O2SAT 94
[2023-10-17 20:00] VITALS: BP 140/73; PULSE 80; RESP 19; TEMP 36.5; O2SAT 93
[2023-10-17] MEDS: Remdesivir 100 MG in 0.9 % Sodium Chloride 230 ML 115 MG IV (21:20)
[2023-10-17] MEDS: Aspirin 300 MG SUPP.RECT PR (21:29)
[2023-10-17 23:50] VITALS: BP 160/79; PULSE 70; RESP 20; TEMP 36.2; O2SAT 97
[2023-10-18] VITALS (7 sets, daily range): BP systolic 141–170; BP diastolic 78–92; PULSE 62–90; RESP 16–20; TEMP 36.1–37; O2SAT 91–98
[2023-10-18] MEDS: Metoprolol Tartrate 5 MG/5 ML VIAL IVPUSH ×4 (03:38→20:33)
[2023-10-18] MEDS: Ampicillin Sodium/Sulbactam Na 3 GM in 0.9 % Sodium Chloride 100 ML IV ×4 (03:38→20:33)
[2023-10-18 07:59] LABS: Hematocrit 29.6 % (37.0-47.0); Hemoglobin 9.4 g/dl (12.0-16.0); Mean Corpuscular HGB Conc 31.8 g/dl (31.0-35.0); Mean Corpuscular Hemoglobin 27.9 pg (27.0-33.0); Mean Corpuscular Volume 87.8 fL (80.0-98.0); Mean Platelet Volume 11.3 fL (9.4-12.3); Platelet Count 321 X10*3/uL (160-400); Red Blood Count 3.37 X10*6/uL (4.20-5.50); Red Cell Distribution Width 13.5 % (11.0-16.0); White Blood Count 7.9 X10*3/uL (4.8-10.8)
[2023-10-18 08:12] LABS: NRBC Pct Auto 4.9 /100WBC (0.0-0.2)
[2023-10-18 08:14] LABS: Anion Gap 15 (12-20); Blood Urea Nitrogen 26 mg/dL (9-16); Calcium 7.2 mg/dL (8.4-10.2); Carbon Dioxide 25 mmol/L (22-29); Chloride 107 mmol/L (96-108); Estimated Glomerular Filt Rate > 60; Glucose Fasting 181 mg/dL (60-99); Potassium 3.9 mmol/L (3.3-5.1); Sodium 143 mmol/L (135-145)
[2023-10-18] MEDS: levETIRAcetam 250 MG in 0.9 % Sodium Chloride 100 ML 410 MG IV ×2 (08:46→21:27)
[2023-10-18] MEDS: Famotidine/PF 20 MG/2 ML VIAL 10 MG IVPUSH (08:47)
[2023-10-18] MEDS: dexAMETHasone sod phosphate 4 MG/ML VIAL 6 MG IVPUSH (08:47)
[2023-10-18] MEDS: 0.9 % Sodium Chloride Flush 3 ML SYRINGE IVFLUSH ×2 (08:49→20:46)
--- NOTE | 2023-10-18 09:21 | P.PNIM_ITS ---
Subjective Subjective Date of Service: 10/18/23 Interval History: no complaints Physical Exam 2 Vital Signs: Vital Signs: Last Vital Signs Temp 97.4 F 10/18/23 08:00 Pulse 83 10/18/23 08:00 Resp 20 10/18/23 08:00 BP 168/89 H 10/18/23 08:00 Pulse Ox 98 10/18/23 08:00 O2 Del Method Nasal Cannula 10/18/23 08:00 O2 Flow Rate 3 10/18/23 08:00 FiO2 100 10/14/23 13:15 BMI result Body Mass Index 21.3 more alert, confused Objective Data Active Medications Acetaminophen (Acetaminophen Supp 650 Mg Supp.Rect) 650 mg [place] Q6H PRN PRN Reason: Pain, Mild, fever Aspirin (Aspirin 300 Mg Supp.Rect) 300 mg [place] BEDTIME [facility] Last Admin: 10/17/23 21:29 Dose: 300 mg Documented By: OSVALDO Atorvastatin Calcium (Atorvastatin Calcium 40 Mg Tablet) 40 mg PO DAILY [facility] Last Admin: 10/18/23 08:49 Dose: Not Given Documented By: PRATIBHA Non-Admin Reason: Patient Refused Dexamethasone Sodium Phosphate (Dexamethasone Sod Phosphate 4 Mg/Ml Vial) 6 mg IVPUSH DAILY [facility] Last Admin: 10/18/23 08:47 Dose: 6 mg Documented By: PRATIBHA Famotidine (Famotidine/Pf 20 Mg/2 Ml Vial) 10 mg IVPUSH DAILY [facility] Last Admin: 10/18/23 08:47 Dose: 10 mg Documented By: PRATIBHA Ampicillin Sodium/Sulbactam (Sodium 3 gm/ Sodium Chloride) 100 mls @ 200 mls/hr IV Q6H [facility] Last Infusion: 10/18/23 09:20 Dose: Infused Documented By: PRATIBHA Levetiracetam 250 mg/ Sodium (Chloride) 102.5 mls @ 410 mls/hr IV BID [facility] Last Infusion: 10/18/23 09:20 Dose: Infused Documented By: PRATIBHA Metoprolol Tartrate (Metoprolol Tartrate 5 Mg/5 Ml Vial) 5 mg IVPUSH Q6H [facility] Last Admin: 10/18/23 08:47 Dose: 5 mg Documented By: PRATIBHA Ondansetron HCl (Ondansetron Hcl 4 Mg/2 Ml Vial) 4 mg IVPUSH Q8H PRN PRN Reason: Nausea and Vomiting Senna (Sennosides 8.6 Mg Tablet) 17.2 mg PO BEDTIME PRN PRN Reason: Constipation Sodium Chloride (0.9 % Sodium Chloride Flush 3 Ml Syringe) 3 ml IVFLUSH QSHIFT [facility] Last Admin: 10/18/23 08:49 Dose: 3 ml Documented By: PRATIBHA Labs 10/18/23 06:43 10/18/23 06:43 Labs: Laboratory Results - last 24 hr 10/18/23 06:43 MCV 87.8 MCH 27.9 MCHC 31.8 RDW 13.5 Plt Count 321 MPV 11.3 Absolute Nucleated RBC 0.390 H Nucleated RBC % (auto) 4.9 H Anion Gap 15 Estim Creat Clear Calc 41.0 Estimated GFR > 60 Fasting Glucose 181 H Calcium 7.2 L Assessment and Plan (1) Elevated troponin: Status: Acute (2) Pneumonia: Status: Acute (3) Seizure: Status: Acute (4) Acidosis, lactic: Status: Acute (5) Encephalopathy acute: Status: Acute (6) COVID-19: Status: Acute (7) Acute respiratory failure with hypoxia: Status: Acute Plan 83F PMH hypertension, dysplastic nevus, ulcerative colitis, rectal prolapse, unspecified seizure disorder, unspecified dementia presented with ams, found to have covid, elevated troponin, hypoxic Acute metabolic encephalopathy and acute hypoxic respirtoary failure due to COVID-[address] shows multiple age indeterminate infarcts IV dexamethasone 6mg (initiated 10/13) due to hypoxia, completed course of IV remdesivir continue unasyn for possible concomitant aspiration pneumonia tylenol prn fevers airborne/contact precautions recurrent orientation rolloff truck driver appreciated - ground, nectar thick unable to be weaned today, was 87-88% on room air, now on 1L hypokalemia replaced Seizures- unspecified has hx of seizures previously on keppra but has not been taking in about a year and has missed multiple neuro appts per [facility] documentation Continue keppra 250mg BID eeg pending neuro appreciated seizure precautions acute hypernatremia resolved Elevated troponins likely type 2 demand in setting of hypoxia vs viral myocarditis in covid Given one dose of therapuetic lovenox and aspirin No chest pain, EKG without ST\T wave changes echo pending cardiology input appreciated: DCed Lovenox, Decrease Metoprolol to 25 mg bid Lactic acidosis: due to hypoxia LLE wound wound RN consult HTN monitor bp, not on home antihypertensives Intertriginous candidiasis nystatin powder Unspecified dementia seems close to her baseline Hx CAD h/o stemi [facility] with d/c 10/19/22 medically managed. discharged on DAPT but pt no longer taking due to refusal. has missed follow up cardiology appts UC no acute flare Chronic normocytic anemia H/h above transfusion threshold follow h/h Skin lesion LUE suspicious for malignancy outpt follow up DVT prophylaxis- lovenox full code reason for continued hospitalization:hypoxia Quality Stroke Does the patient have a stroke diagnosis?: No VTE Prior VTE?: No VTE Risk Level:: Medical - moderate - high VTE Device Contraindication: Treatment Not Indicated VTE Drug Contraindication: N/A - Med Ordered
[2023-10-18] MEDS: Aspirin 300 MG SUPP.RECT PR (20:37)
[2023-10-19 00:52] VITALS: RESP 25
[2023-10-19] MEDS: Morphine Sulfate 2 MG/ML CARTRIDGE IVPUSH (00:52)
[2023-10-19] MEDS: Metoprolol Tartrate 5 MG/5 ML VIAL IVPUSH (02:30)
[2023-10-19] MEDS: Ampicillin Sodium/Sulbactam Na 3 GM in 0.9 % Sodium Chloride 100 ML IV ×2 (02:30→09:45)
[2023-10-19 03:08] VITALS: BP 178/80; PULSE 72; RESP 16; TEMP 36; O2SAT 100
[2023-10-19 07:52] VITALS: BP 165/70; PULSE 63; RESP 17; TEMP 36.8; O2SAT 100
--- NOTE | 2023-10-19 09:40 | P.DS_ITS ---
DS: Providers Provider Date of Service: 10/19/23 Date of admission: 10/13/23 19:53 Primary care physician: Suzan Hankins MD Consults: 10/13/23 19:55 Consult to Neurology Routine Consulting Provider: [facility] Reason for consultation: new onset seizures 10/13/23 19:59 Consult to Wound Care Routine Reason for consultation: chronic wound LLE 10/13/23 20:37 Consult to Cardiology Routine Consulting Provider: [facility] Reason for consultation: elevated trops Has provider been notified: Yes DS: Diagnosis Discharge Diagnosis (1) Elevated troponin: Status: Acute (2) Pneumonia: Status: Acute (3) Seizure: Status: Acute (4) Acidosis, lactic: Status: Acute (5) Encephalopathy acute: Status: Acute (6) COVID-19: Status: Acute (7) Acute respiratory failure with hypoxia: Status: Acute DS: Summary Hospital Course Hospital Course: from initial hpi: 83-year-old female with history of hypertension, dysplastic nevus, ulcerative colitis, rectal prolapse, unspecified dementia, CAD w/ h/o STEMI who lives at home with her presents to the ED today from home per daughter and was witnessed to be sitting in chair with eyes rolled back, stiffened extremities and then was very sleepy afterwards. She has no known history of seziures. Per EMS was also aggitated and aggressive. Per ED report, pt somnolent on arrival and difficult to arouse. Pt somnolent but arousable on my exam but unable to provide any history. On arrival, patient febrile to 100.5, tachycardic to 131, tachypneic, and hypoxic to 80% briefly placed on non-rebreather and has been weaned to 4 L supplemental O2 via nasal cannula maintaining oximetry around 90%. No hypotension. No leukocytosis. Renal function normal, electrolyte levels essentially normal. Initial lactic acid 3.7, repeat 2.3, repeat 3.4, likely secondary to hypoxia and seizure activity. Initial troponin 24.4, repeat 255.0. EKG shows sinus tach, rate 110, no linda/depressions. Head CT shows multiple age-indeterminate infarctions within the cortical simpson matter of both cerebral hemispheres as well as chronic small-vessel ischemic changes. CTA of the chest negative for PE but shows ill-defined patchy bilateral airspace opacity likely due to atypical infectious or inflammatory etiology. In the ED, given 1 L IV NS, 5 mg Zyprexa due to acute agitation, 1 g IV ceftriaxone, 6 mg dexamethasone hospital course: Patient was admitted for acute metabolic encephalopathy and acute hypoxic respiratory failure secondary to COVID-19 as well as aspiration pneumonia. She was treated with IV Decadron and completed a course of IV remdesivir. She was given IV Unasyn. Cultures were negative. She was weaned off oxygen by time of discharge. She was seen by [employer] recommended ground solids and nectar thick liquids. Her mental status returned to baseline. She had acute hypokalemia which was replaced. There was concern for seizure activity. She was restarted on Keppra 250 mg b.i.d.. For acute hypernatremia she received hypotonic fluids and hypernatremia resolved. Also noted to have NSTEMI with elevated troponins, seen by Cardiology felt this was unlikely to be ischemic, possibly hypoxia induced versus viral myocarditis and COVID. For coronary disease she was restarted on aspirin and statin. For skin lesion left upper extremity which was suspicious for malignancy she should follow up with Dermatology as outpatient. Time Attestation Discharge coordination time: Greater than 30 minutes Quality: Safe Use of Opioids Does Pt have an Active Cancer Diagnosis on the Problem List?: No Quality: Stroke Does the patient have a stroke diagnosis?: No Physical Exam Vital Signs: Vital Signs: Last Vital Signs Temp 98.2 F 10/19/23 07:52 Pulse 63 10/19/23 07:52 Resp 17 10/19/23 07:52 BP 165/70 H 10/19/23 07:52 Pulse Ox 100 10/19/23 07:52 O2 Del Method Nasal Cannula 10/19/23 07:52 O2 Flow Rate 1 10/19/23 07:52 FiO2 100 10/14/23 13:15 BMI result Body Mass Index 21.3 more alert, confused DS: Data Data Completed and Pending Completed studies during hospitalization [Text1]: Procedures Excision of Ascending Colon, Via Natural or Artificial Opening Endoscopic, Diagnostic (01/15/21) Excision of Cecum, Via Natural or Artificial Opening Endoscopic, Diagnostic (01/15/21) Excision of Descending Colon, Via Natural or Artificial Opening Endoscopic, Diagnostic (01/15/21) Excision of Ileum, Via Natural or Artificial Opening Endoscopic, Diagnostic (01/15/21) Excision of Sigmoid Colon, Via Natural or Artificial Opening Endoscopic, Diagnostic (01/15/21) Excision of Transverse Colon, Via Natural or Artificial Opening Endoscopic, Diagnostic (01/15/21) Discharge Plan Discharge Anticipated Discharge Date/Time: 10/19/23 09:36 Patient Disposition: Home Health Service Discharge Diagnosis: covid, aspiration, nstemi type 2 Referrals: Suzan Hankins MD [Primary Care Provider] - 1 Week Discharge Medications: New atorvastatin 40 mg Tablet 40 mg PO DAILY Qty: 90 0RF levetiracetam [Keppra] 250 mg tablet 250 mg PO BID Qty: 180 0RF aspirin 81 mg capsule 81 mg PO DAILY Qty: 90 0RF prednisone 20 mg tablet 40 mg PO DAILY Qty: 10 0RF metoprolol succinate 25 mg tablet extended release 24 hr 12.5 mg PO DAILY Qty: 90 0RF Discharge Orders: Discharge Order (Routine); Ordered 10/19/23 Ordered By: José Miguel Garcia Diet: ND2D2, nectar thick liq. Activity on Discharge: As tolerated Stand Alone Forms: Patient Portal Discharge page Care Plan Goals: recovery Health Concerns: covid, aspiratoin, seizures, nstemi, Plan of Treatment: meds as prescribed, ground solids, nectar thick liquid diet Assessment: see above
[2023-10-19] MEDS: levETIRAcetam 250 MG in 0.9 % Sodium Chloride 100 ML 410 MG IV (09:46)
[2023-10-19] MEDS: Atorvastatin Calcium 40 MG TABLET PO (09:46)
[2023-10-19] MEDS: dexAMETHasone sod phosphate 4 MG/ML VIAL 6 MG IVPUSH (09:46)
[2023-10-19] MEDS: Famotidine/PF 20 MG/2 ML VIAL 10 MG IVPUSH (09:46)
[2023-10-19] MEDS: 0.9 % Sodium Chloride Flush 3 ML SYRINGE IVFLUSH (09:47)
--- NOTE | 2023-10-19 10:01 | MHC.CM.PN ---
Second IMM 10/19/23, Pt has been medically cleared for DC, her hushand is bedside and will bring her home, they will resume services from [facility] and [facility] from [facility].
[2023-10-23 06:09] LABS: Legionella Ag Urine Not Detected (Not Detected)
== END 2023-10-19 13:26 | disposition home health service (06) | DRG 177 ==
LOC: HO.ED 15:21 → HO.EDOVER 20:09 → HO.IMC 20:20
PROVIDERS: Student in an Organized Health Care Education/Training Program; Admitting Provider Physician Assistant; Emergency Provider Emergency Medicine; PCP Internal Medicine; Visit Provider Internal Medicine
DX: U07.1 COVID-19 (principal); G93.41 Metabolic encephalopathy; J96.01 Acute respiratory failure with hypoxia; J69.0 Pneumonitis due to inhalation of food and vomit; E87.21 Acute metabolic acidosis; K51.90 Ulcerative colitis, unspecified, without complications; L97.829 Non-pressure chronic ulcer of other part of left lower leg with unspecified severity; B33.22 Viral myocarditis; E87.6 Hypokalemia; B37.2 Candidiasis of skin and nail; C44.609 Unspecified malignant neoplasm of skin of left upper limb, including shoulder; I25.10 Atherosclerotic heart disease of native coronary artery without angina pectoris; F03.90 Unspecified dementia, unspecified severity, without behavioral disturbance, psychotic disturbance, mood disturbance, and anxiety; D64.9 Anemia, unspecified
CPT/HCPCS: 36415; 70450; 71045; 71275; 80048; 80076; 81001; 82947; 83036; 83605; 83615; 83690; 83735; 84132; 84484; 85025; 85027; 85730; 86140; 87040; 87449; 87502; 87635; 92526; 92610; 93005; 94799; 95816; 99285; J0153; J0248; J0295; J0696; J1100; J1650; J1940; J1953; J2270; J2359; J3480; Q9967

== ENCOUNTER → 2023-10-13 11:40 | Outpatient (BNV) | payer MEDICARE, SELFPAY | PROVIDERS: Admitting Provider Physician Assistant; Emergency Provider Emergency Medicine; Visit Provider Internal Medicine Cardiovascular Disease | DX: R00.0 Tachycardia, unspecified (principal) | CPT/HCPCS: 93010 ==

== ENCOUNTER 2023-10-13 19:53 | Outpatient (BNV) | payer MEDICARE, SELFPAY | END 2023-10-14 10:48 | PROVIDERS: Admitting Provider Physician Assistant; Emergency Provider Emergency Medicine; PCP Internal Medicine; Visit Provider Internal Medicine Cardiovascular Disease | DX: R00.0 Tachycardia, unspecified (principal); I45.81 Long QT syndrome | CPT/HCPCS: 93010 ==

== ENCOUNTER → 2023-10-13 19:53 | Outpatient (BNV) | payer MEDICARE, SELFPAY | PROVIDERS: Admitting Provider Physician Assistant; Emergency Provider Emergency Medicine; Visit Provider Physician Assistant | DX: R79.89 Other specified abnormal findings of blood chemistry (principal); J18.9 Pneumonia, unspecified organism; R56.9 Unspecified convulsions; E87.20 Acidosis, unspecified; G93.41 Metabolic encephalopathy; U07.1 COVID-19; J96.01 Acute respiratory failure with hypoxia | CPT/HCPCS: 99223; 99232; 99233; 99238 ==

== ENCOUNTER → 2023-10-13 19:53 | Outpatient (BNV) | payer MEDICARE, SELFPAY | PROVIDERS: Admitting Provider Physician Assistant; Emergency Provider Emergency Medicine; Visit Provider Psychiatry & Neurology Neurology | DX: R56.9 Unspecified convulsions (principal); U07.1 COVID-19; J96.01 Acute respiratory failure with hypoxia; F03.90 Unspecified dementia, unspecified severity, without behavioral disturbance, psychotic disturbance, mood disturbance, and anxiety | CPT/HCPCS: 99222 ==

== ENCOUNTER → 2023-10-13 19:53 | Outpatient (BNV) | payer MEDICARE, SELFPAY | PROVIDERS: Admitting Provider Physician Assistant; Emergency Provider Emergency Medicine; Visit Provider Internal Medicine Cardiovascular Disease | DX: R79.89 Other specified abnormal findings of blood chemistry (principal); J18.9 Pneumonia, unspecified organism; R56.9 Unspecified convulsions; U07.1 COVID-19 | CPT/HCPCS: 99223 ==